=== PATIENT | male | born 1965 | race Caucasian/White ===

== ENCOUNTER → 2016-12-13 | Outpatient (CLI) | payer BC ==
[2016-12-13 15:18] LABS: CH 30.1; CHCM 33.4; HDW 2.63; HGB 14.7 gm/dL (13.0-17.5); MCH 28.9 pg (25.0-35.0); MCHC 31.9 g/dL (31.0-37.0); MCV 90.6 fL (80.0-100.0); Mean Platelet Volume 8.9; RBC 5.08 m/uL (4.30-5.90); WBC 7.2 k/uL (3.8-10.6)
== END | disposition home or self-care (01) ==
LOC: LABWHC1 14:47
PROVIDERS: ATTEND Internal Medicine Endocrinology, Diabetes & Metabolism
DX: E29.1 Testicular hypofunction (principal)
CPT/HCPCS: 85027; 84403; 36415; G0103

== ENCOUNTER → 2017-05-11 | Outpatient (CLI) | payer BC ==
[2017-05-11 12:30] LABS: CH 30.2; CHCM 34.3; HCT 43.6 % (39.0-53.0); HDW 2.63; MCH 30.4 pg (25.0-35.0); MCHC 34.3 g/dL (31.0-37.0); MCV 88.7 fL (80.0-100.0); Mean Platelet Volume 8.5; RBC 4.92 m/uL (4.30-5.90); RDW 13.5 % (11.5-15.5); WBC 4.9 k/uL (3.8-10.6)
[2017-05-11 13:10] LABS: Prostate Specific Antigen 0.61 ng/mL (0.00-4.00)
== END | disposition home or self-care (01) ==
LOC: LABWHC1 12:13
PROVIDERS: ATTEND Internal Medicine Endocrinology, Diabetes & Metabolism
DX: E29.1 Testicular hypofunction (principal)
CPT/HCPCS: 36415; 84153; 84403; 85027

== ENCOUNTER → 2018-02-26 | Outpatient (CLI) | payer BC ==
[2018-02-26 13:08] LABS: HCT 45.4 % (39.0-53.0); HGB 15.5 gm/dL (13.0-17.5); MCH 30.8 pg (25.0-35.0); MCHC 34.1 g/dL (31.0-37.0); MCV 90.2 fL (80.0-100.0); Mean Platelet Volume 7.8; Platelet Count 245 k/uL (150-450); RBC 5.04 m/uL (4.30-5.90); RDW 13.1 % (11.5-15.5); WBC 6.9 k/uL (3.8-10.6)
== END | disposition home or self-care (01) ==
LOC: LABWHC1 12:53
PROVIDERS: ATTEND Internal Medicine Endocrinology, Diabetes & Metabolism
DX: E29.1 Testicular hypofunction (principal)
CPT/HCPCS: 36415; 84153; 84403; 85027

== ENCOUNTER → 2018-05-31 | Outpatient (CLI) | payer BC ==
[2018-05-31 09:23] LABS: HCT 40.2 % (39.0-53.0); HGB 13.4 gm/dL (13.0-17.5); MCH 30.6 pg (25.0-35.0); MCHC 33.3 g/dL (31.0-37.0); MCV 92.1 fL (80.0-100.0); Mean Platelet Volume 7.7; Platelet Count 194 k/uL (150-450); RBC 4.37 m/uL (4.30-5.90); RDW 14.4 % (11.5-15.5)
== END | disposition home or self-care (01) ==
LOC: LABWHC1 07:50
PROVIDERS: ATTEND Internal Medicine Endocrinology, Diabetes & Metabolism
DX: E29.1 Testicular hypofunction (principal)
CPT/HCPCS: 36415; 84153; 84403; 85027

== ENCOUNTER → 2018-10-23 | Outpatient (CLI) | payer BC ==
[2018-10-23 13:08] LABS: HGB 15.3 gm/dL (13.0-17.5); MCH 29.5 pg (25.0-35.0); MCHC 31.8 g/dL (31.0-37.0); MCV 92.7 fL (80.0-100.0); Mean Platelet Volume 7.6; Platelet Count 245 k/uL (150-450); RBC 5.17 m/uL (4.30-5.90); RDW 13.4 % (11.5-15.5); WBC 8.1 k/uL (3.8-10.6)
== END | disposition home or self-care (01) ==
LOC: LABWHC1 12:09
PROVIDERS: ATTEND Internal Medicine Endocrinology, Diabetes & Metabolism
DX: E29.1 Testicular hypofunction (principal)
CPT/HCPCS: 36415; 84403; 85027

== ENCOUNTER → 2019-02-07 | Outpatient (CLI) | payer BC ==
[2019-02-07 12:07] LABS: HCT 53.2 % (39.0-53.0); HGB 16.9 gm/dL (13.0-17.5); MCH 27.6 pg (25.0-35.0); MCHC 31.7 g/dL (31.0-37.0); Mean Platelet Volume 7.9; Platelet Count 267 k/uL (150-450); RBC 6.11 m/uL (4.30-5.90); RDW 14.5 % (11.5-15.5)
== END | disposition home or self-care (01) ==
LOC: LABWHC1 10:55
PROVIDERS: ATTEND Internal Medicine Endocrinology, Diabetes & Metabolism
DX: E29.1 Testicular hypofunction (principal)
CPT/HCPCS: 36415; 84403; 85027

== ENCOUNTER → 2021-05-18 | Outpatient (CLI) | payer BC ==
[2021-05-18 23:00] LABS: Basophils # (A) 0.08 X 10*3/uL (0.00-0.10); Basophils % (A) 1.2 %; Eosinophils # (A) 0.25 X 10*3/uL (0.04-0.35); Eosinophils % (A) 3.7 %; HCT 39.6 % (39.6-50.0); HGB 13.3 g/dL (13.0-17.0); Lymphocytes # (A) 2.72 X 10*3/uL (0.90-5.00); Lymphocytes % (A) 40.1 %; MCH 30.6 pg (27.0-32.0); MCHC 33.6 g/dL (32.0-37.0); Mean Platelet Volume 11.6 fL (9.5-12.2); Monocytes # (A) 0.53 X 10*3/uL (0.20-1.00); Monocytes % (A) 7.8 %; Neutrophils # (A) 3.19 X 10*3/uL (1.80-7.70); Neutrophils % (A) 47.1 %; Platelet Count 193 X 10*3/uL (140-440); RBC 4.35 X 10*6/uL (4.40-5.60); RDW 13.7 % (11.5-14.5); WBC 6.78 X 10*3/uL (4.50-10.00)
[2021-05-19 06:43] LABS: African American GFR (CKD) 77.9 (60.0-200.0); Albumin 4.2 g/dL (3.80-4.90); Albumin/Globulin Ratio 1.62 (1.60-3.17); Anion Gap 9.7 mmol/L (4.00-12.00); BUN/Creat Ratio 13.33 Ratio (12.00-20.00); Calcium 8.6 mg/dL (8.7-10.3); Carbon Dioxide 21.3 mmol/L (21.6-31.8); Chol/HDL Ratio 2.84; Globulin 2.6 g/dL (1.6-3.3); LDL Cholesterol,Calculated 86.4 mg/dL (0.0-131.0); Non-African American GFR(CKD) 67.2 (60.0-200.0); Total Bilirubin 0.5 mg/dL (0.2-1.2); Total Protein 6.8 g/dL (6.2-8.2); VLDL Calculation 18.6 mg/dL (5.00-40.00)
[2021-05-19 07:19] LABS: Prostate Specific Antigen 0.2 ng/mL (0.0-3.5)
== END | disposition home or self-care (01) ==
LOC: LABWHC1 15:04
PROVIDERS: ATTEND Family Medicine
DX: Z00.00 Encounter for general adult medical examination without abnormal findings (principal); Z12.5 Encounter for screening for malignant neoplasm of prostate; E29.1 Testicular hypofunction; E55.9 Vitamin D deficiency, unspecified
CPT/HCPCS: 36415; 80053; 80061; 82306; 84153; 84443; 85025

== ENCOUNTER → 2021-08-03 | Outpatient (CLI) | payer BC | END | disposition home or self-care (01) | LOC: LABWHC1 13:21 | PROVIDERS: ATTEND Family Medicine | DX: E03.9 Hypothyroidism, unspecified (principal) | CPT/HCPCS: 36415; 84443 ==

== ENCOUNTER 2021-10-19 23:05 | Emergency (ER) | payer BC ==
[2021-10-20] MEDS ORDERED: SODIUM CHLORIDE 0.9% 1,000 ML BAG ONE (00:50)
[2021-10-20] MEDS ORDERED: SODIUM CHLORIDE 0.9% 50 ML IVPB ONE (01:00)
[2021-10-20] MEDS ORDERED: CASIRIVIMAB (REGN10933) (EUA) 600 MG, IMDEVIMAB (REGN10987) (EUA) 600 MG in SODIUM CHLO... IVPB ONE (01:00)
--- NOTE | 2021-10-20 06:03 | XR ---
EXAM: XR Chest, 2 Views CLINICAL HISTORY: Cough TECHNIQUE: Frontal and lateral views of the chest. COMPARISON: No relevant prior studies available. FINDINGS: Lungs: Low lung volumes. Patchy airspace disease bilaterally, especially in the peripheral mid to lower lungs bilaterally. Pleural space: Unremarkable. No pneumothorax. Heart: Unremarkable. No cardiomegaly. Mediastinum: Unremarkable. Bones/joints: Unremarkable. IMPRESSION: Low lung volumes. Patchy airspace disease bilaterally, especially in the peripheral mid to lower lungs bilaterally. Likely represents infectious/inflammatory process, including Covid 19. Consider follow-up.
== END 2021-10-20 04:09 | disposition home or self-care (01) ==
LOC: EC 23:05
DX: U07.1 COVID-19 (principal)
CPT/HCPCS: 71046; 87635; 99284

== ENCOUNTER 2021-10-20 23:27 | Inpatient (IN) | payer BC ==
[2021-10-20] MEDS ORDERED: DEXAMETHASONE SOD PHOSPHATE 10 MG/ML 1 ML VIAL IVP STA (23:28)
--- NOTE | 2021-10-20 23:45 | ED ---
General Adult HPI - General Chief complaint: Shortness of Breath Stated complaint: Covid+,SOB Time Seen by Provider: 10/20/21 23:27 Source: patient, EMS, RN notes reviewed Mode of arrival: EMS Limitations: no limitations - History of Present Illness Initial comments: 56-year-old male presents emergency Department with chief complaint of shortness of breath. Patient seen here last night for covid 19. Patient did receive monoclonal antibodies seemed to worsen today. Patient found to be hypoxic. Patient states that he feels that it he feels that he needs oxygen. Patient was given O2 by EMS which improved his pulse ox.. Patient continued to have fever chills cough congestion. - Related Data Home Medications Medication Instructions Recorded Confirmed Cholecalciferol [Vitamin D3] 1,000 unit PO DAILY 10/23/15 10/27/15 DULoxetine HCL [Cymbalta] 20 mg PO QAM 10/23/15 10/27/15 Gabapentin [Neurontin] 100 mg PO TID 10/23/15 10/27/15 Previous Rx's Medication Instructions Recorded Docusate [Colace] 100 mg PO BID #60 capsule 10/28/15 Hydrocodone/Acetaminophen [Gilman 1 - 2 each PO Q6HR PRN #90 tab 10/28/15 5-325] Warfarin [Coumadin] 2.5 mg PO DAILY #27 tab 10/28/15 Allergies Allergy/AdvReac Type Severity Reaction Status Date / Time No Known Allergies Allergy Verified 10/20/21 23:31 Review of Systems ROS Statement: Those systems with pertinent positive or pertinent negative responses have been documented in the HPI. ROS Other: All systems not noted in ROS Statement are negative. Past Medical History Past Medical History: Fibromyalgia Additional Past Medical History / Comment(s): insomnia History of Any Multi-Drug Resistant Organisms: None Reported Past Surgical History: Orthopedic Surgery Additional Past Surgical History / Comment(s): LEFT ACL REPAIR. Past Anesthesia/Blood Transfusion Reactions: No Reported Reaction Past Psychological History: Depression Smoking Status: Never smoker Past Alcohol Use History: None Reported Past Drug Use History: None Reported - Past Family History Father Family Medical History: Coronary Artery Disease (CAD), Hypertension General Exam Limitations: no limitations General appearance: alert, in no apparent distress Head exam: Present: atraumatic, normocephalic, normal inspection Eye exam: Present: normal appearance, PERRL, EOMI. Absent: scleral icterus, conjunctival injection, periorbital swelling ENT exam: Present: normal exam, mucous membranes moist Neck exam: Present: normal inspection. Absent: tenderness, meningismus, lymphadenopathy Respiratory exam: Present: respiratory distress, decreased breath sounds. Absent: normal lung sounds bilaterally, wheezes, rales, rhonchi, stridor Cardiovascular Exam: Present: regular rate, normal rhythm, normal heart sounds. Absent: systolic murmur, diastolic murmur, rubs, gallop, clicks Course Vital Signs 10/20/21 10/20/21 23:31 23:35 Temperature 97.6 F Pulse Rate 80 Respiratory 18 Rate Blood Pressure 133/82 O2 Sat by Pulse 78 L 85 L Oximetry Medical Decision Making - Medical Decision Making Patiently admitted for COVID-19 hypoxia - Lab Data Result diagrams: 10/20/21 23:57 Lab Results 10/20/21 Range/Units 23:57 WBC 6.6 (3.8-10.6) k/uL RBC 4.45 (4.30-5.90) m/uL Hgb 13.9 (13.0-17.5) gm/dL Hct 41.8 (39.0-53.0) % MCV 93.9 (80.0-100.0) fL MCH 31.2 (25.0-35.0) pg MCHC 33.2 (31.0-37.0) g/dL RDW 13.9 (11.5-15.5) % Plt Count 230 (150-450) k/uL MPV 8.3 Neutrophils % 92 % Lymphocytes % 5 % Monocytes % 2 % Eosinophils % 0 % Basophils % 0 % Neutrophils # 6.1 (1.3-7.7) k/uL Lymphocytes # 0.3 L (1.0-4.8) k/uL Monocytes # 0.1 (0-1.0) k/uL Eosinophils # 0.0 (0-0.7) k/uL Basophils # 0.0 (0-0.2) k/uL Disposition Clinical Impression: COVID-19, Hypoxia, Pneumonia due to COVID-19 virus Disposition: ADMITTED IP TO THIS [facility] Condition: Serious Referrals: Nacho Montoya MD [Primary Care Provider] - 1-2 days Time of Disposition: 23:45
[2021-10-20] MEDS ORDERED: NALOXONE 0.4 MG/ML 1 ML VIAL IV PRN (23:46)
[2021-10-20] MEDS ORDERED: ONDANSETRON 4 MG/2 ML VIAL IVP PRN (23:46)
[2021-10-20] MEDS ORDERED: ACETAMINOPHEN TAB 325 MG TAB PO PRN (23:46)
[2021-10-21 00:14] LABS: Basophils % (A) 0 %; Eosinophils % (A) 0 %; HCT 41.8 % (39.0-53.0); HGB 13.9 gm/dL (13.0-17.5); Lymphocytes # (A) 0.3 k/uL (1.0-4.8); Lymphocytes % (A) 5 %; MCH 31.2 pg (25.0-35.0); MCHC 33.2 g/dL (31.0-37.0); MCV 93.9 fL (80.0-100.0); Mean Platelet Volume 8.3; Monocytes # (A) 0.1 k/uL (0-1.0); Monocytes % (A) 2 %; Neutrophils # (A) 6.1 k/uL (1.3-7.7); Neutrophils % (A) 92 %; Platelet Count 230 k/uL (150-450); RBC 4.45 m/uL (4.30-5.90); RDW 13.9 % (11.5-15.5); WBC 6.6 k/uL (3.8-10.6)
--- NOTE | 2021-10-21 00:20 | XR ---
EXAMINATION TYPE: XR chest 1V portable DATE OF EXAM: 10/20/2021 COMPARISON: 10/20/2021 HISTORY: Short of breath TECHNIQUE: FINDINGS: There is patchy bilateral pulmonary interstitial and airspace infiltrates. Heart size is no rmal. There is no definite pleural effusion. Mediastinum is normal IMPRESSION: Bilateral patchy pneumonia with a changing pattern compared to exam earlier today.
[2021-10-21 01:26] LABS: Albumin 3.3 g/dL (3.5-5.0); Calcium 8.7 mg/dL (8.4-10.2); Potassium 4.1 mmol/L (3.5-5.1); Total Bilirubin 0.4 mg/dL (0.2-1.3); Total Protein 6.6 g/dL (6.3-8.2)
[2021-10-21] MEDS ORDERED: DEXAMETHASONE SOD PHOSPHATE 10 MG/ML 1 ML VIAL IVP SCH (09:00)
[2021-10-21] MEDS ORDERED: ENOXAPARIN 40 MG/0.4 ML SYRINGE SQ SCH (11:30)
--- NOTE | 2021-10-21 11:38 | P.CNPUL ---
History of Present Illness Consult date: 10/21/21 Requesting physician: Tristian Ramos Reason for consult: dyspnea, hypoxemia, abnormal CXR/CT Chief complaint: Shortness of breath, cough, congestion History of present illness: This is a very pleasant 56-year-old male patient with a known history of fibromyalgia. Nonsmoker. Approximate 1 week ago he developed symptoms of nausea vomiting diarrhea dizziness and sweating. He presented here on 10/19/2021 and has a positive for COVID-19 and received monoclonal antibodies. He came back to the emergency room last evening with worsening symptoms. Chest x-ray reveals bilateral patchy interstitial and airspace infiltrates. He is currently requiring 10 L high flow nasal cannula to maintain O2 saturations in the high 80s low 90s. White count 6.6. Hemoglobin 13.9. Lymphocytes 0.3. Sodium 135. Potassium 4.1. Bicarb 21. Creatinine 1.31. Glucose 187. Ferritin 2822. AST 89. ALT 80. LDH 1091. C-reactive protein 21.0. Initiated on Decadron. Review of Systems REVIEW OF SYSTEMS: CONSTITUTIONAL: Denies any recent significant weight loss or weight gain. EYES: Denies change in vision. EARS, NOSE, MOUTH, THROAT: Denies headaches, denies sore throat. CARDIOVASCULAR: Denies chest pain, palpitations or syncopal episodes. RESPIRATORY: Positive for shortness of breath, cough, congestion no hemoptysis. GASTROINTESTINAL: Denies change in appetite, denies abdominal pain GENITOURINARY: Denies hematuria, denies infections. MUSKULOSKELETAL: Denies pain, denies swelling. INTEGUMENTARY: Denies rash, denies eczema. NEUROLOGICAL: Denies recent memory loss, no recent seizure activity. PSYCHIATRIC: Denies anxiety, denies depression. HEMATOLOGIC/LYMPHATIC: Denies anemia, denies enlarged lymph nodes. Past Medical History Past Medical History: Fibromyalgia Additional Past Medical History / Comment(s): insomnia History of Any Multi-Drug Resistant Organisms: None Reported Past Surgical History: Orthopedic Surgery Additional Past Surgical History / Comment(s): LEFT ACL REPAIR. Past Anesthesia/Blood Transfusion Reactions: No Reported Reaction Past Psychological History: Depression Smoking Status: Never smoker Past Alcohol Use History: None Reported Past Drug Use History: None Reported - Past Family History Father Family Medical History: Coronary Artery Disease (CAD), Hypertension Medications and Allergies Home Medications Medication Instructions Recorded Confirmed Type Citalopram Hydrobromide 40 mg PO DAILY 10/21/21 10/21/21 History Eszopiclone 3 mg PO HS PRN 10/21/21 10/21/21 History Gabapentin 800 mg PO TID 10/21/21 10/21/21 History Levothyroxine Sodium [Synthroid] 50 mcg PO DAILY 10/21/21 10/21/21 History traMADol HCl [Ultram] 100 mg PO Q6HR PRN 10/21/21 10/21/21 History Allergies Allergy/AdvReac Type Severity Reaction Status Date / Time No Known Allergies Allergy Verified 10/21/21 07:18 Physical Exam Vitals: Vital Signs Temp Pulse Pulse Resp BP BP Pulse Ox 10/21/21 10:08 74 124/70 87 L 10/21/21 08:40 90 L 10/21/21 03:50 97.3 F L 80 16 118/74 90 L 10/21/21 02:02 85 L 10/21/21 01:03 84 L 10/20/21 23:35 85 L 10/20/21 23:31 97.6 F 80 18 133/82 78 L Intake and Output 10/20/21 10/21/21 10/21/21 22:59 06:59 14:59 Other: Voiding Method Urinal Weight 111.13 kg GENERAL EXAM: Alert, pleasant 56-year-old male patient, on 8 L high flow nasal cannula, in mild respiratory distress. HEAD: Normocephalic. EYES: Normal reaction of pupils, equal size. NOSE: Clear with pink turbinates. THROAT: No erythema or exudates. NECK: No masses, no JVD. CHEST: No chest wall deformity. LUNGS: Equal air entry with crackles in the bilateral bases. CVS: S1 and S2 normal with no audible murmur, regular rhythm. ABDOMEN: No hepatosplenomegaly, normal bowel sounds, no guarding or rigidity. SPINE: No scoliosis or deformity SKIN: No rashes CENTRAL NERVOUS SYSTEM: No focal deficits, tone is normal in all 4 extremities. EXTREMITIES: There is no peripheral edema. No clubbing, no cyanosis. Peripheral pulses are intact. Results - Laboratory Findings CBC and BMP: 10/20/21 23:57 10/20/21 23:57 Abnormal lab findings: Abnormal Labs 10/20/21 10/20/21 23:57 23:57 Lymphocytes # 0.3 L Sodium 135 L Carbon Dioxide 21 L Creatinine 1.31 H Glucose 187 H Ferritin 2822.0 H AST 89 H ALT 80 H Alkaline Phosphatase 225 H Lactate Dehydrogenase 1091 H C-Reactive Protein 21.0 H Albumin 3.3 L - Diagnostic Findings Chest x-ray: image reviewed Assessment and Plan Assessment: 1 Acute hypoxemic respiratory failure secondary to acute COVID-19 pneumonia. Not vaccinated. Received monoclonal antibodies on 10/19/2021. On 10 L high flow nasal cannula. Does not qualify for Remdesivir. Not qualifying for Baricitinib yet. 2 Elevated inflammatory markers secondary to above 3 Mild transaminitis secondary to above 4 History of fibromyalgia 5 Hypothyroidism Plan: The patient was seen and evaluated Chest x-ray and labs reviewed Continue Decadron 6 mg daily Add Lovenox 40 mg daily, vitamin supplements Obtain a pro-calcitonin, d-dimer Add bronchodilators Add incentive spirometer Follow-up chest x-ray, inflammatory markers in the a.m. We will continue to follow and make further recommendations based on his clinical status I, the cosigning physician, performed a history & physical examination of the patient. Lungs sounds echoes in the bilateral bases. Maintaining good O2 saturations in the 90s on 2 L high flow nasal cannula. I discussed the assessment and plan of care with my nurse practitioner, Maureen Keith. I attest to the above consultation as dictated by her. Time with Patient: Greater than 30
[2021-10-21] MEDS: ALBUTEROL HFA INHALER INHALATION SCH ×2 (11:53→20:51)
[2021-10-21] MEDS ORDERED: INSULIN ASPART (NovoLOG) 100 UNIT/ML VIAL SQ SCH (12:30)
[2021-10-21] MEDS: ASCORBIC ACID 500 MG TAB PO SCH (12:54)
[2021-10-21] MEDS: ZINC SULFATE 220 MG CAP PO SCH (12:54)
[2021-10-21] MEDS: CHOLECALCIFEROL 25 MCG (1000 IU) TABLET PO SCH (12:54)
[2021-10-21] MEDS ORDERED: ACETAMINOPHEN TAB 325 MG TAB PO PRN (14:12)
[2021-10-21] MEDS ORDERED: ONDANSETRON 4 MG/2 ML VIAL IVP PRN (14:12)
--- NOTE | 2021-10-21 14:13 | P.HPIM ---
History of Present Illness H&P Date: 10/21/21 History of present illness 56-year-old male with past medical history of fibromyalgia comes in to emergency room with symptoms of nausea, vomiting, dizziness and sweating feeling weak in with runny nose loss of taste and hence now for the past 1 week. He presented on 10/19 was found to have positive COVID results. Received his monoclonal antibodies. He Came back to the emergency room because of worsening of symptoms.Vitals reviewed patient afebrile pulse 80 respiratory rate 20 blood pressure 138/82 saturating at 88% on 10 L labs reviewed WBC 6.6 hemoglobin 13.9 d-dimer is elevated at 0.89, sodium 135 bicarb 21 BUN 16 creatinine 1.3 glucose 187 ferritin 2822 AST 89 ALT 80 alkaline phosphatase 225 LDH 1091 and CRP 21 and albumin 3.3 X-ray suggestive of bilateral patchy pneumonia. Both interstitial and airspace infiltrate Pulmonary clinic consulted for COVID pneumonia Patient placed on Lovenox 40 subcu twice a day, vitamin C, D and zinc. Dexamethasone initiated at 6 mg twice a day IV Patient is a candidate of Baritinib and will discuss about initiating it with pulmonary Venous Doppler ordered ROS Constitutional: Endorses chills, fever, malaise, nausea and vomiting Eyes: denies decreased vision, denies diplopia, denies discharge, denies pain Ears: deny: decreased hearing Ears, nose, mouth and throat: Denies dental pain, Denies headache, Denies nasal discharge, Denies nose pain Cardiovascular: Denies chest pain, Denies decreased exercise tolerance, Denies edema, Denies high blood pressure, Denies irregular heart beat, Denies palpitations, Denies paroxysmal nocturnal dyspnea, Denies rapid heart beat, Denies shortness of breath Respiratory: Denies congestion, Denies cough, Denies cough with sputum, Denies dyspnea, Denies home oxygen, Denies wheezing Gastrointestinal: Denies abdominal pain, Denies change in bowel habits, Denies coffee ground emesis, Denies early satiety, Denies excessive gas, Denies heartburn, Denies hematemesis, Denies hematochezia, Denies loss of appetite, endorses nausea and vomiting Genitourinary: Denies dysuria, Denies flank pain, Denies kidney stones, Denies menorrhagia, Denies urgency, Denies urinary frequency Musculoskeletal: Denies gait dysfunction, Denies limitation of motion, Denies morning stiffness, Denies muscle cramps Integumentary: Denies rash, Denies wounds, Denies brittle nails, Denies change in hair/nails, Denies darkening of skin Neurological: Denies balance difficulties, Denies change in speech, Denies double vision, Denies gait dysfunction, Denies loss of vision, Denies motor disturbance, Denies numbness, Denies paralysis, Denies paresthesias, Denies seizures Psychiatric: Denies anxiety, Denies depression Endocrine: Denies excessive sweating, Denies excessive thirst, Denies high blood sugars, Denies palpitations Hematologic/Lymphatic: Denies easy bruising, Denies lymphadenopathy Social history Nonsmoker, passive smoking through his son Nondrinker No marijuana use Family history Mother due to COPD Father of heart disease Has 5 siblings with no significant medical disease Has 4 children who with one son who lives with himsignificant medical problems Physical exam - Constitutional General appearance: cooperative, no acute distress, obese appears anxious - EENT Eyes: anicteric sclerae, PERRLA, normal appearance ENT: hearing grossly normal - Neck Neck: no lymphadenopathy, normal ROM, no other, no rigidity, no stridor, no thyromegaly - Respiratory Respiratory: bilateral decreased air entry bilaterally - Cardiovascular Rhythm: regular Heart sounds: normal: S1, S2 Abnormal Heart Sounds: no systolic murmur, no diastolic murmur, no rub, no S3 Gallop, no S4 Gallop, no click, no other - Gastrointestinal General gastrointestinal: normal bowel sounds, soft - Integumentary Integumentary: no rash - Neurologic Neurologic: CNII-XII intact - Musculoskeletal Musculoskeletal: gait normal, strength equal bilaterally - Psychiatric Psychiatric: A&O x's 3, appropriate affect Assessment and plan Acute hypoxic respiratory failure Acute COVID pneumonia - Supplement oxygen to keep SpO2 more than 90% - Dexamethasone 6 mg IV twice a day - Lovenox 40 subcu twice a day - Rule out pulmonary embolism and DVT - Venous Doppler ordered as patient's creatinine slightly elevated and is not a candidate for CT - We will discuss with pulmonary if patient would be a candidate for Baricitinib -We will order inflammatory markers for tomorrow -Pulmonary consulted - Albuterol inhaler as needed - Symbicort twice daily - Continue supplements vitamin C, D and zinc Acute transaminitis - Secondary to viral inflammation - Continue CMP monitoring CK D3 - Continue to monitor patient's creatinine - No acute kidney injury History of fibromyalgia - Continue gabapentin 800 3 times a day Citalopram 40 mg by mouth daily Tramadol 100 mg every 6 hours as needed Insomnia -Continue Eszopiclone 3 mg daily at bedtime Hypothyroidism - Levothyroxine 50 g by mouth daily DVT prophylaxis Lovenox 40 subcu twice a day GI prophylaxis 2. Pepcid 20 mg by mouth daily Past Medical History Past Medical History: Fibromyalgia Additional Past Medical History / Comment(s): insomnia History of Any Multi-Drug Resistant Organisms: None Reported Past Surgical History: Orthopedic Surgery Additional Past Surgical History / Comment(s): LEFT ACL REPAIR. Past Anesthesia/Blood Transfusion Reactions: No Reported Reaction Past Psychological History: Depression Smoking Status: Never smoker Past Alcohol Use History: None Reported Past Drug Use History: None Reported - Past Family History Father Family Medical History: Coronary Artery Disease (CAD), Hypertension Medications and Allergies Home Medications Medication Instructions Recorded Confirmed Type Citalopram Hydrobromide 40 mg PO DAILY 10/21/21 10/21/21 History Eszopiclone 3 mg PO HS PRN 10/21/21 10/21/21 History Gabapentin 800 mg PO TID 10/21/21 10/21/21 History Levothyroxine Sodium [Synthroid] 50 mcg PO DAILY 10/21/21 10/21/21 History traMADol HCl [Ultram] 100 mg PO Q6HR PRN 10/21/21 10/21/21 History Allergies Allergy/AdvReac Type Severity Reaction Status Date / Time No Known Allergies Allergy Verified 10/21/21 07:18 Physical Exam Vitals: Vital Signs Temp Pulse Pulse Resp BP BP Pulse Ox 10/21/21 13:16 97.9 F 80 20 138/82 88 L 10/21/21 10:08 74 124/70 87 L 10/21/21 08:40 90 L 10/21/21 03:50 97.3 F L 80 16 118/74 90 L 10/21/21 02:02 85 L 10/21/21 01:03 84 L 10/20/21 23:35 85 L 10/20/21 23:31 97.6 F 80 18 133/82 78 L Intake and Output 10/20/21 10/21/21 10/21/21 22:59 06:59 14:59 Other: Voiding Method Urinal Weight 111.13 kg Results CBC & Chem 7: 10/20/21 23:57 10/20/21 23:57 Labs: Abnormal Lab Results - Last 24 Hours (Table) 10/20/21 10/20/21 10/21/21 Range/Units 23:57 23:57 11:42 Lymphocytes # 0.3 L (1.0-4.8) k/uL D-Dimer 0.89 H (<0.60) mg/L FEU Sodium 135 L (137-145) mmol/L Carbon Dioxide 21 L (22-30) mmol/L Creatinine 1.31 H (0.66-1.25) mg/dL Glucose 187 H (74-99) mg/dL Ferritin 2822.0 H (22.0-322.0) ng/mL AST 89 H (17-59) U/L ALT 80 H (4-49) U/L Alkaline Phosphatase 225 H (38-126) U/L Lactate Dehydrogenase 1091 H (313-618) U/L C-Reactive Protein 21.0 H (<1.0) mg/dL Albumin 3.3 L (3.5-5.0) g/dL
--- NOTE | 2021-10-21 16:18 | US ---
EXAMINATION TYPE: US venous doppler duplex LE BI DATE OF EXAM: 10/21/2021 12:27 PM COMPARISON: NONE CLINICAL HISTORY: DVT, hypoxia. SIDE PERFORMED: Bilateral TECHNIQUE: The lower extremity deep venous system is examined utilizing real time linear array sonog sharon with graded compression, doppler sonography and color-flow sonography. VESSELS IMAGED: Common Femoral Vein Deep Femoral Vein Greater Saphenous Vein * Femoral Vein Popliteal Vein Small Saphenous Vein * Proximal Calf Veins (* superficial vessels) There is normal flow, compressibility, vascular waveforms. Right Leg: Negative for DVT Left Leg: Negative for DVT IMPRESSION: No evident deep venous thrombosis within the lower extremities from the level of the knee centrally
[2021-10-21] MEDS: traMADol 50 MG TAB PO PRN ×2 (16:46→21:10)
[2021-10-21] MEDS: GABAPENTIN 400 MG CAP PO SCH ×2 (16:46→21:08)
[2021-10-21 17:25] LABS: Glucose,Whole Blood 141 mg/dL (75-99)
[2021-10-21] MEDS: INSULIN ASPART (NovoLOG) 100 UNIT/ML VIAL SQ SCH ×2 (18:19→21:22)
[2021-10-21 21:05] LABS: Glucose,Whole Blood 126 mg/dL (75-99)
[2021-10-21] MEDS: DEXAMETHASONE SOD PHOSPHATE 10 MG/ML 1 ML VIAL IVP SCH (21:08)
[2021-10-21] MEDS: guaiFENesin 600 MG TABLET.ER PO SCH (21:08)
[2021-10-21] MEDS: ENOXAPARIN 40 MG/0.4 ML SYRINGE SQ SCH (21:09)
[2021-10-22] MEDS: LEVOTHYROXINE 50 MCG TAB PO SCH (05:56)
[2021-10-22 07:24] LABS: Glucose,Whole Blood 132 mg/dL (75-99)
[2021-10-22] MEDS: INSULIN ASPART (NovoLOG) 100 UNIT/ML VIAL SQ SCH ×4 (08:03→20:11)
[2021-10-22] MEDS: CITALOPRAM HYDROBROMIDE 20 MG TAB PO SCH (08:11)
[2021-10-22] MEDS: GABAPENTIN 400 MG CAP PO SCH ×3 (08:12→21:45)
[2021-10-22] MEDS: FAMOTIDINE 20 MG TAB PO SCH (08:12)
[2021-10-22] MEDS: traMADol 50 MG TAB PO PRN ×3 (08:12→20:11)
[2021-10-22] MEDS: guaiFENesin 600 MG TABLET.ER PO SCH ×2 (08:13→20:09)
[2021-10-22] MEDS: CHOLECALCIFEROL 25 MCG (1000 IU) TABLET PO SCH (08:13)
[2021-10-22] MEDS: ZINC SULFATE 220 MG CAP PO SCH (08:13)
[2021-10-22] MEDS: ENOXAPARIN 40 MG/0.4 ML SYRINGE SQ SCH ×2 (08:13→20:09)
[2021-10-22] MEDS: ASCORBIC ACID 500 MG TAB PO SCH (08:13)
[2021-10-22] MEDS: DEXAMETHASONE SOD PHOSPHATE 10 MG/ML 1 ML VIAL IVP SCH ×2 (08:13→20:09)
[2021-10-22] MEDS: ALBUTEROL HFA INHALER INHALATION SCH ×3 (08:53→22:24)
[2021-10-22 11:42] LABS: Glucose,Whole Blood 153 mg/dL (75-99)
[2021-10-22] MEDS ORDERED: VANCOMYCIN IV PER PHARMACY 1 EACH MISC MISCELLANE PRN (12:37)
[2021-10-22] MEDS ORDERED: PIPERACILLIN-TAZOBACTAM 3.375 GM in SODIUM CHLORIDE 0.9% 100 ML IVPB STA (12:43)
[2021-10-22] MEDS ORDERED: VANCOMYCIN 1,750 MG in SODIUM CHLORIDE 0.9% 500 ML 500 ML IVPB ONE (13:15)
--- NOTE | 2021-10-22 13:47 | P.PN ---
Subjective Progress Note Date: 10/22/21 Principal diagnosis: Dyspnea, hypoxia, COVID-19 This is a very pleasant 56-year-old male patient with a known history of fibromyalgia. Nonsmoker. Approximate 1 week ago he developed symptoms of nausea vomiting diarrhea dizziness and sweating. He presented here on 10/19/2021 and has a positive for COVID-19 and received monoclonal antibodies. He came back to the emergency room last evening with worsening symptoms. Chest x-ray reveals bilateral patchy interstitial and airspace infiltrates. He is currently requiring 10 L high flow nasal cannula to maintain O2 saturations in the high 80s low 90s. White count 6.6. Hemoglobin 13.9. Lymphocytes 0.3. Sodium 135. Potassium 4.1. Bicarb 21. Creatinine 1.31. Glucose 187. Ferritin 2822. AST 89. ALT 80. LDH 1091. C-reactive protein 21.0. Initiated on Decadron. On 10/22/2021 patient seen in follow-up on medical surgical floor, he is awake and alert, in no acute distress, overnight he wore 15 L high flow and n onrebreather mask, he is currently off the nonrebreather mask and not he is on 15 L high flow nasal cannula and he is maintaining O2 saturations at 93%, afebrile, hemodynamically stable. However his oxygen requirements have significantly increased in last 24 hours. His pro calcitonin level was sig nificantly elevated at 9.75, and patient is not a candidate for Baricitinib in view of possibility of underlying bacterial infection. Patient states she is coughing and bringing up some greenish colored phlegm at times, he is being started on Zosyn and vancomycin empirically, we will order blood cultures, sputum culture and urine cultures. Clinically he looks fairly comfortable, no distress, lung sounds are revealing coarse diffuse rhonchi and rales. No altered mentation, no fever. He continues on Lovenox 40 mg twice daily, and Decadron 6 mg twice daily. Objective - Vital Signs Vital signs: Vital Signs Temp 97.3 F L 10/22/21 10:52 Pulse 73 10/22/21 10:52 Resp 16 10/22/21 10:52 BP 127/72 10/22/21 10:52 Pulse Ox 93 L 10/22/21 10:52 Intake & Output 10/21/21 10/22/21 10/22/21 18:59 06:59 18:59 Intake Total 360 120 Output Total 600 200 Balance -600 160 120 Weight 111.13 kg Intake: Oral 360 120 Output: Urine 600 200 Other: Voiding Method Urinal Urinal # Voids 1 - Exam GENERAL EXAM: Alert, very pleasant, 56-year-old white male, on 15 L of oxygen pulse ox is 93% comfortable in no apparent distress. HEAD: Normocephalic/atraumatic. EYES: Normal reaction of pupils, equal size. Conjunctiva pink, sclera white. NOSE: Clear with pink turbinates. THROAT: No erythema or exudates. NECK: No masses, no JVD, no thyroid enlargement, no adenopathy. CHEST: No chest wall deformity. Symmetrical expansion. LUNGS: Equal air entry with diffuse crackles, and rhonchi, no wheezing CVS: Regular rate and rhythm, normal S1 and S2, no gallops, no murmurs, no rubs ABDOMEN: Soft, nontender. No hepatosplenomegaly, normal bowel sounds, no guarding or rigidity. EXTREMITIES: No clubbing, no edema, no cyanosis, 2+ pulses and upper and lower extremities. MUSCULOSKELETAL: Muscle strength and tone normal. SPINE: No scoliosis or deformity SKIN: No rashes CENTRAL NERVOUS SYSTEM: Alert and oriented -3. No focal deficits, tone is normal in all 4 extremities. PSYCHIATRIC: Alert and oriented -3. Appropriate affect. Intact judgment and insight. - Labs CBC & Chem 7: 10/20/21 23:57 10/20/21 23:57 Labs: Abnormal Lab Results - Last 24 Hours (Table) 10/21/21 10/21/21 10/21/21 Range/Units 11:47 17:23 21:03 POC Glucose (mg/dL) 141 H 126 H (75-99) mg/dL Procalcitonin 9.75 H (0.02-0.09) ng/mL 10/22/21 10/22/21 Range/Units 07:22 11:39 POC Glucose (mg/dL) 132 H 153 H (75-99) mg/dL Procalcitonin (0.02-0.09) ng/mL Assessment and Plan Plan: Assessment: #1. Acute hypoxic respiratory failure secondary to acute COVID-19 pneumonia. Patient is status post monoclonal antibody infusion on 10/19/2021. Patient was not a candidate for Remdesivir related to severe hypoxic respiratory failure on presentation requiring 10 L high flow nasal cannula. Today he is on 15 L and 100% nonrebreather mask, his FiO2 requirements have increased but patient is not a candidate for Baricitinib related to possibility of underlying bacterial infection #2. Elevated pro-calcitonin, rule out possibility of bacterial superinfection, patient has been empirically started on Zosyn and vancomycin #3. Elevated inflammatory markers related to acute COVID-19 pneumonia and possibly a bacterial pneumonia #4. Elevated LFTs related to COVID-19 pneumonia #5. Elevated d-dimer, venous Doppler of bilateral lower extremities was negative for DVT #6. History of fibromyalgia #7. Depression #8. Never smoker #9. Acute kidney injury possibly related to Covid 19 related ATN #10. Hypothyroidism Plan: Continue current medical treatment Patient is not a candidate for Baricitinib related to possibility of underlying bacterial infection We'll obtain blood cultures, sputum culture and urinalysis Patient has been started on Zosyn and vancomycin Continue with Decadron, continue with Lovenox We'll continue to follow patient's clinical course Monitor FiO2 demands patterns, monitor fever pattern Encouraged patient to reposition self in bed, self prone if able Follow-up chest x-ray tomorrow Follow-up inflammatory markers I performed a history & physical examination of the patient and discussed their management with my nurse practitioner, Angi Roberts. I reviewed the nurse practitioner's note and agree with the documented findings and plan of care. Lung sounds are positive for dim breath sounds throughout the lung rivera. The findings and the impression was discussed with the patient. I attest to the documentation by the nurse practitioner. Time with Patient: Less than 30
--- NOTE | 2021-10-22 14:41 | P.PN ---
Subjective Progress Note Date: 10/22/21 History of present illness 56-year-old male with past medical history of fibromyalgia comes in to emergency room with symptoms of nausea, vomiting, dizziness and sweating feeling weak in with runny nose loss of taste and hence now for the past 1 week. He presented on 10/19 was found to have positive COVID results. Received his monoclonal antibodies. He Came back to the emergency room because of worsening of symptoms.Vitals reviewed patient afebrile pulse 80 respiratory rate 20 blood pressure 138/82 saturating at 88% on 10 L labs reviewed WBC 6.6 hemoglobin 13.9 d-dimer is elevated at 0.89, sodium 135 bicarb 21 BUN 16 creatinine 1.3 glucose 187 ferritin 2822 AST 89 ALT 80 alkaline phosphatase 225 LDH 1091 and CRP 21 and albumin 3.3 X-ray suggestive of bilateral patchy pneumonia. Both interstitial and airspace infiltrate Pulmonary clinic consulted for COVID pneumonia Patient placed on Lovenox 40 subcu twice a day, vitamin C, D and zinc. Dexamethasone initiated at 6 mg twice a day IV Patient is a candidate of Baritinib and will discuss about initiating it with pulmonary Venous Doppler ordered 10/22: Patient is seen on the Medr floor in follow-up. He continues to have dyspnea and is on 15 L high flow nasal cannula and nonrebreather with pulse ox of 87 and 95%. He's been afebrile, heart rate in the 60s and 70s, blood pressure 127/73. Pro-calcitonin came back high at 9.75 and we started the patient on Zosyn and vancomycin for bacterial pneumonia coverage. Patient has coarse crackles bilaterally. No lower extremity edema. He has been seen and followed by pulmonary medicine. Patient is not a candidate for Baricitinib. Patient is continued on Decadron, Lovenox and vitamin supplements. ROS Constitutional: Endorses chills, fever, malaise, nausea and vomiting Eyes: denies decreased vision, denies diplopia, denies discharge, denies pain Ears: deny: decreased hearing Ears, nose, mouth and throat: Denies dental pain, Denies headache, Denies nasal discharge, Denies nose pain Cardiovascular: Denies chest pain, Denies decreased exercise tolerance, Denies edema, Denies high blood pressure, Denies irregular heart beat, Denies palpitations, Denies paroxysmal nocturnal dyspnea, Denies rapid heart beat, Denies shortness of breath Respiratory: Denies congestion, reports cough, Denies cough with sputum, reports dyspnea, Denies home oxygen, Denies wheezing, dyspnea with minimal exertion Gastrointestinal: Denies abdominal pain, Denies change in bowel habits, Denies coffee ground emesis, Denies early satiety, Denies excessive gas, Denies heartburn, Denies hematemesis, Denies hematochezia, Denies loss of appetite, endorses nausea and vomiting Genitourinary: Denies dysuria, Denies flank pain, Denies kidney stones, Denies menorrhagia, Denies urgency, Denies urinary frequency Musculoskeletal: Denies gait dysfunction, Denies limitation of motion, Denies morning stiffness, Denies muscle cramps Integumentary: Denies rash, Denies wounds, Denies brittle nails, Denies change in hair/nails, Denies darkening of skin Neurological: Denies balance difficulties, Denies change in speech, Denies double vision, Denies gait dysfunction, Denies loss of vision, Denies motor disturbance, Denies numbness, Denies paralysis, Denies paresthesias, Denies seizures Psychiatric: Denies anxiety, Denies depression Endocrine: Denies excessive sweating, Denies excessive thirst, Denies high blood sugars, Denies palpitations Hematologic/Lymphatic: Denies easy bruising, Denies lymphadenopathy Physical exam - Constitutional General appearance: cooperative, no acute distress, obese appears anxious - EENT Eyes: anicteric sclerae, PERRLA, normal appearance ENT: hearing grossly normal - Neck Neck: no lymphadenopathy, normal ROM, no other, no rigidity, no stridor, no thyromegaly - Respiratory Respiratory: bilateral decreased air entry bilaterally - Cardiovascular Rhythm: regular Heart sounds: normal: S1, S2 Abnormal Heart Sounds: no systolic murmur, no diastolic murmur, no rub, no S3 Gallop, no S4 Gallop, no click, no other - Gastrointestinal General gastrointestinal: normal bowel sounds, soft - Integumentary Integumentary: no rash - Neurologic Neurologic: CNII-XII intact - Musculoskeletal Musculoskeletal: gait normal, strength equal bilaterally - Psychiatric Psychiatric: A&O x's 3, appropriate affect Assessment and plan Acute hypoxic respiratory failure Acute COVID pneumonia - Supplement oxygen to keep SpO2 more than 90% - Dexamethasone 6 mg IV twice a day - Lovenox 40 subcu twice a day - Ruled out pulmonary embolism and DVT - Not a candidate for Baricitinib -Monitor inflammatory markers -Pulmonary consulted - Albuterol inhaler as needed - Symbicort twice daily - Continue supplements vitamin C, D and zinc Acute transaminitis - Secondary to viral inflammation - Continue CMP monitoring CK D3 - Continue to monitor patient's creatinine - No acute kidney injury History of fibromyalgia - Continue gabapentin 800 3 times a day Citalopram 40 mg by mouth daily Tramadol 100 mg every 6 hours as needed Insomnia -Continue Eszopiclone 3 mg daily at bedtime Hypothyroidism - Levothyroxine 50 g by mouth daily DVT prophylaxis Lovenox 40 subcu twice a day GI prophylaxis Pepcid 20 mg by mouth daily Impression and plan of care have been directed as dictated by the signing physician. Rochelle Constantino nurse practitioner acting as scribe for signing physician. Objective - Vital Signs Vital signs: Vital Signs Temp 97.3 F L 10/22/21 10:52 Pulse 73 10/22/21 10:52 Resp 16 10/22/21 10:52 BP 127/72 10/22/21 10:52 Pulse Ox 93 L 10/22/21 10:52 Intake & Output 10/21/21 10/22/21 10/22/21 18:59 06:59 18:59 Intake Total 360 120 Output Total 600 200 Balance -600 160 120 Weight 111.13 kg Intake: Oral 360 120 Output: Urine 600 200 Other: Voiding Method Urinal Urinal # Voids 1 - Labs CBC & Chem 7: 10/20/21 23:57 10/20/21 23:57 Labs: Abnormal Lab Results - Last 24 Hours (Table) 10/21/21 10/21/21 10/21/21 Range/Units 11:47 17:23 21:03 POC Glucose (mg/dL) 141 H 126 H (75-99) mg/dL Procalcitonin 9.75 H (0.02-0.09) ng/mL 10/22/21 10/22/21 Range/Units 07:22 11:39 POC Glucose (mg/dL) 132 H 153 H (75-99) mg/dL Procalcitonin (0.02-0.09) ng/mL
[2021-10-22 16:55] LABS: Glucose,Whole Blood 133 mg/dL (75-99)
[2021-10-22] MEDS ORDERED: PIPERACILLIN-TAZOBACTAM 3.375 GM in SODIUM CHLORIDE 0.9% 100 ML IVPB SCH (18:00)
[2021-10-22 20:09] LABS: Glucose,Whole Blood 129 mg/dL (75-99)
[2021-10-22] MEDS: PIPERACILLIN-TAZOBACTAM 3.375 GM in SODIUM CHLORIDE 0.9% 100 ML IVPB SCH (21:45)
[2021-10-23] MEDS ORDERED: VANCOMYCIN 1,750 MG in SODIUM CHLORIDE 0.9% 500 ML 500 ML IVPB SCH (02:00)
[2021-10-23 02:44] LABS: Appearance,Urine Clear (Clear); Bilirubin,Urine Negative (Negative); Blood,Urine Negative (Negative); Color,Urine Yellow; Glucose,Urine (UA) Negative (Negative); Ketones,Urine Negative (Negative); Leukocyte Esterase,Urine Negative (Negative); Nitrite,Urine Negative (Negative); Protein,Urine Trace (Negative); Specific Gravity,Urine 1.032 (1.001-1.035); Urobilinogen,Urine <2.0 mg/dL (<2.0)
[2021-10-23] MEDS: traMADol 50 MG TAB PO PRN ×3 (05:06→21:25)
[2021-10-23] MEDS: PIPERACILLIN-TAZOBACTAM 3.375 GM in SODIUM CHLORIDE 0.9% 100 ML IVPB SCH ×3 (05:39→21:26)
[2021-10-23] MEDS: LEVOTHYROXINE 50 MCG TAB PO SCH (05:39)
[2021-10-23 07:07] LABS: Glucose,Whole Blood 115 mg/dL (75-99)
[2021-10-23] MEDS: INSULIN ASPART (NovoLOG) 100 UNIT/ML VIAL SQ SCH ×4 (07:15→21:17)
[2021-10-23] MEDS: ALBUTEROL HFA INHALER INHALATION SCH ×3 (07:24→19:45)
--- NOTE | 2021-10-23 07:34 | XR ---
EXAMINATION TYPE: XR chest 1V portable DATE OF EXAM: 10/23/2021 COMPARISON: Chest x-ray 10/20/2021 HISTORY: Covid TECHNIQUE: Single frontal view of the chest is obtained. FINDINGS: There is no evident pneumothorax or pleural effusion. The airspace disease appears somewha t less confluent on today's exam. Heart and mediastinal silhouette shows a similar appearance. IMPRESSION: Some improvement in aeration as compared to prior exam
[2021-10-23] MEDS: DEXAMETHASONE SOD PHOSPHATE 10 MG/ML 1 ML VIAL IVP SCH ×2 (08:39→21:25)
[2021-10-23] MEDS: GABAPENTIN 400 MG CAP PO SCH ×3 (08:39→21:25)
[2021-10-23] MEDS: ENOXAPARIN 40 MG/0.4 ML SYRINGE SQ SCH ×2 (08:39→21:25)
[2021-10-23] MEDS: CITALOPRAM HYDROBROMIDE 20 MG TAB PO SCH (08:39)
[2021-10-23] MEDS: ZINC SULFATE 220 MG CAP PO SCH (08:40)
[2021-10-23] MEDS: FAMOTIDINE 20 MG TAB PO SCH (08:40)
[2021-10-23] MEDS: CHOLECALCIFEROL 25 MCG (1000 IU) TABLET PO SCH (08:40)
[2021-10-23] MEDS: guaiFENesin 600 MG TABLET.ER PO SCH ×2 (08:40→21:25)
[2021-10-23] MEDS: ASCORBIC ACID 500 MG TAB PO SCH (08:40)
[2021-10-23 10:48] LABS: Basophils % (A) 0 %; Eosinophils % (A) 0 %; HCT 42.5 % (39.0-53.0); HGB 13.9 gm/dL (13.0-17.5); Lymphocytes # (A) 0.7 k/uL (1.0-4.8); Lymphocytes % (A) 8 %; MCH 30.9 pg (25.0-35.0); MCHC 32.8 g/dL (31.0-37.0); MCV 94.2 fL (80.0-100.0); Mean Platelet Volume 8.3; Monocytes # (A) 0.4 k/uL (0-1.0); Monocytes % (A) 5 %; Neutrophils # (A) 6.9 k/uL (1.3-7.7); Neutrophils % (A) 84 %; Platelet Count 310 k/uL (150-450); RBC 4.52 m/uL (4.30-5.90); RDW 14.1 % (11.5-15.5); WBC 8.2 k/uL (3.8-10.6)
[2021-10-23 11:07] LABS: ALT 138 U/L (4-49); AST 101 U/L (17-59); African American GFR (CKD) 77 (>60 ml/min/1.73 sqM); Albumin/Globulin Ratio 0.9; Alkaline Phosphatase 161 U/L (38-126); Anion Gap 9 mmol/L; Blood Urea Nitrogen 32 mg/dL (9-20); C Reactive Protein 1.7 mg/dL (<1.0); Calcium 8.6 mg/dL (8.4-10.2); Carbon Dioxide 24 mmol/L (22-30); Chloride 107 mmol/L (98-107); Globulin 3.2 g/dL; Glucose 116 mg/dL (74-99); LDH 1001 U/L (313-618); Non-African American GFR(CKD) 66 (>60 ml/min/1.73 sqM); Potassium 4.2 mmol/L (3.5-5.1); Sodium 140 mmol/L (137-145); Total Bilirubin 0.7 mg/dL (0.2-1.3); Total Protein 6.2 g/dL (6.3-8.2)
--- NOTE | 2021-10-23 11:17 | P.PN ---
Subjective Progress Note Date: 10/23/21 History of present illness 56-year-old male with past medical history of fibromyalgia comes in to emergency room with symptoms of nausea, vomiting, dizziness and sweating feeling weak in with runny nose loss of taste and hence now for the past 1 week. He presented on 10/19 was found to have positive COVID results. Received his monoclonal antibodies. He Came back to the emergency room because of worsening of symptoms.Vitals reviewed patient afebrile pulse 80 respiratory rate 20 blood pressure 138/82 saturating at 88% on 10 L labs reviewed WBC 6.6 hemoglobin 13.9 d-dimer is elevated at 0.89, sodium 135 bicarb 21 BUN 16 creatinine 1.3 glucose 187 ferritin 2822 AST 89 ALT 80 alkaline phosphatase 225 LDH 1091 and CRP 21 and albumin 3.3 X-ray suggestive of bilateral patchy pneumonia. Both interstitial and airspace infiltrate Pulmonary clinic consulted for COVID pneumonia Patient placed on Lovenox 40 subcu twice a day, vitamin C, D and zinc. Dexamethasone initiated at 6 mg twice a day IV Patient is a candidate of Baritinib and will discuss about initiating it with pulmonary Venous Doppler ordered 10/22: [facility]. He continues to have dyspnea and is on 15 L high flow nasal cannula and nonrebreather with pulse ox o f 87 and 95%. He's been afebrile, heart rate in the 60s and 70s, blood pressure 127/73. Pro-calcitonin came back high at 9.75 and we started the patient on Zosyn and vancomycin for bacterial pneumonia coverage. Patient has coarse crackles bilaterally. No lower extremity edema. He has been seen and followed by pulmonary medicine. Patient is not a candidate for Baricitinib. Patient is continued on Decadron, Lovenox and vitamin supplements. 10/23: Is found sitting up in the edge of the bed. He is currently not on a Ventimask. However his pulse oxing still around 88 to 91 % on Ventimask or 15 L high flow nasal cannula. Patient continues to have dyspnea with activity and speaking. Patient states that he is feeling much better compared to yesterday. Continues to have a cough. No lower extremity edema. He has rhonchi to the bases bilaterally. He is currently on Decadron Lovenox and vitamin supplements. Patient remains afebrile, heart rate 62, respirations 17, blood pressure 118/68 pulse ox 93% on 15 L high flow nasal cannula ROS Constitutional: Endorses chills, fever, malaise, nausea and vomiting Eyes: denies decreased vision, denies diplopia, denies discharge, denies pain Ears: deny: decreased hearing Ears, nose, mouth and throat: Denies dental pain, Denies headache, Denies nasal discharge, Denies nose pain Cardiovascular: Denies chest pain, Denies decreased exercise tolerance, Denies edema, Denies high blood pressure, Denies irregular heart beat, Denies palpitations, Denies paroxysmal nocturnal dyspnea, Denies rapid heart beat, Denies shortness of breath Respiratory: Denies congestion, reports cough, Denies cough with sputum, reports dyspnea, Denies home oxygen, Denies wheezing, dyspnea with minimal exertion Gastrointestinal: Denies abdominal pain, Denies change in bowel habits, Denies coffee ground emesis, Denies early satiety, Denies excessive gas, Denies heartburn, Denies hematemesis, Denies hematochezia, Denies loss of appetite, endorses nausea and vomiting Genitourinary: Denies dysuria, Denies flank pain, Denies kidney stones, Denies menorrhagia, Denies urgency, Denies urinary frequency Musculoskeletal: Denies gait dysfunction, Denies limitation of motion, Denies morning stiffness, Denies muscle cramps Integumentary: Denies rash, Denies wounds, Denies brittle nails, Denies change in hair/nails, Denies darkening of skin Neurological: Denies balance difficulties, Denies change in speech, Denies double vision, Denies gait dysfunction, Denies loss of vision, Denies motor disturbance, Denies numbness, Denies paralysis, Denies paresthesias, Denies seizures Psychiatric: Denies anxiety, Denies depression Endocrine: Denies excessive sweating, Denies excessive thirst, Denies high blood sugars, Denies palpitations Hematologic/Lymphatic: Denies easy bruising, Denies lymphadenopathy Physical exam - Constitutional General appearance: cooperative, no acute distress, obese appears anxious - EENT Eyes: anicteric sclerae, PERRLA, normal appearance ENT: hearing grossly normal - Neck Neck: no lymphadenopathy, normal ROM, no other, no rigidity, no stridor, no thyromegaly - Respiratory Respiratory: bilateral decreased air entry bilaterally - Cardiovascular Rhythm: regular Heart sounds: normal: S1, S2 Abnormal Heart Sounds: no systolic murmur, no diastolic murmur, no rub, no S3 Gallop, no S4 Gallop, no click, no other - Gastrointestinal General gastrointestinal: normal bowel sounds, soft - Integumentary Integumentary: no rash - Neurologic Neurologic: CNII-XII intact - Musculoskeletal Musculoskeletal: gait normal, strength equal bilaterally - Psychiatric Psychiatric: A&O x's 3, appropriate affect Assessment and plan 1. Acute hypoxic respiratory failure. Supplement oxygen to keep SpO2 more than 90%. Ruled out pulmonary embolism and DVT, Pulmonary consulted, Albuterol inhaler as needed, Symbicort twice daily 2. Acute COVID pneumonia. Dexamethasone 6 mg IV twice a day, Lovenox 40 subcu twice a day, Not a candidate for Baricitinib, Monitor inflammatory markers. Continue supplements vitamin C, D and zinc 3. Acute transaminitis Secondary to viral inflammation. Continue CMP monitoring 4. CK D3. Continue to monitor patient's creatinine. No acute kidney injury 5. History of fibromyalgia. continue gabapentin 800 3 times a day, Citalopram 40 mg by mouth daily, Tramadol 100 mg every 6 hours as needed 6. Insomnia. Continue Eszopiclone 3 mg daily at bedtime 7. Hypothyroidism. Levothyroxine 50 g by mouth daily 8. DVT prophylaxis. Lovenox 40 subcu twice a day 9. GI prophylaxis. Pepcid 20 mg by mouth daily Discharge Plan: more than likely home Impression and plan of care have been directed as dictated by the signing physician. Idalia Huang nurse practitioner acting as scribe for signing physician. Objective - Vital Signs Vital signs: Vital Signs Temp 98 F 10/23/21 09:51 Pulse 62 10/23/21 09:51 Resp 17 10/23/21 09:51 BP 118/68 10/23/21 09:51 Pulse Ox 93 L 10/23/21 09:51 Intake & Output 10/22/21 10/23/21 10/23/21 18:59 06:59 18:59 Intake Total 120 Output Total 500 Balance 120 -500 Intake: Oral 120 Output: Urine 500 Other: Voiding Method Urinal Urinal # Voids 3 1 # Bowel Movements 0 - Labs CBC & Chem 7: 10/23/21 09:30 10/23/21 09:30 Labs: Abnormal Lab Results - Last 24 Hours (Table) 10/22/21 10/22/21 10/22/21 Range/Units 11:39 16:51 20:08 Lymphocytes # (1.0-4.8) k/uL D-Dimer (<0.60) mg/L FEU BUN (9-20) mg/dL Glucose (74-99) mg/dL POC Glucose (mg/dL) 153 H 133 H 129 H (75-99) mg/dL AST (17-59) U/L ALT (4-49) U/L Alkaline Phosphatase (38-126) U/L Lactate Dehydrogenase (313-618) U/L C-Reactive Protein (<1.0) mg/dL Total Protein (6.3-8.2) g/dL Albumin (3.5-5.0) g/dL Urine Protein (Negative) 10/23/21 10/23/21 10/23/21 Range/Units 02:28 07:02 09:30 Lymphocytes # 0.7 L (1.0-4.8) k/uL D-Dimer (<0.60) mg/L FEU BUN (9-20) mg/dL Glucose (74-99) mg/dL POC Glucose (mg/dL) 115 H (75-99) mg/dL AST (17-59) U/L ALT (4-49) U/L Alkaline Phosphatase (38-126) U/L Lactate Dehydrogenase (313-618) U/L C-Reactive Protein (<1.0) mg/dL Total Protein (6.3-8.2) g/dL Albumin (3.5-5.0) g/dL Urine Protein Trace H (Negative) 10/23/21 10/23/21 Range/Units 09:30 09:30 Lymphocytes # (1.0-4.8) k/uL D-Dimer 1.10 H (<0.60) mg/L FEU BUN 32 H (9-20) mg/dL Glucose 116 H (74-99) mg/dL POC Glucose (mg/dL) (75-99) mg/dL AST 101 H (17-59) U/L ALT 138 H (4-49) U/L Alkaline Phosphatase 161 H (38-126) U/L Lactate Dehydrogenase 1001 H (313-618) U/L C-Reactive Protein 1.7 H (<1.0) mg/dL Total Protein 6.2 L (6.3-8.2) g/dL Albumin 3.0 L (3.5-5.0) g/dL Urine Protein (Negative)
[2021-10-23 12:10] LABS: Glucose,Whole Blood 106 mg/dL (75-99)
[2021-10-23 16:34] LABS: Glucose,Whole Blood 91 mg/dL (75-99)
--- NOTE | 2021-10-23 17:36 | P.PN ---
Subjective Progress Note Date: 10/23/21 Principal diagnosis: COVID-19 pneumonia This is a very pleasant 56-year-old male patient with a known history of fibromyalgia. Nonsmoker. Approximate 1 week ago he developed symptoms of nausea vomiting diarrhea dizziness and sweating. He presented here on 10/19/2021 and has a positive for COVID-19 and received monoclonal antibodies. He came back to the emergency room last evening with worsening symptoms. Chest x-ray reveals bilateral patchy interstitial and airspace infiltrates. He is currently requiring 10 L high flow nasal cannula to maintain O2 saturations in the high 80s low 90s. White count 6.6. Hemoglobin 13.9. Lymphocytes 0.3. Sodium 135. Potassium 4.1. Bicarb 21. Creatinine 1.31. Glucose 187. Ferritin 2822. AST 89. ALT 80. LDH 1091. C-reactive protein 21.0. Initiated on Decadron. On 10/22/2021 patient seen in follow-up on medical surgical floor, he is awake and alert, in no acute distress, overnight he wore 15 L high flow and nonrebrea ther mask, he is currently off the nonrebreather mask and not he is on 15 L high flow nasal cannula and he is maintaining O2 saturations at 93%, afebrile, hemodynamically stable. However his oxygen requirements have significantly increased in last 24 hours. His pro calcitonin level was significantly elevated at 9.75, and patient is not a candidate for Baricitinib in view of possibility of underlying bacterial infection. Patient states she is coughing and bringing up some greenish colored phlegm at times, he is being started on Zosyn and vancomycin empirically, we will order blood cultures, sputum culture and urine cultures. Clinically he looks fairly comfortable, no distress, lung sounds are revealing coarse diffuse rhonchi and rales. No altered mentation, no fever. He continues on Lovenox 40 mg twice daily, and Decadron 6 mg twice daily. The patient is seen today 10/23/2021 in follow-up on the regular medical floor. He remains awake and alert in no acute distress. He is currently on 15 L high flow nasal cannula as a nonrebreather mask. Chest x-ray showing some improvement in aeration. He was initiated on vancomycin and Zosyn per medicine. Pro calcitonin was 9.7. White count 8.2. Hemoglobin 13.9. D-dimer 1.10. Sodium 140. Potassium 4.2. Creatinine 1.21. AST 11. ALT 138. LDH 1001. C- reactive protein 1.7. No cultures resulted. Objective - Vital Signs Vital signs: Vital Signs Temp 98.3 F 10/23/21 15:19 Pulse 52 L 10/23/21 15:19 Resp 18 10/23/21 15:19 BP 117/72 10/23/21 15:19 Pulse Ox 93 L 10/23/21 15:19 Intake & Output 10/22/21 10/23/21 10/23/21 18:59 06:59 18:59 Intake Total 120 Output Total 500 Balance 120 -500 Intake: Oral 120 Output: Urine 500 Other: Voiding Method Urinal Urinal # Voids 3 1 # Bowel Movements 0 - Exam GENERAL EXAM: Alert, very pleasant, 56-year-old male patient, on 15 L of high flow oxygen plus a nonrebreather mask, fairly comfortable in no apparent distress. HEAD: Normocephalic/atraumatic. EYES: Normal reaction of pupils, equal size. Conjunctiva pink, sclera white. NOSE: Clear with pink turbinates. THROAT: No erythema or exudates. NECK: No masses, no JVD, no thyroid enlargement, no adenopathy. CHEST: No chest wall deformity. Symmetrical expansion. LUNGS: Equal air entry with diffuse crackles, and rhonchi, no wheezing CVS: Regular rate and rhythm, normal S1 and S2, no gallops, no murmurs, no rubs ABDOMEN: Soft, nontender. No hepatosplenomegaly, normal bowel sounds, no guarding or rigidity. EXTREMITIES: No clubbing, no edema, no cyanosis, 2+ pulses and upper and lower extremities. MUSCULOSKELETAL: Muscle strength and tone normal. SPINE: No scoliosis or deformity SKIN: No rashes CENTRAL NERVOUS SYSTEM: No focal deficits, tone is normal in all 4 extremities. PSYCHIATRIC: Alert and oriented -3. Appropriate affect. Intact judgment and insight. - Labs CBC & Chem 7: 10/23/21 09:30 10/23/21 09:30 Labs: Abnormal Lab Results - Last 24 Hours (Table) 10/22/21 10/23/21 10/23/21 Range/Units 20:08 02:28 07:02 Lymphocytes # (1.0-4.8) k/uL D-Dimer (<0.60) mg/L FEU BUN (9-20) mg/dL Glucose (74-99) mg/dL POC Glucose (mg/dL) 129 H 115 H (75-99) mg/dL AST (17-59) U/L ALT (4-49) U/L Alkaline Phosphatase (38-126) U/L Lactate Dehydrogenase (313-618) U/L C-Reactive Protein (<1.0) mg/dL Total Protein (6.3-8.2) g/dL Albumin (3.5-5.0) g/dL Urine Protein Trace H (Negative) 10/23/21 10/23/21 10/23/21 Range/Units 09:30 09:30 09:30 Lymphocytes # 0.7 L (1.0-4.8) k/uL D-Dimer 1.10 H (<0.60) mg/L FEU BUN 32 H (9-20) mg/dL Glucose 116 H (74-99) mg/dL POC Glucose (mg/dL) (75-99) mg/dL AST 101 H (17-59) U/L ALT 138 H (4-49) U/L Alkaline Phosphatase 161 H (38-126) U/L Lactate Dehydrogenase 1001 H (313-618) U/L C-Reactive Protein 1.7 H (<1.0) mg/dL Total Protein 6.2 L (6.3-8.2) g/dL Albumin 3.0 L (3.5-5.0) g/dL Urine Protein (Negative) 10/23/21 Range/Units 12:05 Lymphocytes # (1.0-4.8) k/uL D-Dimer (<0.60) mg/L FEU BUN (9-20) mg/dL Glucose (74-99) mg/dL POC Glucose (mg/dL) 106 H (75-99) mg/dL AST (17-59) U/L ALT (4-49) U/L Alkaline Phosphatase (38-126) U/L Lactate Dehydrogenase (313-618) U/L C-Reactive Protein (<1.0) mg/dL Total Protein (6.3-8.2) g/dL Albumin (3.5-5.0) g/dL Urine Protein (Negative) Assessment and Plan Assessment: 1 Acute hypoxemic respiratory failure secondary to acute COVID-19 pneumonia. Not vaccinated. Received monoclonal antibodies on 10/19/2021. On 15 L high flow nasal cannula + a nonrebreather mask. Does not qualify for Remdesivir. Pro-calcitonin greater than 9. Cultures pending. On antibiotics and not qualifying for Baricitinib. 2 Elevated inflammatory markers secondary to above 3 Mild transaminitis secondary to above 4 History of fibromyalgia 5 Hypothyroidism Plan: Chest x-ray and labs reviewed Cultures not available yet No leukocytosis, no fever, discontinue vancomycin Continue Zosyn for now, repeat pro-calcitonin Continue Decadron, Lovenox, vitamin supplements Continue bronchodilators, incentive spirometer Titrate the FiO2 as tolerated Follow-up inflammatory markers in the a.m. We will continue to follow and make further recommendations based on his clinical status I, the cosigning physician, performed a history & physical examination of the patient. Lungs sounds crackles in the bilateral bases. Maintaining good O2 saturations in the 90s on 15 L high flow nasal cannula plus a nonrebreather mask. I discussed the assessment and plan of care with my nurse practitioner, Maureen Keith. I attest to the above note as dictated by her.
[2021-10-23 20:13] LABS: Glucose,Whole Blood 96 mg/dL (75-99)
[2021-10-23] MEDS: TEMAZEPAM 15 MG CAP PO PRN (22:24)
[2021-10-24] MEDS: traMADol 50 MG TAB PO PRN ×3 (05:11→17:25)
[2021-10-24] MEDS: LEVOTHYROXINE 50 MCG TAB PO SCH (05:11)
[2021-10-24] MEDS: PIPERACILLIN-TAZOBACTAM 3.375 GM in SODIUM CHLORIDE 0.9% 100 ML IVPB SCH ×3 (05:11→21:09)
[2021-10-24 07:05] LABS: Glucose,Whole Blood 101 mg/dL (75-99)
[2021-10-24] MEDS: ALBUTEROL HFA INHALER INHALATION SCH ×3 (07:14→19:52)
[2021-10-24] MEDS: INSULIN ASPART (NovoLOG) 100 UNIT/ML VIAL SQ SCH ×4 (07:42→21:09)
[2021-10-24] MEDS: DEXAMETHASONE SOD PHOSPHATE 10 MG/ML 1 ML VIAL IVP SCH ×2 (07:47→21:09)
[2021-10-24] MEDS: ZINC SULFATE 220 MG CAP PO SCH (07:47)
[2021-10-24] MEDS: GABAPENTIN 400 MG CAP PO SCH ×3 (07:47→21:09)
[2021-10-24] MEDS: ASCORBIC ACID 500 MG TAB PO SCH (07:47)
[2021-10-24] MEDS: CITALOPRAM HYDROBROMIDE 20 MG TAB PO SCH (07:48)
[2021-10-24] MEDS: ENOXAPARIN 40 MG/0.4 ML SYRINGE SQ SCH ×2 (07:48→21:09)
[2021-10-24] MEDS: guaiFENesin 600 MG TABLET.ER PO SCH ×2 (07:48→21:09)
[2021-10-24] MEDS: CHOLECALCIFEROL 25 MCG (1000 IU) TABLET PO SCH (07:48)
[2021-10-24] MEDS: FAMOTIDINE 20 MG TAB PO SCH (07:48)
[2021-10-24 10:21] LABS: Basophils # (A) 0.02 X 10*3/uL (0.00-0.10); Basophils % (A) 0.3 %; Eosinophils # (A) 0 X 10*3/uL (0.04-0.35); Eosinophils % (A) 0 %; HCT 40.2 % (39.6-50.0); HGB 13.2 g/dL (13.0-17.0); Lymphocytes # (A) 0.65 X 10*3/uL (0.90-5.00); Lymphocytes % (A) 8.8 %; MCH 30.1 pg (27.0-32.0); MCHC 32.8 g/dL (32.0-37.0); MCV 91.6 fL (80.0-97.0); Monocytes # (A) 0.51 X 10*3/uL (0.20-1.00); Monocytes % (A) 6.9 %; Neutrophils # (A) 6.12 X 10*3/uL (1.80-7.70); Neutrophils % (A) 82.4 %; Platelet Count 303 X 10*3/uL (140-440); RBC 4.39 X 10*6/uL (4.40-5.60); RDW 13.5 % (11.5-14.5); WBC 7.42 X 10*3/uL (4.50-10.00)
--- NOTE | 2021-10-24 10:31 | P.PN ---
Subjective Progress Note Date: 10/24/21 History of present illness 56-year-old male with past medical history of fibromyalgia comes in to emergency room with symptoms of nausea, vomiting, dizziness and sweating feeling weak in with runny nose loss of taste and hence now for the past 1 week. He presented on 10/19 was found to have positive COVID results. Received his monoclonal antibodies. He Came back to the emergency room because of worsening of symptoms.Vitals reviewed patient afebrile pulse 80 respiratory rate 20 blood pressure 138/82 saturating at 88% on 10 L labs reviewed WBC 6.6 hemoglobin 13.9 d-dimer is elevated at 0.89, sodium 135 bicarb 21 BUN 16 creatinine 1.3 glucose 187 ferritin 2822 AST 89 ALT 80 alkaline phosphatase 225 LDH 1091 and CRP 21 and albumin 3.3 X-ray suggestive of bilateral patchy pneumonia. Both interstitial and airspace infiltrate Pulmonary clinic consulted for COVID pneumonia Patient placed on Lovenox 40 subcu twice a day, vitamin C, D and zinc. Dexamethasone initiated at 6 mg twice a day IV Patient is a candidate of Baritinib and will discuss about initiating it with pulmonary Venous Doppler ordered 10/22: [facility]. He continues to have dyspnea and is on 15 L high flow nasal cannula and nonrebreather with pulse ox o f 87 and 95%. He's been afebrile, heart rate in the 60s and 70s, blood pressure 127/73. Pro-calcitonin came back high at 9.75 and we started the patient on Zosyn and vancomycin for bacterial pneumonia coverage. Patient has coarse crackles bilaterally. No lower extremity edema. He has been seen and followed by pulmonary medicine. Patient is not a candidate for Baricitinib. Patient is continued on Decadron, Lovenox and vitamin supplements. 10/23: Is found sitting up in the edge of the bed. He is currently not on a Ventimask. However his pulse oxing still around 88 to 91 % on Ventimask or 15 L high flow nasal cannula. Patient continues to have dyspnea with activity and speaking. Patient states that he is feeling much better compared to yesterday. Continues to have a cough. No lower extremity edema. He has rhonchi to the bases bilaterally. He is currently on Decadron Lovenox and vitamin supplements. Patient remains afebrile, heart rate 62, respirations 17, blood pressure 118/68 pulse ox 93% on 15 L high flow nasal cannula 10/24: Patient was up to the bathroom showering today. Awaiting inflammation markers today. Patient still requires 10 L of O2 with a pulse ox of 90%. Patient continues to have crackles to the bilateral bases. Dyspnea with activity and speaking. Patient states he is feeling better however he is very tired. Continues to have cough no lower extremity edema. He still currently on Decadron, Lovenox, and vitamin supplements. Patient remains afebrile, heart rate 58, respirations 17, blood pressure 118/89, ROS Constitutional: Endorses chills, fever, malaise, nausea and vomiting Eyes: denies decreased vision, denies diplopia, denies discharge, denies pain Ears: deny: decreased hearing Ears, nose, mouth and throat: Denies dental pain, Denies headache, Denies nasal discharge, Denies nose pain Cardiovascular: Denies chest pain, Denies decreased exercise tolerance, Denies edema, Denies high blood pressure, Denies irregular heart beat, Denies palpitations, Denies paroxysmal nocturnal dyspnea, Denies rapid heart beat, Denies shortness of breath Respiratory: Denies congestion, reports cough, Denies cough with sputum, reports dyspnea, Denies home oxygen, Denies wheezing, dyspnea with minimal exertion Gastrointestinal: Denies abdominal pain, Denies change in bowel habits, Denies coffee ground emesis, Denies early satiety, Denies excessive gas, Denies heartburn, Denies hematemesis, Denies hematochezia, Denies loss of appetite, endorses nausea and vomiting Genitourinary: Denies dysuria, Denies flank pain, Denies kidney stones, Denies menorrhagia, Denies urgency, Denies urinary frequency Musculoskeletal: Denies gait dysfunction, Denies limitation of motion, Denies morning stiffness, Denies muscle cramps Integumentary: Denies rash, Denies wounds, Denies brittle nails, Denies change in hair/nails, Denies darkening of skin Neurological: Denies balance difficulties, Denies change in speech, Denies double vision, Denies gait dysfunction, Denies loss of vision, Denies motor disturbance, Denies numbness, Denies paralysis, Denies paresthesias, Denies seizures Psychiatric: Denies anxiety, Denies depression Endocrine: Denies excessive sweating, Denies excessive thirst, Denies high blood sugars, Denies palpitations Hematologic/Lymphatic: Denies easy bruising, Denies lymphadenopathy Physical exam General Appearance: Alert, cooperative, no distress, appears stated age. Resting at the site of the bed Neck HEENT: Supple, no lymphadenopathy, no thyroid enlargement, no carotid bruit s. Lungs: Bilateral crackles to the bases no rhonchi, no deformity. Chest Wall: Chest wall normal expansion with deep inspiration no tenderness and no deformity was found on exam, no costochondral pain or discomfort. Heart: Regular rate and rhythm, S1, S2 normal, no murmur, rub or gallop. Back: Symmetric, no curvature, ROM normal, no CVA tenderness. Abdomen: Soft, non-tender, no rebound or rigidity, no hepatosplenomegaly. Extremities: Extremities normal, atraumatic, no cyanosis or edema. Pulses: 2+ and symmetric. Skin: Skin color, texture, tugor normal, no rashes or lesions. Neurologic: Alert oriented x3 cranial nerves II through XII intact, no motor deficit, no abnormal balance or gait Assessment and plan 1. Acute hypoxic respiratory failure. Supplement oxygen to keep SpO2 more than 90%. Ruled out pulmonary embolism and DVT, Pulmonary consulted, Albuterol in haler as needed, Symbicort twice daily 2. Acute COVID pneumonia. Dexamethasone 6 mg IV twice a day, Lovenox 40 subcu twice a day, Not a candidate for Baricitinib, Monitor inflammatory markers. Continue supplements vitamin C, D and zinc 3. Acute transaminitis Secondary to viral inflammation. Continue CMP monitoring 4. CK D3. Continue to monitor patient's creatinine. No acute kidney injury 5. History of fibromyalgia. continue gabapentin 800 3 times a day, Citalopram 40 mg by mouth daily, Tramadol 100 mg every 6 hours as needed 6. Insomnia. Continue Eszopiclone 3 mg daily at bedtime 7. Hypothyroidism. Levothyroxine 50 g by mouth daily 8. DVT prophylaxis. Lovenox 40 subcu twice a day 9. GI prophylaxis. Pepcid 20 mg by mouth daily Discharge Plan: more than likely home Impression and plan of care have been directed as dictated by the signing physician. Idalia Huang nurse practitioner acting as scribe for signing physician. Objective - Vital Signs Vital signs: Vital Signs Temp 98.9 F 10/24/21 09:40 Pulse 58 L 10/24/21 09:40 Resp 17 10/24/21 09:40 BP 118/69 10/24/21 09:40 Pulse Ox 90 L 10/24/21 09:40 Intake & Output 10/23/21 10/24/21 10/24/21 18:59 06:59 18:59 Intake Total 640 Output Total 1100 Balance 640 -1100 Intake: Intake, IV Titration 100 Amount Piperacillin-Tazobactam 3 100 .375 gm In Sodium Chloride 0.9% 100 ml @ 25 mls/hr IVPB Q8H [facility] Rx#: [id number] Oral 540 Output: Urine 1100 Other: Voiding Method Urinal Urinal Urinal # Voids 3 2 # Bowel Movements 0 1 - Labs CBC & Chem 7: 10/24/21 06:17 10/23/21 09:30 Labs: Abnormal Lab Results - Last 24 Hours (Table) 10/23/21 10/23/21 10/23/21 Range/Units 09:30 09:30 09:30 RBC (4.40-5.60) X 10*6/uL Immature Gran # (0.00-0.04) X 10*3/uL Lymphocytes # 0.7 L (1.0-4.8) k/uL Eosinophils # (0.04-0.35) X 10*3/uL D-Dimer 1.10 H (<0.60) mg/L FEU BUN 32 H (9-20) mg/dL Glucose 116 H (74-99) mg/dL POC Glucose (mg/dL) (75-99) mg/dL AST 101 H (17-59) U/L ALT 138 H (4-49) U/L Alkaline Phosphatase 161 H (38-126) U/L Lactate Dehydrogenase 1001 H (313-618) U/L C-Reactive Protein 1.7 H (<1.0) mg/dL Total Protein 6.2 L (6.3-8.2) g/dL Albumin 3.0 L (3.5-5.0) g/dL Procalcitonin (0.02-0.09) ng/mL 10/23/21 10/23/21 10/24/21 Range/Units 12:05 19:35 06:17 RBC 4.39 L (4.40-5.60) X 10*6/uL Immature Gran # 0.12 H (0.00-0.04) X 10*3/uL Lymphocytes # 0.65 L (1.0-4.8) k/uL Eosinophils # 0 L (0.04-0.35) X 10*3/uL D-Dimer (<0.60) mg/L FEU BUN (9-20) mg/dL Glucose (74-99) mg/dL POC Glucose (mg/dL) 106 H (75-99) mg/dL AST (17-59) U/L ALT (4-49) U/L Alkaline Phosphatase (38-126) U/L Lactate Dehydrogenase (313-618) U/L C-Reactive Protein (<1.0) mg/dL Total Protein (6.3-8.2) g/dL Albumin (3.5-5.0) g/dL Procalcitonin 1.34 H (0.02-0.09) ng/mL 10/24/21 10/24/21 Range/Units 06:17 07:03 RBC (4.40-5.60) X 10*6/uL Immature Gran # (0.00-0.04) X 10*3/uL Lymphocytes # (1.0-4.8) k/uL Eosinophils # (0.04-0.35) X 10*3/uL D-Dimer 1.40 H (<0.60) mg/L FEU BUN (9-20) mg/dL Glucose (74-99) mg/dL POC Glucose (mg/dL) 101 H (75-99) mg/dL AST (17-59) U/L ALT (4-49) U/L Alkaline Phosphatase (38-126) U/L Lactate Dehydrogenase (313-618) U/L C-Reactive Protein (<1.0) mg/dL Total Protein (6.3-8.2) g/dL Albumin (3.5-5.0) g/dL Procalcitonin (0.02-0.09) ng/mL
[2021-10-24 11:07] LABS: African American GFR (CKD) 78.9 (60.0-200.0); Albumin 3.2 g/dL (3.8-4.9); Albumin/Globulin Ratio 1.24 (1.60-3.17); Anion Gap 10.4 mmol/L (10.00-18.00); BUN/Creat Ratio 22.8 Ratio (12.00-20.00); Blood Urea Nitrogen 26.9 mg/dL (9.0-27.0); C Reactive Protein 4.1 mg/dL (0.00-0.80); Calcium 8.5 mg/dL (8.7-10.3); Carbon Dioxide 22.5 mmol/L (20.0-27.5); Globulin 2.6 g/dL (1.6-3.3); Non-African American GFR(CKD) 68.1 (60.0-200.0); Potassium 4.5 mmol/L (3.5-5.5); Total Bilirubin 0.9 mg/dL (0.30-1.20); Total Protein 5.8 g/dL (6.2-8.2)
[2021-10-24 11:39] LABS: Glucose,Whole Blood 106 mg/dL (75-99)
--- NOTE | 2021-10-24 14:02 | P.PN ---
Subjective Progress Note Date: 10/24/21 Principal diagnosis: Dyspnea, hypoxia, COVID-19 This is a very pleasant 56-year-old male patient with a known history of fibromyalgia. Nonsmoker. Approximate 1 week ago he developed symptoms of nausea vomiting diarrhea dizziness and sweating. He presented here on 10/19/2021 and has a positive for COVID-19 and received monoclonal antibodies. He came back to the emergency room last evening with worsening symptoms. Chest x-ray reveals bilateral patchy interstitial and airspace infiltrates. He is currently requiring 10 L high flow nasal cannula to maintain O2 saturations in the high 80s low 90s. White count 6.6. Hemoglobin 13.9. Lymphocytes 0.3. Sodium 135. Potassium 4.1. Bicarb 21. Creatinine 1.31. Glucose 187. Ferritin 2822. AST 89. ALT 80. LDH 1091. C-reactive protein 21.0. Initiated on Decadron. On 10/22/2021 patient seen in follow-up on medical surgical floor, he is awake and alert, in no acute distress, overnight he wore 15 L high flow and n onrebreather mask, he is currently off the nonrebreather mask and not he is on 15 L high flow nasal cannula and he is maintaining O2 saturations at 93%, afebrile, hemodynamically stable. However his oxygen requirements have significantly increased in last 24 hours. His pro calcitonin level was sig nificantly elevated at 9.75, and patient is not a candidate for Baricitinib in view of possibility of underlying bacterial infection. Patient states she is coughing and bringing up some greenish colored phlegm at times, he is being started on Zosyn and vancomycin empirically, we will order blood cultures, sputum culture and urine cultures. Clinically he looks fairly comfortable, no distress, lung sounds are revealing coarse diffuse rhonchi and rales. No altered mentation, no fever. He continues on Lovenox 40 mg twice daily, and Decadron 6 mg twice daily. On 10/24/2021 patient seen in follow-up on medical surgical floor, is currently on 15 L of oxygen, he is not using the nonrebreather mask, his pulse ox is 90- 95%, patient has been self repositioning in bed, he states his breathing is about the same, maybe slightly improved, lung sounds are positive for fine rales bilaterally, he remains on Zosyn for empiric antibiotic coverage, Decadron 6 mggram twice daily, vancomycin has been discontinued. Patient is afebrile, hemodynamically has been stable. Tolerating oral intake, his labs have been reviewed today, his white blood cell count is 7.42, hemoglobin is 13.2, d-dimer is 1.4, electrolytes and renal profile are within normal limits, his liver enzymes have worsened on today's labs, and AST is up to 108, ALT is 182, alkaline phosphatase is actually improved and is down to 150. His LDH is improved and is down to 413, and CRP is 4.1, improved compared to admission levels. Pro calcitonin level is improving and is down to 1.34, urinalysis did not show evidence of infection. Objective - Vital Signs Vital signs: Vital Signs Temp 99 F 10/24/21 13:18 Pulse 94 10/24/21 13:18 Resp 17 10/24/21 13:18 BP 124/78 10/24/21 13:18 Pulse Ox 96 10/24/21 13:18 Intake & Output 10/23/21 10/24/21 10/24/21 18:59 06:59 18:59 Intake Total 640 Output Total 1100 Balance 640 -1100 Intake: Intake, IV Titration 100 Amount Piperacillin-Tazobactam 3 100 .375 gm In Sodium Chloride 0.9% 100 ml @ 25 mls/hr IVPB Q8H [facility] Rx#: [id number] Oral 540 Output: Urine 1100 Other: Voiding Method Urinal Urinal Urinal # Voids 3 2 # Bowel Movements 0 1 - Exam GENERAL EXAM: Alert, very pleasant, 56-year-old white male, on 15 L of oxygen pulse ox is 93% comfortable in no apparent distress. HEAD: Normocephalic/atraumatic. EYES: Normal reaction of pupils, equal size. Conjunctiva pink, sclera white. NOSE: Clear with pink turbinates. THROAT: No erythema or exudates. NECK: No masses, no JVD, no thyroid enlargement, no adenopathy. CHEST: No chest wall deformity. Symmetrical expansion. LUNGS: Equal air entry with diffuse crackles, and rhonchi, no wheezing CVS: Regular rate and rhythm, normal S1 and S2, no gallops, no murmurs, no rubs ABDOMEN: Soft, nontender. No hepatosplenomegaly, normal bowel sounds, no guarding or rigidity. EXTREMITIES: No clubbing, no edema, no cyanosis, 2+ pulses and upper and lower extremities. MUSCULOSKELETAL: Muscle strength and tone normal. SPINE: No scoliosis or deformity SKIN: No rashes CENTRAL NERVOUS SYSTEM: Alert and oriented -3. No focal deficits, tone is normal in all 4 extremities. PSYCHIATRIC: Alert and oriented -3. Appropriate affect. Intact judgment and insight. - Labs CBC & Chem 7: 10/24/21 06:17 10/24/21 06:17 Labs: Abnormal Lab Results - Last 24 Hours (Table) 10/23/21 10/24/21 10/24/21 Range/Units 19:35 06:17 06:17 RBC 4.39 L (4.40-5.60) X 10*6/uL Immature Gran # 0.12 H (0.00-0.04) X 10*3/uL Lymphocytes # 0.65 L (0.90-5.00) X 10*3/uL Eosinophils # 0 L (0.04-0.35) X 10*3/uL D-Dimer (<0.60) mg/L FEU BUN/Creatinine Ratio 22.80 H (12.00-20.00) Ratio Glucose 111 H (70-110) mg/dL POC Glucose (mg/dL) (75-99) mg/dL Calcium 8.5 L (8.7-10.3) mg/dL AST 108 H (14-35) U/L ALT 182 H (10-49) U/L Alkaline Phosphatase 150 H (41-126) U/L Lactate Dehydrogenase 413 H (120-246) U/L C-Reactive Protein 4.10 H (0.00-0.80) mg/dL Total Protein 5.8 L (6.2-8.2) g/dL Albumin 3.2 L (3.8-4.9) g/dL Albumin/Globulin Ratio 1.24 L (1.60-3.17) g/dL Procalcitonin 1.34 H (0.02-0.09) ng/mL 10/24/21 10/24/21 10/24/21 Range/Units 06:17 07:03 11:35 RBC (4.40-5.60) X 10*6/uL Immature Gran # (0.00-0.04) X 10*3/uL Lymphocytes # (0.90-5.00) X 10*3/uL Eosinophils # (0.04-0.35) X 10*3/uL D-Dimer 1.40 H (<0.60) mg/L FEU BUN/Creatinine Ratio (12.00-20.00) Ratio Glucose (70-110) mg/dL POC Glucose (mg/dL) 101 H 106 H (75-99) mg/dL Calcium (8.7-10.3) mg/dL AST (14-35) U/L ALT (10-49) U/L Alkaline Phosphatase (41-126) U/L Lactate Dehydrogenase (120-246) U/L C-Reactive Protein (0.00-0.80) mg/dL Total Protein (6.2-8.2) g/dL Albumin (3.8-4.9) g/dL Albumin/Globulin Ratio (1.60-3.17) g/dL Procalcitonin (0.02-0.09) ng/mL Assessment and Plan Plan: Assessment: #1. Acute hypoxic respiratory failure secondary to acute COVID-19 pneumonia. Patient is status post monoclonal antibody infusion on 10/19/2021. Patient was not a candidate for Remdesivir related to severe hypoxic respiratory failure on presentation requiring 10 L high flow nasal cannula. Today he is on 15 L and 100% nonrebreather mask, his FiO2 requirements have increased but patient is not a candidate for Baricitinib related to possibility of underlying bacterial infection #2. Elevated pro-calcitonin, rule out possibility of bacterial superinfection, patient has been empirically started on Zosyn and vancomycin #3. Elevated inflammatory markers related to acute COVID-19 pneumonia and possibly a bacterial pneumonia #4. Elevated LFTs related to COVID-19 pneumonia, slightly worsened #5. Elevated d-dimer, venous Doppler of bilateral lower extremities was negative for DVT #6. History of fibromyalgia #7. Depression #8. Never smoker #9. Acute kidney injury possibly related to Covid 19 related ATN #10. Hypothyroidism Plan: Continue current medical treatment Continue Decadron, continue Lovenox Continue Zosyn for empiric antibiotic coverage Pocalcitonin level is improved but still elevated Obtain sputum culture, blood cultures Will continue to follow I performed a history & physical examination of the patient and discussed their management with my nurse practitioner, Angi Roberts. I reviewed the nurse practitioner's note and agree with the documented findings and plan of care. Lung sounds are positive for dim breath sounds throughout the lung rivera. The findings and the impression was discussed with the patient. I attest to the documentation by the nurse practitioner. Time with Patient: Less than 30
[2021-10-24 16:18] LABS: Glucose,Whole Blood 93 mg/dL (75-99)
[2021-10-24 20:28] LABS: Glucose,Whole Blood 101 mg/dL (75-99)
[2021-10-24] MEDS: TEMAZEPAM 15 MG CAP PO PRN (21:17)
[2021-10-25] MEDS: traMADol 50 MG TAB PO PRN ×4 (02:32→19:47)
[2021-10-25] MEDS: PIPERACILLIN-TAZOBACTAM 3.375 GM in SODIUM CHLORIDE 0.9% 100 ML IVPB SCH ×3 (05:28→21:54)
[2021-10-25] MEDS: LEVOTHYROXINE 50 MCG TAB PO SCH (05:28)
[2021-10-25 07:03] LABS: Glucose,Whole Blood 106 mg/dL (75-99)
[2021-10-25 07:05] LABS: African American GFR (CKD) >90 (>60 ml/min/1.73 sqM); Non-African American GFR(CKD) 78 (>60 ml/min/1.73 sqM)
[2021-10-25] MEDS: ALBUTEROL HFA INHALER INHALATION SCH ×3 (07:41→15:55)
[2021-10-25] MEDS: INSULIN ASPART (NovoLOG) 100 UNIT/ML VIAL SQ SCH ×4 (08:08→20:45)
[2021-10-25] MEDS: DEXAMETHASONE SOD PHOSPHATE 10 MG/ML 1 ML VIAL IVP SCH ×2 (08:11→19:47)
[2021-10-25] MEDS: FAMOTIDINE 20 MG TAB PO SCH (08:12)
[2021-10-25] MEDS: GABAPENTIN 400 MG CAP PO SCH ×3 (08:12→19:47)
[2021-10-25] MEDS: CHOLECALCIFEROL 25 MCG (1000 IU) TABLET PO SCH (08:12)
[2021-10-25] MEDS: CITALOPRAM HYDROBROMIDE 20 MG TAB PO SCH (08:12)
[2021-10-25] MEDS: ZINC SULFATE 220 MG CAP PO SCH (08:12)
[2021-10-25] MEDS: ENOXAPARIN 40 MG/0.4 ML SYRINGE SQ SCH ×2 (08:12→19:47)
[2021-10-25] MEDS: ASCORBIC ACID 500 MG TAB PO SCH (08:12)
[2021-10-25] MEDS: guaiFENesin 600 MG TABLET.ER PO SCH ×2 (08:12→19:47)
[2021-10-25 11:55] LABS: Glucose,Whole Blood 101 mg/dL (75-99)
--- NOTE | 2021-10-25 12:13 | P.PN ---
Subjective Progress Note Date: 10/25/21 History of present illness 56-year-old male with past medical history of fibromyalgia comes in to emergency room with symptoms of nausea, vomiting, dizziness and sweating feeling weak in with runny nose loss of taste and hence now for the past 1 week. He presented on 10/19 was found to have positive COVID results. Received his monoclonal antibodies. He Came back to the emergency room because of worsening of symptoms.Vitals reviewed patient afebrile pulse 80 respiratory rate 20 blood pressure 138/82 saturating at 88% on 10 L labs reviewed WBC 6.6 hemoglobin 13.9 d-dimer is elevated at 0.89, sodium 135 bicarb 21 BUN 16 creatinine 1.3 glucose 187 ferritin 2822 AST 89 ALT 80 alkaline phosphatase 225 LDH 1091 and CRP 21 and albumin 3.3 X-ray suggestive of bilateral patchy pneumonia. Both interstitial and airspace infiltrate Pulmonary clinic consulted for COVID pneumonia Patient placed on Lovenox 40 subcu twice a day, vitamin C, D and zinc. Dexamethasone initiated at 6 mg twice a day IV Patient is a candidate of Baritinib and will discuss about initiating it with pulmonary Venous Doppler ordered 10/22: [facility] follow-up. He continues to have dyspnea and is on 15 L high flow nasal cannula and nonrebreather with pulse ox of 87 and 95%. He's been afebrile, heart rate in the 60s and 70s, blood pressure 127/73. Pro-calcitonin came back high at 9.75 and we started the patient on Zosyn and vancomycin for bacterial pneumonia coverage. Patient has coarse crackles bilaterally. No lower extremity edema. He has been seen and followed by pulmonary medicine. Patient is not a candidate for Baricitinib. Patient is continued on Decadron, Lovenox and vitamin supplements. 10/23: Is found sitting up in the edge of the bed. He is currently not on a Ventimask. However his pulse oxing still around 88 to 91 % on Ventimask or 15 L high flow nasal cannula. Patient continues to have dyspnea with activity and speaking. Patient states that he is feeling much better compared to yesterday. Continues to have a cough. No lower extremity edema. He has rhonchi to the bases bilaterally. He is currently on Decadron Lovenox and vitamin supplements. Patient remains afebrile, heart rate 62, respirations 17, blood pressure 118/68 pulse ox 93% on 15 L high flow nasal cannula 10/24: Patient was up to the bathroom showering today. Awaiting inflammation markers today. Patient still requires 10 L of O2 with a pulse ox of 90%. Patient continues to have crackles to the bilateral bases. Dyspnea with activity and speaking. Patient states he is feeling better however he is very tired. Continues to have cough no lower extremity edema. He still currently on Decadron, Lovenox, and vitamin supplements. Patient remains afebrile, heart rate 58, respirations 17, blood pressure 118/89, 10/25: Patient is still on high flow nasal cannula 15 L and nonrebreather with pulse ox of 89 and 99%. He's been afebrile, heart rate 73, blood pressure 120/72. Creatinine 1.06. Blood sugars running between 101 and 106. Sputum culture is in progress. Patient is followed closely by pulmonary medicine. Patient is continued on dexamethasone, Lovenox, Zosyn and vitamin supplements. Patient has been encouraged to prone several hours daily. ROS Constitutional: Denies chills, denies fever, reports malaise, denies nausea and vomiting Eyes: denies decreased vision, denies diplopia, denies discharge, denies pain Ears: deny: decreased hearing Ears, nose, mouth and throat: Denies dental pain, Denies headache, Denies nasal discharge, Denies nose pain Cardiovascular: Denies chest pain, Denies decreased exercise tolerance, Denies edema, Denies high blood pressure, Denies irregular heart beat, Denies palp itations, Denies paroxysmal nocturnal dyspnea, Denies rapid heart beat, Denies shortness of breath Respiratory: Denies congestion, reports cough, Denies cough with sputum, reports dyspnea, Denies home oxygen, Denies wheezing, dyspnea with minimal exertion Gastrointestinal: Denies abdominal pain, Denies change in bowel habits, Denies coffee ground emesis, Denies early satiety, Denies excessive gas, Denies heartburn, Denies hematemesis, Denies hematochezia, Denies loss of appetite, endorses nausea and vomiting Genitourinary: Denies dysuria, Denies flank pain, Denies kidney stones, Denies menorrhagia, Denies urgency, Denies urinary frequency Musculoskeletal: Denies gait dysfunction, Denies limitation of motion, Denies morning stiffness, Denies muscle cramps Integumentary: Denies rash, Denies wounds, Denies brittle nails, Denies change in hair/nails, Denies darkening of skin Neurological: Denies balance difficulties, Denies change in speech, Denies double vision, Denies gait dysfunction, Denies loss of vision, Denies motor disturbance, Denies numbness, Denies paralysis, Denies paresthesias, Denies seizures Psychiatric: Denies anxiety, Denies depression Endocrine: Denies excessive sweating, Denies excessive thirst, Denies high blood sugars, Denies palpitations Hematologic/Lymphatic: Denies easy bruising, Denies lymphadenopathy Physical exam General Appearance: Alert, cooperative, no distress, appears stated age. Patient is resting in bed. Neck HEENT: Supple, no lymphadenopathy, no thyroid enlargement, no carotid bruits. Lungs: Bilateral crackles to the bases no rhonchi, no deformity. Chest Wall: Chest wall normal expansion with deep inspiration no tenderness and no deformity was found on exam, no costochondral pain or discomfort. Heart: Regular rate and rhythm, S1, S2 normal, no murmur, rub or gallop. Back: Symmetric, no curvature, ROM normal, no CVA tenderness. Abdomen: Soft, non-tender, no rebound or rigidity, no hepatosplenomegaly. Extremities: Extremities normal, atraumatic, no cyanosis or edema. Pulses: 2+ and symmetric. Skin: Skin color, texture, tugor normal, no rashes or lesions. Neurologic: Alert oriented x3 cranial nerves II through XII intact, no motor deficit, no abnormal balance or gait Assessment and plan 1. Acute hypoxic respiratory failure secondary to Covid 19 pneumonia. Consult with pulmonary medicine appreciated. 2. Acute COVID pneumonia. Dexamethasone 6 mg IV twice a day, Lovenox 40 subcu twice a day, Not a candidate for Baricitinib, Monitor inflammatory markers. Continue supplements vitamin C, D and zinc 3. Acute transaminitis Secondary to viral inflammation. Continue CMP monitoring 4. CK D3. Continue to monitor patient's creatinine. No acute kidney injury 5. History of fibromyalgia. continue gabapentin 800 3 times a day, Citalopram 40 mg by mouth daily, Tramadol 100 mg every 6 hours as needed 6. Insomnia. Continue Eszopiclone 3 mg daily at bedtime 7. Hypothyroidism. Levothyroxine 50 g by mouth daily 8. DVT prophylaxis. Lovenox 40 subcu twice a day 9. GI prophylaxis. Pepcid 20 mg by mouth daily Discharge Plan: more than likely home Impression and plan of care have been directed as dictated by the signing physician. Rochelle Constantino nurse practitioner acting as scribe for signing physician. Objective - Vital Signs Vital signs: Vital Signs Temp 98.0 F 10/25/21 10:00 Pulse 73 10/25/21 10:00 Resp 22 10/25/21 10:00 BP 120/72 10/25/21 10:00 Pulse Ox 99 10/25/21 10:00 Intake & Output 10/24/21 10/25/21 10/25/21 18:59 06:59 18:59 Output Total 300 Balance -300 Output: Urine 300 Other: Voiding Method Urinal Urinal Urinal # Voids 2 # Bowel Movements 1 - Labs CBC & Chem 7: 10/24/21 06:17 10/25/21 06:00 Labs: Abnormal Lab Results - Last 24 Hours (Table) 10/24/21 10/24/21 10/25/21 Range/Units 11:35 20:25 07:01 POC Glucose (mg/dL) 106 H 101 H 106 H (75-99) mg/dL Microbiology - Last 24 Hours (Table) 10/24/21 14:00 Gram Stain - Preliminary Sputum Sputum Culture - Preliminary
[2021-10-25] MEDS ORDERED: SODIUM CHLORIDE 0.65% NASAL SPRAY 44 ML BTL NASAL PRN (15:13)
--- NOTE | 2021-10-25 15:22 | P.PN ---
Subjective Progress Note Date: 10/25/21 Principal diagnosis: Dyspnea, hypoxia, COVID-19 This is a very pleasant 56-year-old male patient with a known history of fibromyalgia. Nonsmoker. Approximate 1 week ago he developed symptoms of nausea vomiting diarrhea dizziness and sweating. He presented here on 10/19/2021 and has a positive for COVID-19 and received monoclonal antibodies. He came back to the emergency room last evening with worsening symptoms. Chest x-ray reveals bilateral patchy interstitial and airspace infiltrates. He is currently requiring 10 L high flow nasal cannula to maintain O2 saturations in the high 80s low 90s. White count 6.6. Hemoglobin 13.9. Lymphocytes 0.3. Sodium 135. Potassium 4.1. Bicarb 21. Creatinine 1.31. Glucose 187. Ferritin 2822. AST 89. ALT 80. LDH 1091. C-reactive protein 21.0. Initiated on Decadron. On 10/22/2021 patient seen in follow-up on medical surgical floor, he is awake and alert, in no acute distress, overnight he wore 15 L high flow and n onrebreather mask, he is currently off the nonrebreather mask and not he is on 15 L high flow nasal cannula and he is maintaining O2 saturations at 93%, afebrile, hemodynamically stable. However his oxygen requirements have significantly increased in last 24 hours. His pro calcitonin level was sig nificantly elevated at 9.75, and patient is not a candidate for Baricitinib in view of possibility of underlying bacterial infection. Patient states she is coughing and bringing up some greenish colored phlegm at times, he is being started on Zosyn and vancomycin empirically, we will order blood cultures, sputum culture and urine cultures. Clinically he looks fairly comfortable, no distress, lung sounds are revealing coarse diffuse rhonchi and rales. No altered mentation, no fever. He continues on Lovenox 40 mg twice daily, and Decadron 6 mg twice daily. On 10/24/2021 patient seen in follow-up on medical surgical floor, is currently on 15 L of oxygen, he is not using the nonrebreather mask, his pulse ox is 90- 95%, patient has been self repositioning in bed, he states his breathing is about the same, maybe slightly improved, lung sounds are positive for fine rales bilaterally, he remains on Zosyn for empiric antibiotic coverage, Decadron 6 mggram twice daily, vancomycin has been discontinued. Patient is afebrile, hemodynamically has been stable. Tolerating oral intake, his labs have been reviewed today, his white blood cell count is 7.42, hemoglobin is 13.2, d-dimer is 1.4, electrolytes and renal profile are within normal limits, his liver enzymes have worsened on today's labs, and AST is up to 108, ALT is 182, alkaline phosphatase is actually improved and is down to 150. His LDH is improved and is down to 413, and CRP is 4.1, improved compared to admission levels. Pro calcitonin level is improving and is down to 1.34, urinalysis did not show evidence of infection. On 10/25/2021 patient seen in follow-up on medical surgical floor, he remains on high flow oxygen at 15 L, and 100% nonrebreather mask, his been pretty successful with self repositioning in bed, his pulse ox is around 96% on both oxygen delivery devices, at times it is near 99%, patient is mildly short of breath with any exertion, she does desaturate with any exertion, into the low 80s recovers. Other vitals have been stable, his been afebrile, has cough and congestion have improved, history and culture was sent, showing few PMNs and a few gram-positive cocci. Patient remains on empiric antibiotic coverage with Zosyn only, vancomycin has been discontinued, blood cultures have shown no nicki wth. Follow-up pro-calcitonin will be obtained for tomorrow, physical exam reveals a few scattered rhonchi, improved from yesterday's exam. No complaint of chest pain, no hemoptysis, no nausea vomiting or diarrhea. Objective - Vital Signs Vital signs: Vital Signs Temp 98.2 F 10/25/21 14:00 Pulse 63 10/25/21 14:00 Resp 20 10/25/21 14:00 BP 112/71 10/25/21 14:00 Pulse Ox 99 10/25/21 14:00 Intake & Output 10/24/21 10/25/21 10/25/21 18:59 06:59 18:59 Output Total 300 Balance -300 Output: Urine 300 Other: Voiding Method Urinal Urinal Urinal # Voids 2 # Bowel Movements 1 - Exam GENERAL EXAM: Alert, very pleasant, 56-year-old white male, on 15 L of oxygen and non-rebreather mask with a pulse ox is 96% comfortable in no apparent distress. HEAD: Normocephalic/atraumatic. EYES: Normal reaction of pupils, equal size. Conjunctiva pink, sclera white. NOSE: Clear with pink turbinates. THROAT: No erythema or exudates. NECK: No masses, no JVD, no thyroid enlargement, no adenopathy. CHEST: No chest wall deformity. Symmetrical expansion. LUNGS: Equal air entry with diffuse crackles, and rhonchi, no wheezing CVS: Regular rate and rhythm, normal S1 and S2, no gallops, no murmurs, no rubs ABDOMEN: Soft, nontender. No hepatosplenomegaly, normal bowel sounds, no guarding or rigidity. EXTREMITIES: No clubbing, no edema, no cyanosis, 2+ pulses and upper and lower extremities. MUSCULOSKELETAL: Muscle strength and tone normal. SPINE: No scoliosis or deformity SKIN: No rashes CENTRAL NERVOUS SYSTEM: Alert and oriented -3. No focal deficits, tone is normal in all 4 extremities. PSYCHIATRIC: Alert and oriented -3. Appropriate affect. Intact judgment and insight. - Labs CBC & Chem 7: 10/24/21 06:17 10/25/21 06:00 Labs: Abnormal Lab Results - Last 24 Hours (Table) 10/24/21 10/25/21 10/25/21 Range/Units 20:25 07:01 11:53 POC Glucose (mg/dL) 101 H 106 H 101 H (75-99) mg/dL Microbiology - Last 24 Hours (Table) 10/24/21 12:26 Blood Culture - Preliminary Blood No Growth after 24 hours 10/24/21 12:29 Blood Culture - Preliminary Blood No Growth after 24 hours 10/24/21 14:00 Gram Stain - Preliminary Sputum Sputum Culture - Preliminary Assessment and Plan Plan: Assessment: #1. Acute hypoxic respiratory failure secondary to acute COVID-19 pneumonia. Patient is status post monoclonal antibody infusion on 10/19/2021. Patient was not a candidate for Remdesivir related to severe hypoxic respiratory failure on presentation requiring 10 L high flow nasal cannula. Today he is on 15 L and 100% nonrebreather mask, his FiO2 requirements have increased but patient is not a candidate for Baricitinib related to possibility of underlying bacterial infection #2. Elevated pro-calcitonin, rule out possibility of bacterial superinfection, patient has been empirically started on Zosyn and vancomycin #3. Elevated inflammatory markers related to acute COVID-19 pneumonia and possibly a bacterial pneumonia #4. Elevated LFTs related to COVID-19 pneumonia, slightly worsened #5. Elevated d-dimer, venous Doppler of bilateral lower extremities was negative for DVT #6. History of fibromyalgia #7. Depression #8. Never smoker #9. Acute kidney injury possibly related to Covid 19 related ATN, Zoloftresolved #10. Hypothyroidism Plan: Continue current medical treatment Continue Decadron, continue Lovenox Continue Zosyn for empiric antibiotic coverage Pocalcitonin level is improved but still elevated Blood cultures and sputum culture have been sent, blood culture has shown no growth, sputum culture showed a few PMNs, and a few gram-positive cocci Await final cultures, follow-up pro-calcitonin and chest x-ray for tomorrow Continue encouraging self-proning and repositioning Will continue to follow I performed a history & physical examination of the patient and discussed their management with my nurse practitioner, Angi Roberts. I reviewed the nurse practitioner's note and agree with the documented findings and plan of care. Lung sounds are positive for dim breath sounds throughout the lung rivera. The findings and the impression was discussed with the patient. I attest to the documentation by the nurse practitioner. Time with Patient: Less than 30
[2021-10-25 16:51] LABS: Glucose,Whole Blood 109 mg/dL (75-99)
[2021-10-25 19:51] LABS: Glucose,Whole Blood 112 mg/dL (75-99)
[2021-10-25] MEDS: TEMAZEPAM 15 MG CAP PO PRN (20:00)
[2021-10-26] MEDS: LEVOTHYROXINE 50 MCG TAB PO SCH (05:09)
[2021-10-26] MEDS: traMADol 50 MG TAB PO PRN ×3 (05:09→20:26)
[2021-10-26] MEDS: PIPERACILLIN-TAZOBACTAM 3.375 GM in SODIUM CHLORIDE 0.9% 100 ML IVPB SCH ×3 (05:09→21:20)
[2021-10-26 06:48] LABS: Glucose,Whole Blood 114 mg/dL (75-99)
[2021-10-26] MEDS: INSULIN ASPART (NovoLOG) 100 UNIT/ML VIAL SQ SCH ×4 (07:56→20:17)
[2021-10-26] MEDS: GABAPENTIN 400 MG CAP PO SCH ×3 (08:03→20:26)
[2021-10-26] MEDS: ZINC SULFATE 220 MG CAP PO SCH (08:03)
[2021-10-26] MEDS: ENOXAPARIN 40 MG/0.4 ML SYRINGE SQ SCH ×2 (08:03→20:27)
[2021-10-26] MEDS: CITALOPRAM HYDROBROMIDE 20 MG TAB PO SCH (08:03)
[2021-10-26] MEDS: ASCORBIC ACID 500 MG TAB PO SCH (08:04)
[2021-10-26] MEDS: DEXAMETHASONE SOD PHOSPHATE 10 MG/ML 1 ML VIAL IVP SCH ×2 (08:04→20:27)
[2021-10-26] MEDS: CHOLECALCIFEROL 25 MCG (1000 IU) TABLET PO SCH (08:04)
[2021-10-26] MEDS: guaiFENesin 600 MG TABLET.ER PO SCH ×2 (08:04→20:27)
[2021-10-26] MEDS: FAMOTIDINE 20 MG TAB PO SCH (08:04)
--- NOTE | 2021-10-26 08:12 | XR ---
EXAMINATION TYPE: XR chest 1V portable DATE OF EXAM: 10/26/2021 COMPARISON: 10/23/2021 HISTORY: Cough TECHNIQUE: Single frontal view of the chest is obtained. FINDINGS: Bilateral areas of interstitial and alveolar infiltrate are stable. Tiny pleural effusions . Heart size stable. No pneumothorax. IMPRESSION: Stable bilateral infiltrates.
[2021-10-26] MEDS: ALBUTEROL HFA INHALER INHALATION SCH ×3 (10:00→21:42)
[2021-10-26 11:54] LABS: African American GFR (CKD) 102.2 (60.0-200.0); Albumin 3.1 g/dL (3.8-4.9); Albumin/Globulin Ratio 1.12 (1.60-3.17); Anion Gap 14.5 mmol/L (10.00-18.00); BUN/Creat Ratio 25.81 Ratio (12.00-20.00); Blood Urea Nitrogen 24.6 mg/dL (9.0-27.0); Calcium 8.6 mg/dL (8.7-10.3); Carbon Dioxide 18.7 mmol/L (20.0-27.5); Globulin 2.7 g/dL (1.6-3.3); Non-African American GFR(CKD) 88.2 (60.0-200.0); Potassium 4.8 mmol/L (3.5-5.5); Total Bilirubin 0.8 mg/dL (0.30-1.20); Total Protein 5.8 g/dL (6.2-8.2)
--- NOTE | 2021-10-26 11:59 | P.PN ---
Subjective Progress Note Date: 10/26/21 History of present illness 56-year-old male with past medical history of fibromyalgia comes in to emergency room with symptoms of nausea, vomiting, dizziness and sweating feeling weak in with runny nose loss of taste and hence now for the past 1 week. He presented on 10/19 was found to have positive COVID results. Received his monoclonal antibodies. He Came back to the emergency room because of worsening of symptoms.Vitals reviewed patient afebrile pulse 80 respiratory rate 20 blood pressure 138/82 saturating at 88% on 10 L labs reviewed WBC 6.6 hemoglobin 13.9 d-dimer is elevated at 0.89, sodium 135 bicarb 21 BUN 16 creatinine 1.3 glucose 187 ferritin 2822 AST 89 ALT 80 alkaline phosphatase 225 LDH 1091 and CRP 21 and albumin 3.3 X-ray suggestive of bilateral patchy pneumonia. Both interstitial and airspace infiltrate Pulmonary clinic consulted for COVID pneumonia Patient placed on Lovenox 40 subcu twice a day, vitamin C, D and zinc. Dexamethasone initiated at 6 mg twice a day IV Patient is a candidate of Baritinib and will discuss about initiating it with pulmonary Venous Doppler ordered 10/22: [facility] follow-up. He continues to have dyspnea and is on 15 L high flow nasal cannula and nonrebreather with pulse ox of 87 and 95%. He's been afebrile, heart rate in the 60s and 70s, blood pressure 127/73. Pro-calcitonin came back high at 9.75 and we started the patient on Zosyn and vancomycin for bacterial pneumonia coverage. Patient has coarse crackles bilaterally. No lower extremity edema. He has been seen and followed by pulmonary medicine. Patient is not a candidate for Baricitinib. Patient is continued on Decadron, Lovenox and vitamin supplements. 10/23: Is found sitting up in the edge of the bed. He is currently not on a Ventimask. However his pulse oxing still around 88 to 91 % on Ventimask or 15 L high flow nasal cannula. Patient continues to have dyspnea with activity and speaking. Patient states that he is feeling much better compared to yesterday. Continues to have a cough. No lower extremity edema. He has rhonchi to the bases bilaterally. He is currently on Decadron Lovenox and vitamin supplements. Patient remains afebrile, heart rate 62, respirations 17, blood pressure 118/68 pulse ox 93% on 15 L high flow nasal cannula 10/24: Patient was up to the bathroom showering today. Awaiting inflammation markers today. Patient still requires 10 L of O2 with a pulse ox of 90%. Patient continues to have crackles to the bilateral bases. Dyspnea with activity and speaking. Patient states he is feeling better however he is very tired. Continues to have cough no lower extremity edema. He still currently on Decadron, Lovenox, and vitamin supplements. Patient remains afebrile, heart rate 58, respirations 17, blood pressure 118/89, 10/25: Patient is still on high flow nasal cannula 15 L and nonrebreather with pulse ox of 89 and 99%. He's been afebrile, heart rate 73, blood pressure 120/72. Creatinine 1.06. Blood sugars running between 101 and 106. Sputum culture is in progress. Patient is followed closely by pulmonary medicine. Patient is continued on dexamethasone, Lovenox, Zosyn and vitamin supplements. Patient has been encouraged to prone several hours daily. 10/26: Patient remains on nonrebreather mask and AirVo at 60 L, FiO2 of 85 with pulse ox of 88%. Appears to have more difficulty with breathing. Repeat chest x-ray reveals stable bilateral infiltrates. He has been afebrile, heart rate 59, blood pressure 102/59. Repeat d-dimer 1.53. Blood sugars are well controlled. ROS Constitutional: Denies chills, denies fever, reports malaise, denies nausea and vomiting, reports generalized fatigue Eyes: denies decreased vision, denies diplopia, denies discharge, denies pain Ears: deny: decreased hearing Ears, nose, mouth and throat: Denies dental pain, Denies headache, Denies nasal discharge, Denies nose pain Cardiovascular: Denies chest pain, Denies decreased exercise tolerance, Denies edema, Denies high blood pressure, Denies irregular heart beat, Denies palpitations, Denies paroxysmal nocturnal dyspnea, Denies rapid heart beat, Denies shortness of breath Respiratory: Denies congestion, reports cough, Denies cough with sputum, reports dyspnea, Denies home oxygen, Denies wheezing, dyspnea with minimal exertion Gastrointestinal: Denies abdominal pain, Denies change in bowel habits, Denies coffee ground emesis, Denies early satiety, Denies excessive gas, Denies heartburn, Denies hematemesis, Denies hematochezia, Denies loss of appetite, endorses nausea and vomiting Genitourinary: Denies dysuria, Denies flank pain, Denies kidney stones, Denies menorrhagia, Denies urgency, Denies urinary frequency Musculoskeletal: Denies gait dysfunction, Denies limitation of motion, Denies morning stiffness, Denies muscle cramps Integumentary: Denies rash, Denies wounds, Denies brittle nails, Denies change in hair/nails, Denies darkening of skin Neurological: Denies balance difficulties, Denies change in speech, Denies double vision, Denies gait dysfunction, Denies loss of vision, Denies motor disturbance, Denies numbness, Denies paralysis, Denies paresthesias, Denies seizures Psychiatric: Denies anxiety, Denies depression Endocrine: Denies excessive sweating, Denies excessive thirst, Denies high blood sugars, Denies palpitations Hematologic/Lymphatic: Denies easy bruising, Denies lymphadenopathy Physical exam General Appearance: Alert, cooperative, mild to moderate distress, appears stated age. Patient is resting in bed. Neck HEENT: Supple, no lymphadenopathy, no thyroid enlargement, no carotid bruits. Lungs: Bilateral crackles to the bases, no deformity. Chest Wall: Chest wall normal expansion with deep inspiration no tenderness and no deformity was found on exam, no costochondral pain or discomfort. Heart: Regular rate and rhythm, S1, S2 normal, no murmur, rub or gallop. Back: Symmetric, no curvature, ROM normal, no CVA tenderness. Abdomen: Soft, non-tender, no rebound or rigidity, no hepatosplenomegaly. Extremities: Extremities normal, atraumatic, no cyanosis or edema. Pulses: 2+ and symmetric. Skin: Skin color, texture, tugor normal, no rashes or lesions. Neurologic: Alert oriented x3 cranial nerves II through XII intact, no motor deficit, no abnormal balance or gait Assessment and plan 1. Acute hypoxic respiratory failure secondary to Covid 19 pneumonia. Consult with pulmonary medicine appreciated. Oxygen therapy, currently on nonrebreather mask and AirVo at 60 L, FiO2 of 85 with pulse ox of 88%. 2. Acute COVID pneumonia. Dexamethasone 6 mg IV twice a day, Lovenox 40 subcu twice a day, Not a candidate for Baricitinib, Monitor inflammatory markers. Continue supplements vitamin C, D and zinc 3. Acute transaminitis Secondary to viral inflammation. Continue CMP monitoring 4. CK D3. Continue to monitor patient's creatinine. No acute kidney injury 5. History of fibromyalgia. continue gabapentin 800 3 times a day, Citalopram 40 mg by mouth daily, Tramadol 100 mg every 6 hours as needed 6. Insomnia. Continue Eszopiclone 3 mg daily at bedtime 7. Hypothyroidism. Levothyroxine 50 g by mouth daily 8. DVT prophylaxis. Lovenox 40 subcu twice a day 9. GI prophylaxis. Pepcid 20 mg by mouth daily Discharge Plan: more than likely home Impression and plan of care have been directed as dictated by the signing physician. Rochelle Constantino nurse practitioner acting as scribe for signing physician. Objective - Vital Signs Vital signs: Vital Signs Temp 97.7 F 10/26/21 06:00 Pulse 59 L 10/26/21 06:00 Resp 22 10/26/21 06:00 BP 102/59 10/26/21 06:00 Pulse Ox 88 L 10/26/21 06:03 Intake & Output 10/25/21 10/26/21 10/26/21 18:59 06:59 18:59 Other: Voiding Method Urinal Urinal # Voids 2 2 - Labs CBC & Chem 7: 10/24/21 06:17 10/25/21 06:00 Labs: Abnormal Lab Results - Last 24 Hours (Table) 10/25/21 10/25/21 10/25/21 Range/Units 06:00 11:53 16:49 D-Dimer (<0.60) mg/L FEU POC Glucose (mg/dL) 101 H 109 H (75-99) mg/dL Procalcitonin 0.44 H (0.02-0.09) ng/mL 10/25/21 10/26/21 10/26/21 Range/Units 19:49 05:35 06:45 D-Dimer 1.53 H (<0.60) mg/L FEU POC Glucose (mg/dL) 112 H 114 H (75-99) mg/dL Procalcitonin (0.02-0.09) ng/mL Microbiology - Last 24 Hours (Table) 10/24/21 14:00 Gram Stain - Final Sputum Sputum Culture - Final Mignon albicans 10/24/21 12:26 Blood Culture - Preliminary Blood No Growth after 24 hours 10/24/21 12:29 Blood Culture - Preliminary Blood No Growth after 24 hours
[2021-10-26 12:05] LABS: Glucose,Whole Blood 112 mg/dL (75-99)
--- NOTE | 2021-10-26 12:58 | P.PN ---
Subjective Progress Note Date: 10/26/21 Principal diagnosis: COVID-19 pneumonia This is a very pleasant 56-year-old male patient with a known history of fibromyalgia. Nonsmoker. Approximate 1 week ago he developed symptoms of nausea vomiting diarrhea dizziness and sweating. He presented here on 10/19/2021 and has a positive for COVID-19 and received monoclonal antibodies. He came back to the emergency room last evening with worsening symptoms. Chest x-ray reveals bilateral patchy interstitial and airspace infiltrates. He is currently requiring 10 L high flow nasal cannula to maintain O2 saturations in the high 80s low 90s. White count 6.6. Hemoglobin 13.9. Lymphocytes 0.3. Sodium 135. Potassium 4.1. Bicarb 21. Creatinine 1.31. Glucose 187. Ferritin 2822. AST 89. ALT 80. LDH 1091. C-reactive protein 21.0. Initiated on Decadron. On 10/22/2021 patient seen in follow-up on medical surgical floor, he is awake and alert, in no acute distress, overnight he wore 15 L high flow and nonrebrea ther mask, he is currently off the nonrebreather mask and not he is on 15 L high flow nasal cannula and he is maintaining O2 saturations at 93%, afebrile, hemodynamically stable. However his oxygen requirements have significantly increased in last 24 hours. His pro calcitonin level was significantly elevated at 9.75, and patient is not a candidate for Baricitinib in view of possibility of underlying bacterial infection. Patient states she is coughing and bringing up some greenish colored phlegm at times, he is being started on Zosyn and vancomycin empirically, we will order blood cultures, sputum culture and urine cultures. Clinically he looks fairly comfortable, no distress, lung sounds are revealing coarse diffuse rhonchi and rales. No altered mentation, no fever. He continues on Lovenox 40 mg twice daily, and Decadron 6 mg twice daily. The patient is seen today 10/23/2021 in follow-up on the regular medical floor. He remains awake and alert in no acute distress. He is currently on 15 L high flow nasal cannula as a nonrebreather mask. Chest x-ray showing some improvement in aeration. He was initiated on vancomycin and Zosyn per medicine. Pro calcitonin was 9.7. White count 8.2. Hemoglobin 13.9. D-dimer 1.10. Sodium 140. Potassium 4.2. Creatinine 1.21. AST 11. ALT 138. LDH 1001. C- reactive protein 1.7. No cultures resulted. The patient is seen today 10/26/2021 in follow-up on the regular medical floor. He is currently resting in bed. Laying on his right side. He is now on AirVo. High flow oxygen at 60 L and 80% FiO2 to maintain O2 saturations in the 80s low 90s. This x-ray continues to show bilateral areas of interstitial and alveolar infiltrates. No pneumothorax. Blood cultures revealing no growth. Sputum with Mignon. D-dimer 1.53. Sodium 137. Potassium 4.8. Creatinine 1.0. AST 84. ALT 199. LDH 401. C-reactive protein 7.0. He is continued on Decadron, Lovenox, vitamin supplements. Antibiotics in the form of Zosyn. Objective - Vital Signs Vital signs: Vital Signs Temp 98.1 F 10/26/21 09:45 Pulse 59 L 10/26/21 09:52 Resp 22 10/26/21 09:52 BP 144/69 10/26/21 09:45 Pulse Ox 89 L 10/26/21 10:02 Intake & Output 10/25/21 10/26/21 10/26/21 18:59 06:59 18:59 Other: Voiding Method Urinal Urinal Urinal # Voids 2 2 - Exam GENERAL EXAM: Alert, very pleasant, 56-year-old male patient, on AirVo high flow oxygen at 60 L and 80% FiO2, fairly comfortable in no apparent distress. HEAD: Normocephalic/atraumatic. EYES: Normal reaction of pupils, equal size. Conjunctiva pink, sclera white. NOSE: Clear with pink turbinates. THROAT: No erythema or exudates. NECK: No masses, no JVD, no thyroid enlargement, no adenopathy. CHEST: No chest wall deformity. Symmetrical expansion. LUNGS: Equal air entry with coarse crackles in the bilateral bases CVS: Regular rate and rhythm, normal S1 and S2, no gallops, no murmurs, no rubs ABDOMEN: Soft, nontender. No hepatosplenomegaly, normal bowel sounds, no guarding or rigidity. EXTREMITIES: No clubbing, no edema, no cyanosis, 2+ pulses and upper and lower extremities. MUSCULOSKELETAL: Muscle strength and tone normal. SPINE: No scoliosis or deformity SKIN: No rashes CENTRAL NERVOUS SYSTEM: No focal deficits, tone is normal in all 4 extremities. PSYCHIATRIC: Alert and oriented -3. Appropriate affect. Intact judgment and insight. - Labs CBC & Chem 7: 10/24/21 06:17 10/26/21 05:35 Labs: Abnormal Lab Results - Last 24 Hours (Table) 10/25/21 10/25/21 10/25/21 Range/Units 06:00 16:49 19:49 D-Dimer (<0.60) mg/L FEU Carbon Dioxide (20.0-27.5) mmol/L BUN/Creatinine Ratio (12.00-20.00) Ratio Glucose (70-110) mg/dL POC Glucose (mg/dL) 109 H 112 H (75-99) mg/dL Calcium (8.7-10.3) mg/dL AST (14-35) U/L ALT (10-49) U/L Alkaline Phosphatase (41-126) U/L Lactate Dehydrogenase (120-246) U/L C-Reactive Protein (0.00-0.80) mg/dL Total Protein (6.2-8.2) g/dL Albumin (3.8-4.9) g/dL Albumin/Globulin Ratio (1.60-3.17) g/dL Procalcitonin 0.44 H (0.02-0.09) ng/mL 10/26/21 10/26/21 10/26/21 Range/Units 05:35 05:35 06:45 D-Dimer 1.53 H (<0.60) mg/L FEU Carbon Dioxide 18.7 L (20.0-27.5) mmol/L BUN/Creatinine Ratio 25.81 H (12.00-20.00) Ratio Glucose 124 H (70-110) mg/dL POC Glucose (mg/dL) 114 H (75-99) mg/dL Calcium 8.6 L (8.7-10.3) mg/dL AST 84 H (14-35) U/L ALT 199 H (10-49) U/L Alkaline Phosphatase 130 H (41-126) U/L Lactate Dehydrogenase 401 H (120-246) U/L C-Reactive Protein 7.00 H (0.00-0.80) mg/dL Total Protein 5.8 L (6.2-8.2) g/dL Albumin 3.1 L (3.8-4.9) g/dL Albumin/Globulin Ratio 1.12 L (1.60-3.17) g/dL Procalcitonin (0.02-0.09) ng/mL 10/26/21 Range/Units 12:02 D-Dimer (<0.60) mg/L FEU Carbon Dioxide (20.0-27.5) mmol/L BUN/Creatinine Ratio (12.00-20.00) Ratio Glucose (70-110) mg/dL POC Glucose (mg/dL) 112 H (75-99) mg/dL Calcium (8.7-10.3) mg/dL AST (14-35) U/L ALT (10-49) U/L Alkaline Phosphatase (41-126) U/L Lactate Dehydrogenase (120-246) U/L C-Reactive Protein (0.00-0.80) mg/dL Total Protein (6.2-8.2) g/dL Albumin (3.8-4.9) g/dL Albumin/Globulin Ratio (1.60-3.17) g/dL Procalcitonin (0.02-0.09) ng/mL Microbiology - Last 24 Hours (Table) 10/24/21 14:00 Gram Stain - Final Sputum Sputum Culture - Final Mignon albicans 10/24/21 12:26 Blood Culture - Preliminary Blood No Growth after 24 hours 10/24/21 12:29 Blood Culture - Preliminary Blood No Growth after 24 hours Assessment and Plan Assessment: 1 Acute hypoxemic respiratory failure secondary to acute COVID-19 pneumonia. Not vaccinated. Received monoclonal antibodies on 10/19/2021. On AirVo high flow oxygen at 60 L and 80% FiO2. Did not qualify for Remdesivir. Pro-ca lcitonin greater than 9, trending down. Cultures pending. On antibiotics and not qualifying for Baricitinib. 2 Elevated inflammatory markers secondary to above 3 Mild transaminitis secondary to above 4 History of fibromyalgia 5 Hypothyroidism Plan: Chest x-ray and labs reviewed Sputum culture with Mignon only thus far Pro-calcitonin 0.44, down from 9.75 Continue Zosyn for now Continue Decadron, Lovenox, vitamin supplements Continue bronchodilators, incentive spirometer Titrate the FiO2 as tolerated We will continue to follow and make further recommendations based on his clinical status I, the cosigning physician, performed a history & physical examination of the p atient. Lungs sounds crackles in the bilateral bases. Maintaining good O2 saturations in the 90s on AirVo high flow oxygen at 60 L and 80% FiO2. I discussed the assessment and plan of care with my nurse practitioner, Maureen Keith. I attest to the above note as dictated by her.
[2021-10-26 16:44] LABS: Glucose,Whole Blood 116 mg/dL (75-99)
[2021-10-26 19:57] LABS: Glucose,Whole Blood 97 mg/dL (75-99)
[2021-10-26] MEDS: TEMAZEPAM 15 MG CAP PO PRN (20:26)
[2021-10-27] MEDS: traMADol 50 MG TAB PO PRN ×4 (02:25→20:44)
[2021-10-27] MEDS: PIPERACILLIN-TAZOBACTAM 3.375 GM in SODIUM CHLORIDE 0.9% 100 ML IVPB SCH ×3 (05:23→21:50)
[2021-10-27] MEDS: LEVOTHYROXINE 50 MCG TAB PO SCH (05:23)
[2021-10-27 06:39] LABS: Glucose,Whole Blood 102 mg/dL (75-99)
[2021-10-27] MEDS: ALBUTEROL HFA INHALER INHALATION SCH ×3 (08:26→20:26)
[2021-10-27] MEDS: INSULIN ASPART (NovoLOG) 100 UNIT/ML VIAL SQ SCH (08:32)
[2021-10-27] MEDS: DEXAMETHASONE SOD PHOSPHATE 10 MG/ML 1 ML VIAL IVP SCH ×2 (08:40→20:45)
[2021-10-27] MEDS: FAMOTIDINE 20 MG TAB PO SCH (08:41)
[2021-10-27] MEDS: CITALOPRAM HYDROBROMIDE 20 MG TAB PO SCH (08:41)
[2021-10-27] MEDS: CHOLECALCIFEROL 25 MCG (1000 IU) TABLET PO SCH (08:41)
[2021-10-27] MEDS: guaiFENesin 600 MG TABLET.ER PO SCH ×2 (08:41→20:45)
[2021-10-27] MEDS: GABAPENTIN 400 MG CAP PO SCH ×3 (08:41→20:44)
[2021-10-27] MEDS: ASCORBIC ACID 500 MG TAB PO SCH (08:41)
[2021-10-27] MEDS: ZINC SULFATE 220 MG CAP PO SCH (08:41)
[2021-10-27] MEDS: ENOXAPARIN 40 MG/0.4 ML SYRINGE SQ SCH ×2 (08:49→20:44)
--- NOTE | 2021-10-27 14:53 | P.PN ---
Subjective Progress Note Date: 10/27/21 History of present illness 56-year-old male with past medical history of fibromyalgia comes in to emergency room with symptoms of nausea, vomiting, dizziness and sweating feeling weak in with runny nose loss of taste and hence now for the past 1 week. He presented on 10/19 was found to have positive COVID results. Received his monoclonal antibodies. He Came back to the emergency room because of worsening of symptoms.Vitals reviewed patient afebrile pulse 80 respiratory rate 20 blood pressure 138/82 saturating at 88% on 10 L labs reviewed WBC 6.6 hemoglobin 13.9 d-dimer is elevated at 0.89, sodium 135 bicarb 21 BUN 16 creatinine 1.3 glucose 187 ferritin 2822 AST 89 ALT 80 alkaline phosphatase 225 LDH 1091 and CRP 21 and albumin 3.3 X-ray suggestive of bilateral patchy pneumonia. Both interstitial and airspace infiltrate Pulmonary clinic consulted for COVID pneumonia Patient placed on Lovenox 40 subcu twice a day, vitamin C, D and zinc. Dexamethasone initiated at 6 mg twice a day IV Patient is a candidate of Baritinib and will discuss about initiating it with pulmonary Venous Doppler ordered 10/22: [facility]up. He continues to have dyspnea and is on 15 L high flow nasal cannula and nonrebreather with pulse ox of 87 and 95%. He's been afebrile, heart rate in the 60s and 70s, blood pressure 127/73. Pro-calcitonin came back high at 9.75 and we started the patient on Zosyn and vancomycin for bacterial pneumonia coverage. Patient has coarse crackles bilaterally. No lower extremity edema. He has been seen and followed by pulmonary medicine. Patient is not a candidate for Baricitinib. Patient is continued on Decadron, Lovenox and vitamin supplements. 10/23: Is found sitting up in the edge of the bed. He is currently not on a Ventimask. However his pulse oxing still around 88 to 91 % on Ventimask or 15 L high flow nasal cannula. Patient continues to have dyspnea with activity and speaking. Patient states that he is feeling much better compared to yesterday. Continues to have a cough. No lower extremity edema. He has rhonchi to the bases bilaterally. He is currently on Decadron Lovenox and vitamin supplements. Patient remains afebrile, heart rate 62, respirations 17, blood pressure 118/68 pulse ox 93% on 15 L high flow nasal cannula 10/24: Patient was up to the bathroom showering today. Awaiting inflammation markers today. Patient still requires 10 L of O2 with a pulse ox of 90%. Patient continues to have crackles to the bilateral bases. Dyspnea with activity and speaking. Patient states he is feeling better however he is very tired. Continues to have cough no lower extremity edema. He still currently on Decadron, Lovenox, and vitamin supplements. Patient remains afebrile, heart rate 58, respirations 17, blood pressure 118/89, 10/25: Patient is still on high flow nasal cannula 15 L and nonrebreather with pulse ox of 89 and 99%. He's been afebrile, heart rate 73, blood pressure 120/72. Creatinine 1.06. Blood sugars running between 101 and 106. Sputum culture is in progress. Patient is followed closely by pulmonary medicine. Patient is continued on dexamethasone, Lovenox, Zosyn and vitamin supplements. Patient has been encouraged to prone several hours daily. 10/26: Patient remains on nonrebreather mask and AirVo at 60 L, FiO2 of 85 with pulse ox of 88%. Appears to have more difficulty with breathing. Repeat chest x-ray reveals stable bilateral infiltrates. He has been afebrile, heart rate 59, blood pressure 102/59. Repeat d-dimer 1.53. Blood sugars are well controlled. 10/27: Patient remains on nonrebreather and AirVo with pulse ox at 90%. He has been afebrile, heart rate 70, blood pressure 131/79. CBG running between 97 and 116 and CBGs and insulin will be discontinued. Sputum cultures positive for Mignon albicans. Patient is increasing his activity, currently laying in bed on his side. Lab work including inflammatory markers ordered for tomorrow. ROS Constitutional: Denies chills, denies fever, reports malaise, denies nausea and vomiting, reports generalized fatigue Eyes: denies decreased vision, denies diplopia, denies discharge, denies pain Ears: deny: decreased hearing Ears, nose, mouth and throat: Denies dental pain, Denies headache, Denies nasal discharge, Denies nose pain Cardiovascular: Denies chest pain, Denies decreased exercise tolerance, Denies edema, Denies high blood pressure, Denies irregular heart beat, Denies palpitations, Denies paroxysmal nocturnal dyspnea, Denies rapid heart beat, Denies shortness of breath Respiratory: Denies congestion, reports cough, Denies cough with sputum, reports dyspnea, Denies home oxygen, Denies wheezing, dyspnea with minimal exertion Gastrointestinal: Denies abdominal pain, Denies coffee ground emesis, Denies early satiety, Denies excessive gas, Denies heartburn, Denies hematemesis, Denies hematochezia, Denies loss of appetite, endorses nausea and vomiting Genitourinary: Denies dysuria, Denies flank pain, Denies kidney stones, Denies menorrhagia, Denies urgency, Denies urinary frequency Musculoskeletal: Denies gait dysfunction, Denies limitation of motion, Denies morning stiffness, Denies muscle cramps Integumentary: Denies rash, Denies wounds, Denies brittle nails, Denies change in hair/nails, Denies darkening of skin Neurological: Denies balance difficulties, Denies change in speech, Denies double vision, Denies gait dysfunction, Denies loss of vision, Denies motor disturbance, Denies numbness, Denies paralysis, Denies paresthesias, Denies seizures Psychiatric: Denies anxiety, Denies depression Endocrine: Denies excessive sweating, Denies excessive thirst, Denies high blood sugars, Denies palpitations Hematologic/Lymphatic: Denies easy bruising, Denies lymphadenopathy Physical exam General Appearance: Alert, cooperative, mild distress, appears stated age. Patient is resting in bed. Neck HEENT: Supple, no lymphadenopathy, no thyroid enlargement, no carotid bruits. Lungs: Bilateral crackles to the bases, no deformity. Chest Wall: Chest wall normal expansion with deep inspiration no tenderness and no deformity was found on exam, no costochondral pain or discomfort. Heart: Regular rate and rhythm, S1, S2 normal, no murmur, rub or gallop. Back: Symmetric, no curvature, ROM normal, no CVA tenderness. Abdomen: Soft, non-tender, no rebound or rigidity, no hepatosplenomegaly. Extremities: Extremities normal, atraumatic, no cyanosis or edema. Pulses: 2+ and symmetric. Skin: Skin color, texture, tugor normal, no rashes or lesions. Neurologic: Alert oriented x3 cranial nerves II through XII intact, no motor deficit, no abnormal balance or gait Assessment and plan 1. Acute hypoxic respiratory failure secondary to Covid 19 pneumonia. Consult with pulmonary medicine appreciated. Oxygen therapy, currently on nonrebreather mask and AirVo at 60 L, FiO2 of 90 with pulse ox of 86 and 93 %. 2. Acute COVID pneumonia. Dexamethasone 6 mg IV twice a day, Lovenox 40 subcu twice a day, Not a candidate for Baricitinib, Monitor inflammatory markers. Continue supplements vitamin C, D and zinc 3. Acute transaminitis Secondary to viral inflammation. Continue CMP monitoring 4. CK D3. Continue to monitor patient's creatinine. No acute kidney injury 5. History of fibromyalgia. continue gabapentin 800 3 times a day, Citalopram 40 mg by mouth daily, Tramadol 100 mg every 6 hours as needed 6. Insomnia. Continue Eszopiclone 3 mg daily at bedtime 7. Hypothyroidism. Levothyroxine 50 g by mouth daily 8. DVT prophylaxis. Lovenox 40 subcu twice a day 9. GI prophylaxis. Pepcid 20 mg by mouth daily Discharge Plan: more than likely home Impression and plan of care have been directed as dictated by the signing physician. Rochelle Constantino nurse practitioner acting as scribe for signing physician. Objective - Vital Signs Vital signs: Vital Signs Temp 98.3 F 10/27/21 06:00 Pulse 47 L 10/27/21 06:00 Resp 20 10/27/21 06:00 BP 104/59 10/27/21 06:00 Pulse Ox 90 L 10/27/21 06:00 Intake & Output 10/26/21 10/27/21 10/27/21 18:59 06:59 18:59 Intake Total 100 Output Total 800 Balance 100 -800 Intake: Intake, IV Titration 100 Amount Piperacillin-Tazobactam 3 100 .375 gm In Sodium Chloride 0.9% 100 ml @ 25 mls/hr IVPB Q8H [facility] Rx#: [id number] Output: Urine 800 Other: Voiding Method Urinal Urinal # Voids 1 - Labs CBC & Chem 7: 10/24/21 06:17 10/26/21 05:35 Labs: Abnormal Lab Results - Last 24 Hours (Table) 10/26/21 10/26/21 10/26/21 Range/Units 05:35 12:02 16:42 Carbon Dioxide 18.7 L (20.0-27.5) mmol/L BUN/Creatinine Ratio 25.81 H (12.00-20.00) Ratio Glucose 124 H (70-110) mg/dL POC Glucose (mg/dL) 112 H 116 H (75-99) mg/dL Calcium 8.6 L (8.7-10.3) mg/dL AST 84 H (14-35) U/L ALT 199 H (10-49) U/L Alkaline Phosphatase 130 H (41-126) U/L Lactate Dehydrogenase 401 H (120-246) U/L C-Reactive Protein 7.00 H (0.00-0.80) mg/dL Total Protein 5.8 L (6.2-8.2) g/dL Albumin 3.1 L (3.8-4.9) g/dL Albumin/Globulin Ratio 1.12 L (1.60-3.17) g/dL 10/27/21 Range/Units 06:37 Carbon Dioxide (20.0-27.5) mmol/L BUN/Creatinine Ratio (12.00-20.00) Ratio Glucose (70-110) mg/dL POC Glucose (mg/dL) 102 H (75-99) mg/dL Calcium (8.7-10.3) mg/dL AST (14-35) U/L ALT (10-49) U/L Alkaline Phosphatase (41-126) U/L Lactate Dehydrogenase (120-246) U/L C-Reactive Protein (0.00-0.80) mg/dL Total Protein (6.2-8.2) g/dL Albumin (3.8-4.9) g/dL Albumin/Globulin Ratio (1.60-3.17) g/dL Microbiology - Last 24 Hours (Table) 10/24/21 12:26 Blood Culture - Preliminary Blood No Growth after 48 hours 10/24/21 12:29 Blood Culture - Preliminary Blood No Growth after 48 hours 10/24/21 14:00 Gram Stain - Final Sputum Sputum Culture - Final Mignon albicans
--- NOTE | 2021-10-27 16:40 | P.PN ---
Subjective Progress Note Date: 10/27/21 Principal diagnosis: Dyspnea, hypoxia, COVID-19 This is a very pleasant 56-year-old male patient with a known history of fibromyalgia. Nonsmoker. Approximate 1 week ago he developed symptoms of nausea vomiting diarrhea dizziness and sweating. He presented here on 10/19/2021 and has a positive for COVID-19 and received monoclonal antibodies. He came back to the emergency room last evening with worsening symptoms. Chest x-ray reveals bilateral patchy interstitial and airspace infiltrates. He is currently requiring 10 L high flow nasal cannula to maintain O2 saturations in the high 80s low 90s. White count 6.6. Hemoglobin 13.9. Lymphocytes 0.3. Sodium 135. Potassium 4.1. Bicarb 21. Creatinine 1.31. Glucose 187. Ferritin 2822. AST 89. ALT 80. LDH 1091. C-reactive protein 21.0. Initiated on Decadron. On 10/22/2021 patient seen in follow-up on medical surgical floor, he is awake and alert, in no acute distress, overnight he wore 15 L high flow and n onrebreather mask, he is currently off the nonrebreather mask and not he is on 15 L high flow nasal cannula and he is maintaining O2 saturations at 93%, afebrile, hemodynamically stable. However his oxygen requirements have significantly increased in last 24 hours. His pro calcitonin level was sig nificantly elevated at 9.75, and patient is not a candidate for Baricitinib in view of possibility of underlying bacterial infection. Patient states she is coughing and bringing up some greenish colored phlegm at times, he is being started on Zosyn and vancomycin empirically, we will order blood cultures, sputum culture and urine cultures. Clinically he looks fairly comfortable, no distress, lung sounds are revealing coarse diffuse rhonchi and rales. No altered mentation, no fever. He continues on Lovenox 40 mg twice daily, and Decadron 6 mg twice daily. On 10/24/2021 patient seen in follow-up on medical surgical floor, is currently on 15 L of oxygen, he is not using the nonrebreather mask, his pulse ox is 90- 95%, patient has been self repositioning in bed, he states his breathing is about the same, maybe slightly improved, lung sounds are positive for fine rales bilaterally, he remains on Zosyn for empiric antibiotic coverage, Decadron 6 mggram twice daily, vancomycin has been discontinued. Patient is afebrile, hemodynamically has been stable. Tolerating oral intake, his labs have been reviewed today, his white blood cell count is 7.42, hemoglobin is 13.2, d-dimer is 1.4, electrolytes and renal profile are within normal limits, his liver enzymes have worsened on today's labs, and AST is up to 108, ALT is 182, alkaline phosphatase is actually improved and is down to 150. His LDH is improved and is down to 413, and CRP is 4.1, improved compared to admission levels. Pro calcitonin level is improving and is down to 1.34, urinalysis did not show evidence of infection. On 10/25/2021 patient seen in follow-up on medical surgical floor, he remains on high flow oxygen at 15 L, and 100% nonrebreather mask, his been pretty successful with self repositioning in bed, his pulse ox is around 96% on both oxygen delivery devices, at times it is near 99%, patient is mildly short of breath with any exertion, she does desaturate with any exertion, into the low 80s recovers. Other vitals have been stable, his been afebrile, has cough and congestion have improved, history and culture was sent, showing few PMNs and a few gram-positive cocci. Patient remains on empiric antibiotic coverage with Zosyn only, vancomycin has been discontinued, blood cultures have shown no nicki wth. Follow-up pro-calcitonin will be obtained for tomorrow, physical exam reveals a few scattered rhonchi, improved from yesterday's exam. No complaint of chest pain, no hemoptysis, no nausea vomiting or diarrhea. On 10/27/2021 patient seen in follow-up on medical surgical floor. Patient is laying on his left side, he remains on interval at 60 L and FiO2 of 90% and nonrebreather mask and his pulse ox is 86-93%. Breathing fairly comfortably, although he has been quite limited in terms of activity tolerance. Afebrile, hemodynamically has been stable, he continues on Decadron 6 mg twice daily, he continues on Zosyn for empiric antibiotic coverage is on prophylactic Lovenox 40 mg twice daily. Sputum culture showed Mignon albicans, blood cultures have been negative. His pro calcitonin level was improving on previous labs. No acute events overnight, his lower extremity Dopplers were negative for DVT. His d-dimer on yesterday's labs was 1.53. His electrolytes and renal profile were unremarkable. Objective - Vital Signs Vital signs: Vital Signs Temp 98.2 F 10/27/21 13:28 Pulse 87 10/27/21 13:28 Resp 18 10/27/21 13:28 BP 113/74 10/27/21 13:28 Pulse Ox 86 L 10/27/21 13:28 Intake & Output 10/26/21 10/27/21 10/27/21 18:59 06:59 18:59 Intake Total 100 Output Total 800 Balance 100 -800 Weight 111.13 kg Intake: Intake, IV Titration 100 Amount Piperacillin-Tazobactam 3 100 .375 gm In Sodium Chloride 0.9% 100 ml @ 25 mls/hr IVPB Q8H [facility] Rx#: [id number] Output: Urine 800 Other: Voiding Method Urinal Urinal # Voids 1 - Exam GENERAL EXAM: Alert, very pleasant, 56-year-old white male, on 60 L and FiO2 of 90% HEAD: Normocephalic/atraumatic. EYES: Normal reaction of pupils, equal size. Conjunctiva pink, sclera white. NOSE: Clear with pink turbinates. THROAT: No erythema or exudates. NECK: No masses, no JVD, no thyroid enlargement, no adenopathy. CHEST: No chest wall deformity. Symmetrical expansion. LUNGS: Equal air entry with diffuse crackles, and rhonchi, no wheezing CVS: Regular rate and rhythm, normal S1 and S2, no gallops, no murmurs, no rubs ABDOMEN: Soft, nontender. No hepatosplenomegaly, normal bowel sounds, no guarding or rigidity. EXTREMITIES: No clubbing, no edema, no cyanosis, 2+ pulses and upper and lower extremities. MUSCULOSKELETAL: Muscle strength and tone normal. SPINE: No scoliosis or deformity SKIN: No rashes CENTRAL NERVOUS SYSTEM: Alert and oriented -3. No focal deficits, tone is normal in all 4 extremities. PSYCHIATRIC: Alert and oriented -3. Appropriate affect. Intact judgment and insight. - Labs CBC & Chem 7: 10/24/21 06:17 10/26/21 05:35 Labs: Abnormal Lab Results - Last 24 Hours (Table) 10/26/21 10/27/21 Range/Units 16:42 06:37 POC Glucose (mg/dL) 116 H 102 H (75-99) mg/dL Microbiology - Last 24 Hours (Table) 10/24/21 12:26 Blood Culture - Preliminary Blood No Growth after 72 hours 10/24/21 12:29 Blood Culture - Preliminary Blood No Growth after 72 hours Assessment and Plan Plan: Assessment: #1. Acute hypoxic respiratory failure secondary to acute COVID-19 pneumonia. Patient is status post monoclonal antibody infusion on 10/19/2021. Patient was not a candidate for Remdesivir related to severe hypoxic respiratory failure on presentation requiring 10 L high flow nasal cannula. Today he is on 15 L and 100% nonrebreather mask, his FiO2 requirements have increased but patient is not a candidate for Baricitinib related to possibility of underlying bacterial infection #2. Elevated pro-calcitonin, rule out possibility of bacterial superinfection, patient has been empirically started on Zosyn and vancomycin #3. Elevated inflammatory markers related to acute COVID-19 pneumonia and possibly a bacterial pneumonia #4. Elevated LFTs related to COVID-19 pneumonia, slightly worsened #5. Elevated d-dimer, venous Doppler of bilateral lower extremities was negative for DVT #6. History of fibromyalgia #7. Depression #8. Never smoker #9. Acute kidney injury possibly related to Covid 19 related ATN, Zoloftresolved #10. Hypothyroidism Plan: Continue current medical treatment Continue empiric antibiotics Continue current dose Decadron and Lovenox Obtain CT angiogram of the chest to rule out possibility of pulmonary embolism We'll continue to follow his clinical course I performed a history & physical examination of the patient and discussed their management with my nurse practitioner, Angi Roberts. I reviewed the nurse practitioner's note and agree with the documented findings and plan of care. Lung sounds are positive for dim breath sounds throughout the lung rivera. The findings and the impression was discussed with the patient. I attest to the documentation by the nurse practitioner. Time with Patient: Less than 30
[2021-10-27] MEDS: TEMAZEPAM 15 MG CAP PO PRN (20:44)
[2021-10-28] MEDS: traMADol 50 MG TAB PO PRN ×2 (02:10→08:54)
[2021-10-28] MEDS: LEVOTHYROXINE 50 MCG TAB PO SCH (05:31)
[2021-10-28] MEDS: PIPERACILLIN-TAZOBACTAM 3.375 GM in SODIUM CHLORIDE 0.9% 100 ML IVPB SCH (05:31)
[2021-10-28] MEDS: ALBUTEROL HFA INHALER INHALATION SCH ×3 (07:28→20:20)
[2021-10-28 07:42] LABS: Glucose,Whole Blood 94 mg/dL (75-99)
--- NOTE | 2021-10-28 08:35 | XR ---
EXAMINATION TYPE: XR chest 1V portable DATE OF EXAM: 10/28/2021 CLINICAL HISTORY: Difficulty breathing and covid progress study. TECHNIQUE: Single AP portable upright view of the chest is obtained. COMPARISON: Chest x-ray from 2 days earlier and older studies. FINDINGS: Increased bilateral multifocal opacities redemonstrated. Cardiac silhouette size is stable and within normal limits. Osseous structures are intact. IMPRESSION: Bilateral multifocal peripheral increased opacities consistent with covid-19 infection ar e redemonstrated. No significant change from most recent x-ray.
[2021-10-28] MEDS: ENOXAPARIN 40 MG/0.4 ML SYRINGE SQ SCH (08:48)
[2021-10-28] MEDS: DEXAMETHASONE SOD PHOSPHATE 10 MG/ML 1 ML VIAL IVP SCH ×2 (08:49→21:19)
[2021-10-28] MEDS: ZINC SULFATE 220 MG CAP PO SCH (08:54)
[2021-10-28] MEDS: FAMOTIDINE 20 MG TAB PO SCH (08:54)
[2021-10-28] MEDS: CHOLECALCIFEROL 25 MCG (1000 IU) TABLET PO SCH (08:54)
[2021-10-28] MEDS: ASCORBIC ACID 500 MG TAB PO SCH (08:54)
[2021-10-28] MEDS: guaiFENesin 600 MG TABLET.ER PO SCH (08:54)
[2021-10-28] MEDS: GABAPENTIN 400 MG CAP PO SCH ×3 (08:55→21:20)
[2021-10-28] MEDS: CITALOPRAM HYDROBROMIDE 20 MG TAB PO SCH (08:55)
[2021-10-28 09:04] LABS: Basophils # (A) 0.01 X 10*3/uL (0.00-0.10); Basophils % (A) 0.1 %; Eosinophils # (A) 0 X 10*3/uL (0.04-0.35); Eosinophils % (A) 0 %; HGB 12.7 g/dL (13.0-17.0); Lymphocytes # (A) 0.42 X 10*3/uL (0.90-5.00); Lymphocytes % (A) 4.4 %; MCH 29.8 pg (27.0-32.0); MCHC 33.4 g/dL (32.0-37.0); MCV 89.2 fL (80.0-97.0); Mean Platelet Volume 11.9 fL (9.5-12.2); Monocytes # (A) 0.26 X 10*3/uL (0.20-1.00); Monocytes % (A) 2.7 %; Neutrophils # (A) 8.64 X 10*3/uL (1.80-7.70); Neutrophils % (A) 91.4 %; Platelet Count 363 X 10*3/uL (140-440); RBC 4.26 X 10*6/uL (4.40-5.60); RDW 13.4 % (11.5-14.5); WBC 9.46 X 10*3/uL (4.50-10.00)
--- NOTE | 2021-10-28 09:04 | P.EN ---
A- team: Indication: Hypoxemia Arrived on Scene to find: Patient with maxed out airvo setting at 90/60 and NRB with SPO2 at 78% Patient seen and examined at bedside. He reports shortness of breath is better than last night. No longer light heaaded dizzy or nauseated. He is agreeable to bipap therapy Vital signs reviewed General: ill appearing, moderated distress, appears at stated age Derm: warm, dry Head: atraumatic, normocephalic, symmetric Eyes: EOMI, no lid lag, anicteric sclera Mouth: no lip lesion, mucus membranes dry Cardiovascular: S1S2 reg, no murmur, positive posterior tibial pulse bilateral, Lungs: course bs bilateral, + accessory muscle use, + 3 word conversation dyspnea Psych: Alert, oriented, appropriate affect intacting thinking and reasoning Assessment: COVID-19 pneumonia Acute hypoxic respiratory failure Plan: Stat CXR reviewed by myself bilateral interstitial infiltrated - Lab work has been drawn and is pending except d-dimer which is unchange - d-dimer elevated but patient unable to layflat on bipap without increased respiratory distress and hypoxia (O2 at 76% when laying flat) - Patient states that he does not want intubation/life support, JOB PLACEMENT COUNSELOR from primary service will ensure fmaily is aware of pt wishes as he states that they are not Disposition: Remain on 4S Notified: LG Byrd for admitting service LG [facility] pulm/CC A Total of 32 minutes of critical care time was spent on the complex care of this patient.
[2021-10-28 10:01] LABS: African American GFR (CKD) 109.5 (60.0-200.0); Albumin/Globulin Ratio 1.03 (1.60-3.17); Anion Gap 10.1 mmol/L (10.00-18.00); BUN/Creat Ratio 29.89 Ratio (12.00-20.00); Blood Urea Nitrogen 26.9 mg/dL (9.0-27.0); C Reactive Protein 4.8 mg/dL (0.00-0.80); Calcium 8.6 mg/dL (8.7-10.3); Carbon Dioxide 19.9 mmol/L (20.0-27.5); Globulin 2.9 g/dL (1.6-3.3); Non-African American GFR(CKD) 94.5 (60.0-200.0); Potassium 4.8 mmol/L (3.5-5.5); Total Bilirubin 0.8 mg/dL (0.30-1.20); Total Protein 5.9 g/dL (6.2-8.2)
[2021-10-28 10:24] LABS: ABG Base Excess -0.2 mmol/L; ABG HCO3 24 mmol/L (21-25); ABG Oxygen Saturation 84.7 % (94-97); ABG PCO2 34 mmHg (35-45); ABG PH 7.45 (7.35-7.45); ABG TCO2 25 mmol/L (19-24); Allen Test Performed? Yes
[2021-10-28 10:35] LABS: ABG PO2 49 mmHg (83-108)
--- NOTE | 2021-10-28 10:48 | P.PN ---
Subjective Progress Note Date: 10/28/21 History of present illness 56-year-old male with past medical history of fibromyalgia comes in to emergency room with symptoms of nausea, vomiting, dizziness and sweating feeling weak in with runny nose loss of taste and hence now for the past 1 week. He presented on 10/19 was found to have positive COVID results. Received his monoclonal antibodies. He Came back to the emergency room because of worsening of symptoms.Vitals reviewed patient afebrile pulse 80 respiratory rate 20 blood pressure 138/82 saturating at 88% on 10 L labs reviewed WBC 6.6 hemoglobin 13.9 d-dimer is elevated at 0.89, sodium 135 bicarb 21 BUN 16 creatinine 1.3 glucose 187 ferritin 2822 AST 89 ALT 80 alkaline phosphatase 225 LDH 1091 and CRP 21 and albumin 3.3 X-ray suggestive of bilateral patchy pneumonia. Both interstitial and airspace infiltrate Pulmonary clinic consulted for COVID pneumonia Patient placed on Lovenox 40 subcu twice a day, vitamin C, D and zinc. Dexamethasone initiated at 6 mg twice a day IV Patient is a candidate of Baritinib and will discuss about initiating it with pulmonary Venous Doppler ordered 10/22: [facility]. He continues to have dyspnea and is on 15 L high flow nasal cannula and nonrebreather with pulse ox of 87 and 95%. He's been afebrile, heart rate in the 60s and 70s, blood pressure 127/73. Pro-calcitonin came back high at 9.75 and we started the patient on Zosyn and vancomycin for bacterial pneumonia coverage. Patient has coarse crackles bilaterally. No lower extremity edema. He has been seen and followed by pulmonary medicine. Patient is not a candidate for Baricitinib. Patient is continued on Decadron, Lovenox and vitamin supplements. 10/23: Is found sitting up in the edge of the bed. He is currently not on a Ventimask. However his pulse oxing still around 88 to 91 % on Ventimask or 15 L high flow nasal cannula. Patient continues to have dyspnea with activity and speaking. Patient states that he is feeling much better compared to yesterday. Continues to have a cough. No lower extremity edema. He has rhonchi to the bases bilaterally. He is currently on Decadron Lovenox and vitamin supplements. Patient remains afebrile, heart rate 62, respirations 17, blood pressure 118/68 pulse ox 93% on 15 L high flow nasal cannula 10/24: Patient was up to the bathroom showering today. Awaiting inflammation markers today. Patient still requires 10 L of O2 with a pulse ox of 90%. Patient continues to have crackles to the bilateral bases. Dyspnea with activity and speaking. Patient states he is feeling better however he is very tired. Continues to have cough no lower extremity edema. He still currently on Decadron, Lovenox, and vitamin supplements. Patient remains afebrile, heart rate 58, respirations 17, blood pressure 118/89, 10/25: Patient is still on high flow nasal cannula 15 L and nonrebreather with pulse ox of 89 and 99%. He's been afebrile, heart rate 73, blood pressure 120/72. Creatinine 1.06. Blood sugars running between 101 and 106. Sputum culture is in progress. Patient is followed closely by pulmonary medicine. Patient is continued on dexamethasone, Lovenox, Zosyn and vitamin supplements. Patient has been encouraged to prone several hours daily. 10/26: Patient remains on nonrebreather mask and AirVo at 60 L, FiO2 of 85 with pulse ox of 88%. Appears to have more difficulty with breathing. Repeat chest x-ray reveals stable bilateral infiltrates. He has been afebrile, heart rate 59, blood pressure 102/59. Repeat d-dimer 1.53. Blood sugars are well controlled. 10/27: Patient remains on nonrebreather and AirVo with pulse ox at 90%. Patient was agreeable. He has been afebrile, heart rate 70, blood pressure 131/79. CBG running between 97 and 116 and CBGs and insulin will be discontinued. Sputum cultures positive for Mignon albicans. Patient is increasing his activity, currently laying in bed on his side. Lab work including inflammatory markers ordered for tomorrow. 10/28: Patient had a drop in his pulse ox and 78% with nonrebreather and AirVo and A-Team was called. Patient stated that his shortness of breath was better than the night before. Stat chest x-ray was done which revealed bilateral multifocal peripheral increased opacities consistent with Covid 19 infection are redemonstrated. No significant change. Patient transitioned to BiPAP with pulse ox of 90%. Patient verbalized that he wanted to be a no CODE STATUS and was encouraged to discuss with family. It was determined the patient will be transferred to the intensive care unit most likely be intubated. Patient was very resistant but after long discussion with Dr. Mark Anthony santo, patient agreed to intubation and full CODE STATUS at this point. Repeat blood work reveals WBC 9.4, hemoglobin 12.7, platelet count 263. D-dimer 1.31. Blood sugars ROS Constitutional: Denies chills, denies fever, reports malaise, denies nausea and vomiting, reports generalized fatigue Eyes: denies decreased vision, denies diplopia, denies discharge, denies pain Ears: deny: decreased hearing Ears, nose, mouth and throat: Denies dental pain, Denies headache, Denies nasal discharge, Denies nose pain Cardiovascular: Denies chest pain, Denies decreased exercise tolerance, Denies edema, Denies high blood pressure, Denies irregular heart beat, Denies palpitations, Denies paroxysmal nocturnal dyspnea, Denies rapid heart beat, Denies shortness of breath Respiratory: Denies congestion, reports cough, Denies cough with sputum, reports dyspnea, Denies home oxygen, Denies wheezing, dyspnea with minimal exertion Gastrointestinal: Denies abdominal pain, Denies coffee ground emesis, Denies early satiety, Denies excessive gas, Denies heartburn, Denies hematemesis, Denies hematochezia, Denies loss of appetite, endorses nausea and vomiting Genitourinary: Denies dysuria, Denies flank pain, Denies kidney stones, Denies menorrhagia, Denies urgency, Denies urinary frequency Musculoskeletal: Denies gait dysfunction, Denies limitation of motion, Denies morning stiffness, Denies muscle cramps Integumentary: Denies rash, Denies wounds, Denies brittle nails, Denies change in hair/nails, Denies darkening of skin Neurological: Denies balance difficulties, Denies change in speech, Denies double vision, Denies gait dysfunction, Denies loss of vision, Denies motor disturbance, Denies numbness, Denies paralysis, Denies paresthesias, Denies seizures Psychiatric: Denies anxiety, Denies depression Endocrine: Denies excessive sweating, Denies excessive thirst, Denies high blood sugars, Denies palpitations Hematologic/Lymphatic: Denies easy bruising, Denies lymphadenopathy Physical exam General Appearance: Alert, cooperative, mild distress, appears stated age. Patient is sitting on the edge of the bed with moderate to severe accessory muscle usage, on BiPAP. Neck HEENT: Supple, no lymphadenopathy, no thyroid enlargement, no carotid bruits. Lungs: Bilateral crackles to the bases, no deformity. Chest Wall: Chest wall normal expansion with deep inspiration no tenderness and no deformity was found on exam, no costochondral pain or discomfort. Heart: Regular rate and rhythm, S1, S2 normal, no murmur, rub or gallop. Back: Symmetric, no curvature, ROM normal, no CVA tenderness. Abdomen: Soft, non-tender, no rebound or rigidity, no hepatosplenomegaly. Extremities: Extremities normal, atraumatic, no cyanosis or edema. Pulses: 2+ and symmetric. Skin: Skin color, texture, tugor normal, no rashes or lesions. Neurologic: Alert oriented x3 cranial nerves II through XII intact, no motor deficit, no abnormal balance or gait Assessment and plan 1. Acute hypoxic respiratory failure secondary to Covid 19 pneumonia. Consult with pulmonary medicine appreciated. Oxygen therapy, transitioned to bipap. A- Team was called this morning for hypoxia. Transferred to the intensive care unit and probable intubation. 2. Acute COVID pneumonia. Dexamethasone 6 mg IV twice a day, Lovenox 40 subcu twice a day, Not a candidate for Baricitinib, Monitor inflammatory markers. Continue supplements vitamin C, D and zinc 3. Acute transaminitis Secondary to viral inflammation. Continue CMP monitoring 4. CK D3. Continue to monitor patient's creatinine. No acute kidney injury 5. History of fibromyalgia. continue gabapentin 800 3 times a day, Citalopram 40 mg by mouth daily, Tramadol 100 mg every 6 hours as needed 6. Insomnia. Continue Eszopiclone 3 mg daily at bedtime 7. Hypothyroidism. Levothyroxine 50 g by mouth daily 8. DVT prophylaxis. Lovenox 40 subcu twice a day 9. GI prophylaxis. Pepcid 20 mg by mouth daily Discharge Plan: more than likely home Impression and plan of care have been directed as dictated by the signing physician. Rochelle Constantino nurse practitioner acting as scribe for signing physician. Objective - Vital Signs Vital signs: Vital Signs Temp 98.2 F 10/28/21 06:00 Pulse 65 10/28/21 07:40 Resp 28 H 10/28/21 07:40 BP 105/63 10/28/21 07:40 Pulse Ox 90 L 10/28/21 08:52 Intake & Output 10/27/21 10/28/21 10/28/21 18:59 06:59 18:59 Intake Total 360 Balance 360 Weight 111.13 kg Intake: Oral 360 Other: Voiding Method Urinal Urinal # Voids 2 2 - Labs CBC & Chem 7: 10/28/21 05:24 10/28/21 05:24 Labs: Abnormal Lab Results - Last 24 Hours (Table) 10/28/21 10/28/21 Range/Units 05:24 05:24 RBC 4.26 L (4.40-5.60) X 10*6/uL Hgb 12.7 L (13.0-17.0) g/dL Hct 38.0 L (39.6-50.0) % Immature Gran # 0.13 H (0.00-0.04) X 10*3/uL Neutrophils # 8.64 H (1.80-7.70) X 10*3/uL Lymphocytes # 0.42 L (0.90-5.00) X 10*3/uL Eosinophils # 0 L (0.04-0.35) X 10*3/uL D-Dimer 1.31 H (<0.60) mg/L FEU Microbiology - Last 24 Hours (Table) 10/24/21 12:26 Blood Culture - Preliminary Blood No Growth after 72 hours 10/24/21 12:29 Blood Culture - Preliminary Blood No Growth after 72 hours
[2021-10-28] MEDS ORDERED: LORazepam 2 MG/ML INJ IV STA (11:00)
[2021-10-28] MEDS ORDERED: propofoL 100 ML IV ONE (11:51)
[2021-10-28] MEDS ORDERED: fentaNYL (PF) 50 MCG/ML 20 ML VIAL ONE (11:57)
[2021-10-28] MEDS: CISATRACURIUM 200 MG in SODIUM CHLORIDE 0.9% 180 ML IV SCH ×2 (12:11→23:18)
[2021-10-28] MEDS: fentaNYL (PF). 1,000 MCG in SODIUM CHLORIDE 0.9% 80 ML IV SCH ×2 (12:12→21:54)
--- NOTE | 2021-10-28 12:40 | XR ---
EXAMINATION TYPE: XR chest 1V portable DATE OF EXAM: 10/28/2021 CLINICAL HISTORY: Difficulty breathing had to be intubated. TECHNIQUE: Single AP portable semiupright view of the chest is obtained. COMPARISON: Chest x-ray from earlier today and older studies FINDINGS: New Endotracheal tube terminates inferior clavicular level/ superior aortic knob level henri roximately 3 to 4 cm above [place]. New Orogastric tube projects below diaphragm. Increased bilateral multifocal opacities greatest in the periphery redemonstrated. Cardiac silhouette size is stable and within normal limits. Osseous structures are intact. IMPRESSION: 1. New endotracheal and orogastric tubes in satisfactory position. 2. Bilateral multifocal family peripheral increased opacities consistent with covid-19 infection are redemonstrated. No significant change from earlier today.
[2021-10-28 13:23] LABS: Glucose,Whole Blood 122 mg/dL (75-99)
[2021-10-28 13:50] LABS: Allen Test Performed? NO
[2021-10-28 13:51] LABS: ABG Base Excess -4.4 mmol/L; ABG HCO3 24 mmol/L (21-25); ABG PCO2 64 mmHg (35-45); ABG PH 7.18 (7.35-7.45); ABG PO2 79 mmHg (83-108); ABG TCO2 26 mmol/L (19-24)
[2021-10-28] MEDS: INSULIN ASPART (NovoLOG) 100 UNIT/ML VIAL SQ SCH ×3 (14:04→23:45)
--- NOTE | 2021-10-28 14:10 | XR ---
EXAMINATION TYPE: XR chest 1V portable DATE OF EXAM: 10/28/2021 CLINICAL HISTORY: Central line placement. TECHNIQUE: Single AP portable semiupright view of the chest is obtained. COMPARISON: Chest x-ray from earlier today and older studies FINDINGS: New Left subclavian central venous catheter terminates in SVC. No pneumothorax noted. Stable endotracheal and orogastric tubes. Increased bilateral multifocal opacities greatest in the periphery and in the left lung redemonstrate d. Findings stable from x-ray earlier today. Cardiac silhouette size is stable and within normal limi ts. Osseous structures are intact. IMPRESSION: As above.
--- NOTE | 2021-10-28 15:38 | P.PN ---
Subjective Progress Note Date: 10/28/21 Principal diagnosis: Dyspnea, hypoxia, COVID-19 This is a very pleasant 56-year-old male patient with a known history of fibromyalgia. Nonsmoker. Approximate 1 week ago he developed symptoms of nausea vomiting diarrhea dizziness and sweating. He presented here on 10/19/2021 and has a positive for COVID-19 and received monoclonal antibodies. He came back to the emergency room last evening with worsening symptoms. Chest x-ray reveals bilateral patchy interstitial and airspace infiltrates. He is currently requiring 10 L high flow nasal cannula to maintain O2 saturations in the high 80s low 90s. White count 6.6. Hemoglobin 13.9. Lymphocytes 0.3. Sodium 135. Potassium 4.1. Bicarb 21. Creatinine 1.31. Glucose 187. Ferritin 2822. AST 89. ALT 80. LDH 1091. C-reactive protein 21.0. Initiated on Decadron. On 10/22/2021 patient seen in follow-up on medical surgical floor, he is awake and alert, in no acute distress, overnight he wore 15 L high flow and n onrebreather mask, he is currently off the nonrebreather mask and not he is on 15 L high flow nasal cannula and he is maintaining O2 saturations at 93%, afebrile, hemodynamically stable. However his oxygen requirements have significantly increased in last 24 hours. His pro calcitonin level was sig nificantly elevated at 9.75, and patient is not a candidate for Baricitinib in view of possibility of underlying bacterial infection. Patient states she is coughing and bringing up some greenish colored phlegm at times, he is being started on Zosyn and vancomycin empirically, we will order blood cultures, sputum culture and urine cultures. Clinically he looks fairly comfortable, no distress, lung sounds are revealing coarse diffuse rhonchi and rales. No altered mentation, no fever. He continues on Lovenox 40 mg twice daily, and Decadron 6 mg twice daily. On 10/24/2021 patient seen in follow-up on medical surgical floor, is currently on 15 L of oxygen, he is not using the nonrebreather mask, his pulse ox is 90- 95%, patient has been self repositioning in bed, he states his breathing is about the same, maybe slightly improved, lung sounds are positive for fine rales bilaterally, he remains on Zosyn for empiric antibiotic coverage, Decadron 6 mggram twice daily, vancomycin has been discontinued. Patient is afebrile, hemodynamically has been stable. Tolerating oral intake, his labs have been reviewed today, his white blood cell count is 7.42, hemoglobin is 13.2, d-dimer is 1.4, electrolytes and renal profile are within normal limits, his liver enzymes have worsened on today's labs, and AST is up to 108, ALT is 182, alkaline phosphatase is actually improved and is down to 150. His LDH is improved and is down to 413, and CRP is 4.1, improved compared to admission levels. Pro calcitonin level is improving and is down to 1.34, urinalysis did not show evidence of infection. On 10/25/2021 patient seen in follow-up on medical surgical floor, he remains on high flow oxygen at 15 L, and 100% nonrebreather mask, his been pretty successful with self repositioning in bed, his pulse ox is around 96% on both oxygen delivery devices, at times it is near 99%, patient is mildly short of breath with any exertion, she does desaturate with any exertion, into the low 80s recovers. Other vitals have been stable, his been afebrile, has cough and congestion have improved, history and culture was sent, showing few PMNs and a few gram-positive cocci. Patient remains on empiric antibiotic coverage with Zosyn only, vancomycin has been discontinued, blood cultures have shown no nicki wth. Follow-up pro-calcitonin will be obtained for tomorrow, physical exam reveals a few scattered rhonchi, improved from yesterday's exam. No complaint of chest pain, no hemoptysis, no nausea vomiting or diarrhea. On 10/27/2021 patient seen in follow-up on medical surgical floor. Patient is laying on his left side, he remains on interval at 60 L and FiO2 of 90% and nonrebreather mask and his pulse ox is 86-93%. Breathing fairly comfortably, although he has been quite limited in terms of activity tolerance. Afebrile, hemodynamically has been stable, he continues on Decadron 6 mg twice daily, he continues on Zosyn for empiric antibiotic coverage is on prophylactic Lovenox 40 mg twice daily. Sputum culture showed Mignon albicans, blood cultures have been negative. His pro calcitonin level was improving on previous labs. No acute events overnight, his lower extremity Dopplers were negative for DVT. His d-dimer on yesterday's labs was 1.53. His electrolytes and renal profile were unremarkable. On 10/28/2021 patient seen in follow-up on medical surgical floor, rapid response team was called on him this morning, patient was placed on BiPAP support at 14 and 8 and FiO2 100%, patient's pulse ox has remained around 83%. This morning he was adamant about not being intubated, patient is a COVID-19 pneumonia patient, she remains on Decadron 6 mg twice daily, Lovenox 40 mg twice daily, he's been treated with empiric antibiotics for possibility of bacterial pneumonia, his pro calcitonin today is improved and is down to 0.17. His inflammatory markers are improving, his LDH is down to 349, and CRP is 4.8. However despite that his oxygenation has worsened. Yesterday CT angiogram was ordered however patient could not lie down flat, and the test was not completed. He is awake and alert, upon my arrival to the bedside, he is speaking to his son on the phone, he has changed his mind about his CODE STATUS, and he is agreeable to intubation if need be. He is dyspneic, slightly tachypneic but does not appear to be in distress. He remains on BiPAP support, and his O2 s aturation has been around 82%, blood gas was completed showing pO2 of only 49, pCO2 of 34, and pH of 7.45. Patient was urgently transferred to the intensive care unit and intubated on arrival. He was placed on mechanical ventilator support with assist control and a rate of 28, tidal volume was 450, FiO2 100% and PEEP of 16. His d-dimer today is 1.31. His white count is 9.4, hemoglobin is 12.7. His blood cultures from a few days ago have shown no growth, and his sputum culture from 10/24/2021 only showed Mignon species. Patient's son was notified about patient's change in condition, and that he has been moved to the ICU and intubated. His condition is critical. Follow-up chest x-ray after intubation and left subclavian central venous catheter placement showed increased bilateral multifocal opacities, no pneumothorax, and proper positioning of the left subclavian central venous catheter. Objective - Vital Signs Vital signs: Vital Signs Temp 98.4 F 10/28/21 09:45 Pulse 69 10/28/21 09:45 Resp 28 H 10/28/21 07:40 BP 128/83 10/28/21 09:45 Pulse Ox 84 L 10/28/21 09:51 Intake & Output 10/27/21 10/28/21 10/28/21 18:59 06:59 18:59 Intake Total 360 Balance 360 Weight 111.13 kg 111.13 kg Intake: Oral 360 Other: Voiding Method Urinal Urinal # Voids 2 2 - Exam GENERAL EXAM: Intubated, sedated and paralyzed 56-year-old white male, on assist-control mode of ventilation with a rate of 28, tidal volume 450, FiO2 100 % and PEEP of 16 HEAD: Normocephalic/atraumatic. EYES: Normal reaction of pupils, equal size. Conjunctiva pink, sclera white. NOSE: Clear with pink turbinates. THROAT: No erythema or exudates. NECK: No masses, no JVD, no thyroid enlargement, no adenopathy. CHEST: No chest wall deformity. Symmetrical expansion. Left subclavian central line in place LUNGS: Equal air entry with diffuse crackles, and rhonchi, no wheezing CVS: Regular rate and rhythm, normal S1 and S2, no gallops, no murmurs, no rubs ABDOMEN: Soft, nontender. No hepatosplenomegaly, normal bowel sounds, no guarding or rigidity. EXTREMITIES: No clubbing, no edema, no cyanosis, 2+ pulses and upper and lower extremities. MUSCULOSKELETAL: Muscle strength and tone normal. SPINE: No scoliosis or deformity SKIN: No rashes CENTRAL NERVOUS SYSTEM: Sedated, paralyzed, and intubated No focal deficits, tone is normal in all 4 extremities. - Labs CBC & Chem 7: 10/28/21 05:24 10/28/21 05:24 Labs: Abnormal Lab Results - Last 24 Hours (Table) 10/28/21 10/28/21 10/28/21 Range/Units 05:24 05:24 05:24 RBC (4.40-5.60) X 10*6/uL Hgb (13.0-17.0) g/dL Hct (39.6-50.0) % Immature Gran # (0.00-0.04) X 10*3/uL Neutrophils # (1.80-7.70) X 10*3/uL Lymphocytes # (0.90-5.00) X 10*3/uL Eosinophils # (0.04-0.35) X 10*3/uL D-Dimer 1.31 H (<0.60) mg/L FEU ABG pH (7.35-7.45) ABG pCO2 (35-45) mmHg ABG pO2 (83-108) mmHg ABG Total CO2 (19-24) mmol/L ABG O2 Saturation (94-97) % Sodium 134 L (135-145) mmol/L Carbon Dioxide 19.9 L (20.0-27.5) mmol/L BUN/Creatinine Ratio 29.89 H (12.00-20.00) Ratio POC Glucose (mg/dL) (75-99) mg/dL Calcium 8.6 L (8.7-10.3) mg/dL AST 76 H (14-35) U/L ALT 235 H (10-49) U/L Lactate Dehydrogenase 349 H (120-246) U/L C-Reactive Protein 4.80 H (0.00-0.80) mg/dL Total Protein 5.9 L (6.2-8.2) g/dL Albumin 3.0 L (3.8-4.9) g/dL Albumin/Globulin Ratio 1.03 L (1.60-3.17) g/dL Procalcitonin 0.17 H (0.02-0.09) ng/mL 10/28/21 10/28/21 10/28/21 Range/Units 05:24 10:20 13:22 RBC 4.26 L (4.40-5.60) X 10*6/uL Hgb 12.7 L (13.0-17.0) g/dL Hct 38.0 L (39.6-50.0) % Immature Gran # 0.13 H (0.00-0.04) X 10*3/uL Neutrophils # 8.64 H (1.80-7.70) X 10*3/uL Lymphocytes # 0.42 L (0.90-5.00) X 10*3/uL Eosinophils # 0 L (0.04-0.35) X 10*3/uL D-Dimer (<0.60) mg/L FEU ABG pH (7.35-7.45) ABG pCO2 34 L (35-45) mmHg ABG pO2 49 L* (83-108) mmHg ABG Total CO2 25 H (19-24) mmol/L ABG O2 Saturation 84.7 L (94-97) % Sodium (135-145) mmol/L Carbon Dioxide (20.0-27.5) mmol/L BUN/Creatinine Ratio (12.00-20.00) Ratio POC Glucose (mg/dL) 122 H (75-99) mg/dL Calcium (8.7-10.3) mg/dL AST (14-35) U/L ALT (10-49) U/L Lactate Dehydrogenase (120-246) U/L C-Reactive Protein (0.00-0.80) mg/dL Total Protein (6.2-8.2) g/dL Albumin (3.8-4.9) g/dL Albumin/Globulin Ratio (1.60-3.17) g/dL Procalcitonin (0.02-0.09) ng/mL 10/28/21 Range/Units 13:33 RBC (4.40-5.60) X 10*6/uL Hgb (13.0-17.0) g/dL Hct (39.6-50.0) % Immature Gran # (0.00-0.04) X 10*3/uL Neutrophils # (1.80-7.70) X 10*3/uL Lymphocytes # (0.90-5.00) X 10*3/uL Eosinophils # (0.04-0.35) X 10*3/uL D-Dimer (<0.60) mg/L FEU ABG pH 7.18 L* (7.35-7.45) ABG pCO2 64 H (35-45) mmHg ABG pO2 79 L (83-108) mmHg ABG Total CO2 26 H (19-24) mmol/L ABG O2 Saturation 91.0 L (94-97) % Sodium (135-145) mmol/L Carbon Dioxide (20.0-27.5) mmol/L BUN/Creatinine Ratio (12.00-20.00) Ratio POC Glucose (mg/dL) (75-99) mg/dL Calcium (8.7-10.3) mg/dL AST (14-35) U/L ALT (10-49) U/L Lactate Dehydrogenase (120-246) U/L C-Reactive Protein (0.00-0.80) mg/dL Total Protein (6.2-8.2) g/dL Albumin (3.8-4.9) g/dL Albumin/Globulin Ratio (1.60-3.17) g/dL Procalcitonin (0.02-0.09) ng/mL Microbiology - Last 24 Hours (Table) 10/24/21 12:26 Blood Culture - Preliminary Blood No Growth after 96 hours 10/24/21 12:29 Blood Culture - Preliminary Blood No Growth after 96 hours Assessment and Plan Plan: Assessment: #1. Acute hypoxic respiratory failure secondary to acute COVID-19 pneumonia. Patient is status post monoclonal antibody infusion on 10/19/2021. Patient was not a candidate for Remdesivir related to severe hypoxic respiratory failure on presentation requiring 10 L high flow nasal cannula. Today he is on 15 L and 100% nonrebreather mask, his FiO2 requirements have increased but patient is not a candidate for Baricitinib related to possibility of underlying bacterial infection. Patient was transferred to the intensive care unit on 10/28/2021 and intubated on 10/28/2021 #2. Elevated pro-calcitonin, improved, blood and sputum cultures have shown no growth, patient has received empiric Zosyn, pro-calcitonin level has improved and is down to 0.17, we'll discontinue Zosyn #3. Elevated inflammatory markers related to acute COVID-19 pneumonia and possibly a bacterial pneumonia #4. Elevated LFTs related to COVID-19 pneumonia, slightly worsened #5. Elevated d-dimer, venous Doppler of bilateral lower extremities was negative for DVT #6. History of fibromyalgia #7. Depression #8. Never smoker #9. Acute kidney injury possibly related to Covid 19 related ATN, resolved #10. Hypothyroidism Plan: Patient was transferred to the intensive care unit today He failed BiPAP support, remained persistently hypoxic despite 100% FiO2 on BiPAP support He has decided to be intubated He was intubated, sedated and paralyzed Follow-up chest x-ray has been reviewed Blood gases haven't been reviewed Vent settings have been adjusted Patient has received a left subclavian central venous catheter Right radial artery line has been inserted We'll continue same dose Decadron, can stop the Zosyn We will add Fentanyl, propofol, Nimbex Condition is critical Prognosis is extremely guarded We'll consider CT angiogram of the chest possibly in the next 24 hours he remains stable and able to travel to the CT department Family has been updated Start tube feedings for nutritional support Daily chest x-rays, blood gases, basic labs, inflammatory markers and follow-up d-dimer Place the patient in prone positioning for up to 16 hours a day if tolerates it and if hemodynamically stable I performed a history & physical examination of the patient and discussed their management with my nurse practitioner, Angi Roberts. I reviewed the nurse practitioner's note and agree with the documented findings and plan of care. Lung sounds are positive for dim breath sounds throughout the lung rivera. The findings and the impression was discussed with the patient. I attest to the documentation by the nurse practitioner. Time with Patient: Greater than 30
--- NOTE | 2021-10-28 16:32 | CT ---
EXAMINATION TYPE: CT angio chest DATE OF EXAM: 10/28/2021 COMPARISON: Chest x-ray from earlier today and older x-ray studies HISTORY: Difficulty breathing, covid. CT DLP: 790.8 mGycm. Automated Exposure Control for Dose Reduction was Utilized. CONTRAST: CTA scan of the thorax is performed with IV Contrast, patient injected with 100 mL of Isovue 370, pul monary embolism protocol. MIP Images are created on CT scanner and reviewed. FINDINGS: LUNGS: Endotracheal tube terminates above the clinton. Bilateral multifocal and confluent areas of nicki undglass opacities and organizing consolidations redemonstrated. Findings more prominent in the left lung versus right lung. No pleural effusion or pneumothorax seen bilaterally MEDIASTINUM: There is suboptimal bolus with most dense contrast in the SVC. No large saddle central p ulmonary embolism. Cannot exclude partially occlusive lobar, segmental, and/or subsegmental pulmonary emboli due to poor bolus and heterogeneity. There are enlarged bilateral hilar lymph nodes presumed reactive. No cardiomegaly or pericardial effusion is seen. OTHER: Nasogastric tube decompresses stomach. IMPRESSION: 1. Markedly suboptimal study without saddle central pulmonary embolism. Cannot exclude smaller pulmon anel emboli. 2. Bilateral multifocal and confluent ground glass opacities and organizing consolidations consistent with known covid-19 infection are redemonstrated, no significant change from x-ray earlier today.
[2021-10-28] MEDS: SODIUM CHLORIDE 0.9% 1,000 ML IV SCH (17:17)
[2021-10-28 18:09] LABS: Glucose,Whole Blood 137 mg/dL (75-99)
--- NOTE | 2021-10-28 20:27 | PCN ---
PROCEDURE NOTE PULMONARY/CRITICAL CARE PROCEDURE NOTE: PLACEMENT OF LEFT SUBCLAVIAN TRIPLE-LUMEN CATHETER: PREOPERATIVE DIAGNOSIS: Administration of fluids and pressors. POSTOPERATIVE DIAGNOSIS: Administration of fluids and pressors. MORNING NEWS PRODUCER: Dr. Webster. TRIPLE LUMEN CATHETER PLACEMENT: A time-out was completed verifying correct patient, procedure, site, positioning, and implant(s) or special equipment if applicable. The patient was placed in a dependent position appropriate for triple lumen catheter placement based on the vein to be cannulated. The patient's left shoulder was prepped and draped in sterile fashion. 1% Lidocaine was used to anesthetize the surrounding skin area. A triple lumen 9F Cordis catheter was introduced into the left subclavian vein using Seldinger technique. The catheter was threaded smoothly over the guide wire and appropriate blood return was obtained. There was good blood return from all 3 ports. Each lumen of the catheter was evacuated of air and flushed with sterile saline. The catheter was then sutured in place to the skin and a sterile dressing applied by the nurse. Perfusion to the extremity distal to the point of catheter insertion was checked and found to be adequate. There was no immediate complication. A chest x-ray was ordered to check placement of the tip of the catheter. The patient tolerated the procedure very well. MMODL / IJN: [id number] /
--- NOTE | 2021-10-28 20:30 | PCN ---
PROCEDURE NOTE PULMONARY/CRITICAL CARE PROCEDURE NOTE: PLACEMENT OF RIGHT RADIAL ARTERIAL LINE: PREOPERATIVE DIAGNOSIS: Frequent blood draws and blood gas monitoring. POSTOPERATIVE DIAGNOSIS: Frequent blood draws and blood gas monitoring. OPERATORS: 1. Dr. Webster. 2. Dr. Roberts. PROCEDURE DESCRIPTION: A time-out was completed verifying correct patient, procedure, site, positioning, and implant(s) or special equipment if applicable. Palomo's test was performed to ensure adequate perfusion. The patient's right wrist was prepped and draped in sterile fashion. 1% Lidocaine was used to anesthetize the area. An 18G Arrow arterial line was introduced into the right radial artery. The catheter was threaded over the guide wire and the needle was removed with appropriate pulsatile blood return. Blood loss was minimal. The catheter was then sutured in place to the skin and a sterile dressing was applied by the nurse. Perfusion to the extremity distal to the point of catheter insertion was checked and found to be adequate. The patient tolerated the procedure well and there were no immediate complications. MMODL / IJN: [id number] /
[2021-10-28] MEDS: CHLORHEXIDINE GLUCONATE 15 ML CUP MUCOUS MEM SCH (21:19)
[2021-10-28 23:40] LABS: Glucose,Whole Blood 150 mg/dL (75-99)
[2021-10-29 03:52] LABS: Basophils % (A) 0 %; Eosinophils % (A) 0 %; HCT 40.4 % (39.0-53.0); HGB 13.1 gm/dL (13.0-17.5); Lymphocytes # (A) 0.3 k/uL (1.0-4.8); Lymphocytes % (A) 3 %; MCH 30.7 pg (25.0-35.0); MCHC 32.4 g/dL (31.0-37.0); MCV 94.8 fL (80.0-100.0); Mean Platelet Volume 9.1; Monocytes # (A) 0.4 k/uL (0-1.0); Monocytes % (A) 3 %; Neutrophils # (A) 12.4 k/uL (1.3-7.7); Neutrophils % (A) 94 %; Platelet Count 381 k/uL (150-450); RBC 4.26 m/uL (4.30-5.90); RDW 13.4 % (11.5-15.5); WBC 13.1 k/uL (3.8-10.6)
[2021-10-29 04:25] LABS: ALT 217 U/L (4-49); AST 52 U/L (17-59); African American GFR (CKD) >90 (>60 ml/min/1.73 sqM); Albumin 2.9 g/dL (3.5-5.0); Alkaline Phosphatase 115 U/L (38-126); Anion Gap 7 mmol/L; Blood Urea Nitrogen 29 mg/dL (9-20); C Reactive Protein 7.9 mg/dL (<1.0); Calcium 8.5 mg/dL (8.4-10.2); Carbon Dioxide 24 mmol/L (22-30); Chloride 104 mmol/L (98-107); Glucose 153 mg/dL (74-99); Magnesium 2.6 mg/dL (1.6-2.3); Non-African American GFR(CKD) >90 (>60 ml/min/1.73 sqM); Potassium 5.2 mmol/L (3.5-5.1); Sodium 135 mmol/L (137-145); Total Bilirubin 0.6 mg/dL (0.2-1.3); Total Protein 6.2 g/dL (6.3-8.2)
[2021-10-29 05:52] LABS: ABG Base Excess 0.3 mmol/L; ABG HCO3 27 mmol/L (21-25); ABG Oxygen Saturation 97.3 % (94-97); ABG PCO2 57 mmHg (35-45); ABG PH 7.29 (7.35-7.45); ABG PO2 97 mmHg (83-108); ABG TCO2 29 mmol/L (19-24); Allen Test Performed? Yes
[2021-10-29 05:53] LABS: Glucose,Whole Blood 123 mg/dL (75-99)
[2021-10-29] MEDS: INSULIN ASPART (NovoLOG) 100 UNIT/ML VIAL SQ SCH ×4 (06:22→23:56)
[2021-10-29] MEDS: fentaNYL (PF). 1,000 MCG in SODIUM CHLORIDE 0.9% 80 ML IV SCH ×4 (06:30→21:28)
[2021-10-29] MEDS: LEVOTHYROXINE 50 MCG TAB PO SCH (06:31)
[2021-10-29] MEDS: SODIUM CHLORIDE 0.9% 1,000 ML IV SCH ×2 (06:32→16:36)
[2021-10-29] MEDS: CISATRACURIUM 200 MG in SODIUM CHLORIDE 0.9% 180 ML IV SCH (07:40)
[2021-10-29] MEDS: ALBUTEROL HFA INHALER INHALATION SCH ×3 (07:54→19:23)
[2021-10-29] MEDS ORDERED: SODIUM BICARB 8.4% 50 ML SYR (1 MEQ/ML) IV STA (09:34)
[2021-10-29] MEDS: ZINC SULFATE 220 MG CAP PO SCH (10:06)
[2021-10-29] MEDS: CHOLECALCIFEROL 25 MCG (1000 IU) TABLET PO SCH (10:06)
[2021-10-29] MEDS: ASCORBIC ACID 500 MG TAB PO SCH (10:06)
[2021-10-29] MEDS: ENOXAPARIN 40 MG/0.4 ML SYRINGE SQ SCH (10:07)
[2021-10-29] MEDS: CITALOPRAM HYDROBROMIDE 20 MG TAB PO SCH (10:07)
[2021-10-29] MEDS: GABAPENTIN 400 MG CAP PO SCH ×3 (10:07→20:25)
[2021-10-29] MEDS: PANTOPRAZOLE 40 MG/10 ML VIAL IVP SCH (10:07)
[2021-10-29] MEDS: DEXAMETHASONE SOD PHOSPHATE 10 MG/ML 1 ML VIAL IVP SCH ×2 (10:07→20:25)
[2021-10-29] MEDS: CHLORHEXIDINE GLUCONATE 15 ML CUP MUCOUS MEM SCH ×2 (10:08→20:25)
[2021-10-29 11:06] LABS: Glucose,Whole Blood 116 mg/dL (75-99)
[2021-10-29] MEDS: CLEVIDIPINE BUTYRATE 25 MG in EMPTY BAG 1 BAG IV SCH (11:08)
--- NOTE | 2021-10-29 12:00 | P.PN ---
Subjective Progress Note Date: 10/29/21 Principal diagnosis: Dyspnea, hypoxia, COVID-19 This is a very pleasant 56-year-old male patient with a known history of fibromyalgia. Nonsmoker. Approximate 1 week ago he developed symptoms of nausea vomiting diarrhea dizziness and sweating. He presented here on 10/19/2021 and has a positive for COVID-19 and received monoclonal antibodies. He came back to the emergency room last evening with worsening symptoms. Chest x-ray reveals bilateral patchy interstitial and airspace infiltrates. He is currently requiring 10 L high flow nasal cannula to maintain O2 saturations in the high 80s low 90s. White count 6.6. Hemoglobin 13.9. Lymphocytes 0.3. Sodium 135. Potassium 4.1. Bicarb 21. Creatinine 1.31. Glucose 187. Ferritin 2822. AST 89. ALT 80. LDH 1091. C-reactive protein 21.0. Initiated on Decadron. On 10/22/2021 patient seen in follow-up on medical surgical floor, he is awake and alert, in no acute distress, overnight he wore 15 L high flow and n onrebreather mask, he is currently off the nonrebreather mask and not he is on 15 L high flow nasal cannula and he is maintaining O2 saturations at 93%, afebrile, hemodynamically stable. However his oxygen requirements have significantly increased in last 24 hours. His pro calcitonin level was sig nificantly elevated at 9.75, and patient is not a candidate for Baricitinib in view of possibility of underlying bacterial infection. Patient states she is coughing and bringing up some greenish colored phlegm at times, he is being started on Zosyn and vancomycin empirically, we will order blood cultures, sputum culture and urine cultures. Clinically he looks fairly comfortable, no distress, lung sounds are revealing coarse diffuse rhonchi and rales. No altered mentation, no fever. He continues on Lovenox 40 mg twice daily, and Decadron 6 mg twice daily. On 10/24/2021 patient seen in follow-up on medical surgical floor, is currently on 15 L of oxygen, he is not using the nonrebreather mask, his pulse ox is 90- 95%, patient has been self repositioning in bed, he states his breathing is about the same, maybe slightly improved, lung sounds are positive for fine rales bilaterally, he remains on Zosyn for empiric antibiotic coverage, Decadron 6 mggram twice daily, vancomycin has been discontinued. Patient is afebrile, hemodynamically has been stable. Tolerating oral intake, his labs have been reviewed today, his white blood cell count is 7.42, hemoglobin is 13.2, d-dimer is 1.4, electrolytes and renal profile are within normal limits, his liver enzymes have worsened on today's labs, and AST is up to 108, ALT is 182, alkaline phosphatase is actually improved and is down to 150. His LDH is improved and is down to 413, and CRP is 4.1, improved compared to admission levels. Pro calcitonin level is improving and is down to 1.34, urinalysis did not show evidence of infection. On 10/25/2021 patient seen in follow-up on medical surgical floor, he remains on high flow oxygen at 15 L, and 100% nonrebreather mask, his been pretty successful with self repositioning in bed, his pulse ox is around 96% on both oxygen delivery devices, at times it is near 99%, patient is mildly short of breath with any exertion, she does desaturate with any exertion, into the low 80s recovers. Other vitals have been stable, his been afebrile, has cough and congestion have improved, history and culture was sent, showing few PMNs and a few gram-positive cocci. Patient remains on empiric antibiotic coverage with Zosyn only, vancomycin has been discontinued, blood cultures have shown no nicki wth. Follow-up pro-calcitonin will be obtained for tomorrow, physical exam reveals a few scattered rhonchi, improved from yesterday's exam. No complaint of chest pain, no hemoptysis, no nausea vomiting or diarrhea. On 10/27/2021 patient seen in follow-up on medical surgical floor. Patient is laying on his left side, he remains on interval at 60 L and FiO2 of 90% and nonrebreather mask and his pulse ox is 86-93%. Breathing fairly comfortably, although he has been quite limited in terms of activity tolerance. Afebrile, hemodynamically has been stable, he continues on Decadron 6 mg twice daily, he continues on Zosyn for empiric antibiotic coverage is on prophylactic Lovenox 40 mg twice daily. Sputum culture showed Mignon albicans, blood cultures have been negative. His pro calcitonin level was improving on previous labs. No acute events overnight, his lower extremity Dopplers were negative for DVT. His d-dimer on yesterday's labs was 1.53. His electrolytes and renal profile were unremarkable. On 10/28/2021 patient seen in follow-up on medical surgical floor, rapid response team was called on him this morning, patient was placed on BiPAP support at 14 and 8 and FiO2 100%, patient's pulse ox has remained around 83%. This morning he was adamant about not being intubated, patient is a COVID-19 pneumonia patient, she remains on Decadron 6 mg twice daily, Lovenox 40 mg twice daily, he's been treated with empiric antibiotics for possibility of bacterial pneumonia, his pro calcitonin today is improved and is down to 0.17. His inflammatory markers are improving, his LDH is down to 349, and CRP is 4.8. However despite that his oxygenation has worsened. Yesterday CT angiogram was ordered however patient could not lie down flat, and the test was not completed. He is awake and alert, upon my arrival to the bedside, he is speaking to his son on the phone, he has changed his mind about his CODE STATUS, and he is agreeable to intubation if need be. He is dyspneic, slightly tachypneic but does not appear to be in distress. He remains on BiPAP support, and his O2 s aturation has been around 82%, blood gas was completed showing pO2 of only 49, pCO2 of 34, and pH of 7.45. Patient was urgently transferred to the intensive care unit and intubated on arrival. He was placed on mechanical ventilator support with assist control and a rate of 28, tidal volume was 450, FiO2 100% and PEEP of 16. His d-dimer today is 1.31. His white count is 9.4, hemoglobin is 12.7. His blood cultures from a few days ago have shown no growth, and his sputum culture from 10/24/2021 only showed Mignon species. Patient's son was notified about patient's change in condition, and that he has been moved to the ICU and intubated. His condition is critical. Follow-up chest x-ray after intubation and left subclavian central venous catheter placement showed increased bilateral multifocal opacities, no pneumothorax, and proper positioning of the left subclavian central venous catheter. On 10/29/2021 patient seen in follow-up in the intensive care unit, yesterday he was emergently transferred to the intensive care unit, where he was intubated, this morning he remains sedated, intubated and paralyzed on assist-control mode of ventilation with a rate at 32, tidal volume is 450, FiO2 of percent and PEEP of 20. This morning's blood gas shows a pO2 of 97, pCO2 of 57, and pH of 7.29. He is currently on fentanyl at 1 miranda per kilo per minute, Diprivan and is at 50 mics per kilo per minute, Nimbex is at 1 miranda per kilo per minute, and 0.9 at 75 ML per hour. He is on vital high protein at 30 ML per hour with a goal of 35. He has been proned for 16 hours, tolerating perone well so far, his pulse ox is around 93%. He is in sinus mechanism with a rate of 69. Blood pressure is a bit hypertensive, possibly related to discomfort and anxiety, we'll adjust his fentanyl infusion drip. He remains on Decadron 6 mg daily, she remains on prophylactic Lovenox 40 mg daily. Today's labs have been reviewed showing white blood cell count of 13.1, hemoglobin is 13.1, his d-dimer is 1.17, sodium is 135, potassium is 5.2, chloride is 104, BUN is 29 creatinine 0.78. His LDH and CRP were improving and yesterday's labs, CRP from today is 7.9, increased, LDH is still pending, his pro calcitonin level is 0.15. No fever overnight. CT angiogram has been completed showing markedly suboptimal study with LSAT of central pulmonary embolism, however smaller pulmonary emboli could not be excluded. Lung windows shows bilateral multifocal confluent groundglass opacities and organizing consolidation consistent with known COVID 19 infection. Sputum culture showed only Mignon albicans, blood cultures from 10/24/2021 showed no growth.Baricitinib was discontinued a few days ago for possibility of bacterial infection. Pro calcitonin level has improved. Objective - Vital Signs Vital signs: Vital Signs Temp 97.2 F L 10/29/21 04:00 Pulse 56 L 10/29/21 07:00 Resp 32 H 10/29/21 07:00 BP 133/83 10/29/21 07:00 Pulse Ox 95 10/29/21 07:00 Intake & Output 10/28/21 10/29/21 10/29/21 18:59 06:59 18:59 Intake Total 608 1861.045 297.128 Output Total 360 852 50 Balance 248 1009.045 247.128 Weight 123 kg 123 kg Intake: IV 488 936 78 Normal Saline 0.9 18 36 3 Pressure Bag @ 3mL/hr Sodium Chloride 0.9% 1, 470 900 75 000 ml @ 75 mls/hr IV . [id number] [facility]ON[facility] Rx#:[id number] Intake, IV Titration 100 555.045 189.128 Amount Cisatracurium 200 mg In 74.126 55.789 Sodium Chloride 0.9% 180 ml @ 1 MCG/KG/MIN 6.668 mls/hr IV .Q24H [facility]ON[facility] Rx#: [id number] fentaNYL (PF). 1,000 mcg 164.198 33.339 In Sodium Chloride 0.9% 80 ml @ 0.5 MCG/KG/HR 5. 557 mls/hr IV .Q18H [facility] Rx#:[id number] propofoL 1,000 mg In 100 316.721 100 Empty Bag 1 bag @ Titrate IV .Q0M [facility] Rx#: [id number] Tube Feeding 20 280 30 Other 90 Output: Urine 360 852 50 Other: Voiding Method Indwelling Catheter Indwelling Catheter # Voids 1 ABP, PAP, CO, CI - Last Documented Arterial Blood Pressure 149/66 - Exam GENERAL EXAM: Intubated, sedated and paralyzed 56-year-old white male, on assist-control mode of ventilation with a rate of 28, tidal volume 450, FiO2 100% and PEEP of 20 HEAD: Normocephalic/atraumatic. EYES: Normal reaction of pupils, equal size. Conjunctiva pink, sclera white. NOSE: Clear with pink turbinates. THROAT: No erythema or exudates. NECK: No masses, no JVD, no thyroid enlargement, no adenopathy. CHEST: No chest wall deformity. Symmetrical expansion. Left subclavian central line in place LUNGS: Equal air entry with diffuse crackles, and rhonchi, no wheezing CVS: Regular rate and rhythm, normal S1 and S2, no gallops, no murmurs, no rubs ABDOMEN: Soft, nontender. No hepatosplenomegaly, normal bowel sounds, no guarding or rigidity. EXTREMITIES: No clubbing, no edema, no cyanosis, 2+ pulses and upper and lower extremities. MUSCULOSKELETAL: Muscle strength and tone normal. SPINE: No scoliosis or deformity SKIN: No rashes CENTRAL NERVOUS SYSTEM: Sedated, paralyzed, and intubated No focal deficits, tone is normal in all 4 extremities. - Labs CBC & Chem 7: 10/29/21 03:25 10/29/21 03:25 Labs: Abnormal Lab Results - Last 24 Hours (Table) 10/28/21 10/28/21 10/28/21 Range/Units 13:22 13:33 18:08 WBC (3.8-10.6) k/uL RBC (4.30-5.90) m/uL Neutrophils # (1.3-7.7) k/uL Lymphocytes # (1.0-4.8) k/uL D-Dimer (<0.60) mg/L FEU ABG pH 7.18 L* (7.35-7.45) ABG pCO2 64 H (35-45) mmHg ABG pO2 79 L (83-108) mmHg ABG HCO3 (21-25) mmol/L ABG Total CO2 26 H (19-24) mmol/L ABG O2 Saturation 91.0 L (94-97) % Sodium (137-145) mmol/L Potassium (3.5-5.1) mmol/L BUN (9-20) mg/dL Glucose (74-99) mg/dL POC Glucose (mg/dL) 122 H 137 H (75-99) mg/dL Magnesium (1.6-2.3) mg/dL ALT (4-49) U/L C-Reactive Protein (<1.0) mg/dL Total Protein (6.3-8.2) g/dL Albumin (3.5-5.0) g/dL Procalcitonin (0.02-0.09) ng/mL 10/28/21 10/29/21 10/29/21 Range/Units 23:38 03:25 03:25 WBC (3.8-10.6) k/uL RBC (4.30-5.90) m/uL Neutrophils # (1.3-7.7) k/uL Lymphocytes # (1.0-4.8) k/uL D-Dimer (<0.60) mg/L FEU ABG pH (7.35-7.45) ABG pCO2 (35-45) mmHg ABG pO2 (83-108) mmHg ABG HCO3 (21-25) mmol/L ABG Total CO2 (19-24) mmol/L ABG O2 Saturation (94-97) % Sodium 135 L (137-145) mmol/L Potassium 5.2 H (3.5-5.1) mmol/L BUN 29 H (9-20) mg/dL Glucose 153 H (74-99) mg/dL POC Glucose (mg/dL) 150 H (75-99) mg/dL Magnesium 2.6 H (1.6-2.3) mg/dL ALT 217 H (4-49) U/L C-Reactive Protein 7.9 H (<1.0) mg/dL Total Protein 6.2 L (6.3-8.2) g/dL Albumin 2.9 L (3.5-5.0) g/dL Procalcitonin 0.15 H (0.02-0.09) ng/mL 10/29/21 10/29/21 10/29/21 Range/Units 03:25 03:25 05:51 WBC 13.1 H (3.8-10.6) k/uL RBC 4.26 L (4.30-5.90) m/uL Neutrophils # 12.4 H (1.3-7.7) k/uL Lymphocytes # 0.3 L (1.0-4.8) k/uL D-Dimer 1.17 H (<0.60) mg/L FEU ABG pH 7.29 L (7.35-7.45) ABG pCO2 57 H (35-45) mmHg ABG pO2 (83-108) mmHg ABG HCO3 27 H (21-25) mmol/L ABG Total CO2 29 H (19-24) mmol/L ABG O2 Saturation 97.3 H (94-97) % Sodium (137-145) mmol/L Potassium (3.5-5.1) mmol/L BUN (9-20) mg/dL Glucose (74-99) mg/dL POC Glucose (mg/dL) (75-99) mg/dL Magnesium (1.6-2.3) mg/dL ALT (4-49) U/L C-Reactive Protein (<1.0) mg/dL Total Protein (6.3-8.2) g/dL Albumin (3.5-5.0) g/dL Procalcitonin (0.02-0.09) ng/mL 10/29/21 10/29/21 Range/Units 05:52 11:05 WBC (3.8-10.6) k/uL RBC (4.30-5.90) m/uL Neutrophils # (1.3-7.7) k/uL Lymphocytes # (1.0-4.8) k/uL D-Dimer (<0.60) mg/L FEU ABG pH (7.35-7.45) ABG pCO2 (35-45) mmHg ABG pO2 (83-108) mmHg ABG HCO3 (21-25) mmol/L ABG Total CO2 (19-24) mmol/L ABG O2 Saturation (94-97) % Sodium (137-145) mmol/L Potassium (3.5-5.1) mmol/L BUN (9-20) mg/dL Glucose (74-99) mg/dL POC Glucose (mg/dL) 123 H 116 H (75-99) mg/dL Magnesium (1.6-2.3) mg/dL ALT (4-49) U/L C-Reactive Protein (<1.0) mg/dL Total Protein (6.3-8.2) g/dL Albumin (3.5-5.0) g/dL Procalcitonin (0.02-0.09) ng/mL Microbiology - Last 24 Hours (Table) 10/24/21 12:26 Blood Culture - Preliminary Blood No Growth after 96 hours 10/24/21 12:29 Blood Culture - Preliminary Blood No Growth after 96 hours Assessment and Plan Plan: Assessment: #1. Acute hypoxic respiratory failure secondary to acute COVID-19 pneumonia. Patient is status post monoclonal antibody infusion on 10/19/2021. Patient was not a candidate for Remdesivir related to severe hypoxic respiratory failure on presentation requiring 10 L high flow nasal cannula. Today he is on 15 L and 100% nonrebreather mask, his FiO2 requirements have increased but patient is not a candidate for Baricitinib related to possibility of underlying bacterial infection. Patient was transferred to the intensive care unit on 10/28/2021 and intubated on 10/28/2021 #2. Elevated pro-calcitonin, improved, blood and sputum cultures have shown no growth, patient has received empiric Zosyn, pro-calcitonin level has improved and is down to 0.17, we'll discontinue Zosyn #3. Elevated inflammatory markers related to acute COVID-19 pneumonia #4. Elevated LFTs related to COVID-19 pneumonia, slightly worsened #5. Elevated d-dimer, venous Doppler of bilateral lower extremities was negative for DVT, CT angiogram was a limited study but showed no central pulmonary embolism #6. History of fibromyalgia #7. Depression #8. Never smoker #9. Acute kidney injury possibly related to Covid 19 related ATN, improved #10. Hypothyroidism #11. Hyperkalemia, mild, with potassium of 5.2 Plan: Continue current vent settings Weaning FiO2 to keep O2 sats is at 88% and above Continue sedation and Nimbex Increase fentanyl to 3 mics per kilo per minute for possible discomfort May use Cleviprex were hypertension Continue proning for up to 16 hours a day, and patient has been tolerating it well so far Continue nutritional support We'll give 1 amp of sodium bicarb Repeat chest x-ray today when the patient is on his back Repeat blood gases in the morning, basic labs, inflammatory markers and d-dimer Overall prognosis is guarded I performed a history & physical examination of the patient and discussed their management with my nurse practitioner, Angi Roberts. I reviewed the nurse practitioner's note and agree with the documented findings and plan of care. Lung sounds are positive for dim breath sounds throughout the lung rivera. The findings and the impression was discussed with the patient. I attest to the documentation by the nurse practitioner. Time with Patient: Greater than 30
--- NOTE | 2021-10-29 12:13 | XR ---
EXAMINATION TYPE: XR chest 1V portable DATE OF EXAM: 10/29/2021 CLINICAL HISTORY: Difficulty breathing and covid. TECHNIQUE: Single AP portable semiupright view of the chest is obtained. COMPARISON: Chest x-ray and CTA chest from one day earlier. FINDINGS: Stable endotracheal and orogastric tubes. Stable left subclavian central venous catheter. Persistent bilateral multifocal and confluent increased opacities redemonstrated. Cardiac silhouette size is stable and within normal limits. Osseous structures are intact. IMPRESSION: Bilateral multifocal confluent and increased opacities greatest in the periphery consiste nt with covid-19 infection are redemonstrated. No significant change from one day earlier.
--- NOTE | 2021-10-29 14:40 | P.PN ---
Subjective Progress Note Date: 10/29/21 History of present illness 56-year-old male with past medical history of fibromyalgia comes in to emergency room with symptoms of nausea, vomiting, dizziness and sweating feeling weak in with runny nose loss of taste and hence now for the past 1 week. He presented on 10/19 was found to have positive COVID results. Received his monoclonal antibodies. He Came back to the emergency room because of worsening of symptoms.Vitals reviewed patient afebrile pulse 80 respiratory rate 20 blood pressure 138/82 saturating at 88% on 10 L labs reviewed WBC 6.6 hemoglobin 13.9 d-dimer is elevated at 0.89, sodium 135 bicarb 21 BUN 16 creatinine 1.3 glucose 187 ferritin 2822 AST 89 ALT 80 alkaline phosphatase 225 LDH 1091 and CRP 21 and albumin 3.3 X-ray suggestive of bilateral patchy pneumonia. Both interstitial and airspace infiltrate Pulmonary clinic consulted for COVID pneumonia Patient placed on Lovenox 40 subcu twice a day, vitamin C, D and zinc. Dexamethasone initiated at 6 mg twice a day IV Patient is a candidate of Baritinib and will discuss about initiating it with pulmonary Venous Doppler ordered 10/22: [facility]. He continues to have dyspnea and is on 15 L high flow nasal cannula and nonrebreather with pulse ox of 87 and 95%. He's been afebrile, heart rate in the 60s and 70s, blood pressure 127/73. Pro-calcitonin came back high at 9.75 and we started the patient on Zosyn and vancomycin for bacterial pneumonia coverage. Patient has coarse crackles bilaterally. No lower extremity edema. He has been seen and followed by pulmonary medicine. Patient is not a candidate for Baricitinib. Patient is continued on Decadron, Lovenox and vitamin supplements. 10/23: Is found sitting up in the edge of the bed. He is currently not on a Ventimask. However his pulse oxing still around 88 to 91 % on Ventimask or 15 L high flow nasal cannula. Patient continues to have dyspnea with activity and speaking. Patient states that he is feeling much better compared to yesterday. Continues to have a cough. No lower extremity edema. He has rhonchi to the bases bilaterally. He is currently on Decadron Lovenox and vitamin supplements. Patient remains afebrile, heart rate 62, respirations 17, blood pressure 118/68 pulse ox 93% on 15 L high flow nasal cannula 10/24: Patient was up to the bathroom showering today. Awaiting inflammation markers today. Patient still requires 10 L of O2 with a pulse ox of 90%. Patient continues to have crackles to the bilateral bases. Dyspnea with activity and speaking. Patient states he is feeling better however he is very tired. Continues to have cough no lower extremity edema. He still currently on Decadron, Lovenox, and vitamin supplements. Patient remains afebrile, heart rate 58, respirations 17, blood pressure 118/89, 10/25: Patient is still on high flow nasal cannula 15 L and nonrebreather with pulse ox of 89 and 99%. He's been afebrile, heart rate 73, blood pressure 120/72. Creatinine 1.06. Blood sugars running between 101 and 106. Sputum culture is in progress. Patient is followed closely by pulmonary medicine. Patient is continued on dexamethasone, Lovenox, Zosyn and vitamin supplements. Patient has been encouraged to prone several hours daily. 10/26: Patient remains on nonrebreather mask and AirVo at 60 L, FiO2 of 85 with pulse ox of 88%. Appears to have more difficulty with breathing. Repeat chest x-ray reveals stable bilateral infiltrates. He has been afebrile, heart rate 59, blood pressure 102/59. Repeat d-dimer 1.53. Blood sugars are well controlled. 10/27: Patient remains on nonrebreather and AirVo with pulse ox at 90%. Patient was agreeable. He has been afebrile, heart rate 70, blood pressure 131/79. CBG running between 97 and 116 and CBGs and insulin will be discontinued. Sputum cultures positive for Mignon albicans. Patient is increasing his activity, currently laying in bed on his side. Lab work including inflammatory markers ordered for tomorrow. 10/28: Patient had a drop in his pulse ox and 78% with nonrebreather and AirVo and A-Team was called. Patient stated that his shortness of breath was better than the night before. Stat chest x-ray was done which revealed bilateral multifocal peripheral increased opacities consistent with Covid 19 infection are redemonstrated. No significant change. Patient transitioned to BiPAP with pulse ox of 90%. Patient verbalized that he wanted to be a no CODE STATUS and was encouraged to discuss with family. It was determined the patient will be transferred to the intensive care unit most likely be intubated. Patient was very resistant but after long discussion with Dr. Mark Anthony santo, patient agreed to intubation and full CODE STATUS at this point. Repeat blood work reveals WBC 9.4, hemoglobin 12.7, platelet count 263. D-dimer 1.31. Blood sugars 10/29: Patient was transferred into the intensive care unit yesterday and subsequently intubated and placed on mechanical ventilation, tidal volume 450, FiO2 100, PEEP of 20. Patient was prone this morning switched over to supine. He was started on tube feedings yesterday but had a high residual this morning after pronating. He is currently on fentanyl, propofol, Nimbex drip. One amp of bicarbonate given this morning. Chest x-ray reveals lateral multifocal confluent and increased opacities greatest in the periphery consistent with Covid 19 infection redemonstrated. No sicca be unchanged from one day earlier. CTA of the chest done yesterday reveals suboptimal study without saddle central pulmonary embolism. Cannot exclude smaller pulmonary emboli. Bilateral multifocal and confluent groundglass opacities and organizing consolidations consistent with known Covid 19 infection. Repeat blood work reveals WBC 13.1, hemoglobin 13.1, platelet count 381. D- dimer 1.17. Sodium 135, potassium 5.2, chloride 104, CO2 24, BUN 29 and creatinine 0.78. Capillary blood glucose running between 116 and 150s. AST 216. C-reactive protein 7.9, pro-calcitonin 0.15. ROS Unable to obtain due to intubation Physical exam General Appearance: Patient is laying in the ICU bed, intubated and on mechanical ventilation. No acute distress. Patient appears to be comfortable. Full examination deferred to intensive this due to intubation and Covid 19. Assessment and plan 1. Acute hypoxic respiratory failure secondary to Covid 19 pneumonia. Consult with pulmonary medicine appreciated. Patient was intubated and placed on mechanical ventilation 10/28. Continue care in the intensive care unit, proning, currently on fentanyl, propofol and Nimbex. 2. Acute COVID pneumonia. Dexamethasone 6 mg IV twice a day, Lovenox 40 subcu daily, Not a candidate for Baricitinib, Monitor inflammatory markers. Continue supplements vitamin C, D and zinc 3. Acute transaminitis Secondary to viral inflammation. Continue monitoring 4. CKD stage 3. Continue to monitor patient's creatinine. No acute kidney injury 5. History of fibromyalgia. continue gabapentin 800 3 times a day, Citalopram 40 mg by mouth daily 6. Insomnia. Was on Eszopiclone 3 mg daily at bedtime 7. Hypothyroidism. Levothyroxine 50 g by mouth daily 8. DVT prophylaxis. Lovenox 40 subcu daily. 9. GI prophylaxis. Protonix 40 mg IV push daily 10. Hyperglycemia secondary to steroids, IV drips, patient is on NovoLog scale. Prognosis guarded. Status: Full code Discharge Plan: To be determined. Impression and plan of care have been directed as dictated by the signing physician. Rochelle Constantino nurse practitioner acting as scribe for signing physician. Objective - Vital Signs Vital signs: Vital Signs Temp 97.2 F L 10/29/21 04:00 Pulse 56 L 10/29/21 07:00 Resp 32 H 10/29/21 07:00 BP 133/83 10/29/21 07:00 Pulse Ox 95 10/29/21 07:00 Intake & Output 10/28/21 10/29/21 10/29/21 18:59 06:59 18:59 Intake Total 608 1861.045 297.128 Output Total 360 852 50 Balance 248 1009.045 247.128 Weight 123 kg 123 kg Intake: IV 488 936 78 Normal Saline 0.9 18 36 3 Pressure Bag @ 3mL/hr Sodium Chloride 0.9% 1, 470 900 75 000 ml @ 75 mls/hr IV . [id number] LEON[facility] Rx#:[id number] Intake, IV Titration 100 555.045 189.128 Amount Cisatracurium 200 mg In 74.126 55.789 Sodium Chloride 0.9% 180 ml @ 1 MCG/KG/MIN 6.668 mls/hr IV .Q24H LEONAR[facility] Rx#: [id number] fentaNYL (PF). 1,000 mcg 164.198 33.339 In Sodium Chloride 0.9% 80 ml @ 0.5 MCG/KG/HR 5. 557 mls/hr IV .Q18H LEON[facility] Rx#:[id number] propofoL 1,000 mg In 100 316.721 100 Empty Bag 1 bag @ Titrate IV .Q0M LEON[facility] Rx#: [id number] Tube Feeding 20 280 30 Other 90 Output: Urine 360 852 50 Other: Voiding Method Indwelling Catheter Indwelling Catheter # Voids 1 ABP, PAP, CO, CI - Last Documented Arterial Blood Pressure 149/66 - Labs CBC & Chem 7: 10/29/21 03:25 10/29/21 03:25 Labs: Abnormal Lab Results - Last 24 Hours (Table) 10/28/21 10/28/21 10/28/21 Range/Units 13:22 13:33 18:08 WBC (3.8-10.6) k/uL RBC (4.30-5.90) m/uL Neutrophils # (1.3-7.7) k/uL Lymphocytes # (1.0-4.8) k/uL D-Dimer (<0.60) mg/L FEU ABG pH 7.18 L* (7.35-7.45) ABG pCO2 64 H (35-45) mmHg ABG pO2 79 L (83-108) mmHg ABG HCO3 (21-25) mmol/L ABG Total CO2 26 H (19-24) mmol/L ABG O2 Saturation 91.0 L (94-97) % Sodium (137-145) mmol/L Potassium (3.5-5.1) mmol/L BUN (9-20) mg/dL Glucose (74-99) mg/dL POC Glucose (mg/dL) 122 H 137 H (75-99) mg/dL Magnesium (1.6-2.3) mg/dL ALT (4-49) U/L C-Reactive Protein (<1.0) mg/dL Total Protein (6.3-8.2) g/dL Albumin (3.5-5.0) g/dL 10/28/21 10/29/21 10/29/21 Range/Units 23:38 03:25 03:25 WBC 13.1 H (3.8-10.6) k/uL RBC 4.26 L (4.30-5.90) m/uL Neutrophils # 12.4 H (1.3-7.7) k/uL Lymphocytes # 0.3 L (1.0-4.8) k/uL D-Dimer (<0.60) mg/L FEU ABG pH (7.35-7.45) ABG pCO2 (35-45) mmHg ABG pO2 (83-108) mmHg ABG HCO3 (21-25) mmol/L ABG Total CO2 (19-24) mmol/L ABG O2 Saturation (94-97) % Sodium 135 L (137-145) mmol/L Potassium 5.2 H (3.5-5.1) mmol/L BUN 29 H (9-20) mg/dL Glucose 153 H (74-99) mg/dL POC Glucose (mg/dL) 150 H (75-99) mg/dL Magnesium 2.6 H (1.6-2.3) mg/dL ALT 217 H (4-49) U/L C-Reactive Protein 7.9 H (<1.0) mg/dL Total Protein 6.2 L (6.3-8.2) g/dL Albumin 2.9 L (3.5-5.0) g/dL 10/29/21 10/29/21 10/29/21 Range/Units 03:25 05:51 05:52 WBC (3.8-10.6) k/uL RBC (4.30-5.90) m/uL Neutrophils # (1.3-7.7) k/uL Lymphocytes # (1.0-4.8) k/uL D-Dimer 1.17 H (<0.60) mg/L FEU ABG pH 7.29 L (7.35-7.45) ABG pCO2 57 H (35-45) mmHg ABG pO2 (83-108) mmHg ABG HCO3 27 H (21-25) mmol/L ABG Total CO2 29 H (19-24) mmol/L ABG O2 Saturation 97.3 H (94-97) % Sodium (137-145) mmol/L Potassium (3.5-5.1) mmol/L BUN (9-20) mg/dL Glucose (74-99) mg/dL POC Glucose (mg/dL) 123 H (75-99) mg/dL Magnesium (1.6-2.3) mg/dL ALT (4-49) U/L C-Reactive Protein (<1.0) mg/dL Total Protein (6.3-8.2) g/dL Albumin (3.5-5.0) g/dL 10/29/21 Range/Units 11:05 WBC (3.8-10.6) k/uL RBC (4.30-5.90) m/uL Neutrophils # (1.3-7.7) k/uL Lymphocytes # (1.0-4.8) k/uL D-Dimer (<0.60) mg/L FEU ABG pH (7.35-7.45) ABG pCO2 (35-45) mmHg ABG pO2 (83-108) mmHg ABG HCO3 (21-25) mmol/L ABG Total CO2 (19-24) mmol/L ABG O2 Saturation (94-97) % Sodium (137-145) mmol/L Potassium (3.5-5.1) mmol/L BUN (9-20) mg/dL Glucose (74-99) mg/dL POC Glucose (mg/dL) 116 H (75-99) mg/dL Magnesium (1.6-2.3) mg/dL ALT (4-49) U/L C-Reactive Protein (<1.0) mg/dL Total Protein (6.3-8.2) g/dL Albumin (3.5-5.0) g/dL Microbiology - Last 24 Hours (Table) 10/24/21 12:26 Blood Culture - Preliminary Blood No Growth after 96 hours 10/24/21 12:29 Blood Culture - Preliminary Blood No Growth after 96 hours
[2021-10-29 17:53] LABS: Glucose,Whole Blood 109 mg/dL (75-99)
[2021-10-29] MEDS ORDERED: fentaNYL (PF) 50 MCG/ML 20 ML VIAL ONE (21:27)
[2021-10-29 23:50] LABS: Glucose,Whole Blood 124 mg/dL (75-99)
[2021-10-30] MEDS ORDERED: fentaNYL (PF) 50 MCG/ML 20 ML VIAL ONE ×5 (01:08→23:01)
[2021-10-30] MEDS: fentaNYL (PF). 1,000 MCG in SODIUM CHLORIDE 0.9% 80 ML IV SCH ×8 (01:10→23:03)
[2021-10-30 03:58] LABS: Basophils % (A) 0 %; Eosinophils % (A) 0 %; HCT 39.8 % (39.0-53.0); HGB 12.6 gm/dL (13.0-17.5); Lymphocytes # (A) 0.2 k/uL (1.0-4.8); Lymphocytes % (A) 2 %; MCH 29.8 pg (25.0-35.0); MCHC 31.6 g/dL (31.0-37.0); MCV 94.5 fL (80.0-100.0); Mean Platelet Volume 9.5; Monocytes # (A) 0.4 k/uL (0-1.0); Monocytes % (A) 3 %; Neutrophils # (A) 12.7 k/uL (1.3-7.7); Neutrophils % (A) 95 %; Platelet Count 312 k/uL (150-450); RBC 4.21 m/uL (4.30-5.90); RDW 13.3 % (11.5-15.5); WBC 13.4 k/uL (3.8-10.6)
[2021-10-30 04:11] LABS: ALT 154 U/L (4-49); AST 36 U/L (17-59); African American GFR (CKD) >90 (>60 ml/min/1.73 sqM); Albumin 2.7 g/dL (3.5-5.0); Alkaline Phosphatase 97 U/L (38-126); Anion Gap 4 mmol/L; Blood Urea Nitrogen 29 mg/dL (9-20); C Reactive Protein 8.9 mg/dL (<1.0); Calcium 8.6 mg/dL (8.4-10.2); Carbon Dioxide 28 mmol/L (22-30); Chloride 105 mmol/L (98-107); Glucose 127 mg/dL (74-99); Magnesium 2.5 mg/dL (1.6-2.3); Non-African American GFR(CKD) >90 (>60 ml/min/1.73 sqM); Potassium 5.1 mmol/L (3.5-5.1); Sodium 137 mmol/L (137-145); Total Bilirubin 0.6 mg/dL (0.2-1.3); Total Protein 5.9 g/dL (6.3-8.2)
[2021-10-30] MEDS: SODIUM CHLORIDE 0.9% 1,000 ML IV SCH ×2 (04:18→20:00)
[2021-10-30 06:11] LABS: ABG Base Excess 3.5 mmol/L; ABG HCO3 30 mmol/L (21-25); ABG Oxygen Saturation 98.5 % (94-97); ABG PCO2 60 mmHg (35-45); ABG PO2 119 mmHg (83-108); ABG TCO2 32 mmol/L (19-24)
[2021-10-30 06:18] LABS: Allen Test Performed? no
[2021-10-30] MEDS: LEVOTHYROXINE 50 MCG TAB PO SCH (06:47)
[2021-10-30] MEDS: INSULIN ASPART (NovoLOG) 100 UNIT/ML VIAL SQ SCH ×4 (06:47→23:36)
[2021-10-30] MEDS: ENOXAPARIN 40 MG/0.4 ML SYRINGE SQ SCH (08:44)
[2021-10-30] MEDS: CHLORHEXIDINE GLUCONATE 15 ML CUP MUCOUS MEM SCH ×2 (08:44→19:55)
[2021-10-30] MEDS: PANTOPRAZOLE 40 MG/10 ML VIAL IVP SCH (08:44)
[2021-10-30] MEDS: CISATRACURIUM 200 MG in SODIUM CHLORIDE 0.9% 180 ML IV SCH (08:44)
[2021-10-30] MEDS: DEXAMETHASONE SOD PHOSPHATE 10 MG/ML 1 ML VIAL IVP SCH (08:45)
[2021-10-30] MEDS: CHOLECALCIFEROL 25 MCG (1000 IU) TABLET PO SCH (08:45)
[2021-10-30] MEDS: GABAPENTIN 400 MG CAP PO SCH ×3 (08:45→19:54)
[2021-10-30] MEDS: CITALOPRAM HYDROBROMIDE 20 MG TAB PO SCH (08:45)
[2021-10-30] MEDS: ASCORBIC ACID 500 MG TAB PO SCH (08:45)
[2021-10-30] MEDS: ZINC SULFATE 220 MG CAP PO SCH (08:45)
[2021-10-30] MEDS ORDERED: DEXAMETHASONE SOD PHOSPHATE 10 MG/ML 1 ML VIAL IVP SCH (09:00)
[2021-10-30] MEDS: ALBUTEROL HFA INHALER INHALATION SCH ×3 (09:52→19:42)
--- NOTE | 2021-10-30 10:03 | P.PN ---
Subjective Progress Note Date: 10/30/21 Principal diagnosis: Respiratory failure. On 10/24/2021 patient seen in follow-up on medical surgical floor, is currently on 15 L of oxygen, he is not using the nonrebreather mask, his pulse ox is 90- 95%, patient has been self repositioning in bed, he states his breathing is abo ut the same, maybe slightly improved, lung sounds are positive for fine rales bilaterally, he remains on Zosyn for empiric antibiotic coverage, Decadron 6 mggram twice daily, vancomycin has been discontinued. Patient is afebrile, hemodynamically has been stable. Tolerating oral intake, his labs have been reviewed today, his white blood cell count is 7.42, hemoglobin is 13.2, d-dimer is 1.4, electrolytes and renal profile are within normal limits, his liver enzymes have worsened on today's labs, and AST is up to 108, ALT is 182, alkaline phosphatase is actually improved and is down to 150. His LDH is improved and is down to 413, and CRP is 4.1, improved compared to admission levels. Pro calcitonin level is improving and is down to 1.34, urinalysis did not show evidence of infection. On 10/25/2021 patient seen in follow-up on medical surgical floor, he remains on high flow oxygen at 15 L, and 100% nonrebreather mask, his been pretty successful with self repositioning in bed, his pulse ox is around 96% on both oxygen delivery devices, at times it is near 99%, patient is mildly short of breath with any exertion, she does desaturate with any exertion, into the low 80s recovers. Other vitals have been stable, his been afebrile, has cough and congestion have improved, history and culture was sent, showing few PMNs and a few gram-positive cocci. Patient remains on empiric antibiotic coverage with Zosyn only, vancomycin has been discontinued, blood cultures have shown no growth. Follow-up pro-calcitonin will be obtained for tomorrow, physical exam reveals a few scattered rhonchi, improved from yesterday's exam. No complaint of chest pain, no hemoptysis, no nausea vomiting or diarrhea. On 10/27/2021 patient seen in follow-up on medical surgical floor. Patient is laying on his left side, he remains on interval at 60 L and FiO2 of 90% and nonrebreather mask and his pulse ox is 86-93%. Breathing fairly comfortably, although he has been quite limited in terms of activity tolerance. Afebrile, hemodynamically has been stable, he continues on Decadron 6 mg twice daily, he continues on Zosyn for empiric antibiotic coverage is on prophylactic Lovenox 40 mg twice daily. Sputum culture showed Mignon albicans, blood cultures have been negative. His pro calcitonin level was improving on previous labs. No acute events overnight, his lower extremity Dopplers were negative for DVT. His d-dimer on yesterday's labs was 1.53. His electrolytes and renal profile were unremarkable. On 10/28/2021 patient seen in follow-up on medical surgical floor, rapid response team was called on him this morning, patient was placed on BiPAP support at 14 and 8 and FiO2 100%, patient's pulse ox has remained around 83%. This morning he was adamant about not being intubated, patient is a COVID-19 pneumonia patient, she remains on Decadron 6 mg twice daily, Lovenox 40 mg twice daily, he's been treated with empiric antibiotics for possibility of bacterial pneumonia, his pro calcitonin today is improved and is down to 0.17. His inflammatory markers are improving, his LDH is down to 349, and CRP is 4.8. However despite that his oxygenation has worsened. Yesterday CT angiogram was ordered however patient could not lie down flat, and the test was not completed. He is awake and alert, upon my arrival to the bedside, he is speaking to his son on the phone, he has changed his mind about his CODE STATUS, and he is agreeable to intubation if need be. He is dyspneic, slightly tachypneic but does not appear to be in distress. He remains on BiPAP support, and his O2 satu ration has been around 82%, blood gas was completed showing pO2 of only 49, pCO2 of 34, and pH of 7.45. Patient was urgently transferred to the intensive care unit and intubated on arrival. He was placed on mechanical ventilator support with assist control and a rate of 28, tidal volume was 450, FiO2 100% and PEEP of 16. His d-dimer today is 1.31. His white count is 9.4, hemoglobin is 12.7. His blood cultures from a few days ago have shown no growth, and his sputum culture from 10/24/2021 only showed Mignon species. Patient's son was notified about patient's change in condition, and that he has been moved to the ICU and intubated. His condition is critical. Follow-up chest x-ray after intubation and left subclavian central venous catheter placement showed increased bilateral multifocal opacities, no pneumothorax, and proper positioning of the left subclavian central venous catheter. On 10/29/2021 patient seen in follow-up in the intensive care unit, yesterday he was emergently transferred to the intensive care unit, where he was intubated, this morning he remains sedated, intubated and paralyzed on assist-control mode of ventilation with a rate at 32, tidal volume is 450, FiO2 of percent and PEEP of 20. This morning's blood gas shows a pO2 of 97, pCO2 of 57, and pH of 7.29. He is currently on fentanyl at 1 miranda per kilo per minute, Diprivan and is at 50 mics per kilo per minute, Nimbex is at 1 miranda per kilo per minute, and 0.9 at 75 ML per hour. He is on vital high protein at 30 ML per hour with a goal of 35. He has been proned for 16 hours, tolerating perone well so far, his pulse ox is around 93%. He is in sinus mechanism with a rate of 69. Blood pressure is a bit hypertensive, possibly related to discomfort and anxiety, we'll adjust his fentanyl infusion drip. He remains on Decadron 6 mg daily, she remains on prophylactic Lovenox 40 mg daily. Today's labs have been reviewed showing white blood cell count of 13.1, hemoglobin is 13.1, his d-dimer is 1.17, sodium is 135, potassium is 5.2, chloride is 104, BUN is 29 creatinine 0.78. His LDH and CRP were improving and yesterday's labs, CRP from today is 7.9, increased, LDH is still pending, his pro calcitonin level is 0.15. No fever overnight. CT angiogram has been completed showing markedly suboptimal study with LSAT of central pulmonary embolism, however smaller pulmonary emboli could not be excluded. Lung windows shows bilateral multifocal confluent groundglass opacities and organizing consolidation consistent with known COVID 19 infection. Sputum culture showed only Mignon albicans, blood cultures from 10/24/2021 showed no growth.Baricitinib was discontinued a few days ago for possibility of bacterial infection. Pro calcitonin level has improved. Progress note dated 10/30/2021. 56-year-old male, with a history of coronavirus associated pneumonia. The patient developed worsening hypoxemic respiratory failure, and was intubated and mechanically ventilated for hypoxemia, on 10/29/2021. The patient is again seen today in room 266. He remains on the mechanical ventilator. Currently, he's on volume assist control, rate 32, tidal volume 450, FiO2 100%, and PEEP of 20. Arterial blood gases show pO2 of 119, pCO2 60, pH is 7.3. The FiO2 will be reduced down to 90%. The patient's on fentanyl at 3 mcg/kg/h, propofol at 50 g/kg/m, Nimbex at 1 mcg/kg/m, saline at 75 mL an hour, and vital HP at 20 mL an hour, which is goal. We will continue to try to wean the FiO2. Readmitted Reglan 10 mg every 6 because of high residuals. The patient's CT angiogram was negative for PE, and we will reduce the Decadron to be used once a day as opposed to twice a day. White count 13.4, hemoglobin 12.6, hematocrit 39.8, and platelet count 312,000. D-dimer is 1.11. Sodium 137, potassium 5.1, chlorides 105, CO2 28, anion gap 4, BUN 29, and creatinine 0.84. Chest x-ray shows bilateral multifocal opacities, which are consistent with coronavirus associated pneumonia. Chest x-rays essentially unchanged. Objective - Vital Signs Vital signs: Vital Signs Temp 98.5 F 10/30/21 04:02 Pulse 65 10/30/21 07:00 Resp 32 H 10/30/21 07:00 BP 92/63 10/29/21 21:00 Pulse Ox 99 10/30/21 07:00 Intake & Output 10/29/21 10/30/21 10/30/21 18:59 06:59 18:59 Intake Total 1090.964 2140.841 410.718 Output Total 560 625 250 Balance 3940.856 8855.841 160.718 Weight 123 kg Intake: IV 936 936 78 Normal Saline 0.9 36 36 3 Pressure Bag @ 3mL/hr Sodium Chloride 0.9% 1, 900 900 75 000 ml @ 75 mls/hr IV . [id number] LEON[facility] Rx#:[id number] Intake, IV Titration 645.821 744.841 312.718 Amount Cisatracurium 200 mg In 55.789 167.145 Sodium Chloride 0.9% 180 ml @ 1 MCG/KG/MIN 6.668 mls/hr IV .Q24H [facility]ON[facility] Rx#: [id number] fentaNYL (PF). 1,000 mcg 190.032 282.236 71.773 In Sodium Chloride 0.9% 80 ml @ 0.5 MCG/KG/HR 5. 557 mls/hr IV .Q18H [facility]ON[facility] Rx#:[id number] propofoL 1,000 mg In 400 462.605 73.8 Empty Bag 1 bag @ Titrate IV .Q0M [facility]ON[facility] Rx#: [id number] Tube Feeding 170 240 20 Other 60 60 Output: Urine 560 625 250 Other: Voiding Method Indwelling Catheter Indwelling Catheter ABP, PAP, CO, CI - Last Documented Arterial Blood Pressure 159/64 - Exam No acute distress, sedated and paralyzed, with an orally placed endotracheal tube and NG tube. HEENT examination is grossly unremarkable. Neck supple. Full range of motion. No adenopathy thyromegaly or neck vein distention. Cardiovascular examination reveals regular rhythm rate. S1-S2 normal. No S3 or S4. No discernible murmur noted. Heart sounds are distant. Heart rate 65 bpm. Lungs reveal coarse bilateral rhonchi. No wheezes or crackles. Breath sounds equal bilaterally. Abdomen soft bowel sounds are heard. No masses or tenderness. Extremities are intact. No cyanosis clubbing or edema. Skin is without rash or lesion. Neurologic examination cannot be adequately assessed as the patient's currently sedated and paralyzed. - Labs CBC & Chem 7: 10/30/21 03:45 10/30/21 03:45 Labs: Abnormal Lab Results - Last 24 Hours (Table) 10/29/21 10/29/21 10/29/21 Range/Units 03:25 11:05 17:52 WBC (3.8-10.6) k/uL RBC (4.30-5.90) m/uL Hgb (13.0-17.5) gm/dL Neutrophils # (1.3-7.7) k/uL Lymphocytes # (1.0-4.8) k/uL D-Dimer (<0.60) mg/L FEU ABG pH (7.35-7.45) ABG pCO2 (35-45) mmHg ABG pO2 (83-108) mmHg ABG HCO3 (21-25) mmol/L ABG Total CO2 (19-24) mmol/L ABG O2 Saturation (94-97) % BUN (9-20) mg/dL Glucose (74-99) mg/dL POC Glucose (mg/dL) 116 H 109 H (75-99) mg/dL Magnesium (1.6-2.3) mg/dL ALT (4-49) U/L C-Reactive Protein (<1.0) mg/dL Total Protein (6.3-8.2) g/dL Albumin (3.5-5.0) g/dL Procalcitonin 0.15 H (0.02-0.09) ng/mL 10/29/21 10/30/21 10/30/21 Range/Units 23:48 03:45 03:45 WBC 13.4 H (3.8-10.6) k/uL RBC 4.21 L (4.30-5.90) m/uL Hgb 12.6 L (13.0-17.5) gm/dL Neutrophils # 12.7 H (1.3-7.7) k/uL Lymphocytes # 0.2 L (1.0-4.8) k/uL D-Dimer (<0.60) mg/L FEU ABG pH (7.35-7.45) ABG pCO2 (35-45) mmHg ABG pO2 (83-108) mmHg ABG HCO3 (21-25) mmol/L ABG Total CO2 (19-24) mmol/L ABG O2 Saturation (94-97) % BUN 29 H (9-20) mg/dL Glucose 127 H (74-99) mg/dL POC Glucose (mg/dL) 124 H (75-99) mg/dL Magnesium 2.5 H (1.6-2.3) mg/dL ALT 154 H (4-49) U/L C-Reactive Protein 8.9 H (<1.0) mg/dL Total Protein 5.9 L (6.3-8.2) g/dL Albumin 2.7 L (3.5-5.0) g/dL Procalcitonin (0.02-0.09) ng/mL 10/30/21 10/30/21 Range/Units 03:45 06:10 WBC (3.8-10.6) k/uL RBC (4.30-5.90) m/uL Hgb (13.0-17.5) gm/dL Neutrophils # (1.3-7.7) k/uL Lymphocytes # (1.0-4.8) k/uL D-Dimer 1.11 H (<0.60) mg/L FEU ABG pH 7.30 L (7.35-7.45) ABG pCO2 60 H (35-45) mmHg ABG pO2 119 H (83-108) mmHg ABG HCO3 30 H (21-25) mmol/L ABG Total CO2 32 H (19-24) mmol/L ABG O2 Saturation 98.5 H (94-97) % BUN (9-20) mg/dL Glucose (74-99) mg/dL POC Glucose (mg/dL) (75-99) mg/dL Magnesium (1.6-2.3) mg/dL ALT (4-49) U/L C-Reactive Protein (<1.0) mg/dL Total Protein (6.3-8.2) g/dL Albumin (3.5-5.0) g/dL Procalcitonin (0.02-0.09) ng/mL Microbiology - Last 24 Hours (Table) 10/24/21 12:26 Blood Culture - Preliminary Blood No Growth after 120 hours 10/24/21 12:29 Blood Culture - Preliminary Blood No Growth after 120 hours Assessment and Plan Assessment: Acute hypoxemic respiratory failure secondary to coronavirus associated pneumonia, with intubation and mechanical ventilation on 10/28/2021. Elevated inflammatory markers secondary to acute coronavirus infection. Mild transaminitis secondary to coronavirus infection. No evidence of pulmonary embolism on CT angiogram. History of fibromyalgia. History of depression. Lifelong nontobacco user. Acute kidney injury. Hypothyroidism. Plan: Plan dated 10/30/2021 The patient FiO2 will be weaned down. We added Reglan 10 mg IV push every 6 hours for his high gastric residuals. CT angiogram was negative for pulmonary embolism. The Decadron is reduce down to 6 mg once a day. The patient remains on fentanyl propofol and Nimbex. The patient is receiving tube feedings at goal. Additional recommendations and suggestions are forthcoming. Labs, x- rays, medications are all reviewed. The patient's overall prognosis is very guarded. Continue to follow make recommendations where appropriate. Time with Patient: Greater than 30
[2021-10-30 11:27] LABS: Glucose,Whole Blood 123 mg/dL (75-99)
[2021-10-30] MEDS: METOCLOPRAMIDE 5 MG/ML 2 ML VIAL IVP SCH ×3 (11:55→23:04)
[2021-10-30 17:26] LABS: Glucose,Whole Blood 120 mg/dL (75-99)
--- NOTE | 2021-10-30 18:19 | P.PN ---
Subjective Progress Note Date: 10/30/21 History of present illness 56-year-old male with past medical history of fibromyalgia comes in to emergency room with symptoms of nausea, vomiting, dizziness and sweating feeling weak in with runny nose loss of taste and hence now for the past 1 week. He presented on 10/19 was found to have positive COVID results. Received his monoclonal antibodies. He Came back to the emergency room because of worsening of symptoms.Vitals reviewed patient afebrile pulse 80 respiratory rate 20 blood pressure 138/82 saturating at 88% on 10 L labs reviewed WBC 6.6 hemoglobin 13.9 d-dimer is elevated at 0.89, sodium 135 bicarb 21 BUN 16 creatinine 1.3 glucose 187 ferritin 2822 AST 89 ALT 80 alkaline phosphatase 225 LDH 1091 and CRP 21 and albumin 3.3 X-ray suggestive of bilateral patchy pneumonia. Both interstitial and airspace infiltrate Pulmonary clinic consulted for COVID pneumonia Patient placed on Lovenox 40 subcu twice a day, vitamin C, D and zinc. Dexamethasone initiated at 6 mg twice a day IV Patient is a candidate of Baritinib and will discuss about initiating it with pulmonary Venous Doppler ordered 10/22: [facility]. He continues to have dyspnea and is on 15 L high flow nasal cannula and nonrebreather with pulse ox of 87 and 95%. He's been afebrile, heart rate in the 60s and 70s, blood pressure 127/73. Pro-calcitonin came back high at 9.75 and we started the patient on Zosyn and vancomycin for bacterial pneumonia coverage. Patient has coarse crackles bilaterally. No lower extremity edema. He has been seen and followed by pulmonary medicine. Patient is not a candidate for Baricitinib. Patient is continued on Decadron, Lovenox and vitamin supplements. 10/23: Is found sitting up in the edge of the bed. He is currently not on a Ventimask. However his pulse oxing still around 88 to 91 % on Ventimask or 15 L high flow nasal cannula. Patient continues to have dyspnea with activity and speaking. Patient states that he is feeling much better compared to yesterday. Continues to have a cough. No lower extremity edema. He has rhonchi to the bases bilaterally. He is currently on Decadron Lovenox and vitamin supplements. Patient remains afebrile, heart rate 62, respirations 17, blood pressure 118/68 pulse ox 93% on 15 L high flow nasal cannula 10/24: Patient was up to the bathroom showering today. Awaiting inflammation markers today. Patient still requires 10 L of O2 with a pulse ox of 90%. Patient continues to have crackles to the bilateral bases. Dyspnea with activity and speaking. Patient states he is feeling better however he is very tired. Continues to have cough no lower extremity edema. He still currently on Decadron, Lovenox, and vitamin supplements. Patient remains afebrile, heart rate 58, respirations 17, blood pressure 118/89, 10/25: Patient is still on high flow nasal cannula 15 L and nonrebreather with pulse ox of 89 and 99%. He's been afebrile, heart rate 73, blood pressure 120/72. Creatinine 1.06. Blood sugars running between 101 and 106. Sputum culture is in progress. Patient is followed closely by pulmonary medicine. Patient is continued on dexamethasone, Lovenox, Zosyn and vitamin supplements. Patient has been encouraged to prone several hours daily. 10/26: Patient remains on nonrebreather mask and AirVo at 60 L, FiO2 of 85 with pulse ox of 88%. Appears to have more difficulty with breathing. Repeat chest x-ray reveals stable bilateral infiltrates. He has been afebrile, heart rate 59, blood pressure 102/59. Repeat d-dimer 1.53. Blood sugars are well controlled. 10/27: Patient remains on nonrebreather and AirVo with pulse ox at 90%. Patient was agreeable. He has been afebrile, heart rate 70, blood pressure 131/79. CBG running between 97 and 116 and CBGs and insulin will be discontinued. Sputum cultures positive for Mignon albicans. Patient is increasing his activity, currently laying in bed on his side. Lab work including inflammatory markers ordered for tomorrow. 10/28: Patient had a drop in his pulse ox and 78% with nonrebreather and AirVo and A-Team was called. Patient stated that his shortness of breath was better than the night before. Stat chest x-ray was done which revealed bilateral multifocal peripheral increased opacities consistent with Covid 19 infection are redemonstrated. No significant change. Patient transitioned to BiPAP with pulse ox of 90%. Patient verbalized that he wanted to be a no CODE STATUS and was encouraged to discuss with family. It was determined the patient will be transferred to the intensive care unit most likely be intubated. Patient was very resistant but after long discussion with Dr. Mark Anthony santo, patient agreed to intubation and full CODE STATUS at this point. Repeat blood work reveals WBC 9.4, hemoglobin 12.7, platelet count 263. D-dimer 1.31. Blood sugars 10/29: Patient was transferred into the intensive care unit yesterday and subsequently intubated and placed on mechanical ventilation, tidal volume 450, FiO2 100, PEEP of 20. Patient was prone this morning switched over to supine. He was started on tube feedings yesterday but had a high residual this morning after pronating. He is currently on fentanyl, propofol, Nimbex drip. One amp of bicarbonate given this morning. Chest x-ray reveals lateral multifocal confluent and increased opacities greatest in the periphery consistent with Covid 19 infection redemonstrated. No sicca be unchanged from one day earlier. CTA of the chest done yesterday reveals suboptimal study without saddle central pulmonary embolism. Cannot exclude smaller pulmonary emboli. Bilateral multifocal and confluent groundglass opacities and organizing consolidations consistent with known Covid 19 infection. Repeat blood work reveals WBC 13.1, hemoglobin 13.1, platelet count 381. D- dimer 1.17. Sodium 135, potassium 5.2, chloride 104, CO2 24, BUN 29 and creatinine 0.78. Capillary blood glucose running between 116 and 150s. AST 216. C-reactive protein 7.9, pro-calcitonin 0.15. 10/30: This is day #9 of admission, patient remains in ICU, still mechanically ventilated for hypoxemia, starting 10/29/2021, on Wade assist control, rate 32, PEEP of 20, FiO2 100%, dexamethasone 6 mg daily, electrolytes are stable, BUN 29 creatinine 0.84, x-ray shows bilateral multifocal opacities, consistent with Covid pneumonia, CT angiogram negative for PE, patient is on propofol, fentanyl and index vital HP, at 20 mL an hour ROS Unable to obtain due to intubation Physical exam General Appearance: Patient is laying in the ICU bed, intubated and on me chanical ventilation. No acute distress. Patient appears to be comfortable. Full examination deferred to intensive this due to intubation and Covid 19. Assessment and plan 1. Acute hypoxic respiratory failure secondary to Covid 19 pneumonia. Consult with pulmonary medicine appreciated. Patient was intubated and placed on mechanical ventilation 10/28. Continue care in the intensive care unit, proning, currently on fentanyl, propofol and Nimbex. 2. Acute COVID pneumonia. Dexamethasone 6 mg IV once a day, Lovenox 40 subcu daily, Not a candidate for Baricitinib, Monitor inflammatory markers. Continue supplements vitamin C, D and zinc 3. Acute transaminitis Secondary to viral inflammation. Continue monitoring 4. CKD stage 3. Continue to monitor patient's creatinine. No acute kidney injury 5. History of fibromyalgia. continue gabapentin 800 3 times a day, Citalopram 40 mg by mouth daily 6. Insomnia. Was on Eszopiclone 3 mg daily at bedtime 7. Hypothyroidism. Levothyroxine 50 g by mouth daily 8. DVT prophylaxis. Lovenox 40 subcu daily. 9. GI prophylaxis. Protonix 40 mg IV push daily 10. Hyperglycemia secondary to steroids, IV drips, patient is on NovoLog scale. Prognosis guarded. Status: Full code Discharge Plan: To be determined. Objective - Vital Signs Vital signs: Vital Signs Temp 98.2 F 10/30/21 16:00 Pulse 64 10/30/21 17:00 Resp 32 H 10/30/21 17:00 BP 92/63 10/29/21 21:00 Pulse Ox 97 10/30/21 17:00 Intake & Output 10/29/21 10/30/21 10/30/21 18:59 06:59 18:59 Intake Total 2731.174 5838.841 2064.358 Output Total 560 625 950 Balance 6473.246 5542.841 1114.358 Weight 123 kg Intake: IV 936 936 858 Normal Saline 0.9 36 36 33 Pressure Bag @ 3mL/hr Sodium Chloride 0.9% 1, 900 900 825 000 ml @ 75 mls/hr IV . [id number] LEONARDA Rx#:[id number] Intake, IV Titration 645.821 744.841 896.358 Amount Cisatracurium 200 mg In 55.789 167.145 Sodium Chloride 0.9% 180 ml @ 1 MCG/KG/MIN 6.668 mls/hr IV .Q24H LEONARDA Rx#: [id number] fentaNYL (PF). 1,000 mcg 190.032 282.236 371.773 In Sodium Chloride 0.9% 80 ml @ 0.5 MCG/KG/HR 5. 557 mls/hr IV .Q18H LEONARDA Rx#:[id number] propofoL 1,000 mg In 400 462.605 357.44 Empty Bag 1 bag @ Titrate IV .Q0M LEONARDA Rx#: [id number] Tube Feeding 170 240 220 Other 60 60 90 Output: Urine 560 625 950 Other: Voiding Method Indwelling Catheter Indwelling Catheter Indwelling Catheter ABP, PAP, CO, CI - Last Documented Arterial Blood Pressure 129/71 - Labs CBC & Chem 7: 10/30/21 03:45 10/30/21 03:45 Labs: Abnormal Lab Results - Last 24 Hours (Table) 10/29/21 10/30/21 10/30/21 Range/Units 23:48 03:45 03:45 WBC 13.4 H (3.8-10.6) k/uL RBC 4.21 L (4.30-5.90) m/uL Hgb 12.6 L (13.0-17.5) gm/dL Neutrophils # 12.7 H (1.3-7.7) k/uL Lymphocytes # 0.2 L (1.0-4.8) k/uL D-Dimer (<0.60) mg/L FEU ABG pH (7.35-7.45) ABG pCO2 (35-45) mmHg ABG pO2 (83-108) mmHg ABG HCO3 (21-25) mmol/L ABG Total CO2 (19-24) mmol/L ABG O2 Saturation (94-97) % BUN 29 H (9-20) mg/dL Glucose 127 H (74-99) mg/dL POC Glucose (mg/dL) 124 H (75-99) mg/dL Magnesium 2.5 H (1.6-2.3) mg/dL ALT 154 H (4-49) U/L C-Reactive Protein 8.9 H (<1.0) mg/dL Total Protein 5.9 L (6.3-8.2) g/dL Albumin 2.7 L (3.5-5.0) g/dL 10/30/21 10/30/21 10/30/21 Range/Units 03:45 06:10 11:26 WBC (3.8-10.6) k/uL RBC (4.30-5.90) m/uL Hgb (13.0-17.5) gm/dL Neutrophils # (1.3-7.7) k/uL Lymphocytes # (1.0-4.8) k/uL D-Dimer 1.11 H (<0.60) mg/L FEU ABG pH 7.30 L (7.35-7.45) ABG pCO2 60 H (35-45) mmHg ABG pO2 119 H (83-108) mmHg ABG HCO3 30 H (21-25) mmol/L ABG Total CO2 32 H (19-24) mmol/L ABG O2 Saturation 98.5 H (94-97) % BUN (9-20) mg/dL Glucose (74-99) mg/dL POC Glucose (mg/dL) 123 H (75-99) mg/dL Magnesium (1.6-2.3) mg/dL ALT (4-49) U/L C-Reactive Protein (<1.0) mg/dL Total Protein (6.3-8.2) g/dL Albumin (3.5-5.0) g/dL 10/30/21 Range/Units 17:25 WBC (3.8-10.6) k/uL RBC (4.30-5.90) m/uL Hgb (13.0-17.5) gm/dL Neutrophils # (1.3-7.7) k/uL Lymphocytes # (1.0-4.8) k/uL D-Dimer (<0.60) mg/L FEU ABG pH (7.35-7.45) ABG pCO2 (35-45) mmHg ABG pO2 (83-108) mmHg ABG HCO3 (21-25) mmol/L ABG Total CO2 (19-24) mmol/L ABG O2 Saturation (94-97) % BUN (9-20) mg/dL Glucose (74-99) mg/dL POC Glucose (mg/dL) 120 H (75-99) mg/dL Magnesium (1.6-2.3) mg/dL ALT (4-49) U/L C-Reactive Protein (<1.0) mg/dL Total Protein (6.3-8.2) g/dL Albumin (3.5-5.0) g/dL Microbiology - Last 24 Hours (Table) 10/24/21 12:26 Blood Culture - Final Blood No Growth after 144 hours 10/24/21 12:29 Blood Culture - Final Blood No Growth after 144 hours
--- NOTE | 2021-10-30 18:21 | XR ---
EXAMINATION TYPE: XR chest 1V portable DATE OF EXAM: 10/30/2021 COMPARISON: Yesterday HISTORY: Respiratory failure TECHNIQUE: Single view FINDINGS: Endotracheal tube is 6 cm from the [place]. There is soft tissue air on the right chest wall . There is some patchy bilateral pulmonary interstitial and airspace edema. Trachea is midline. There is nasogastric tube in the stomach. IMPRESSION: Patchy pulmonary edema consistent with multifocal pneumonia or RDS which is not changed c ompared to yesterday. There is new extensive right side soft tissue air compared to yesterday.
[2021-10-30 23:31] LABS: Glucose,Whole Blood 92 mg/dL (75-99)
[2021-10-31] MEDS ORDERED: fentaNYL (PF) 50 MCG/ML 20 ML VIAL ONE ×3 (02:04→22:03)
[2021-10-31] MEDS: fentaNYL (PF). 1,000 MCG in SODIUM CHLORIDE 0.9% 80 ML IV SCH ×7 (02:09→22:24)
[2021-10-31] MEDS: ARTIFICIAL TEARS-HYPROMELLOSE DROPS 15 ML BTL BOTH EYES SCH ×6 (04:52→23:49)
[2021-10-31 05:01] LABS: Basophils % (A) 0 %; Eosinophils # (A) 0.1 k/uL (0-0.7); Eosinophils % (A) 1 %; HGB 12.1 gm/dL (13.0-17.5); Lymphocytes # (A) 0.5 k/uL (1.0-4.8); Lymphocytes % (A) 4 %; MCH 30.5 pg (25.0-35.0); MCHC 31.9 g/dL (31.0-37.0); MCV 95.8 fL (80.0-100.0); Mean Platelet Volume 9.2; Monocytes # (A) 0.4 k/uL (0-1.0); Monocytes % (A) 3 %; Neutrophils # (A) 11.1 k/uL (1.3-7.7); Neutrophils % (A) 91 %; Platelet Count 308 k/uL (150-450); RBC 3.96 m/uL (4.30-5.90); WBC 12.2 k/uL (3.8-10.6)
[2021-10-31 05:23] LABS: ALT 104 U/L (4-49); AST 45 U/L (17-59); African American GFR (CKD) >90 (>60 ml/min/1.73 sqM); Albumin 2.3 g/dL (3.5-5.0); Alkaline Phosphatase 83 U/L (38-126); Anion Gap 3 mmol/L; Blood Urea Nitrogen 33 mg/dL (9-20); Calcium 7.9 mg/dL (8.4-10.2); Carbon Dioxide 27 mmol/L (22-30); Chloride 107 mmol/L (98-107); Glucose 91 mg/dL (74-99); Magnesium 2.4 mg/dL (1.6-2.3); Non-African American GFR(CKD) >90 (>60 ml/min/1.73 sqM); Potassium 4.6 mmol/L (3.5-5.1); Sodium 137 mmol/L (137-145); Total Bilirubin 0.7 mg/dL (0.2-1.3); Total Protein 5.1 g/dL (6.3-8.2)
[2021-10-31] MEDS: INSULIN ASPART (NovoLOG) 100 UNIT/ML VIAL SQ SCH ×4 (06:05→23:44)
[2021-10-31] MEDS: LEVOTHYROXINE 50 MCG TAB PO SCH (06:05)
[2021-10-31] MEDS: METOCLOPRAMIDE 5 MG/ML 2 ML VIAL IVP SCH ×4 (06:06→23:48)
[2021-10-31 06:17] LABS: ABG Base Excess 5.4 mmol/L; ABG HCO3 31 mmol/L (21-25); ABG Oxygen Saturation 97.7 % (94-97); ABG PCO2 53 mmHg (35-45); ABG PH 7.37 (7.35-7.45); ABG PO2 89 mmHg (83-108); ABG TCO2 32 mmol/L (19-24); Allen Test Performed? Yes
[2021-10-31] MEDS: SODIUM CHLORIDE 0.9% 1,000 ML IV SCH ×2 (06:47→20:27)
[2021-10-31] MEDS: ALBUTEROL HFA INHALER INHALATION SCH ×3 (07:36→19:41)
[2021-10-31] MEDS: ENOXAPARIN 40 MG/0.4 ML SYRINGE SQ SCH (08:12)
[2021-10-31] MEDS: PANTOPRAZOLE 40 MG/10 ML VIAL IVP SCH (08:12)
[2021-10-31] MEDS: GABAPENTIN 400 MG CAP PO SCH ×3 (08:12→20:27)
[2021-10-31] MEDS: ASCORBIC ACID 500 MG TAB PO SCH (08:12)
[2021-10-31] MEDS: CHLORHEXIDINE GLUCONATE 15 ML CUP MUCOUS MEM SCH ×2 (08:12→20:27)
[2021-10-31] MEDS: CITALOPRAM HYDROBROMIDE 20 MG TAB PO SCH (08:12)
[2021-10-31] MEDS: CHOLECALCIFEROL 25 MCG (1000 IU) TABLET PO SCH (08:12)
[2021-10-31] MEDS: DEXAMETHASONE SOD PHOSPHATE 10 MG/ML 1 ML VIAL IVP SCH (08:13)
[2021-10-31] MEDS: ZINC SULFATE 220 MG CAP PO SCH (08:13)
[2021-10-31] MEDS ORDERED: FUROSEMIDE 10 MG/ML 4 ML VIAL IV STA (11:18)
[2021-10-31 11:31] LABS: Glucose,Whole Blood 108 mg/dL (75-99)
--- NOTE | 2021-10-31 11:53 | P.PN ---
Subjective Progress Note Date: 10/31/21 Principal diagnosis: Respiratory failure. On 10/24/2021 patient seen in follow-up on medical surgical floor, is currently on 15 L of oxygen, he is not using the nonrebreather mask, his pulse ox is 90- 95%, patient has been self repositioning in bed, he states his breathing is abo ut the same, maybe slightly improved, lung sounds are positive for fine rales bilaterally, he remains on Zosyn for empiric antibiotic coverage, Decadron 6 mggram twice daily, vancomycin has been discontinued. Patient is afebrile, hemodynamically has been stable. Tolerating oral intake, his labs have been reviewed today, his white blood cell count is 7.42, hemoglobin is 13.2, d-dimer is 1.4, electrolytes and renal profile are within normal limits, his liver enzymes have worsened on today's labs, and AST is up to 108, ALT is 182, alkaline phosphatase is actually improved and is down to 150. His LDH is improved and is down to 413, and CRP is 4.1, improved compared to admission levels. Pro calcitonin level is improving and is down to 1.34, urinalysis did not show evidence of infection. On 10/25/2021 patient seen in follow-up on medical surgical floor, he remains on high flow oxygen at 15 L, and 100% nonrebreather mask, his been pretty successful with self repositioning in bed, his pulse ox is around 96% on both oxygen delivery devices, at times it is near 99%, patient is mildly short of breath with any exertion, she does desaturate with any exertion, into the low 80s recovers. Other vitals have been stable, his been afebrile, has cough and congestion have improved, history and culture was sent, showing few PMNs and a few gram-positive cocci. Patient remains on empiric antibiotic coverage with Zosyn only, vancomycin has been discontinued, blood cultures have shown no growth. Follow-up pro-calcitonin will be obtained for tomorrow, physical exam reveals a few scattered rhonchi, improved from yesterday's exam. No complaint of chest pain, no hemoptysis, no nausea vomiting or diarrhea. On 10/27/2021 patient seen in follow-up on medical surgical floor. Patient is laying on his left side, he remains on interval at 60 L and FiO2 of 90% and nonrebreather mask and his pulse ox is 86-93%. Breathing fairly comfortably, although he has been quite limited in terms of activity tolerance. Afebrile, hemodynamically has been stable, he continues on Decadron 6 mg twice daily, he continues on Zosyn for empiric antibiotic coverage is on prophylactic Lovenox 40 mg twice daily. Sputum culture showed Mignon albicans, blood cultures have been negative. His pro calcitonin level was improving on previous labs. No acute events overnight, his lower extremity Dopplers were negative for DVT. His d-dimer on yesterday's labs was 1.53. His electrolytes and renal profile were unremarkable. On 10/28/2021 patient seen in follow-up on medical surgical floor, rapid response team was called on him this morning, patient was placed on BiPAP support at 14 and 8 and FiO2 100%, patient's pulse ox has remained around 83%. This morning he was adamant about not being intubated, patient is a COVID-19 pneumonia patient, she remains on Decadron 6 mg twice daily, Lovenox 40 mg twice daily, he's been treated with empiric antibiotics for possibility of bacterial pneumonia, his pro calcitonin today is improved and is down to 0.17. His inflammatory markers are improving, his LDH is down to 349, and CRP is 4.8. However despite that his oxygenation has worsened. Yesterday CT angiogram was ordered however patient could not lie down flat, and the test was not completed. He is awake and alert, upon my arrival to the bedside, he is speaking to his son on the phone, he has changed his mind about his CODE STATUS, and he is agreeable to intubation if need be. He is dyspneic, slightly tachypneic but does not appear to be in distress. He remains on BiPAP support, and his O2 satu ration has been around 82%, blood gas was completed showing pO2 of only 49, pCO2 of 34, and pH of 7.45. Patient was urgently transferred to the intensive care unit and intubated on arrival. He was placed on mechanical ventilator support with assist control and a rate of 28, tidal volume was 450, FiO2 100% and PEEP of 16. His d-dimer today is 1.31. His white count is 9.4, hemoglobin is 12.7. His blood cultures from a few days ago have shown no growth, and his sputum culture from 10/24/2021 only showed Mignon species. Patient's son was notified about patient's change in condition, and that he has been moved to the ICU and intubated. His condition is critical. Follow-up chest x-ray after intubation and left subclavian central venous catheter placement showed increased bilateral multifocal opacities, no pneumothorax, and proper positioning of the left subclavian central venous catheter. On 10/29/2021 patient seen in follow-up in the intensive care unit, yesterday he was emergently transferred to the intensive care unit, where he was intubated, this morning he remains sedated, intubated and paralyzed on assist-control mode of ventilation with a rate at 32, tidal volume is 450, FiO2 of percent and PEEP of 20. This morning's blood gas shows a pO2 of 97, pCO2 of 57, and pH of 7.29. He is currently on fentanyl at 1 miranda per kilo per minute, Diprivan and is at 50 mics per kilo per minute, Nimbex is at 1 miranda per kilo per minute, and 0.9 at 75 ML per hour. He is on vital high protein at 30 ML per hour with a goal of 35. He has been proned for 16 hours, tolerating perone well so far, his pulse ox is around 93%. He is in sinus mechanism with a rate of 69. Blood pressure is a bit hypertensive, possibly related to discomfort and anxiety, we'll adjust his fentanyl infusion drip. He remains on Decadron 6 mg daily, she remains on prophylactic Lovenox 40 mg daily. Today's labs have been reviewed showing white blood cell count of 13.1, hemoglobin is 13.1, his d-dimer is 1.17, sodium is 135, potassium is 5.2, chloride is 104, BUN is 29 creatinine 0.78. His LDH and CRP were improving and yesterday's labs, CRP from today is 7.9, increased, LDH is still pending, his pro calcitonin level is 0.15. No fever overnight. CT angiogram has been completed showing markedly suboptimal study with LSAT of central pulmonary embolism, however smaller pulmonary emboli could not be excluded. Lung windows shows bilateral multifocal confluent groundglass opacities and organizing consolidation consistent with known COVID 19 infection. Sputum culture showed only Mignon albicans, blood cultures from 10/24/2021 showed no growth.Baricitinib was discontinued a few days ago for possibility of bacterial infection. Pro calcitonin level has improved. Progress note dated 10/30/2021. 56-year-old male, with a history of coronavirus associated pneumonia. The patient developed worsening hypoxemic respiratory failure, and was intubated and mechanically ventilated for hypoxemia, on 10/29/2021. The patient is again seen today in room 266. He remains on the mechanical ventilator. Currently, he's on volume assist control, rate 32, tidal volume 450, FiO2 100%, and PEEP of 20. Arterial blood gases show pO2 of 119, pCO2 60, pH is 7.3. The FiO2 will be reduced down to 90%. The patient's on fentanyl at 3 mcg/kg/h, propofol at 50 g/kg/m, Nimbex at 1 mcg/kg/m, saline at 75 mL an hour, and vital HP at 20 mL an hour, which is goal. We will continue to try to wean the FiO2. Readmitted Reglan 10 mg every 6 because of high residuals. The patient's CT angiogram was negative for PE, and we will reduce the Decadron to be used once a day as opposed to twice a day. White count 13.4, hemoglobin 12.6, hematocrit 39.8, and platelet count 312,000. D-dimer is 1.11. Sodium 137, potassium 5.1, chlorides 105, CO2 28, anion gap 4, BUN 29, and creatinine 0.84. Chest x-ray shows bilateral multifocal opacities, which are consistent with coronavirus associated pneumonia. Chest x-rays essentially unchanged. Progress note dated 10/31/2021. 56-year-old male, again seen in room 266. He has a history of coronavirus associated pneumonia. The patient developed respiratory failure, and was intubated and ventilated, on October 29. He remains on the mechanical ventilator. He is on the volume assist control mode, rate 32, tidal [place] 450, FiO2 80%, PEEP of 20. Blood gases show pO2 of 89, pCO2 53, and pH of 7.37. The patient remains on fentanyl at 2 mcg/kg/h, propofol at 50 mcg/kg/m, Nimbex at 1 mcg/kg/m, saline at 75 mL an hour, and vital high protein at 20 mL an hour, which is goal. The plan for today is to give the patient Lasix 40 mg IV push, the patient's IV fluids, and wean the FiO2. White count 12.2, hemoglobin 12.1, hematocrit 38, and platelet count normal. D-dimer is 1.38. Sodium potassium chloride CO2 all normal. Anion gap 3, BUN 33, and creatinine 0.75. Albumin is 2.3. Microbiology assess far negative. Chest x-ray shows diffuse patchy bilateral infiltrates consistent with coronavirus associated pneumonia. The chest x-ray is essentially unchanged. Objective - Vital Signs Vital signs: Vital Signs Temp 98.2 F 10/31/21 08:00 Pulse 59 L 10/31/21 11:00 Resp 18 10/31/21 11:00 BP 92/63 10/29/21 21:00 Pulse Ox 93 L 10/31/21 11:00 Intake & Output 10/30/21 10/31/21 10/31/21 18:59 06:59 18:59 Intake Total 2162.358 2059.357 648.905 Output Total 1050 675 350 Balance 3468.896 6215.357 298.905 Intake: IV 936 936 390 Normal Saline 0.9 36 36 15 Pressure Bag @ 3mL/hr Sodium Chloride 0.9% 1, 900 900 375 000 ml @ 75 mls/hr IV . [id number] LEON[facility] Rx#:[id number] Intake, IV Titration 896.358 793.357 128.905 Amount Cisatracurium 200 mg In 167.145 Sodium Chloride 0.9% 180 ml @ 1 MCG/KG/MIN 6.668 mls/hr IV .Q24H LEONAR[facility] Rx#: [id number] fentaNYL (PF). 1,000 mcg 371.773 395.572 100 In Sodium Chloride 0.9% 80 ml @ 0.5 MCG/KG/HR 5. 557 mls/hr IV .Q18H [facility]ON[facility] Rx#:[id number] propofoL 1,000 mg In 357.44 397.785 28.905 Empty Bag 1 bag @ Titrate IV .Q0M LEONAR[facility] Rx#: [id number] Tube Feeding 240 240 100 Other 90 90 30 Output: Urine 1050 675 350 Other: Voiding Method Indwelling Catheter Indwelling Catheter Indwelling Catheter ABP, PAP, CO, CI - Last Documented Arterial Blood Pressure 138/59 - Exam No acute distress, sedated and paralyzed, with an orally placed endotracheal tube and NG tube. HEENT examination is grossly unremarkable. Neck supple. Full range of motion. No adenopathy thyromegaly or neck vein distention. Cardiovascular examination reveals regular rhythm rate. S1-S2 normal. No S3 or S4. No discernible murmur noted. Heart sounds are distant. Heart rate 59 bpm. Lungs reveal coarse bilateral rhonchi. No wheezes or crackles. Breath sounds equal bilaterally. Saturations are 93%. Abdomen soft bowel sounds are heard. No masses or tenderness. Extremities are intact. No cyanosis clubbing or edema. Skin is without rash or lesion. Neurologic examination cannot be adequately assessed as the patient's currently sedated and paralyzed. - Labs CBC & Chem 7: 10/31/21 04:25 10/31/21 04:25 Labs: Abnormal Lab Results - Last 24 Hours (Table) 10/30/21 10/31/21 10/31/21 Range/Units 17:25 04:25 04:25 WBC 12.2 H (3.8-10.6) k/uL RBC 3.96 L (4.30-5.90) m/uL Hgb 12.1 L (13.0-17.5) gm/dL Hct 38.0 L (39.0-53.0) % Neutrophils # 11.1 H (1.3-7.7) k/uL Lymphocytes # 0.5 L (1.0-4.8) k/uL D-Dimer (<0.60) mg/L FEU ABG pCO2 (35-45) mmHg ABG HCO3 (21-25) mmol/L ABG Total CO2 (19-24) mmol/L ABG O2 Saturation (94-97) % BUN 33 H (9-20) mg/dL POC Glucose (mg/dL) 120 H (75-99) mg/dL Calcium 7.9 L (8.4-10.2) mg/dL Magnesium 2.4 H (1.6-2.3) mg/dL ALT 104 H (4-49) U/L C-Reactive Protein 8.0 H (<1.0) mg/dL Total Protein 5.1 L (6.3-8.2) g/dL Albumin 2.3 L (3.5-5.0) g/dL 10/31/21 10/31/21 10/31/21 Range/Units 04:25 05:13 11:30 WBC (3.8-10.6) k/uL RBC (4.30-5.90) m/uL Hgb (13.0-17.5) gm/dL Hct (39.0-53.0) % Neutrophils # (1.3-7.7) k/uL Lymphocytes # (1.0-4.8) k/uL D-Dimer 1.38 H (<0.60) mg/L FEU ABG pCO2 53 H (35-45) mmHg ABG HCO3 31 H (21-25) mmol/L ABG Total CO2 32 H (19-24) mmol/L ABG O2 Saturation 97.7 H (94-97) % BUN (9-20) mg/dL POC Glucose (mg/dL) 108 H (75-99) mg/dL Calcium (8.4-10.2) mg/dL Magnesium (1.6-2.3) mg/dL ALT (4-49) U/L C-Reactive Protein (<1.0) mg/dL Total Protein (6.3-8.2) g/dL Albumin (3.5-5.0) g/dL Microbiology - Last 24 Hours (Table) 10/24/21 12:26 Blood Culture - Final Blood No Growth after 144 hours 10/24/21 12:29 Blood Culture - Final Blood No Growth after 144 hours Assessment and Plan Assessment: Acute hypoxemic respiratory failure secondary to coronavirus associated pneumonia, with intubation and mechanical ventilation on 10/28/2021. Elevated inflammatory markers secondary to acute coronavirus infection. Mild transaminitis secondary to coronavirus infection. No evidence of pulmonary embolism on CT angiogram. History of fibromyalgia. History of depression. Lifelong nontobacco user. Acute kidney injury. Hypothyroidism. Plan: Plan dated 10/30/2021 The patient FiO2 will be weaned down. We added Reglan 10 mg IV push every 6 hours for his high gastric residuals. CT angiogram was negative for pulmonary embolism. The Decadron is reduce down to 6 mg once a day. The patient remains on fentanyl propofol and Nimbex. The patient is receiving tube feedings at goal. Additional recommendations and suggestions are forthcoming. Labs, x- rays, medications are all reviewed. The patient's overall prognosis is very guarded. Continue to follow make recommendations where appropriate. Plan dated 10/31/2021. The patient will have his IV reduce down to KVO. The patient will get Lasix 40 mg IV push once. In addition, we will attempt to wean the FiO2. Saturations a re perfectly okay in the 88-92% range. We added Reglan because of high gastric residuals. CT angiogram was negative for pulmonary embolism. The patient remains on Decadron, Lovenox, and vitamins. Additional recommendations and suggestions are forthcoming. Prognosis is guarded. We'll continue to follow the patient make recommendations where appropriate. Time with Patient: Greater than 30
[2021-10-31] MEDS: CISATRACURIUM 200 MG in SODIUM CHLORIDE 0.9% 180 ML IV SCH (14:31)
--- NOTE | 2021-10-31 15:45 | XR ---
EXAMINATION TYPE: XR chest 1V DATE OF EXAM: 10/31/2021 COMPARISON: Yesterday HISTORY: Tube placement TECHNIQUE: FINDINGS: Heart is normal. There is patchy bilateral pulmonary predominantly interstitial infiltrates . There is some coalescent density left lower lobe. There are chest leads. There is endotracheal tube 6.5 cm from the [place]. There is nasogastric tube in the stomach. There is no definite pleural effus ion. There is soft tissue air on the right chest wall. No pneumothorax. IMPRESSION: There is improvement in the right side soft tissue air. There is bilateral patchy interst itial and airspace pulmonary infiltrates not significantly different than yesterday. Normal heart siz e.
--- NOTE | 2021-10-31 17:22 | P.PN ---
Subjective Progress Note Date: 10/31/21 History of present illness 56-year-old male with past medical history of fibromyalgia comes in to emergency room with symptoms of nausea, vomiting, dizziness and sweating feeling weak in with runny nose loss of taste and hence now for the past 1 week. He presented on 10/19 was found to have positive COVID results. Received his monoclonal antibodies. He Came back to the emergency room because of worsening of symptoms.Vitals reviewed patient afebrile pulse 80 respiratory rate 20 blood pressure 138/82 saturating at 88% on 10 L labs reviewed WBC 6.6 hemoglobin 13.9 d-dimer is elevated at 0.89, sodium 135 bicarb 21 BUN 16 creatinine 1.3 glucose 187 ferritin 2822 AST 89 ALT 80 alkaline phosphatase 225 LDH 1091 and CRP 21 and albumin 3.3 X-ray suggestive of bilateral patchy pneumonia. Both interstitial and airspace infiltrate Pulmonary clinic consulted for COVID pneumonia Patient placed on Lovenox 40 subcu twice a day, vitamin C, D and zinc. Dexamethasone initiated at 6 mg twice a day IV Patient is a candidate of Baritinib and will discuss about initiating it with pulmonary Venous Doppler ordered 10/22: [facility] in follow-up. He continues to have dyspnea and is on 15 L high flow nasal cannula and nonrebreather with pulse ox of 87 and 95%. He's been afebrile, heart rate in the 60s and 70s, blood pressure 127/73. Pro-calcitonin came back high at 9.75 and we started the patient on Zosyn and vancomycin for bacterial pneumonia coverage. Patient has coarse crackles bilaterally. No lower extremity edema. He has been seen and followed by pulmonary medicine. Patient is not a candidate for Baricitinib. Patient is continued on Decadron, Lovenox and vitamin supplements. 10/23: Is found sitting up in the edge of the bed. He is currently not on a Ventimask. However his pulse oxing still around 88 to 91 % on Ventimask or 15 L high flow nasal cannula. Patient continues to have dyspnea with activity and speaking. Patient states that he is feeling much better compared to yesterday. Continues to have a cough. No lower extremity edema. He has rhonchi to the bases bilaterally. He is currently on Decadron Lovenox and vitamin supplements. Patient remains afebrile, heart rate 62, respirations 17, blood pressure 118/68 pulse ox 93% on 15 L high flow nasal cannula 10/24: Patient was up to the bathroom showering today. Awaiting inflammation markers today. Patient still requires 10 L of O2 with a pulse ox of 90%. Patient continues to have crackles to the bilateral bases. Dyspnea with activity and speaking. Patient states he is feeling better however he is very tired. Continues to have cough no lower extremity edema. He still currently on Decadron, Lovenox, and vitamin supplements. Patient remains afebrile, heart rate 58, respirations 17, blood pressure 118/89, 10/25: Patient is still on high flow nasal cannula 15 L and nonrebreather with pulse ox of 89 and 99%. He's been afebrile, heart rate 73, blood pressure 120/72. Creatinine 1.06. Blood sugars running between 101 and 106. Sputum culture is in progress. Patient is followed closely by pulmonary medicine. Patient is continued on dexamethasone, Lovenox, Zosyn and vitamin supplements. Patient has been encouraged to prone several hours daily. 10/26: Patient remains on nonrebreather mask and AirVo at 60 L, FiO2 of 85 with pulse ox of 88%. Appears to have more difficulty with breathing. Repeat chest x-ray reveals stable bilateral infiltrates. He has been afebrile, heart rate 59, blood pressure 102/59. Repeat d-dimer 1.53. Blood sugars are well controlled. 10/27: Patient remains on nonrebreather and AirVo with pulse ox at 90%. Patient was agreeable. He has been afebrile, heart rate 70, blood pressure 131/79. CBG running between 97 and 116 and CBGs and insulin will be discontinued. Sputum cultures positive for Mignon albicans. Patient is increasing his activity, currently laying in bed on his side. Lab work including inflammatory markers ordered for tomorrow. 10/28: Patient had a drop in his pulse ox and 78% with nonrebreather and AirVo and A-Team was called. Patient stated that his shortness of breath was better than the night before. Stat chest x-ray was done which revealed bilateral multifocal peripheral increased opacities consistent with Covid 19 infection are redemonstrated. No significant change. Patient transitioned to BiPAP with pulse ox of 90%. Patient verbalized that he wanted to be a no CODE STATUS and was encouraged to discuss with family. It was determined the patient will be transferred to the intensive care unit most likely be intubated. Patient was very resistant but after long discussion with Dr. Mark Anthony santo, patient agreed to intubation and full CODE STATUS at this point. Repeat blood work reveals WBC 9.4, hemoglobin 12.7, platelet count 263. D-dimer 1.31. Blood sugars 10/29: Patient was transferred into the intensive care unit yesterday and subsequently intubated and placed on mechanical ventilation, tidal volume 450, FiO2 100, PEEP of 20. Patient was prone this morning switched over to supine. He was started on tube feedings yesterday but had a high residual this morning after pronating. He is currently on fentanyl, propofol, Nimbex drip. One amp of bicarbonate given this morning. Chest x-ray reveals lateral multifocal confluent and increased opacities greatest in the periphery consistent with Covid 19 infection redemonstrated. No sicca be unchanged from one day earlier. CTA of the chest done yesterday reveals suboptimal study without saddle central pulmonary embolism. Cannot exclude smaller pulmonary emboli. Bilateral multifocal and confluent groundglass opacities and organizing consolidations consistent with known Covid 19 infection. Repeat blood work reveals WBC 13.1, hemoglobin 13.1, platelet count 381. D- dimer 1.17. Sodium 135, potassium 5.2, chloride 104, CO2 24, BUN 29 and creatinine 0.78. Capillary blood glucose running between 116 and 150s. AST 216. C-reactive protein 7.9, pro-calcitonin 0.15. 10/30: This is day #9 of admission, patient remains in ICU, still mechanically ventilated for hypoxemia, starting 10/29/2021, on Wade assist control, rate 32, PEEP of 20, FiO2 100%, dexamethasone 6 mg daily, electrolytes are stable, BUN 29 creatinine 0.84, x-ray shows bilateral multifocal opacities, consistent with Covid pneumonia, CT angiogram negative for PE, patient is on propofol, fentanyl and index vital HP, at 20 mL an hour 10/31: Patient remains in ICU, intubated, NG tube in place, chest x-ray shows no pneumothorax, no pleural effusion, there is bilateral patchy pulmonary interstitial infiltrates, with coalescent density in the left lower lobe. No significant change from yesterdayALT iscreatinine is 0.75, ALT is trending downward, C reactive protein is 8.0 from a previous of 8.9Lasix given today, on dexamethasone, and remains sedated. ROS Unable to obtain due to intubation Physical exam General Appearance: Patient is laying in the ICU bed, intubated and on mechanical ventilation. No acute distress. Patient appears to be comfortable. Full examination deferred to intensive this due to intubation and Covid 19. Assessment and plan 1. Acute hypoxic respiratory failure secondary to Covid 19 pneumonia. Consult with pulmonary medicine appreciated. Patient was intubated and placed on mechanical ventilation 10/28. Continue care in the intensive care unit, proning, currently on fentanyl, propofol and Nimbex. 2. Acute COVID pneumonia. Dexamethasone 6 mg IV once a day, Lovenox 40 subcu daily, Not a candidate for Baricitinib, Monitor inflammatory markers. Continue supplements vitamin C, D and zinc 3. Acute transaminitis Secondary to viral inflammation. Continue monitoring 4. CKD stage 3. Continue to monitor patient's creatinine. No acute kidney injury 5. History of fibromyalgia. continue gabapentin 800 3 times a day, Citalopram 40 mg by mouth daily 6. Insomnia. Was on Eszopiclone 3 mg daily at bedtime 7. Hypothyroidism. Levothyroxine 50 g by mouth daily 8. DVT prophylaxis. Lovenox 40 subcu daily. 9. GI prophylaxis. Protonix 40 mg IV push daily 10. Hyperglycemia secondary to steroids, IV drips, patient is on NovoLog scale. Prognosis guarded. Status: Full code Discharge Plan: To be determined. Laboratory Results WBC 12.2 k/uL (3.8-10.6) H 10/31/21 04:25 RBC 3.96 m/uL (4.30-5.90) L 10/31/21 04:25 Hgb 12.1 gm/dL (13.0-17.5) L 10/31/21 04:25 Hct 38.0 % (39.0-53.0) L 10/31/21 04:25 MCV 95.8 fL (80.0-100.0) 10/31/21 04:25 MCH 30.5 pg (25.0-35.0) 10/31/21 04:25 MCHC 31.9 g/dL (31.0-37.0) 10/31/21 04:25 RDW 14.0 % (11.5-15.5) 10/31/21 04:25 Plt Count 308 k/uL (150-450) 10/31/21 04:25 MPV 9.2 10/31/21 04:25 Immature Gran % (Auto) 1.4 % 10/28/21 05:24 Absolute Nucleated RBC 0 X 10*3/uL (0.00-0.00) 10/28/21 05:24 Neutrophils % 91 % 10/31/21 04:25 Lymphocytes % 4 % 10/31/21 04:25 Monocytes % 3 % 10/31/21 04:25 Eosinophils % 1 % 10/31/21 04:25 Basophils % 0 % 10/31/21 04:25 Immature Gran # 0.13 X 10*3/uL (0.00-0.04) H 10/28/21 05:24 Neutrophils # 11.1 k/uL (1.3-7.7) H 10/31/21 04:25 Lymphocytes # 0.5 k/uL (1.0-4.8) L 10/31/21 04:25 Monocytes # 0.4 k/uL (0-1.0) 10/31/21 04:25 Eosinophils # 0.1 k/uL (0-0.7) 10/31/21 04:25 Basophils # 0.0 k/uL (0-0.2) 10/31/21 04:25 NRBC/100 WBC Diff 0 /100 WBCS (0.0-0.0) 10/28/21 05:24 D-Dimer 1.38 mg/L FEU (<0.60) H 10/31/21 04:25 Sample Site a-line 10/31/21 05:13 ABG pH 7.37 (7.35-7.45) 10/31/21 05:13 ABG pCO2 53 mmHg (35-45) H 10/31/21 05:13 ABG pO2 89 mmHg (83-108) 10/31/21 05:13 ABG HCO3 31 mmol/L (21-25) H 10/31/21 05:13 ABG Total CO2 32 mmol/L (19-24) H 10/31/21 05:13 ABG O2 Saturation 97.7 % (94-97) H 10/31/21 05:13 ABG Base Excess 5.4 mmol/L 10/31/21 05:13 Palomo Test Yes 10/31/21 05:13 FiO2 85 % 10/31/21 05:13 Sodium 137 mmol/L (137-145) 10/31/21 04:25 Potassium 4.6 mmol/L (3.5-5.1) 10/31/21 04:25 Chloride 107 mmol/L (98-107) 10/31/21 04:25 Carbon Dioxide 27 mmol/L (22-30) 10/31/21 04:25 Anion Gap 3 mmol/L 10/31/21 04:25 BUN 33 mg/dL (9-20) H 10/31/21 04:25 Creatinine 0.75 mg/dL (0.66-1.25) 10/31/21 04:25 Est GFR (CKD-EPI)AfAm >90 (>60 ml/min/1.73 sqM) 10/31/21 04:25 Est GFR (CKD-EPI)NonAf >90 (>60 ml/min/1.73 sqM) 10/31/21 04:25 BUN/Creatinine Ratio 29.89 Ratio (12.00-20.00) H 10/28/21 05:24 Glucose 91 mg/dL (74-99) 10/31/21 04:25 POC Glucose (mg/dL) 108 mg/dL (75-99) H 10/31/21 11:30 POC Glu [employer] Sia Mann 10/31/21 11:[address] Glu mg/dL 117 10/20/21 23:57 Hemoglobin A1c 5.7 % (4.0-6.0) 10/20/21 23:57 Calcium 7.9 mg/dL (8.4-10.2) L 10/31/21 04:25 Magnesium 2.4 mg/dL (1.6-2.3) H 10/31/21 04:25 Ferritin 2822.0 ng/mL (22.0-322.0) H 10/20/21 23:57 Total Bilirubin 0.7 mg/dL (0.2-1.3) 10/31/21 04:25 AST 45 U/L (17-59) 10/31/21 04:25 ALT 104 U/L (4-49) H 10/31/21 04:25 Alkaline Phosphatase 83 U/L (38-126) 10/31/21 04:25 Lactate Dehydrogenase 349 U/L (120-246) H 10/28/21 05:24 C-Reactive Protein 8.0 mg/dL (<1.0) H 10/31/21 04:25 NT-Pro-B Natriuret Pep 400 pg/mL 10/21/21 17:19 Total Protein 5.1 g/dL (6.3-8.2) L 10/31/21 04:25 Albumin 2.3 g/dL (3.5-5.0) L 10/31/21 04:25 Globulin 2.9 g/dL (1.6-3.3) 10/28/21 05:24 Albumin/Globulin Ratio 1.03 g/dL (1.60-3.17) L 10/28/21 05:24 Procalcitonin 0.15 ng/mL (0.02-0.09) H 10/29/21 03:25 Urine Color Yellow 10/23/21 02:28 Urine Appearance Clear (Clear) 10/23/21 02:28 Urine pH 6.0 (5.0-8.0) 10/23/21 02:28 Ur Specific [place] 1.032 (1.001-1.035) 10/23/21 02:28 Urine Protein Trace (Negative) H 10/23/21 02:28 Urine Glucose (UA) Negative (Negative) 10/23/21 02:28 Urine Ketones Negative (Negative) 10/23/21 02:28 Urine Blood Negative (Negative) 10/23/21 02:28 Urine Nitrite Negative (Negative) 10/23/21 02:28 Urine Bilirubin Negative (Negative) 10/23/21 02:28 Urine Urobilinogen <2.0 mg/dL (<2.0) 10/23/21 02:28 Ur Leukocyte Esterase Negative (Negative) 10/23/21 02:28 Vital Signs Temp 98.1 F 10/31/21 16:00 Pulse 56 L 10/31/21 16:00 Resp 32 H 10/31/21 16:00 BP 92/63 10/29/21 21:00 Pulse Ox 95 10/31/21 16:00 Intake & Output 10/30/21 10/31/21 10/31/21 18:59 06:59 18:59 Intake Total 2162.358 2059.357 1377.500 Output Total 4378 434 3964 Balance 8179.496 2802.357 -172.500 Intake: IV 936 936 560 Normal Saline 0.9 36 36 30 Pressure Bag @ 3mL/hr Sodium Chloride 0.9% 1, 900 900 530 000 ml @ 20 mls/hr IV . Q24H [facility] Rx#:[id number] Intake, IV Titration 896.358 793.357 527.500 Amount Cisatracurium 200 mg In 167.145 198.595 Sodium Chloride 0.9% 180 ml @ 1 MCG/KG/MIN 6.668 mls/hr IV .Q24H [facility] Rx#: [id number] fentaNYL (PF). 1,000 mcg 371.773 395.572 300 In Sodium Chloride 0.9% 80 ml @ 0.5 MCG/KG/HR 5. 557 mls/hr IV .Q18H [facility] Rx#:[id number] propofoL 1,000 mg In 357.44 397.785 28.905 Empty Bag 1 bag @ Titrate IV .Q0M [facility] Rx#: [id number] Tube Feeding 240 240 200 Other 90 90 90 Output: Urine 6603 445 3164 Other: Voiding Method Indwelling Catheter Indwelling Catheter Indwelling Catheter ABP, PAP, CO, CI - Last Documented Arterial Blood Pressure 95/56 Current Medications Albuterol Sulfate (Albuterol Hfa Inhaler) 2 puff INHALATION RT-TID [facility] Last Admin: 10/31/21 11:28 Dose: 2 puff Documented by: Artificial Tears (Artificial Tears-Hypromellose Drops 15 Ml Btl) 1 drops BOTH EYES Q4H [facility] Last Admin: 10/31/21 15:28 Dose: 1 drops Documented by: Ascorbic Acid (Ascorbic Acid 500 Mg Tab) 1,000 mg PO DAILY [facility] Last Admin: 10/31/21 08:12 Dose: 1,000 mg Documented by: Chlorhexidine Gluconate (Chlorhexidine Gluconate 15 Ml Cup) 15 ml MUCOUS MEM BID [facility] Last Admin: 10/31/21 08:12 Dose: 15 ml Documented by: Cholecalciferol (Cholecalciferol 25 Mcg (1000 Iu) Tablet) 25 mcg PO DAILY [facility] Last Admin: 10/31/21 08:12 Dose: 25 mcg Documented by: Citalopram Hydrobromide (Citalopram Hydrobromide 20 Mg Tab) 40 mg PO DAILY [facility] Last Admin: 10/31/21 08:12 Dose: 40 mg Documented by: Dexamethasone Sodium Phosphate (Dexamethasone Sod Phosphate 10 Mg/Ml 1 Ml Vial) 6 mg IVP DAILY [facility] Last Admin: 10/31/21 08:13 Dose: 6 mg Documented by: Enoxaparin Sodium (Enoxaparin 40 Mg/0.4 Ml Syringe) 40 mg SQ DAILY [facility] Last Admin: 10/31/21 08:12 Dose: 40 mg Documented by: Gabapentin (Gabapentin 400 Mg Cap) 800 mg PO TID [facility] Last Admin: 10/31/21 16:51 Dose: 800 mg Documented by: Propofol 1,000 mg/ IV Solution 100 mls @ 0 mls/hr IV .Q0M [facility]; Protocol Last Admin: 10/31/21 08:12 Dose: 50 mcg/kg/min, 36.9 mls/hr Documented by: Fentanyl Citrate 1,000 mcg/ (Sodium Chloride) 100 mls @ 5.557 mls/hr IV .Q18H [facility]; Protocol Last Admin: 10/31/21 15:28 Dose: 3 mcg/kg/hr, 33.339 mls/hr Documented by: Cisatracurium Besylate 200 mg/ (Sodium Chloride) 200 mls @ 6.668 mls/hr IV .Q24H [facility]; Protocol Last Admin: 10/31/21 14:31 Dose: 1 mcg/kg/min, 6.668 mls/hr Documented by: Sodium Chloride (Saline 0.9%) 1,000 mls @ 20 mls/hr IV .Q24H [facility] Last Admin: 10/31/21 06:47 Dose: 75 mls/hr Documented by: Insulin Aspart (Insulin Aspart (Novolog) 100 Unit/Ml Vial) 0 unit SQ Q6H [facility]; Protocol Last Admin: 10/31/21 11:38 Dose: Not Given Documented by: Levothyroxine Sodium (Levothyroxine 50 Mcg Tab) 50 mcg PO 0630 [facility] Last Admin: 10/31/21 06:05 Dose: 50 mcg Documented by: Metoclopramide HCl (Metoclopramide 5 Mg/Ml 2 Ml Vial) 10 mg IVP Q6HR [facility] Last Admin: 10/31/21 16:51 Dose: 10 mg Documented by: Pantoprazole Sodium (Pantoprazole 40 Mg/10 Ml Vial) 40 mg IVP DAILY [facility] Last Admin: 10/31/21 08:12 Dose: 40 mg Documented by: Zinc Sulfate (Zinc Sulfate 220 Mg Cap) 220 mg PO DAILY [facility] Last Admin: 10/31/21 08:13 Dose: 220 mg Documented by: Objective - Vital Signs Vital signs: Vital Signs Temp 98.1 F 10/31/21 16:00 Pulse 56 L 10/31/21 16:00 Resp 32 H 10/31/21 16:00 BP 92/63 10/29/21 21:00 Pulse Ox 95 10/31/21 16:00 Intake & Output 10/30/21 10/31/21 10/31/21 18:59 06:59 18:59 Intake Total 2162.358 2059.357 1377.500 Output Total 7739 307 3596 Balance 8493.915 4034.357 -172.500 Intake: IV 936 936 560 Normal Saline 0.9 36 36 30 Pressure Bag @ 3mL/hr Sodium Chloride 0.9% 1, 900 900 530 000 ml @ 20 mls/hr IV . Q24H [facility] Rx#:[id number] Intake, IV Titration 896.358 793.357 527.500 Amount Cisatracurium 200 mg In 167.145 198.595 Sodium Chloride 0.9% 180 ml @ 1 MCG/KG/MIN 6.668 mls/hr IV .Q24H [facility] Rx#: [id number] fentaNYL (PF). 1,000 mcg 371.773 395.572 300 In Sodium Chloride 0.9% 80 ml @ 0.5 MCG/KG/HR 5. 557 mls/hr IV .Q18H [facility] Rx#:[id number] propofoL 1,000 mg In 357.44 397.785 28.905 Empty Bag 1 bag @ Titrate IV .Q0M [facility] Rx#: [id number] Tube Feeding 240 240 200 Other 90 90 90 Output: Urine 5734 884 8364 Other: Voiding Method Indwelling Catheter Indwelling Catheter Indwelling Catheter ABP, PAP, CO, CI - Last Documented Arterial Blood Pressure 95/56 - Labs CBC & Chem 7: 10/31/21 04:25 10/31/21 04:25 Labs: Abnormal Lab Results - Last 24 Hours (Table) 10/30/21 10/31/21 10/31/21 Range/Units 17:25 04:25 04:25 WBC 12.2 H (3.8-10.6) k/uL RBC 3.96 L (4.30-5.90) m/uL Hgb 12.1 L (13.0-17.5) gm/dL Hct 38.0 L (39.0-53.0) % Neutrophils # 11.1 H (1.3-7.7) k/uL Lymphocytes # 0.5 L (1.0-4.8) k/uL D-Dimer (<0.60) mg/L FEU ABG pCO2 (35-45) mmHg ABG HCO3 (21-25) mmol/L ABG Total CO2 (19-24) mmol/L ABG O2 Saturation (94-97) % BUN 33 H (9-20) mg/dL POC Glucose (mg/dL) 120 H (75-99) mg/dL Calcium 7.9 L (8.4-10.2) mg/dL Magnesium 2.4 H (1.6-2.3) mg/dL ALT 104 H (4-49) U/L C-Reactive Protein 8.0 H (<1.0) mg/dL Total Protein 5.1 L (6.3-8.2) g/dL Albumin 2.3 L (3.5-5.0) g/dL 10/31/21 10/31/21 10/31/21 Range/Units 04:25 05:13 11:30 WBC (3.8-10.6) k/uL RBC (4.30-5.90) m/uL Hgb (13.0-17.5) gm/dL Hct (39.0-53.0) % Neutrophils # (1.3-7.7) k/uL Lymphocytes # (1.0-4.8) k/uL D-Dimer 1.38 H (<0.60) mg/L FEU ABG pCO2 53 H (35-45) mmHg ABG HCO3 31 H (21-25) mmol/L ABG Total CO2 32 H (19-24) mmol/L ABG O2 Saturation 97.7 H (94-97) % BUN (9-20) mg/dL POC Glucose (mg/dL) 108 H (75-99) mg/dL Calcium (8.4-10.2) mg/dL Magnesium (1.6-2.3) mg/dL ALT (4-49) U/L C-Reactive Protein (<1.0) mg/dL Total Protein (6.3-8.2) g/dL Albumin (3.5-5.0) g/dL Microbiology - Last 24 Hours (Table) 10/24/21 12:26 Blood Culture - Final Blood No Growth after 144 hours 10/24/21 12:29 Blood Culture - Final Blood No Growth after 144 hours
[2021-10-31 18:04] LABS: Glucose,Whole Blood 128 mg/dL (75-99)
[2021-10-31 23:42] LABS: Glucose,Whole Blood 101 mg/dL (75-99)
[2021-11-01] MEDS ORDERED: fentaNYL (PF) 50 MCG/ML 20 ML VIAL ONE ×4 (00:39→21:37)
[2021-11-01] MEDS: fentaNYL (PF). 1,000 MCG in SODIUM CHLORIDE 0.9% 80 ML IV SCH ×9 (00:40→21:40)
[2021-11-01 03:56] LABS: Basophils % (A) 0 %; Eosinophils # (A) 0.1 k/uL (0-0.7); Eosinophils % (A) 1 %; HCT 40.1 % (39.0-53.0); HGB 12.8 gm/dL (13.0-17.5); Lymphocytes # (A) 0.5 k/uL (1.0-4.8); Lymphocytes % (A) 4 %; MCV 93.8 fL (80.0-100.0); Mean Platelet Volume 9.1; Monocytes # (A) 0.4 k/uL (0-1.0); Monocytes % (A) 3 %; Neutrophils # (A) 12.8 k/uL (1.3-7.7); Neutrophils % (A) 92 %; Platelet Count 345 k/uL (150-450); RBC 4.27 m/uL (4.30-5.90); RDW 13.4 % (11.5-15.5); WBC 13.9 k/uL (3.8-10.6)
[2021-11-01] MEDS: ARTIFICIAL TEARS-HYPROMELLOSE DROPS 15 ML BTL BOTH EYES SCH ×5 (04:02→20:51)
[2021-11-01 04:18] LABS: ALT 100 U/L (4-49); AST 46 U/L (17-59); African American GFR (CKD) >90 (>60 ml/min/1.73 sqM); Albumin 2.4 g/dL (3.5-5.0); Alkaline Phosphatase 96 U/L (38-126); Anion Gap 5 mmol/L; Blood Urea Nitrogen 38 mg/dL (9-20); Carbon Dioxide 27 mmol/L (22-30); Chloride 105 mmol/L (98-107); Glucose 117 mg/dL (74-99); Non-African American GFR(CKD) >90 (>60 ml/min/1.73 sqM); Potassium 4.5 mmol/L (3.5-5.1); Sodium 137 mmol/L (137-145); Total Protein 5.5 g/dL (6.3-8.2)
[2021-11-01] MEDS: METOCLOPRAMIDE 5 MG/ML 2 ML VIAL IVP SCH ×3 (05:37→18:10)
[2021-11-01] MEDS: LEVOTHYROXINE 50 MCG TAB PO SCH (05:37)
[2021-11-01] MEDS: INSULIN ASPART (NovoLOG) 100 UNIT/ML VIAL SQ SCH ×3 (05:39→18:11)
[2021-11-01 05:41] LABS: ABG Base Excess 7.6 mmol/L; ABG HCO3 32 mmol/L (21-25); ABG Oxygen Saturation 93.9 % (94-97); ABG PCO2 50 mmHg (35-45); ABG PH 7.42 (7.35-7.45); ABG PO2 64 mmHg (83-108); ABG TCO2 34 mmol/L (19-24); Allen Test Performed? Yes
[2021-11-01] MEDS: ALBUTEROL HFA INHALER INHALATION SCH ×3 (07:38→17:08)
[2021-11-01] MEDS: CHOLECALCIFEROL 25 MCG (1000 IU) TABLET PO SCH (08:48)
[2021-11-01] MEDS: ENOXAPARIN 40 MG/0.4 ML SYRINGE SQ SCH (08:48)
[2021-11-01] MEDS: PANTOPRAZOLE 40 MG/10 ML VIAL IVP SCH (08:48)
[2021-11-01] MEDS: CITALOPRAM HYDROBROMIDE 20 MG TAB PO SCH (08:48)
[2021-11-01] MEDS: ASCORBIC ACID 500 MG TAB PO SCH (08:48)
[2021-11-01] MEDS: DEXAMETHASONE SOD PHOSPHATE 10 MG/ML 1 ML VIAL IVP SCH (08:48)
[2021-11-01] MEDS: ZINC SULFATE 220 MG CAP PO SCH (08:48)
[2021-11-01] MEDS: GABAPENTIN 400 MG CAP PO SCH ×3 (08:48→20:51)
[2021-11-01] MEDS: CHLORHEXIDINE GLUCONATE 15 ML CUP MUCOUS MEM SCH ×2 (08:50→20:50)
--- NOTE | 2021-11-01 09:56 | P.PN ---
Subjective Progress Note Date: 11/01/21 56-year-old male, with a history of coronavirus associated pneumonia. The patient was admitted to the hospital on 10/21/2021 for COVID 19 related pneumonia and hypoxic respiratory failure. He has not been vaccinated. He has associated monoclonal antibodies on outpatient basis. Despite that, the patie nt's condition progressed. The patient developed worsening hypoxemic respiratory failure, and was intubated and mechanically ventilated for hypoxemia, on 10/28/2021. . He remains on the mechanical ventilator. On today's evaluation, the patient remains sedated and paralyzed. The patient is currently, he's on volume assist control, rate 32, tidal volume 450, FiO2 65%, and PEEP of 20. Noted the patient was able to wean down his FiO2 after he was being prone. He is being prone on a daily basis. His last morning was performed at 10 PM last night. The patient currently is down to an FiO2 of 60% with a PEEP of 20 and his current pulse ox of 92%. The peak air pressure on a mechanical ventilator 35 with a static pressure of 33. The chest x-ray was showing diffuse bilateral pulmonary infiltrates and ET tube is in a good location. No evidence of any pneumothorax. Note that this is yesterday chest x-ray and today's chest x-ray is still pending is the chest x-ray was postponed due to his prone body positioning. On his blood gas, the patient has a pH of 7.42 with a pCO2 of 50 and pO2 of 64 and this was done and FiO2 of 65%. He did improve his oxygenation after being prone. He remains on Decadron 6 mg IV once a day. CT angiogram that was done at time of admission showed no evidence of any pulmonary embolism. The patient remains on Lovenox 40 mg subcu for DVT prophylaxis. The inflammatory markers include LDH level of 349 which is up considerably. The patient also has a pro-calcitonin level of 0.15, note that his initial pro-calcitonin level was quite elevated at 9.7 and for that reason the patient was placed on empiric antibiotic coverage. No other immunosuppressive agents have been utilizing this patient. His sputum came back positive for Mignon albicans and the blood culture came back negative. The patient is currently receiving enteral feeding for nutritional support and his using vital high protein at the rate of 20 mL an hour. IV fluids are currently in the form of normal saline at the rate of 20 mL an hour and the fluid balance is up considerably at least 11 kg weight gain since admission. The patient has been a positive fluid balance and he would definitely benefit from diuresis. Objective - Vital Signs Vital signs: Vital Signs Temp 98.6 F 11/01/21 04:00 Pulse 64 11/01/21 07:00 Resp 32 H 11/01/21 07:00 BP 92/63 10/29/21 21:00 Pulse Ox 94 L 11/01/21 07:00 Intake & Output 10/31/21 11/01/21 11/01/21 18:59 06:59 18:59 Intake Total 9533.628 1531.028 341.014 Output Total 1850 750 Balance -196.485 426.028 341.014 Intake: IV 606 276 23 Normal Saline 0.9 36 36 3 Pressure Bag @ 3mL/hr Sodium Chloride 0.9% 1, 570 240 20 000 ml @ 20 mls/hr IV . Q24H LEON[facility] Rx#:[id number] Intake, IV Titration 717.515 570.028 298.014 Amount Cisatracurium 200 mg In 198.595 124.58 Sodium Chloride 0.9% 180 ml @ 1 MCG/KG/MIN 6.668 mls/hr IV .Q24H [facility] Rx#: [id number] fentaNYL (PF). 1,000 mcg 390.015 370.028 80.569 In Sodium Chloride 0.9% 80 ml @ 0.5 MCG/KG/HR 5. 557 mls/hr IV .Q18H [facility] Rx#:[id number] propofoL 1,000 mg In 128.905 200 92.865 Empty Bag 1 bag @ Titrate IV .Q0M LEON[facility] Rx#: [id number] Tube Feeding 240 240 20 Other 90 90 Output: Urine 1850 750 Other: Voiding Method Indwelling Catheter Indwelling Catheter ABP, PAP, CO, CI - Last Documented Arterial Blood Pressure 155/62 - Exam No acute distress, sedated and paralyzed, with an orally placed endotracheal tube and NG tube. The patient is currently in a prone body positioning. HEENT examination is grossly unremarkable. Neck supple. Full range of motion. No adenopathy thyromegaly or neck vein distention. Cardiovascular examination reveals regular rhythm rate. S1-S2 normal. No S3 or S4. No discernible murmur noted. Heart sounds are distant. Lungs reveal coarse bilateral rhonchi. No wheezes or crackles. Breath sounds equal bilaterally. Abdomen soft bowel sounds are heard. No masses or tenderness. Extremities are intact. No cyanosis clubbing or edema. Skin is without rash or lesion. Neurologic examination cannot be adequately assessed as the patient's currently sedated and paralyzed. - Labs CBC & Chem 7: 11/01/21 03:45 11/01/21 03:45 Labs: Abnormal Lab Results - Last 24 Hours (Table) 10/31/21 10/31/21 10/31/21 Range/Units 11:30 18:03 23:41 WBC (3.8-10.6) k/uL RBC (4.30-5.90) m/uL Hgb (13.0-17.5) gm/dL Neutrophils # (1.3-7.7) k/uL Lymphocytes # (1.0-4.8) k/uL ABG pCO2 (35-45) mmHg ABG pO2 (83-108) mmHg ABG HCO3 (21-25) mmol/L ABG Total CO2 (19-24) mmol/L ABG O2 Saturation (94-97) % BUN (9-20) mg/dL Glucose (74-99) mg/dL POC Glucose (mg/dL) 108 H 128 H 101 H (75-99) mg/dL Calcium (8.4-10.2) mg/dL ALT (4-49) U/L Total Protein (6.3-8.2) g/dL Albumin (3.5-5.0) g/dL 11/01/21 11/01/21 11/01/21 Range/Units 03:45 03:45 05:40 WBC 13.9 H (3.8-10.6) k/uL RBC 4.27 L (4.30-5.90) m/uL Hgb 12.8 L (13.0-17.5) gm/dL Neutrophils # 12.8 H (1.3-7.7) k/uL Lymphocytes # 0.5 L (1.0-4.8) k/uL ABG pCO2 50 H (35-45) mmHg ABG pO2 64 L (83-108) mmHg ABG HCO3 32 H (21-25) mmol/L ABG Total CO2 34 H (19-24) mmol/L ABG O2 Saturation 93.9 L (94-97) % BUN 38 H (9-20) mg/dL Glucose 117 H (74-99) mg/dL POC Glucose (mg/dL) (75-99) mg/dL Calcium 8.0 L (8.4-10.2) mg/dL ALT 100 H (4-49) U/L Total Protein 5.5 L (6.3-8.2) g/dL Albumin 2.4 L (3.5-5.0) g/dL Assessment and Plan Plan: 1 Acute hypoxemic respiratory failure secondary to coronavirus associated pneumo gonzález, with intubation and mechanical ventilation on 10/28/2021.No evidence of pulmonary embolism on CT angiogram. The patient remains on a mechanical ventilator for now. The patient is on a high PEEP and the current PEEP is at 20 with an FiO2 of 60% and the patient is receiving performed body positioning on a daily basis. There was less prone to 10 PM yesterday and the patient remains prone this morning. Chest x-ray from yesterday showed diffuse bilateral pulmonary infiltrates. Blood gases was noted. The patient remains on Decadron. The pro-calcitonin level was elevated and the patient is currently on IV cefepime. Of concern is a considerable amount of volume overloaded the patient has had since his admission. He would benefit from diuresis. 2 Elevated inflammatory markers secondary to acute coronavirus infection. 3 Mild transaminitis secondary to coronavirus infection. 4 History of fibromyalgia. 5 History of depression. 6 Acute kidney injury , recovered 7 Hypothyroidism. Plan: Continue sedation and paralysis Patient is currently prone that was switched back to supine body position after 16 hours of treatment Repeat the blood gas was a supine and the necessity ventilator changes Continue Decadron He has completed his course of antibiotics and the pro-calcitonin level has normalized Continue Lovenox 40 mg subcu for DVT prophylaxis Continue enteral feeding for nutritional support Start the patient on Lasix 40 daily grams IV every 12 hours and IV fluids keep at KVO Dulcolax suppositories Start lactulose Condition remains critical. I noted some elevation of blood pressure and the patient will be started on Cleviprex drip for blood pressure control We'll continue to follow make further recommendations based on his progress. Prognosis poor based on the above. We'll continue to follow. This evaluation was done and more than 30 minutes. Time with Patient: Greater than 30
[2021-11-01] MEDS: FUROSEMIDE 10 MG/ML 4 ML VIAL IV SCH ×2 (10:12→20:51)
[2021-11-01] MEDS: CLEVIDIPINE BUTYRATE 25 MG in EMPTY BAG 1 BAG IV SCH ×2 (10:12→13:57)
[2021-11-01] MEDS: LACTULOSE 20 GM/30 ML CUP PO SCH (10:14)
[2021-11-01 11:41] LABS: Glucose,Whole Blood 175 mg/dL (75-99)
--- NOTE | 2021-11-01 13:56 | P.PN ---
Subjective Progress Note Date: 11/01/21 History of present illness 56-year-old male with past medical history of fibromyalgia comes in to emergency room with symptoms of nausea, vomiting, dizziness and sweating feeling weak in with runny nose loss of taste and hence now for the past 1 week. He presented on 10/19 was found to have positive COVID results. Received his monoclonal antibodies. He Came back to the emergency room because of worsening of symptoms.Vitals reviewed patient afebrile pulse 80 respiratory rate 20 blood pressure 138/82 saturating at 88% on 10 L labs reviewed WBC 6.6 hemoglobin 13.9 d-dimer is elevated at 0.89, sodium 135 bicarb 21 BUN 16 creatinine 1.3 glucose 187 ferritin 2822 AST 89 ALT 80 alkaline phosphatase 225 LDH 1091 and CRP 21 and albumin 3.3 X-ray suggestive of bilateral patchy pneumonia. Both interstitial and airspace infiltrate Pulmonary clinic consulted for COVID pneumonia Patient placed on Lovenox 40 subcu twice a day, vitamin C, D and zinc. Dexamethasone initiated at 6 mg twice a day IV Patient is a candidate of Baritinib and will discuss about initiating it with pulmonary Venous Doppler ordered 10/22: [facility]. He continues to have dyspnea and is on 15 L high flow nasal cannula and nonrebreather with pulse ox of 87 and 95%. He's been afebrile, heart rate in the 60s and 70s, blood pressure 127/73. Pro-calcitonin came back high at 9.75 and we started the patient on Zosyn and vancomycin for bacterial pneumonia coverage. Patient has coarse crackles bilaterally. No lower extremity edema. He has been seen and followed by pulmonary medicine. Patient is not a candidate for Baricitinib. Patient is continued on Decadron, Lovenox and vitamin supplements. 10/23: Is found sitting up in the edge of the bed. He is currently not on a Ventimask. However his pulse oxing still around 88 to 91 % on Ventimask or 15 L high flow nasal cannula. Patient continues to have dyspnea with activity and speaking. Patient states that he is feeling much better compared to yesterday. Continues to have a cough. No lower extremity edema. He has rhonchi to the bases bilaterally. He is currently on Decadron Lovenox and vitamin supplements. Patient remains afebrile, heart rate 62, respirations 17, blood pressure 118/68 pulse ox 93% on 15 L high flow nasal cannula 10/24: Patient was up to the bathroom showering today. Awaiting inflammation markers today. Patient still requires 10 L of O2 with a pulse ox of 90%. Patient continues to have crackles to the bilateral bases. Dyspnea with activity and speaking. Patient states he is feeling better however he is very tired. Continues to have cough no lower extremity edema. He still currently on Decadron, Lovenox, and vitamin supplements. Patient remains afebrile, heart rate 58, respirations 17, blood pressure 118/89, 10/25: Patient is still on high flow nasal cannula 15 L and nonrebreather with pulse ox of 89 and 99%. He's been afebrile, heart rate 73, blood pressure 120/72. Creatinine 1.06. Blood sugars running between 101 and 106. Sputum culture is in progress. Patient is followed closely by pulmonary medicine. Patient is continued on dexamethasone, Lovenox, Zosyn and vitamin supplements. Patient has been encouraged to prone several hours daily. 10/26: Patient remains on nonrebreather mask and AirVo at 60 L, FiO2 of 85 with pulse ox of 88%. Appears to have more difficulty with breathing. Repeat chest x-ray reveals stable bilateral infiltrates. He has been afebrile, heart rate 59, blood pressure 102/59. Repeat d-dimer 1.53. Blood sugars are well controlled. 10/27: Patient remains on nonrebreather and AirVo with pulse ox at 90%. Patient was agreeable. He has been afebrile, heart rate 70, blood pressure 131/79. CBG running between 97 and 116 and CBGs and insulin will be discontinued. Sputum cultures positive for Mignon albicans. Patient is increasing his activity, currently laying in bed on his side. Lab work including inflammatory markers ordered for tomorrow. 10/28: Patient had a drop in his pulse ox and 78% with nonrebreather and AirVo and A-Team was called. Patient stated that his shortness of breath was better than the night before. Stat chest x-ray was done which revealed bilateral multifocal peripheral increased opacities consistent with Covid 19 infection are redemonstrated. No significant change. Patient transitioned to BiPAP with pulse ox of 90%. Patient verbalized that he wanted to be a no CODE STATUS and was encouraged to discuss with family. It was determined the patient will be transferred to the intensive care unit most likely be intubated. Patient was very resistant but after long discussion with Dr. Mark Anthony santo, patient agreed to intubation and full CODE STATUS at this point. Repeat blood work reveals WBC 9.4, hemoglobin 12.7, platelet count 263. D-dimer 1.31. Blood sugars 10/29: Patient was transferred into the intensive care unit yesterday and subsequently intubated and placed on mechanical ventilation, tidal volume 450, FiO2 100, PEEP of 20. Patient was prone this morning switched over to supine. He was started on tube feedings yesterday but had a high residual this morning after pronating. He is currently on fentanyl, propofol, Nimbex drip. One amp of bicarbonate given this morning. Chest x-ray reveals lateral multifocal confluent and increased opacities greatest in the periphery consistent with Covid 19 infection redemonstrated. No sicca be unchanged from one day earlier. CTA of the chest done yesterday reveals suboptimal study without saddle central pulmonary embolism. Cannot exclude smaller pulmonary emboli. Bilateral multifocal and confluent groundglass opacities and organizing consolidations consistent with known Covid 19 infection. Repeat blood work reveals WBC 13.1, hemoglobin 13.1, platelet count 381. D- dimer 1.17. Sodium 135, potassium 5.2, chloride 104, CO2 24, BUN 29 and creatinine 0.78. Capillary blood glucose running between 116 and 150s. AST 216. C-reactive protein 7.9, pro-calcitonin 0.15. 10/30: This is day #9 of admission, patient remains in ICU, still mechanically ventilated for hypoxemia, starting 10/29/2021, on Wade assist control, rate 32, PEEP of 20, FiO2 100%, dexamethasone 6 mg daily, electrolytes are stable, BUN 29 creatinine 0.84, x-ray shows bilateral multifocal opacities, consistent with Covid pneumonia, CT angiogram negative for PE, patient is on propofol, fentanyl and index vital HP, at 20 mL an hour 10/31: Patient remains in ICU, intubated, NG tube in place, chest x-ray shows no pneumothorax, no pleural effusion, there is bilateral patchy pulmonary interstitial infiltrates, with coalescent density in the left lower lobe. No significant change from yesterdayALT iscreatinine is 0.75, ALT is trending downward, C reactive protein is 8.0 from a previous of 8.9Lasix given today, on dexamethasone, and remains sedated. 11/01: Patient remains in the intensive care unit, intubated and on mechanical ventilation with FiO2 60% and PEEP of 20 with pulse ox of 87%. Patient is being prone for 16 hours per day. He is tolerating tube feedings. He has been started on lactulose this morning for constipation. He has been afebrile, heart rate 75, respiratory rate in the low 30s, blood pressure 148/65. Patient was started on Clevidipine gtt. he is also on propofol, fentanyl and Nimbex. No new concerns, patient seems to be fairly stable. ROS Unable to obtain due to intubation Physical exam General Appearance: Patient is laying in the ICU bed, intubated and on mechanical ventilation. No acute distress. Patient appears to be comfortable. Full examination deferred to intensive this due to intubation and Covid 19. Assessment and plan 1. Acute hypoxic respiratory failure secondary to Covid 19 pneumonia. Consult with pulmonary medicine appreciated. Patient was intubated and placed on mec hanical ventilation 10/28. Continue care in the intensive care unit, proning, currently on fentanyl, propofol and Nimbex. 2. Acute COVID pneumonia. Dexamethasone 6 mg IV once a day, Lovenox 40 subcu daily, Not a candidate for Baricitinib, Monitor inflammatory markers. Continue supplements vitamin C, D and zinc 3. Acute transaminitis Secondary to viral inflammation. Continue monitoring 4. CKD stage 3. Continue to monitor patient's creatinine. No acute kidney injury 5. History of fibromyalgia. continue gabapentin 800 3 times a day, Citalopram 40 mg by mouth daily 6. Insomnia. Was on Eszopiclone 3 mg daily at bedtime 7. Hypothyroidism. Levothyroxine 50 g by mouth daily 8. Hypertension. Patient started on Clevidipine gtt. 9. DVT prophylaxis. Lovenox 40 subcu daily. 10. GI prophylaxis. Protonix 40 mg IV push daily 11. Hyperglycemia secondary to steroids, IV drips, patient is on NovoLog scale. Prognosis guarded. Status: Full code Discharge Plan: To be determined. Impression and plan of care have been directed as dictated by the signing physician. Rochelle Constantino nurse practitioner acting as scribe for signing physician. Objective - Vital Signs Vital signs: Vital Signs Temp 98.6 F 11/01/21 08:00 Pulse 85 11/01/21 11:00 Resp 32 H 11/01/21 11:00 BP 92/63 10/29/21 21:00 Pulse Ox 87 L 11/01/21 11:00 Intake & Output 10/31/21 11/01/21 11/01/21 18:59 06:59 18:59 Intake Total 1754.135 4789.028 533.614 Output Total 1850 750 600 Balance -196.485 426.028 -66.386 Weight 123 kg Intake: IV 606 276 115 Normal Saline 0.9 36 36 15 Pressure Bag @ 3mL/hr Sodium Chloride 0.9% 1, 570 240 100 000 ml @ 20 mls/hr IV . Q24H [facility] Rx#:[id number] Intake, IV Titration 717.515 570.028 298.614 Amount Cisatracurium 200 mg In 198.595 124.58 Sodium Chloride 0.9% 180 ml @ 1 MCG/KG/MIN 6.668 mls/hr IV .Q24H [facility] Rx#: [id number] Clevidipine Butyrate 25 0.6 mg In Empty Bag 1 bag @ 1 MG/HR 2 mls/hr IV .Q24H [facility] Rx#:[id number] fentaNYL (PF). 1,000 mcg 390.015 370.028 80.569 In Sodium Chloride 0.9% 80 ml @ 0.5 MCG/KG/HR 5. 557 mls/hr IV .Q18H [facility] Rx#:[id number] propofoL 1,000 mg In 128.905 200 92.865 Empty Bag 1 bag @ Titrate IV .Q0M [facility] Rx#: [id number] Tube Feeding 240 240 120 Other 90 90 Output: Urine 1850 750 600 Other: Voiding Method Indwelling Catheter Indwelling Catheter Indwelling Catheter ABP, PAP, CO, CI - Last Documented Arterial Blood Pressure 153/70 - Labs CBC & Chem 7: 11/01/21 03:45 11/01/21 03:45 Labs: Abnormal Lab Results - Last 24 Hours (Table) 10/31/21 10/31/21 10/31/21 Range/Units 11:30 18:03 23:41 WBC (3.8-10.6) k/uL RBC (4.30-5.90) m/uL Hgb (13.0-17.5) gm/dL Neutrophils # (1.3-7.7) k/uL Lymphocytes # (1.0-4.8) k/uL ABG pCO2 (35-45) mmHg ABG pO2 (83-108) mmHg ABG HCO3 (21-25) mmol/L ABG Total CO2 (19-24) mmol/L ABG O2 Saturation (94-97) % BUN (9-20) mg/dL Glucose (74-99) mg/dL POC Glucose (mg/dL) 108 H 128 H 101 H (75-99) mg/dL Calcium (8.4-10.2) mg/dL ALT (4-49) U/L Total Protein (6.3-8.2) g/dL Albumin (3.5-5.0) g/dL 11/01/21 11/01/21 11/01/21 Range/Units 03:45 03:45 05:40 WBC 13.9 H (3.8-10.6) k/uL RBC 4.27 L (4.30-5.90) m/uL Hgb 12.8 L (13.0-17.5) gm/dL Neutrophils # 12.8 H (1.3-7.7) k/uL Lymphocytes # 0.5 L (1.0-4.8) k/uL ABG pCO2 50 H (35-45) mmHg ABG pO2 64 L (83-108) mmHg ABG HCO3 32 H (21-25) mmol/L ABG Total CO2 34 H (19-24) mmol/L ABG O2 Saturation 93.9 L (94-97) % BUN 38 H (9-20) mg/dL Glucose 117 H (74-99) mg/dL POC Glucose (mg/dL) (75-99) mg/dL Calcium 8.0 L (8.4-10.2) mg/dL ALT 100 H (4-49) U/L Total Protein 5.5 L (6.3-8.2) g/dL Albumin 2.4 L (3.5-5.0) g/dL
[2021-11-01] MEDS: CISATRACURIUM 200 MG in SODIUM CHLORIDE 0.9% 180 ML IV SCH (13:59)
[2021-11-01 14:35] LABS: ABG Base Excess 6.5 mmol/L; ABG HCO3 32 mmol/L (21-25); ABG Oxygen Saturation 87.3 % (94-97); ABG PCO2 60 mmHg (35-45); ABG PH 7.34 (7.35-7.45); ABG TCO2 34 mmol/L (19-24); Allen Test Performed? Yes
[2021-11-01 15:02] LABS: ABG PO2 55 mmHg (83-108)
--- NOTE | 2021-11-01 15:08 | XR ---
EXAMINATION TYPE: XR chest 1V portable DATE OF EXAM: 11/01/2021 CLINICAL HISTORY: Difficulty breathing progress study. TECHNIQUE: Single AP portable semiupright view of the chest is obtained. COMPARISON: Chest x-ray from one day earlier and older studies. Stable endotracheal and orogastric tubes. Stable left subclavian central venous catheter. Persistent bilateral multifocal and confluent increased opacities redemonstrated. Cardiac silhouette size is stable and within normal limits. Osseous structures are intact. Right-sided upper thoracic barker bcutaneous air is redemonstrated extending into right neck. IMPRESSION: Bilateral multifocal confluent and increased opacities greatest in the periphery consiste nt with covid-19 infection are redemonstrated. No significant change from one day earlier.
[2021-11-01 18:04] LABS: Glucose,Whole Blood 134 mg/dL (75-99)
[2021-11-01] MEDS: SODIUM CHLORIDE 0.9% 1,000 ML IV SCH (20:51)
[2021-11-01 23:46] LABS: Glucose,Whole Blood 117 mg/dL (75-99)
[2021-11-02] MEDS: ARTIFICIAL TEARS-HYPROMELLOSE DROPS 15 ML BTL BOTH EYES SCH ×7 (00:34→23:48)
[2021-11-02] MEDS: INSULIN ASPART (NovoLOG) 100 UNIT/ML VIAL SQ SCH ×5 (00:35→23:47)
[2021-11-02] MEDS: METOCLOPRAMIDE 5 MG/ML 2 ML VIAL IVP SCH ×5 (00:36→23:47)
[2021-11-02] MEDS ORDERED: fentaNYL (PF) 50 MCG/ML 20 ML VIAL ONE ×2 (01:05→04:38)
[2021-11-02] MEDS: fentaNYL (PF). 1,000 MCG in SODIUM CHLORIDE 0.9% 80 ML IV SCH ×7 (01:07→21:45)
[2021-11-02 04:05] LABS: Basophils % (A) 0 %; Eosinophils # (A) 0.1 k/uL (0-0.7); Eosinophils % (A) 0 %; HCT 38.6 % (39.0-53.0); HGB 12.2 gm/dL (13.0-17.5); Lymphocytes # (A) 0.4 k/uL (1.0-4.8); Lymphocytes % (A) 3 %; MCH 29.9 pg (25.0-35.0); MCHC 31.6 g/dL (31.0-37.0); MCV 94.6 fL (80.0-100.0); Mean Platelet Volume 9.5; Monocytes # (A) 0.5 k/uL (0-1.0); Monocytes % (A) 4 %; Neutrophils # (A) 12.4 k/uL (1.3-7.7); Neutrophils % (A) 93 %; Platelet Count 349 k/uL (150-450); RBC 4.08 m/uL (4.30-5.90); RDW 13.5 % (11.5-15.5); WBC 13.5 k/uL (3.8-10.6)
[2021-11-02 04:20] LABS: ALT 124 U/L (4-49); AST 59 U/L (17-59); African American GFR (CKD) >90 (>60 ml/min/1.73 sqM); Albumin 2.5 g/dL (3.5-5.0); Alkaline Phosphatase 121 U/L (38-126); Anion Gap 7 mmol/L; Blood Urea Nitrogen 47 mg/dL (9-20); Calcium 8.6 mg/dL (8.4-10.2); Carbon Dioxide 29 mmol/L (22-30); Chloride 102 mmol/L (98-107); Glucose 135 mg/dL (74-99); LDH 564 U/L (313-618); Non-African American GFR(CKD) 79 (>60 ml/min/1.73 sqM); Potassium 4.9 mmol/L (3.5-5.1); Sodium 138 mmol/L (137-145); Total Bilirubin 0.8 mg/dL (0.2-1.3); Total Protein 5.8 g/dL (6.3-8.2)
[2021-11-02 04:35] LABS: C Reactive Protein 19.8 mg/dL (<1.0)
[2021-11-02 05:58] LABS: Glucose,Whole Blood 129 mg/dL (75-99)
[2021-11-02] MEDS: LEVOTHYROXINE 50 MCG TAB PO SCH (06:19)
[2021-11-02] MEDS: CISATRACURIUM 200 MG in SODIUM CHLORIDE 0.9% 180 ML IV SCH ×2 (07:57→18:20)
[2021-11-02] MEDS: GABAPENTIN 400 MG CAP PO SCH ×3 (08:13→21:13)
[2021-11-02] MEDS: ZINC SULFATE 220 MG CAP PO SCH (08:13)
[2021-11-02] MEDS: LACTULOSE 20 GM/30 ML CUP PO SCH (08:13)
[2021-11-02] MEDS: CITALOPRAM HYDROBROMIDE 20 MG TAB PO SCH (08:13)
[2021-11-02] MEDS: bisacodyL 10 MG SUPP RECTAL SCH (08:13)
[2021-11-02] MEDS: CHOLECALCIFEROL 25 MCG (1000 IU) TABLET PO SCH (08:13)
[2021-11-02] MEDS: ASCORBIC ACID 500 MG TAB PO SCH (08:14)
[2021-11-02] MEDS: FUROSEMIDE 10 MG/ML 4 ML VIAL IV SCH ×2 (08:14→21:13)
[2021-11-02] MEDS: DEXAMETHASONE SOD PHOSPHATE 10 MG/ML 1 ML VIAL IVP SCH (08:14)
[2021-11-02] MEDS: ENOXAPARIN 40 MG/0.4 ML SYRINGE SQ SCH (08:14)
[2021-11-02] MEDS: CHLORHEXIDINE GLUCONATE 15 ML CUP MUCOUS MEM SCH ×2 (08:14→21:13)
[2021-11-02] MEDS: PANTOPRAZOLE 40 MG/10 ML VIAL IVP SCH (08:14)
--- NOTE | 2021-11-02 08:34 | XR ---
EXAMINATION TYPE: XR chest 1V portable DATE OF EXAM: 11/02/2021 CLINICAL HISTORY: Difficulty breathing progress study. TECHNIQUE: Single AP portable semiupright view of the chest is obtained. COMPARISON: Chest x-ray from one day earlier and older studies FINDINGS: Stable endotracheal and orogastric tubes. Stable left subclavian central venous catheter. Persistent bilateral multifocal and confluent increased opacities greatest in the periphery redemonst rated. Cardiac silhouette size is stable and within normal limits. Osseous structures are intact. Rig ht-sided upper thoracic subcutaneous air is redemonstrated. IMPRESSION: Bilateral multifocal and confluent increased opacities greatest in the periphery consiste nt with covid-19 infection are redemonstrated. No significant change from one day earlier.
[2021-11-02] MEDS: ALBUTEROL HFA INHALER INHALATION SCH ×3 (08:40→14:48)
--- NOTE | 2021-11-02 09:15 | P.PN ---
Subjective Progress Note Date: 11/02/21 Principal diagnosis: Dyspnea, hypoxia, COVID-19 This is a very pleasant 56-year-old male patient with a known history of fibromyalgia. Nonsmoker. Approximate 1 week ago he developed symptoms of nausea vomiting diarrhea dizziness and sweating. He presented here on 10/19/2021 and has a positive for COVID-19 and received monoclonal antibodies. He came back to the emergency room last evening with worsening symptoms. Chest x-ray reveals bilateral patchy interstitial and airspace infiltrates. He is currently requiring 10 L high flow nasal cannula to maintain O2 saturations in the high 80s low 90s. White count 6.6. Hemoglobin 13.9. Lymphocytes 0.3. Sodium 135. Potassium 4.1. Bicarb 21. Creatinine 1.31. Glucose 187. Ferritin 2822. AST 89. ALT 80. LDH 1091. C-reactive protein 21.0. Initiated on Decadron. On 10/22/2021 patient seen in follow-up on medical surgical floor, he is awake and alert, in no acute distress, overnight he wore 15 L high flow and n onrebreather mask, he is currently off the nonrebreather mask and not he is on 15 L high flow nasal cannula and he is maintaining O2 saturations at 93%, afebrile, hemodynamically stable. However his oxygen requirements have significantly increased in last 24 hours. His pro calcitonin level was sig nificantly elevated at 9.75, and patient is not a candidate for Baricitinib in view of possibility of underlying bacterial infection. Patient states she is coughing and bringing up some greenish colored phlegm at times, he is being started on Zosyn and vancomycin empirically, we will order blood cultures, sputum culture and urine cultures. Clinically he looks fairly comfortable, no distress, lung sounds are revealing coarse diffuse rhonchi and rales. No altered mentation, no fever. He continues on Lovenox 40 mg twice daily, and Decadron 6 mg twice daily. 56-year-old male, with a history of coronavirus associated pneumonia. The patient was admitted to the hospital on 10/21/2021 for COVID 19 related pneumonia and hypoxic respiratory failure. He has not been vaccinated. He has associated monoclonal antibodies on outpatient basis. Despite that, the patient's condition progressed. The patient developed worsening hypoxemic respiratory failure, and was intubated and mechanically ventilated for hypoxemia, on 10/28/2021. . He remains on the mechanical ventilator. On today's evaluation, the patient remains sedated and paralyzed. The patient is currently, he's on volume assist control, rate 32, tidal volume 450, FiO2 65%, and PEEP of 20. Noted the patient was able to wean down his FiO2 after he was being prone. He is being prone on a daily basis. His last morning was per formed at 10 PM last night. The patient currently is down to an FiO2 of 60% with a PEEP of 20 and his current pulse ox of 92%. The peak air pressure on a mechanical ventilator 35 with a static pressure of 33. The chest x-ray was showing diffuse bilateral pulmonary infiltrates and ET tube is in a good location. No evidence of any pneumothorax. Note that this is yesterday chest x-ray and today's chest x-ray is still pending is the chest x-ray was postponed due to his prone body positioning. On his blood gas, the patient has a pH of 7.42 with a pCO2 of 50 and pO2 of 64 and this was done and FiO2 of 65%. He did improve his oxygenation after being prone. He remains on Decadron 6 mg IV once a day. CT angiogram that was done at time of admission showed no evidence of any pulmonary embolism. The patient remains on Lovenox 40 mg subcu for DVT prophylaxis. The inflammatory markers include LDH level of 349 which is up considerably. The patient also has a pro-calcitonin level of 0.15, note that his initial pro-calcitonin level was quite elevated at 9.7 and for that reason the patient was placed on empiric antibiotic coverage. No other immunosuppressive agents have been utilizing this patient. His sputum came back positive for Mignon albicans and the blood culture came back negative. The patient is currently receiving enteral feeding for nutritional support and his using vital high protein at the rate of 20 mL an hour. IV fluids are currently in the form of normal saline at the rate of 20 mL an hour and the fluid balance is up considerably at least 11 kg weight gain since admission. The patient has been a positive fluid balance and he would definitely benefit from diuresis. On 11/02/2021 patient seen in follow-up in the intensive care unit, he is currently supine, sedated, paralyzed, intubated. He is on assist-control mode of ventilation with a rate of 32, tidal volume is 450, FiO2 of 65% and PEEP of 20. This morning's blood gas shows pO2 of 6 3, pCO2 of 60, and pH of 7.35 and this was done on FiO2 of 65. His pulse ox is 85%. He is currently on 0.9 norm al saline better to 20 ML per hour, Diprivan is at 50 mics per kilo per minute, fat note is a 2.5 mics per kilo per minute, Cleviprex is 4 mg/h, Nimbex is a 2.5 mics per kilo per minute. He is tolerating his tube feedings that are infusing at 15 ML per hour, standard water flushes. Today's chest x-ray shows bilateral multifocal and confluent increased opacities greatest in the periphery consiste nt with COVID-19 infection, no significant change compared one day earlier. Patient is on IV Decadron 6 more gram daily, yesterday we started IV Lasix 40 mg every 12 hours, he is on prophylactic dose of Lovenox, COVID-19 multi-vitamins. he is on Protonix for GI prophylaxis, we added Reglan, and lactulose. Patient was also given a suppository. Patient has not had a stool yet, abdomen is obese, distended but nontender. He is still in positive fluid balance overall since admission an average of 10 kg, however his weight is down 2 kg in the last 24 hours. Patient is afebrile. Today's labs have been reviewed showing white blood cell count fairly stable at 13.5, hemoglobin of 12.2, his d-dimer is slightly improved and is down to 1.09, electrolytes are within normal limits, BUN is 47, creatinine is 1.05, his LDH is 564, CRP is increased and is at 19.8. Patient was being placed in prone positioning on average of 16 hours daily however yesterday patient was noted to have developed deep tissue injury on his chin, and for that reason patient was not proned since yesterday. Objective - Vital Signs Vital signs: Vital Signs Temp 99.5 F 11/02/21 00:00 Pulse 67 11/02/21 03:00 Resp 32 H 11/02/21 03:00 BP 92/63 10/29/21 21:00 Pulse Ox 87 L 11/02/21 03:00 Intake & Output 1211/02/21 11/02/21 18:59 06:59 18:59 Intake Total 6267.733 6742.675 236.721 Output Total 1435 975 Balance 81.814 416.675 236.721 Weight 123 kg 121 kg Intake: IV 276 276 23 Normal Saline 0.9 36 36 3 Pressure Bag @ 3mL/hr Sodium Chloride 0.9% 1, 240 240 20 000 ml @ 20 mls/hr IV . Q24H [facility] Rx#:[id number] Intake, IV Titration 980.814 740.675 198.721 Amount Cisatracurium 200 mg In 188.371 69.347 130.653 Sodium Chloride 0.9% 180 ml @ 1 MCG/KG/MIN 6.668 mls/hr IV .Q24H [facility] Rx#: [id number] Clevidipine Butyrate 25 37.667 0 mg In Empty Bag 1 bag @ 1 MG/HR 2 mls/hr IV .Q24H [facility] Rx#:[id number] fentaNYL (PF). 1,000 mcg 366.341 271.328 68.068 In Sodium Chloride 0.9% 80 ml @ 0.5 MCG/KG/HR 5. 557 mls/hr IV .Q18H [facility] Rx#:[id number] propofoL 1,000 mg In 388.435 400 Empty Bag 1 bag @ Titrate IV .Q0M [facility] Rx#: [id number] Tube Feeding 260 195 15 Other 180 Output: Urine 1435 975 Other: Voiding Method Indwelling Catheter Indwelling Catheter ABP, PAP, CO, CI - Last Documented Arterial Blood Pressure 110/58 - Exam GENERAL EXAM: Intubated, sedated and paralyzed 56-year-old white male, on assist-control mode of ventilation with a rate of 32, tidal volume 450, FiO2 65% and PEEP of 20 HEAD: Normocephalic/atraumatic. Area of deep tissue injury on chin EYES: Normal reaction of pupils, equal size. Conjunctiva pink, sclera white. NOSE: Clear with pink turbinates. THROAT: No erythema or exudates. NECK: No masses, no JVD, no thyroid enlargement, no adenopathy. CHEST: No chest wall deformity. Symmetrical expansion. Left subclavian central line in place LUNGS: Equal air entry with diffuse crackles, and rhonchi, no wheezing CVS: Regular rate and rhythm, normal S1 and S2, no gallops, no murmurs, no rubs ABDOMEN: Soft, nontender. No hepatosplenomegaly, normal bowel sounds, no guarding or rigidity. EXTREMITIES: No clubbing, no edema, no cyanosis, 2+ pulses and upper and lower extremities. MUSCULOSKELETAL: Muscle strength and tone normal. SPINE: No scoliosis or deformity SKIN: No rashes CENTRAL NERVOUS SYSTEM: Sedated, paralyzed, and intubated No focal deficits, tone is normal in all 4 extremities. - Labs CBC & Chem 7: 11/02/21 03:50 11/02/21 03:50 Labs: Abnormal Lab Results - Last 24 Hours (Table) 11/01/21 11/01/21 11/01/21 Range/Units 11:38 14:28 18:02 WBC (3.8-10.6) k/uL RBC (4.30-5.90) m/uL Hgb (13.0-17.5) gm/dL Hct (39.0-53.0) % Neutrophils # (1.3-7.7) k/uL Lymphocytes # (1.0-4.8) k/uL D-Dimer (<0.60) mg/L FEU ABG pH 7.34 L (7.35-7.45) ABG pCO2 60 H (35-45) mmHg ABG pO2 55 L* (83-108) mmHg ABG HCO3 32 H (21-25) mmol/L ABG Total CO2 34 H (19-24) mmol/L ABG O2 Saturation 87.3 L (94-97) % BUN (9-20) mg/dL Glucose (74-99) mg/dL POC Glucose (mg/dL) 175 H 134 H (75-99) mg/dL ALT (4-49) U/L C-Reactive Protein (<1.0) mg/dL Total Protein (6.3-8.2) g/dL Albumin (3.5-5.0) g/dL 11/01/21 11/02/21 11/02/21 Range/Units 23:45 03:50 03:50 WBC 13.5 H (3.8-10.6) k/uL RBC 4.08 L (4.30-5.90) m/uL Hgb 12.2 L (13.0-17.5) gm/dL Hct 38.6 L (39.0-53.0) % Neutrophils # 12.4 H (1.3-7.7) k/uL Lymphocytes # 0.4 L (1.0-4.8) k/uL D-Dimer (<0.60) mg/L FEU ABG pH (7.35-7.45) ABG pCO2 (35-45) mmHg ABG pO2 (83-108) mmHg ABG HCO3 (21-25) mmol/L ABG Total CO2 (19-24) mmol/L ABG O2 Saturation (94-97) % BUN 47 H (9-20) mg/dL Glucose 135 H (74-99) mg/dL POC Glucose (mg/dL) 117 H (75-99) mg/dL ALT 124 H (4-49) U/L C-Reactive Protein 19.8 H (<1.0) mg/dL Total Protein 5.8 L (6.3-8.2) g/dL Albumin 2.5 L (3.5-5.0) g/dL 11/02/21 11/02/21 Range/Units 03:50 05:55 WBC (3.8-10.6) k/uL RBC (4.30-5.90) m/uL Hgb (13.0-17.5) gm/dL Hct (39.0-53.0) % Neutrophils # (1.3-7.7) k/uL Lymphocytes # (1.0-4.8) k/uL D-Dimer 1.09 H (<0.60) mg/L FEU ABG pH (7.35-7.45) ABG pCO2 (35-45) mmHg ABG pO2 (83-108) mmHg ABG HCO3 (21-25) mmol/L ABG Total CO2 (19-24) mmol/L ABG O2 Saturation (94-97) % BUN (9-20) mg/dL Glucose (74-99) mg/dL POC Glucose (mg/dL) 129 H (75-99) mg/dL ALT (4-49) U/L C-Reactive Protein (<1.0) mg/dL Total Protein (6.3-8.2) g/dL Albumin (3.5-5.0) g/dL Assessment and Plan Plan: Assessment: #1. Acute hypoxic respiratory failure secondary to acute COVID-19 pneumonia. Patient is status post monoclonal antibody infusion on 10/19/2021. Patient was not a candidate for Remdesivir related to severe hypoxic respiratory failure on presentation requiring 10 L high flow nasal cannula. Today he is on 15 L and 100% nonrebreather mask, his FiO2 requirements have increased but patient is not a candidate for Baricitinib related to possibility of underlying bacterial infection. Patient was transferred to the intensive care unit on 10/28/2021 and intubated on 10/28/2021 #2. Elevated pro-calcitonin, improved, blood and sputum cultures have shown no growth, patient has received empiric Zosyn, pro-calcitonin level has improved and is down to 0.17, Zosyn has been discontinued #3. Elevated inflammatory markers related to acute COVID-19 pneumonia #4. Elevated LFTs related to COVID-19 pneumonia, slightly worsened #5. Elevated d-dimer, venous Doppler of bilateral lower extremities was negative for DVT, CT angiogram was a limited study but showed no central pulmonary embolism #6. History of fibromyalgia #7. Depression #8. Never smoker #9. Acute kidney injury possibly related to Covid 19 related ATN, improved #10. Hypothyroidism #11. Hyperkalemia, mild, improved Plan: Continue current vent settings Continue sedation and Nimbex Continue fentanyl for discomfort Patient has developed deep tissue injury on the chin, and for that reason he was not proned yesterday Continue Cleviprex for hypertension Continue nutritional support We'll give 1 amp of sodium bicarb Chest x-ray has been reviewed showing no significant change in the appearance of bilateral opacities Overall prognosis is guarded I performed a history & physical examination of the patient and discussed their management with my nurse practitioner, Angi Roberts. I reviewed the nurse practitioner's note and agree with the documented findings and plan of care. Lung sounds are positive for dim breath sounds throughout the lung rivera. The findings and the impression was discussed with the patient. I attest to the documentation by the nurse practitioner. Time with Patient: Greater than 30
[2021-11-02] MEDS: CLEVIDIPINE BUTYRATE 25 MG in EMPTY BAG 1 BAG IV SCH ×3 (11:15→21:14)
[2021-11-02 11:17] LABS: ABG Base Excess 7.8 mmol/L; ABG HCO3 33 mmol/L (21-25); ABG Oxygen Saturation 91.6 % (94-97); ABG PCO2 60 mmHg (35-45); ABG PH 7.36 (7.35-7.45); ABG PO2 63 mmHg (83-108); ABG TCO2 35 mmol/L (19-24); Allen Test Performed? Yes
[2021-11-02 11:32] LABS: Glucose,Whole Blood 163 mg/dL (75-99)
[2021-11-02 12:38] LABS: ABG Base Excess 8.2 mmol/L; ABG HCO3 34 mmol/L (21-25); ABG PCO2 66 mmHg (35-45); ABG PH 7.32 (7.35-7.45); ABG PO2 60 mmHg (83-108); ABG TCO2 36 mmol/L (19-24)
[2021-11-02 12:40] LABS: Allen Test Performed? no
--- NOTE | 2021-11-02 14:39 | P.PN ---
Subjective Progress Note Date: 11/02/21 History of present illness 56-year-old male with past medical history of fibromyalgia comes in to emergency room with symptoms of nausea, vomiting, dizziness and sweating feeling weak in with runny nose loss of taste and hence now for the past 1 week. He presented on 10/19 was found to have positive COVID results. Received his monoclonal antibodies. He Came back to the emergency room because of worsening of symptoms.Vitals reviewed patient afebrile pulse 80 respiratory rate 20 blood pressure 138/82 saturating at 88% on 10 L labs reviewed WBC 6.6 hemoglobin 13.9 d-dimer is elevated at 0.89, sodium 135 bicarb 21 BUN 16 creatinine 1.3 glucose 187 ferritin 2822 AST 89 ALT 80 alkaline phosphatase 225 LDH 1091 and CRP 21 and albumin 3.3 X-ray suggestive of bilateral patchy pneumonia. Both interstitial and airspace infiltrate Pulmonary clinic consulted for COVID pneumonia Patient placed on Lovenox 40 subcu twice a day, vitamin C, D and zinc. Dexamethasone initiated at 6 mg twice a day IV Patient is a candidate of Baritinib and will discuss about initiating it with pulmonary Venous Doppler ordered 10/22: [facility] follow-up. He continues to have dyspnea and is on 15 L high flow nasal cannula and nonrebreather with pulse ox of 87 and 95%. He's been afebrile, heart rate in the 60s and 70s, blood pressure 127/73. Pro-calcitonin came back high at 9.75 and we started the patient on Zosyn and vancomycin for bacterial pneumonia coverage. Patient has coarse crackles bilaterally. No lower extremity edema. He has been seen and followed by pulmonary medicine. Patient is not a candidate for Baricitinib. Patient is continued on Decadron, Lovenox and vitamin supplements. 10/23: Is found sitting up in the edge of the bed. He is currently not on a Ventimask. However his pulse oxing still around 88 to 91 % on Ventimask or 15 L high flow nasal cannula. Patient continues to have dyspnea with activity and speaking. Patient states that he is feeling much better compared to yesterday. Continues to have a cough. No lower extremity edema. He has rhonchi to the bases bilaterally. He is currently on Decadron Lovenox and vitamin supplements. Patient remains afebrile, heart rate 62, respirations 17, blood pressure 118/68 pulse ox 93% on 15 L high flow nasal cannula 10/24: Patient was up to the bathroom showering today. Awaiting inflammation markers today. Patient still requires 10 L of O2 with a pulse ox of 90%. Patient continues to have crackles to the bilateral bases. Dyspnea with activity and speaking. Patient states he is feeling better however he is very tired. Continues to have cough no lower extremity edema. He still currently on Decadron, Lovenox, and vitamin supplements. Patient remains afebrile, heart rate 58, respirations 17, blood pressure 118/89, 10/25: Patient is still on high flow nasal cannula 15 L and nonrebreather with pulse ox of 89 and 99%. He's been afebrile, heart rate 73, blood pressure 120/72. Creatinine 1.06. Blood sugars running between 101 and 106. Sputum culture is in progress. Patient is followed closely by pulmonary medicine. Patient is continued on dexamethasone, Lovenox, Zosyn and vitamin supplements. Patient has been encouraged to prone several hours daily. 10/26: Patient remains on nonrebreather mask and AirVo at 60 L, FiO2 of 85 with pulse ox of 88%. Appears to have more difficulty with breathing. Repeat chest x-ray reveals stable bilateral infiltrates. He has been afebrile, heart rate 59, blood pressure 102/59. Repeat d-dimer 1.53. Blood sugars are well controlled. 10/27: Patient remains on nonrebreather and AirVo with pulse ox at 90%. Patient was agreeable. He has been afebrile, heart rate 70, blood pressure 131/79. CBG running between 97 and 116 and CBGs and insulin will be discontinued. Sputum cultures positive for Mignon albicans. Patient is increasing his activity, currently laying in bed on his side. Lab work including inflammatory markers ordered for tomorrow. 10/28: Patient had a drop in his pulse ox and 78% with nonrebreather and AirVo and A-Team was called. Patient stated that his shortness of breath was better than the night before. Stat chest x-ray was done which revealed bilateral multifocal peripheral increased opacities consistent with Covid 19 infection are redemonstrated. No significant change. Patient transitioned to BiPAP with pulse ox of 90%. Patient verbalized that he wanted to be a no CODE STATUS and was encouraged to discuss with family. It was determined the patient will be transferred to the intensive care unit most likely be intubated. Patient was very resistant but after long discussion with Dr. Mark Anthony santo, patient agreed to intubation and full CODE STATUS at this point. Repeat blood work reveals WBC 9.4, hemoglobin 12.7, platelet count 263. D-dimer 1.31. Blood sugars 10/29: Patient was transferred into the intensive care unit yesterday and subsequently intubated and placed on mechanical ventilation, tidal volume 450, FiO2 100, PEEP of 20. Patient was prone this morning switched over to supine. He was started on tube feedings yesterday but had a high residual this morning after pronating. He is currently on fentanyl, propofol, Nimbex drip. One amp of bicarbonate given this morning. Chest x-ray reveals lateral multifocal confluent and increased opacities greatest in the periphery consistent with Covid 19 infection redemonstrated. No sicca be unchanged from one day earlier. CTA of the chest done yesterday reveals suboptimal study without saddle central pulmonary embolism. Cannot exclude smaller pulmonary emboli. Bilateral multifocal and confluent groundglass opacities and organizing consolidations consistent with known Covid 19 infection. Repeat blood work reveals WBC 13.1, hemoglobin 13.1, platelet count 381. D- dimer 1.17. Sodium 135, potassium 5.2, chloride 104, CO2 24, BUN 29 and creatinine 0.78. Capillary blood glucose running between 116 and 150s. AST 216. C-reactive protein 7.9, pro-calcitonin 0.15. 10/30: This is day #9 of admission, patient remains in ICU, still mechanically ventilated for hypoxemia, starting 10/29/2021, on Wade assist control, rate 32, PEEP of 20, FiO2 100%, dexamethasone 6 mg daily, electrolytes are stable, BUN 29 creatinine 0.84, x-ray shows bilateral multifocal opacities, consistent with Covid pneumonia, CT angiogram negative for PE, patient is on propofol, fentanyl and index vital HP, at 20 mL an hour 10/31: Patient remains in ICU, intubated, NG tube in place, chest x-ray shows no pneumothorax, no pleural effusion, there is bilateral patchy pulmonary interstitial infiltrates, with coalescent density in the left lower lobe. No significant change from yesterdayALT iscreatinine is 0.75, ALT is trending downward, C reactive protein is 8.0 from a previous of 8.9Lasix given today, on dexamethasone, and remains sedated. 11/01: Patient remains in the intensive care unit, intubated and on mechanical ventilation with FiO2 60% and PEEP of 20 with pulse ox of 87%. Patient is being prone for 16 hours per day. He is tolerating tube feedings. He has been started on lactulose this morning for constipation. He has been afebrile, heart rate 75, respiratory rate in the low 30s, blood pressure 148/65. Patient was started on Clevidipine gtt. he is also on propofol, fentanyl and Nimbex. No new concerns, patient seems to be fairly stable. 11/02: Patient remains in intensive care unit intubated and on mechanical ventilation with FiO2 of 65, tidal volume 450, PEEP of 20. Patient is being managed by the employment services director. Patient has not been prone today due to skin breakdown on his face. He is on tube feedings and tolerating. Patient has been afebrile, heart rate 102, blood pressure 151/71, pulse ox 85-89%. Repeat blood work reveals WBC 13.5, hemoglobin 12.2. Electrolytes normal. BUN 47 creatinine 1.05. ALT 124. C-reactive protein 19.8. D-dimer 1.09. The patient did not have a bowel movement after lactulose yesterday which is been repeated and Dulcolax suppository ordered for today. ROS Unable to obtain due to intubation Physical exam General Appearance: Patient is laying in the ICU bed, intubated and on mechanical ventilation. No acute distress. Patient appears to be comfortable. Full examination deferred to intensive this due to intubation and Covid 19. Assessment and plan 1. Acute hypoxic respiratory failure secondary to Covid 19 pneumonia. Consult with pulmonary medicine appreciated. Patient was intubated and placed on mechanical ventilation 10/28. Continue care in the intensive care unit, proning, currently on fentanyl, propofol and Nimbex. 2. Acute COVID pneumonia. Dexamethasone 6 mg IV once a day, Lovenox 40 subcu daily, Not a candidate for Baricitinib, Monitor inflammatory markers. Continue supplements vitamin C, D and zinc 3. Acute transaminitis Secondary to viral inflammation. Continue monitoring 4. CKD stage 3. Continue to monitor patient's creatinine. No acute kidney injury 5. History of fibromyalgia. continue gabapentin 800 3 times a day, Citalopram 40 mg by mouth daily 6. Insomnia. Was on Eszopiclone 3 mg daily at bedtime 7. Hypothyroidism. Levothyroxine 50 g by mouth daily 8. Hypertension. Patient started on Clevidipine gtt. 9. DVT prophylaxis. Lovenox 40 subcu daily. 10. GI prophylaxis. Protonix 40 mg IV push daily 11. Hyperglycemia secondary to steroids, IV drips, patient is on NovoLog scale. 12. Constipation. Lactulose 20 g daily and Vioxx suppository today. Prognosis guarded. Status: Full code Discharge Plan: To be determined. Impression and plan of care have been directed as dictated by the signing physician. Rochelle Constantino nurse practitioner acting as scribe for signing physician. Objective - Vital Signs Vital signs: Vital Signs Temp 98.5 F 11/02/21 08:00 Pulse 90 11/02/21 11:00 Resp 32 H 11/02/21 11:00 BP 92/63 10/29/21 21:00 Pulse Ox 85 L 11/02/21 11:00 Intake & Output 11/01/21 11/02/21 11/02/21 18:59 06:59 18:59 Intake Total 8203.246 0023.675 632.027 Output Total 1435 975 825 Balance 81.814 416.675 -192.973 Weight 123 kg 121 kg Intake: IV 276 276 92 Normal Saline 0.9 36 36 12 Pressure Bag @ 3mL/hr Sodium Chloride 0.9% 1, 240 240 80 000 ml @ 20 mls/hr IV . Q24H LEON[facility]DA Rx#:[id number] Intake, IV Titration 980.814 740.675 480.027 Amount Cisatracurium 200 mg In 188.371 69.347 184.275 Sodium Chloride 0.9% 180 ml @ 1 MCG/KG/MIN 6.668 mls/hr IV .Q24H LEONARDA Rx#: [id number] Clevidipine Butyrate 25 37.667 0 36 mg In Empty Bag 1 bag @ 1 MG/HR 2 mls/hr IV .Q24H LEONARDA Rx#:[id number] fentaNYL (PF). 1,000 mcg 366.341 271.328 159.752 In Sodium Chloride 0.9% 80 ml @ 0.5 MCG/KG/HR 5. 557 mls/hr IV .Q18H [facility]ONAR[facility] Rx#:[id number] propofoL 1,000 mg In 388.435 400 100 Empty Bag 1 bag @ Titrate IV .Q0M LEONARDA Rx#: [id number] Tube Feeding 260 195 60 Other 180 Output: Urine 1435 975 825 Other: Voiding Method Indwelling Catheter Indwelling Catheter Indwelling Catheter ABP, PAP, CO, CI - Last Documented Arterial Blood Pressure 162/74 - Labs CBC & Chem 7: 11/02/21 03:50 11/02/21 03:50 Labs: Abnormal Lab Results - Last 24 Hours (Table) 11/01/21 11/01/21 11/01/21 Range/Units 11:38 14:28 18:02 WBC (3.8-10.6) k/uL RBC (4.30-5.90) m/uL Hgb (13.0-17.5) gm/dL Hct (39.0-53.0) % Neutrophils # (1.3-7.7) k/uL Lymphocytes # (1.0-4.8) k/uL D-Dimer (<0.60) mg/L FEU ABG pH 7.34 L (7.35-7.45) ABG pCO2 60 H (35-45) mmHg ABG pO2 55 L* (83-108) mmHg ABG HCO3 32 H (21-25) mmol/L ABG Total CO2 34 H (19-24) mmol/L ABG O2 Saturation 87.3 L (94-97) % BUN (9-20) mg/dL Glucose (74-99) mg/dL POC Glucose (mg/dL) 175 H 134 H (75-99) mg/dL ALT (4-49) U/L C-Reactive Protein (<1.0) mg/dL Total Protein (6.3-8.2) g/dL Albumin (3.5-5.0) g/dL 11/01/21 11/02/21 11/02/21 Range/Units 23:45 03:50 03:50 WBC 13.5 H (3.8-10.6) k/uL RBC 4.08 L (4.30-5.90) m/uL Hgb 12.2 L (13.0-17.5) gm/dL Hct 38.6 L (39.0-53.0) % Neutrophils # 12.4 H (1.3-7.7) k/uL Lymphocytes # 0.4 L (1.0-4.8) k/uL D-Dimer (<0.60) mg/L FEU ABG pH (7.35-7.45) ABG pCO2 (35-45) mmHg ABG pO2 (83-108) mmHg ABG HCO3 (21-25) mmol/L ABG Total CO2 (19-24) mmol/L ABG O2 Saturation (94-97) % BUN 47 H (9-20) mg/dL Glucose 135 H (74-99) mg/dL POC Glucose (mg/dL) 117 H (75-99) mg/dL ALT 124 H (4-49) U/L C-Reactive Protein 19.8 H (<1.0) mg/dL Total Protein 5.8 L (6.3-8.2) g/dL Albumin 2.5 L (3.5-5.0) g/dL 11/02/21 11/02/21 Range/Units 03:50 05:55 WBC (3.8-10.6) k/uL RBC (4.30-5.90) m/uL Hgb (13.0-17.5) gm/dL Hct (39.0-53.0) % Neutrophils # (1.3-7.7) k/uL Lymphocytes # (1.0-4.8) k/uL D-Dimer 1.09 H (<0.60) mg/L FEU ABG pH (7.35-7.45) ABG pCO2 (35-45) mmHg ABG pO2 (83-108) mmHg ABG HCO3 (21-25) mmol/L ABG Total CO2 (19-24) mmol/L ABG O2 Saturation (94-97) % BUN (9-20) mg/dL Glucose (74-99) mg/dL POC Glucose (mg/dL) 129 H (75-99) mg/dL ALT (4-49) U/L C-Reactive Protein (<1.0) mg/dL Total Protein (6.3-8.2) g/dL Albumin (3.5-5.0) g/dL
[2021-11-02 17:39] LABS: Glucose,Whole Blood 137 mg/dL (75-99)
[2021-11-02] MEDS: SODIUM CHLORIDE 0.9% 1,000 ML IV SCH (21:07)
[2021-11-02 23:46] LABS: Glucose,Whole Blood 135 mg/dL (75-99)
[2021-11-03] MEDS: fentaNYL (PF). 1,000 MCG in SODIUM CHLORIDE 0.9% 80 ML IV SCH ×7 (01:13→22:01)
[2021-11-03] MEDS: ARTIFICIAL TEARS-HYPROMELLOSE DROPS 15 ML BTL BOTH EYES SCH ×6 (02:38→23:46)
[2021-11-03] MEDS: CISATRACURIUM 200 MG in SODIUM CHLORIDE 0.9% 180 ML IV SCH ×3 (02:39→22:57)
[2021-11-03] MEDS: CLEVIDIPINE BUTYRATE 25 MG in EMPTY BAG 1 BAG IV SCH ×8 (02:40→22:59)
[2021-11-03] MEDS: PIPERACILLIN-TAZOBACTAM 3.375 GM in SODIUM CHLORIDE 0.9% 100 ML IVPB SCH (03:10)
[2021-11-03] MEDS: ENOXAPARIN 40 MG/0.4 ML SYRINGE SQ SCH ×2 (03:10→09:48)
[2021-11-03 05:02] LABS: Basophils % (A) 0 %; Eosinophils # (A) 0.1 k/uL (0-0.7); Eosinophils % (A) 0 %; HCT 40.5 % (39.0-53.0); HGB 12.8 gm/dL (13.0-17.5); Hypochromasia Slight; Lymphocytes # (A) 0.5 k/uL (1.0-4.8); Lymphocytes % (A) 4 %; MCH 30.2 pg (25.0-35.0); MCHC 31.5 g/dL (31.0-37.0); Monocytes # (A) 0.8 k/uL (0-1.0); Monocytes % (A) 6 %; Neutrophils # (A) 13.3 k/uL (1.3-7.7); Neutrophils % (A) 90 %; Platelet Count 449 k/uL (150-450); RBC 4.22 m/uL (4.30-5.90); RDW 13.6 % (11.5-15.5); WBC 14.9 k/uL (3.8-10.6)
[2021-11-03 05:21] LABS: Glucose,Whole Blood 124 mg/dL (75-99)
[2021-11-03 05:22] LABS: ALT 119 U/L (4-49); AST 41 U/L (17-59); African American GFR (CKD) >90 (>60 ml/min/1.73 sqM); Albumin 2.7 g/dL (3.5-5.0); Alkaline Phosphatase 129 U/L (38-126); Anion Gap 2 mmol/L; Blood Urea Nitrogen 50 mg/dL (9-20); Calcium 8.8 mg/dL (8.4-10.2); Carbon Dioxide 36 mmol/L (22-30); Chloride 102 mmol/L (98-107); Glucose 138 mg/dL (74-99); Non-African American GFR(CKD) 82 (>60 ml/min/1.73 sqM); Sodium 140 mmol/L (137-145); Total Bilirubin 0.7 mg/dL (0.2-1.3); Total Protein 6.3 g/dL (6.3-8.2)
[2021-11-03] MEDS: INSULIN ASPART (NovoLOG) 100 UNIT/ML VIAL SQ SCH ×4 (05:36→23:46)
[2021-11-03] MEDS: METOCLOPRAMIDE 5 MG/ML 2 ML VIAL IVP SCH ×4 (05:45→23:47)
[2021-11-03] MEDS: LEVOTHYROXINE 50 MCG TAB PO SCH (05:46)
--- NOTE | 2021-11-03 07:28 | XR ---
EXAMINATION TYPE: XR chest 1V portable DATE OF EXAM: 11/03/2021 COMPARISON: 11/02/2021 HISTORY: Tube placement TECHNIQUE: Single frontal view of the chest is obtained. FINDINGS: Stable endotracheal and orogastric tubes. Stable left subclavian central venous catheter. Persistent bilateral multifocal and confluent increased opacities greatest in the periphery redemonst rated. Cardiac silhouette size is stable and within normal limits. Osseous structures are intact. Anirudh ateral upper thoracic subcutaneous air is redemonstrated and appears increased. Could not exclude a s mall amount of pneumomediastinum.. IMPRESSION: Stable diffuse bilateral infiltrates. There is interval increase in subcutaneous emphyse ma involving the soft tissues of the neck. Small amount of pneumomediastinum not excluded correlate c linically.
[2021-11-03] MEDS: ALBUTEROL HFA INHALER INHALATION SCH ×3 (07:46→20:26)
[2021-11-03 07:56] LABS: ABG Base Excess 11.5 mmol/L; ABG HCO3 37 mmol/L (21-25); ABG Oxygen Saturation 91.5 % (94-97); ABG PCO2 66 mmHg (35-45); ABG PH 7.36 (7.35-7.45); ABG PO2 61 mmHg (83-108); ABG TCO2 39 mmol/L (19-24); Allen Test Performed? Yes
[2021-11-03] MEDS ORDERED: FUROSEMIDE 10 MG/ML 4 ML VIAL IV SCH (09:00)
[2021-11-03] MEDS: GABAPENTIN 400 MG CAP PO SCH ×3 (09:46→22:28)
[2021-11-03] MEDS: ASCORBIC ACID 500 MG TAB PO SCH (09:46)
[2021-11-03] MEDS: CHLORHEXIDINE GLUCONATE 15 ML CUP MUCOUS MEM SCH ×2 (09:46→22:28)
[2021-11-03] MEDS: CITALOPRAM HYDROBROMIDE 20 MG TAB PO SCH (09:47)
[2021-11-03] MEDS: DEXAMETHASONE SOD PHOSPHATE 10 MG/ML 1 ML VIAL IVP SCH (09:47)
[2021-11-03] MEDS: bisacodyL 10 MG SUPP RECTAL SCH (09:47)
[2021-11-03] MEDS: CHOLECALCIFEROL 25 MCG (1000 IU) TABLET PO SCH (09:47)
[2021-11-03] MEDS: ZINC SULFATE 220 MG CAP PO SCH (09:47)
[2021-11-03] MEDS: FUROSEMIDE 10 MG/ML 4 ML VIAL IV SCH ×2 (09:48→22:29)
[2021-11-03] MEDS: PANTOPRAZOLE 40 MG/10 ML VIAL IVP SCH (09:48)
[2021-11-03] MEDS: LACTULOSE 20 GM/30 ML CUP PO SCH ×2 (09:50→22:28)
--- NOTE | 2021-11-03 10:08 | P.PN ---
Subjective Progress Note Date: 11/03/21 Principal diagnosis: Dyspnea, hypoxia, COVID-19 This is a very pleasant 56-year-old male patient with a known history of fibromyalgia. Nonsmoker. Approximate 1 week ago he developed symptoms of nausea vomiting diarrhea dizziness and sweating. He presented here on 10/19/2021 and has a positive for COVID-19 and received monoclonal antibodies. He came back to the emergency room last evening with worsening symptoms. Chest x-ray reveals bilateral patchy interstitial and airspace infiltrates. He is currently requiring 10 L high flow nasal cannula to maintain O2 saturations in the high 80s low 90s. White count 6.6. Hemoglobin 13.9. Lymphocytes 0.3. Sodium 135. Potassium 4.1. Bicarb 21. Creatinine 1.31. Glucose 187. Ferritin 2822. AST 89. ALT 80. LDH 1091. C-reactive protein 21.0. Initiated on Decadron. On 10/22/2021 patient seen in follow-up on medical surgical floor, he is awake and alert, in no acute distress, overnight he wore 15 L high flow and n onrebreather mask, he is currently off the nonrebreather mask and not he is on 15 L high flow nasal cannula and he is maintaining O2 saturations at 93%, afebrile, hemodynamically stable. However his oxygen requirements have significantly increased in last 24 hours. His pro calcitonin level was sig nificantly elevated at 9.75, and patient is not a candidate for Baricitinib in view of possibility of underlying bacterial infection. Patient states she is coughing and bringing up some greenish colored phlegm at times, he is being started on Zosyn and vancomycin empirically, we will order blood cultures, sputum culture and urine cultures. Clinically he looks fairly comfortable, no distress, lung sounds are revealing coarse diffuse rhonchi and rales. No altered mentation, no fever. He continues on Lovenox 40 mg twice daily, and Decadron 6 mg twice daily. 56-year-old male, with a history of coronavirus associated pneumonia. The patient was admitted to the hospital on 10/21/2021 for COVID 19 related pneumonia and hypoxic respiratory failure. He has not been vaccinated. He has associated monoclonal antibodies on outpatient basis. Despite that, the patient's condition progressed. The patient developed worsening hypoxemic respiratory failure, and was intubated and mechanically ventilated for hypoxemia, on 10/28/2021. . He remains on the mechanical ventilator. On today's evaluation, the patient remains sedated and paralyzed. The patient is currently, he's on volume assist control, rate 32, tidal volume 450, FiO2 65%, and PEEP of 20. Noted the patient was able to wean down his FiO2 after he was being prone. He is being prone on a daily basis. His last morning was per formed at 10 PM last night. The patient currently is down to an FiO2 of 60% with a PEEP of 20 and his current pulse ox of 92%. The peak air pressure on a mechanical ventilator 35 with a static pressure of 33. The chest x-ray was showing diffuse bilateral pulmonary infiltrates and ET tube is in a good location. No evidence of any pneumothorax. Note that this is yesterday chest x-ray and today's chest x-ray is still pending is the chest x-ray was postponed due to his prone body positioning. On his blood gas, the patient has a pH of 7.42 with a pCO2 of 50 and pO2 of 64 and this was done and FiO2 of 65%. He did improve his oxygenation after being prone. He remains on Decadron 6 mg IV once a day. CT angiogram that was done at time of admission showed no evidence of any pulmonary embolism. The patient remains on Lovenox 40 mg subcu for DVT prophylaxis. The inflammatory markers include LDH level of 349 which is up considerably. The patient also has a pro-calcitonin level of 0.15, note that his initial pro-calcitonin level was quite elevated at 9.7 and for that reason the patient was placed on empiric antibiotic coverage. No other immunosuppressive agents have been utilizing this patient. His sputum came back positive for Mignon albicans and the blood culture came back negative. The patient is currently receiving enteral feeding for nutritional support and his using vital high protein at the rate of 20 mL an hour. IV fluids are currently in the form of normal saline at the rate of 20 mL an hour and the fluid balance is up considerably at least 11 kg weight gain since admission. The patient has been a positive fluid balance and he would definitely benefit from diuresis. On 11/02/2021 patient seen in follow-up in the intensive care unit, he is currently supine, sedated, paralyzed, intubated. He is on assist-control mode of ventilation with a rate of 32, tidal volume is 450, FiO2 of 65% and PEEP of 20. This morning's blood gas shows pO2 of 6 3, pCO2 of 60, and pH of 7.35 and this was done on FiO2 of 65. His pulse ox is 85%. He is currently on 0.9 norm al saline better to 20 ML per hour, Diprivan is at 50 mics per kilo per minute, fat note is a 2.5 mics per kilo per minute, Cleviprex is 4 mg/h, Nimbex is a 2.5 mics per kilo per minute. He is tolerating his tube feedings that are infusing at 15 ML per hour, standard water flushes. Today's chest x-ray shows bilateral multifocal and confluent increased opacities greatest in the periphery consiste nt with COVID-19 infection, no significant change compared one day earlier. Patient is on IV Decadron 6 more gram daily, yesterday we started IV Lasix 40 mg every 12 hours, he is on prophylactic dose of Lovenox, COVID-19 multi-vitamins. he is on Protonix for GI prophylaxis, we added Reglan, and lactulose. Patient was also given a suppository. Patient has not had a stool yet, abdomen is obese, distended but nontender. He is still in positive fluid balance overall since admission an average of 10 kg, however his weight is down 2 kg in the last 24 hours. Patient is afebrile. Today's labs have been reviewed showing white blood cell count fairly stable at 13.5, hemoglobin of 12.2, his d-dimer is slightly improved and is down to 1.09, electrolytes are within normal limits, BUN is 47, creatinine is 1.05, his LDH is 564, CRP is increased and is at 19.8. Patient was being placed in prone positioning on average of 16 hours daily however yesterday patient was noted to have developed deep tissue injury on his chin, and for that reason patient was not proned since yesterday. On 11/03/2021 patient seen in follow-up in the intensive care unit, he remains intubated, sedated and paralyzed on assist-control mode of ventilation with a rate of 35, tidal M is 450, FiO2 65% and PEEP of 20, his peak air pressure is 35, plateau pressure is 40. This morning's blood gas shows pO2 of 61, pCO2 of 66, and pH of 7.36, this was done on the above-mentioned vent settings. Today's chest x-ray has been reviewed showing stable diffuse bilateral infiltrates, and interval development of subcutaneous emphysema involving the soft tissues of the neck, there is small amount of pneumomediastinum not excluded. She is currently on Diprivan at 50 mics per kilo per minute, fentanyl at 2.5 mics per kilo per minute, Nimbex is at 3 mics per kilo per minute, Cleviprex of the 5 mg per hour. He is tolerating tube feedings with vital HP at a rate of 15 with standard water flushes. No fever or chills overnight, he is not requiring any vasopressor support, he is actually been a bit hypertensive requiring Cleviprex infusion, currently his blood pressure is better controlled and is 153/68 with a mean of 92. Patient has not been prone for last 48 hours related to development of deep tissue injury on his face. Today's labs show white blood cell count of 14.9, hemoglobin of 12.8, platelet count is 449, sodium is 140, potassium is 5.0, chloride is 102, CO2 36, B1 is 50, creatinine is 1.01, his AST is 41, ALT is 119, alk phos is 129. His last set of inflammatory markers from yesterday showed LDH of 564, and CRP of 19.8, today's set of inflammatory markers is still pending. Patient has been receiving lactulose and Reglan, he has not had a bowel movement in several days, and we will increase his lactulose, she also remains on Lasix 40 mg twice daily however she is still does daily in negative f luid balance over the last 24 hours of -223 mL. Objective - Vital Signs Vital signs: Vital Signs Temp 98.5 F 11/03/21 04:00 Pulse 99 11/03/21 07:00 Resp 32 H 11/03/21 07:00 BP 158/58 11/03/21 07:00 Pulse Ox 89 L 11/03/21 07:00 Intake & Output 11/02/21 11/03/21 11/03/21 18:59 06:59 18:59 Intake Total 3450.708 1932.857 275.140 Output Total 1850 1535 125 Balance -204.834 -19.143 150.140 Weight 121 kg 122 kg Intake: IV 299 253 23 Normal Saline 0.9 39 33 3 Pressure Bag @ 3mL/hr Sodium Chloride 0.9% 1, 260 220 20 000 ml @ 20 mls/hr IV . Q24H [facility] Rx#:[id number] Intake, IV Titration 1151.166 917.857 237.140 Amount Cisatracurium 200 mg In 327.630 166.358 Sodium Chloride 0.9% 180 ml @ 1 MCG/KG/MIN 6.668 mls/hr IV .Q24H [facility]ON[facility] Rx#: [id number] Clevidipine Butyrate 25 86 66.934 47.034 mg In Empty Bag 1 bag @ 1 MG/HR 2 mls/hr IV .Q24H [facility] Rx#:[id number] fentaNYL (PF). 1,000 mcg 351.436 286.165 97.241 In Sodium Chloride 0.9% 80 ml @ 0.5 MCG/KG/HR 5. 557 mls/hr IV .Q18H [facility] Rx#:[id number] propofoL 1,000 mg In 386.1 398.4 92.865 Empty Bag 1 bag @ Titrate IV .Q0M [facility] Rx#: [id number] Tube Feeding 195 165 15 Other 180 Output: Urine 1850 1535 125 Other: Voiding Method Indwelling Catheter Indwelling Catheter ABP, PAP, CO, CI - Last Documented Arterial Blood Pressure 145/67 - Exam GENERAL EXAM: Intubated, sedated and paralyzed 56-year-old white male, on nelsy t-control mode of ventilation with a rate of 32, tidal volume 450, FiO2 65% and PEEP of 20 HEAD: Normocephalic/atraumatic. Area of deep tissue injury on chin EYES: Normal reaction of pupils, equal size. Conjunctiva pink, sclera white. NOSE: Clear with pink turbinates. THROAT: No erythema or exudates. NECK: No masses, no JVD, no thyroid enlargement, no adenopathy. CHEST: No chest wall deformity. Symmetrical expansion. Left subclavian central line in place LUNGS: Equal air entry with diffuse crackles, and rhonchi, no wheezing CVS: Regular rate and rhythm, normal S1 and S2, no gallops, no murmurs, no rubs ABDOMEN: Soft, nontender. No hepatosplenomegaly, normal bowel sounds, no guarding or rigidity. EXTREMITIES: No clubbing, no edema, no cyanosis, 2+ pulses and upper and lower extremities. MUSCULOSKELETAL: Muscle strength and tone normal. SPINE: No scoliosis or deformity SKIN: No rashes CENTRAL NERVOUS SYSTEM: Sedated, paralyzed, and intubated No focal deficits, tone is normal in all 4 extremities. - Labs CBC & Chem 7: 11/03/21 04:00 11/03/21 04:00 Labs: Abnormal Lab Results - Last 24 Hours (Table) 11/02/21 11/02/21 11/02/21 Range/Units 05:55 11:31 12:35 WBC (3.8-10.6) k/uL RBC (4.30-5.90) m/uL Hgb (13.0-17.5) gm/dL Neutrophils # (1.3-7.7) k/uL Lymphocytes # (1.0-4.8) k/uL ABG pH 7.32 L (7.35-7.45) ABG pCO2 60 H 66 H (35-45) mmHg ABG pO2 63 L 60 L (83-108) mmHg ABG HCO3 33 H 34 H (21-25) mmol/L ABG Total CO2 35 H 36 H (19-24) mmol/L ABG O2 Saturation 91.6 L 90.0 L (94-97) % Carbon Dioxide (22-30) mmol/L BUN (9-20) mg/dL Glucose (74-99) mg/dL POC Glucose (mg/dL) 163 H (75-99) mg/dL ALT (4-49) U/L Alkaline Phosphatase (38-126) U/L Albumin (3.5-5.0) g/dL 11/02/21 11/02/21 11/03/21 Range/Units 17:34 23:44 04:00 WBC 14.9 H (3.8-10.6) k/uL RBC 4.22 L (4.30-5.90) m/uL Hgb 12.8 L (13.0-17.5) gm/dL Neutrophils # 13.3 H (1.3-7.7) k/uL Lymphocytes # 0.5 L (1.0-4.8) k/uL ABG pH (7.35-7.45) ABG pCO2 (35-45) mmHg ABG pO2 (83-108) mmHg ABG HCO3 (21-25) mmol/L ABG Total CO2 (19-24) mmol/L ABG O2 Saturation (94-97) % Carbon Dioxide (22-30) mmol/L BUN (9-20) mg/dL Glucose (74-99) mg/dL POC Glucose (mg/dL) 137 H 135 H (75-99) mg/dL ALT (4-49) U/L Alkaline Phosphatase (38-126) U/L Albumin (3.5-5.0) g/dL 11/03/21 11/03/21 11/03/21 Range/Units 04:00 05:19 07:53 WBC (3.8-10.6) k/uL RBC (4.30-5.90) m/uL Hgb (13.0-17.5) gm/dL Neutrophils # (1.3-7.7) k/uL Lymphocytes # (1.0-4.8) k/uL ABG pH (7.35-7.45) ABG pCO2 66 H (35-45) mmHg ABG pO2 61 L (83-108) mmHg ABG HCO3 37 H (21-25) mmol/L ABG Total CO2 39 H (19-24) mmol/L ABG O2 Saturation 91.5 L (94-97) % Carbon Dioxide 36 H (22-30) mmol/L BUN 50 H (9-20) mg/dL Glucose 138 H (74-99) mg/dL POC Glucose (mg/dL) 124 H (75-99) mg/dL ALT 119 H (4-49) U/L Alkaline Phosphatase 129 H (38-126) U/L Albumin 2.7 L (3.5-5.0) g/dL Microbiology - Last 24 Hours (Table) 11/02/21 14:55 Gram Stain - Preliminary Sputum Sputum Culture - Preliminary Assessment and Plan Plan: Assessment: #1. Acute hypoxic respiratory failure secondary to acute COVID-19 pneumonia. Patient is status post monoclonal antibody infusion on 10/19/2021. Patient was not a candidate for Remdesivir related to severe hypoxic respiratory failure on presentation requiring 10 L high flow nasal cannula. Today he is on 15 L and 100% nonrebreather mask, his FiO2 requirements have increased but patient is not a candidate for Baricitinib related to possibility of underlying bacterial infection. Patient was transferred to the intensive care unit on 10/28/2021 and intubated on 10/28/2021. On 11/03/2021 patient remains sedated, and paralyzed, on assist-control mode of ventilation with a rate of 32, tidal volume is 450, FiO2 of 65% and PEEP of 20 #2. Elevated pro-calcitonin, improved, blood and sputum cultures have shown no growth, patient has received empiric Zosyn, pro-calcitonin level has improved and is down to 0.17, Zosyn has been discontinued #3. Elevated inflammatory markers related to acute COVID-19 pneumonia, improved #4. Elevated LFTs related to COVID-19 pneumonia, slightly worsened #5. Elevated d-dimer, venous Doppler of bilateral lower extremities was negative for DVT, CT angiogram was a limited study but showed no central pulmonary embolism #6. History of fibromyalgia #7. Depression #8. Never smoker #9. Acute kidney injury possibly related to Covid 19 related ATN, improved #10. Hypothyroidism #11. Hyperkalemia, mild, improved #12. Deep tissue injury on the chin from proning position, currently proning has been stopped #13. Pneumomediastinum with subcu emphysema in the neck Plan: Chest x-ray has been reviewed, there is interval development of subcu emphysema, and possible pneumomediastinum Continue current vent settings Continue sedation and Nimbex Continue fentanyl for discomfort Continue current dose Lasix 40 mg twice daily Continue Cleviprex for hypertension Continue nutritional support Increase Lactulose to twice daily Continue Reglan Follow up inflammatory markers and d-dimer daily CXR, CBC, CMP, ABGs Overall prognosis is guarded I performed a history & physical examination of the patient and discussed their management with my nurse practitioner, Angi Roberts. I reviewed the nurse practitioner's note and agree with the documented findings and plan of care. Lung sounds are positive for dim breath sounds throughout the lung rivera. The findings and the impression was discussed with the patient. I attest to the documentation by the nurse practitioner. Time with Patient: Greater than 30
[2021-11-03 10:13] LABS: Glucose,Whole Blood 154 mg/dL (75-99)
[2021-11-03 12:05] LABS: Glucose,Whole Blood 170 mg/dL (75-99)
--- NOTE | 2021-11-03 15:17 | P.PN ---
Subjective Progress Note Date: 11/03/21 History of present illness 56-year-old male with past medical history of fibromyalgia comes in to emergency room with symptoms of nausea, vomiting, dizziness and sweating feeling weak in with runny nose loss of taste and hence now for the past 1 week. He presented on 10/19 was found to have positive COVID results. Received his monoclonal antibodies. He Came back to the emergency room because of worsening of symptoms.Vitals reviewed patient afebrile pulse 80 respiratory rate 20 blood pressure 138/82 saturating at 88% on 10 L labs reviewed WBC 6.6 hemoglobin 13.9 d-dimer is elevated at 0.89, sodium 135 bicarb 21 BUN 16 creatinine 1.3 glucose 187 ferritin 2822 AST 89 ALT 80 alkaline phosphatase 225 LDH 1091 and CRP 21 and albumin 3.3 X-ray suggestive of bilateral patchy pneumonia. Both interstitial and airspace infiltrate Pulmonary clinic consulted for COVID pneumonia Patient placed on Lovenox 40 subcu twice a day, vitamin C, D and zinc. Dexamethasone initiated at 6 mg twice a day IV Patient is a candidate of Baritinib and will discuss about initiating it with pulmonary Venous Doppler ordered 10/22: [facility]. He continues to have dyspnea and is on 15 L high flow nasal cannula and nonrebreather with pulse ox of 87 and 95%. He's been afebrile, heart rate in the 60s and 70s, blood pressure 127/73. Pro-calcitonin came back high at 9.75 and we started the patient on Zosyn and vancomycin for bacterial pneumonia coverage. Patient has coarse crackles bilaterally. No lower extremity edema. He has been seen and followed by pulmonary medicine. Patient is not a candidate for Baricitinib. Patient is continued on Decadron, Lovenox and vitamin supplements. 10/23: Is found sitting up in the edge of the bed. He is currently not on a Ventimask. However his pulse oxing still around 88 to 91 % on Ventimask or 15 L high flow nasal cannula. Patient continues to have dyspnea with activity and speaking. Patient states that he is feeling much better compared to yesterday. Continues to have a cough. No lower extremity edema. He has rhonchi to the bases bilaterally. He is currently on Decadron Lovenox and vitamin supplements. Patient remains afebrile, heart rate 62, respirations 17, blood pressure 118/68 pulse ox 93% on 15 L high flow nasal cannula 10/24: Patient was up to the bathroom showering today. Awaiting inflammation markers today. Patient still requires 10 L of O2 with a pulse ox of 90%. Patient continues to have crackles to the bilateral bases. Dyspnea with activity and speaking. Patient states he is feeling better however he is very tired. Continues to have cough no lower extremity edema. He still currently on Decadron, Lovenox, and vitamin supplements. Patient remains afebrile, heart rate 58, respirations 17, blood pressure 118/89, 10/25: Patient is still on high flow nasal cannula 15 L and nonrebreather with pulse ox of 89 and 99%. He's been afebrile, heart rate 73, blood pressure 120/72. Creatinine 1.06. Blood sugars running between 101 and 106. Sputum culture is in progress. Patient is followed closely by pulmonary medicine. Patient is continued on dexamethasone, Lovenox, Zosyn and vitamin supplements. Patient has been encouraged to prone several hours daily. 10/26: Patient remains on nonrebreather mask and AirVo at 60 L, FiO2 of 85 with pulse ox of 88%. Appears to have more difficulty with breathing. Repeat chest x-ray reveals stable bilateral infiltrates. He has been afebrile, heart rate 59, blood pressure 102/59. Repeat d-dimer 1.53. Blood sugars are well controlled. 10/27: Patient remains on nonrebreather and AirVo with pulse ox at 90%. Patient was agreeable. He has been afebrile, heart rate 70, blood pressure 131/79. CBG running between 97 and 116 and CBGs and insulin will be discontinued. Sputum cultures positive for Mignon albicans. Patient is increasing his activity, currently laying in bed on his side. Lab work including inflammatory markers ordered for tomorrow. 10/28: Patient had a drop in his pulse ox and 78% with nonrebreather and AirVo and A-Team was called. Patient stated that his shortness of breath was better than the night before. Stat chest x-ray was done which revealed bilateral multifocal peripheral increased opacities consistent with Covid 19 infection are redemonstrated. No significant change. Patient transitioned to BiPAP with pulse ox of 90%. Patient verbalized that he wanted to be a no CODE STATUS and was encouraged to discuss with family. It was determined the patient will be transferred to the intensive care unit most likely be intubated. Patient was very resistant but after long discussion with Dr. Mark Anthony santo, patient agreed to intubation and full CODE STATUS at this point. Repeat blood work reveals WBC 9.4, hemoglobin 12.7, platelet count 263. D-dimer 1.31. Blood sugars 10/29: Patient was transferred into the intensive care unit yesterday and subsequently intubated and placed on mechanical ventilation, tidal volume 450, FiO2 100, PEEP of 20. Patient was prone this morning switched over to supine. He was started on tube feedings yesterday but had a high residual this morning after pronating. He is currently on fentanyl, propofol, Nimbex drip. One amp of bicarbonate given this morning. Chest x-ray reveals lateral multifocal confluent and increased opacities greatest in the periphery consistent with Covid 19 infection redemonstrated. No sicca be unchanged from one day earlier. CTA of the chest done yesterday reveals suboptimal study without saddle central pulmonary embolism. Cannot exclude smaller pulmonary emboli. Bilateral multifocal and confluent groundglass opacities and organizing consolidations consistent with known Covid 19 infection. Repeat blood work reveals WBC 13.1, hemoglobin 13.1, platelet count 381. D- dimer 1.17. Sodium 135, potassium 5.2, chloride 104, CO2 24, BUN 29 and creatinine 0.78. Capillary blood glucose running between 116 and 150s. AST 216. C-reactive protein 7.9, pro-calcitonin 0.15. 10/30: This is day #9 of admission, patient remains in ICU, still mechanically ventilated for hypoxemia, starting 10/29/2021, on Wade assist control, rate 32, PEEP of 20, FiO2 100%, dexamethasone 6 mg daily, electrolytes are stable, BUN 29 creatinine 0.84, x-ray shows bilateral multifocal opacities, consistent with Covid pneumonia, CT angiogram negative for PE, patient is on propofol, fentanyl and index vital HP, at 20 mL an hour 10/31: Patient remains in ICU, intubated, NG tube in place, chest x-ray shows no pneumothorax, no pleural effusion, there is bilateral patchy pulmonary interstitial infiltrates, with coalescent density in the left lower lobe. No significant change from yesterdayALT iscreatinine is 0.75, ALT is trending downward, C reactive protein is 8.0 from a previous of 8.9Lasix given today, on dexamethasone, and remains sedated. 11/01: Patient remains in the intensive care unit, intubated and on mechanical ventilation with FiO2 60% and PEEP of 20 with pulse ox of 87%. Patient is being prone for 16 hours per day. He is tolerating tube feedings. He has been started on lactulose this morning for constipation. He has been afebrile, heart rate 75, respiratory rate in the low 30s, blood pressure 148/65. Patient was started on Clevidipine gtt. he is also on propofol, fentanyl and Nimbex. No new concerns, patient seems to be fairly stable. 11/02: Patient remains in intensive care unit intubated and on mechanical ventilation with FiO2 of 65, tidal volume 450, PEEP of 20. Patient is being managed by the pot holder binder. Patient has not been prone today due to skin breakdown on his face. He is on tube feedings and tolerating. Patient has been afebrile, heart rate 102, blood pressure 151/71, pulse ox 85-89%. Repeat blood work reveals WBC 13.5, hemoglobin 12.2. Electrolytes normal. BUN 47 creatinine 1.05. ALT 124. C-reactive protein 19.8. D-dimer 1.09. The patient did not have a bowel movement after lactulose yesterday which is been repeated and Dulcolax suppository ordered for today. 11/03, patient remains in ICU, intubated and mechanically vented, is starting to have skin excoriations, in the face and with deep tissue injury chin area, from pronating position, for that reason, they have avoided pronating since yesterday. Patient's currently sedated, and is receiving fentanyl, and nimbex clevipres. ngt tolerated at 50 cch/r vital hp, inflammatory markers are still elevated, with LDH of 58, CRP of 19, still with bowel issues, they have increased lactulose to 20 mg twice a day, and Dulcolax suppository daily. No plans for weaning off the vent trials at this time, probably might end up in a trach PEG . ROS Unable to obtain due to intubation Physical exam General Appearance: Patient is laying in the ICU bed, intubated and on mechanical ventilation. No acute distress. Patient appears to be comfortable. Full examination deferred to intensive this due to intubation and Covid 19. Assessment and plan 1. Acute hypoxic respiratory failure secondary to Covid 19 pneumonia. Consult with pulmonary medicine appreciated. Patient was intubated and placed on mechanical ventilation 10/28. Continue care in the intensive care unit, proning, currently on fentanyl, propofol and Nimbex. 2. Acute COVID pneumonia. Dexamethasone 6 mg IV once a day, Lovenox 40 subcu daily, Not a candidate for Baricitinib, Monitor inflammatory markers. Continue supplements vitamin C, D and zinc 3. Acute transaminitis Secondary to viral inflammation. Continue monitoring 4. CKD stage 3. Continue to monitor patient's creatinine. No acute kidney injury 5. History of fibromyalgia. continue gabapentin 800 3 times a day, Citalopram 40 mg by mouth daily 6. Insomnia. Was on Eszopiclone 3 mg daily at bedtime 7. Hypothyroidism. Levothyroxine 50 g by mouth daily 8. Hypertension. Patient started on Clevidipine gtt. 9. DVT prophylaxis. Lovenox 40 subcu daily. 10. GI prophylaxis. Protonix 40 mg IV push daily 11. Hyperglycemia secondary to steroids, IV drips, patient is on NovoLog scale. 12. Constipation. Lactulose 20 g daily and Vioxx suppository today. Prognosis guarded. Status: Full code Discharge Plan: To be determined. Intake & Output 11/01/21 11/02/21 11/03/21 11/04/21 06:59 06:59 06:59 06:59 Intake Total 2829.543 2908.489 3161.023 869.874 Output Total 2600 2410 3385 1515 Balance 229.543 498.489 -223.977 -645.126 Weight 121 kg 122 kg Current Medications Albuterol Sulfate (Albuterol Hfa Inhaler) 2 puff INHALATION RT-TID [facility] Last Admin: 11/03/21 11:52 Dose: 2 puff Documented by: Artificial Tears (Artificial Tears-Hypromellose Drops 15 Ml Btl) 1 drops BOTH EYES Q4H [facility] Last Admin: 11/03/21 12:38 Dose: 1 drops Documented by: Ascorbic Acid (Ascorbic Acid 500 Mg Tab) 1,000 mg PO DAILY [facility] Last Admin: 11/03/21 09:46 Dose: 1,000 mg Documented by: Bisacodyl (Bisacodyl 10 Mg Supp) 10 mg RECTAL DAILY [facility] Last Admin: 11/03/21 09:47 Dose: 10 mg Documented by: Chlorhexidine Gluconate (Chlorhexidine Gluconate 15 Ml Cup) 15 ml MUCOUS MEM BID [facility] Last Admin: 11/03/21 09:46 Dose: 15 ml Documented by: Cholecalciferol (Cholecalciferol 25 Mcg (1000 Iu) Tablet) 25 mcg PO DAILY [facility] Last Admin: 11/03/21 09:47 Dose: 25 mcg Documented by: Citalopram Hydrobromide (Citalopram Hydrobromide 20 Mg Tab) 40 mg PO DAILY [facility] Last Admin: 11/03/21 09:47 Dose: 40 mg Documented by: Dexamethasone Sodium Phosphate (Dexamethasone Sod Phosphate 10 Mg/Ml 1 Ml Vial) 6 mg IVP DAILY [facility] Last Admin: 11/03/21 09:47 Dose: 6 mg Documented by: Enoxaparin Sodium (Enoxaparin 40 Mg/0.4 Ml Syringe) 40 mg SQ DAILY [facility] Last Admin: 11/03/21 09:48 Dose: 40 mg Documented by: Furosemide (Furosemide 10 Mg/Ml 4 Ml Vial) 40 mg IV Q12HR [facility] Last Admin: 11/03/21 09:48 Dose: 40 mg Documented by: Gabapentin (Gabapentin 400 Mg Cap) 800 mg PO TID [facility] Last Admin: 11/03/21 09:46 Dose: 800 mg Documented by: Propofol 1,000 mg/ IV Solution 100 mls @ 0 mls/hr IV .Q0M [facility]; Protocol Last Admin: 11/03/21 11:52 Dose: 50 mcg/kg/min, 36.6 mls/hr Documented by: Fentanyl Citrate 1,000 mcg/ (Sodium Chloride) 100 mls @ 5.557 mls/hr IV .Q18H [facility]; Protocol Last Admin: 11/03/21 11:48 Dose: 2.5 mcg/kg/hr, 27.783 mls/hr Documented by: Cisatracurium Besylate 200 mg/ (Sodium Chloride) 200 mls @ 6.668 mls/hr IV .Q24H [facility]; Protocol Last Admin: 11/03/21 02:39 Dose: 3 mcg/kg/min, 20.003 mls/hr Documented by: Sodium Chloride (Saline 0.9%) 1,000 mls @ 20 mls/hr IV .Q24H [facility] Last Admin: 11/02/21 21:07 Dose: 20 mls/hr Documented by: Clevidipine 25 mg/ IV Solution 50 mls @ 2 mls/hr IV .Q24H [facility]; Protocol Last Admin: 11/03/21 12:40 Dose: 8 mg/hr, 16 mls/hr Documented by: Insulin Aspart (Insulin Aspart (Novolog) 100 Unit/Ml Vial) 0 unit SQ Q6H [facility]; Protocol Last Admin: 11/03/21 12:39 Dose: 3 unit Documented by: Lactulose (Lactulose 20 Gm/30 Ml Cup) 20 gm PO BID [facility] Levothyroxine Sodium (Levothyroxine 50 Mcg Tab) 50 mcg PO 0630 [facility] Last Admin: 11/03/21 05:46 Dose: 50 mcg Documented by: Metoclopramide HCl (Metoclopramide 5 Mg/Ml 2 Ml Vial) 10 mg IVP Q6HR [facility] Last Admin: 11/03/21 12:39 Dose: 10 mg Documented by: Pantoprazole Sodium (Pantoprazole 40 Mg/10 Ml Vial) 40 mg IVP DAILY [facility] Last Admin: 11/03/21 09:48 Dose: 40 mg Documented by: Zinc Sulfate (Zinc Sulfate 220 Mg Cap) 220 mg PO DAILY [facility] Last Admin: 11/03/21 09:47 Dose: 220 mg Documented by: Laboratory Results - Last 24 Hours 11/02/21 11/02/21 11/03/21 17:34 23:44 04:00 WBC 14.9 H RBC 4.22 L Hgb 12.8 L Hct 40.5 MCV 96.0 MCH 30.2 MCHC 31.5 RDW 13.6 Plt Count 449 MPV 9.0 Neutrophils % 90 Lymphocytes % 4 Monocytes % 6 Eosinophils % 0 Basophils % 0 Neutrophils # 13.3 H Lymphocytes # 0.5 L Monocytes # 0.8 Eosinophils # 0.1 Basophils # 0.0 Hypochromasia Slight Sample Site ABG pH ABG pCO2 ABG pO2 ABG HCO3 ABG Total CO2 ABG O2 Saturation ABG Base Excess Palomo Test FiO2 Sodium Potassium Chloride Carbon Dioxide Anion Gap BUN Creatinine Est GFR (CKD-EPI)AfAm Est GFR (CKD-EPI)NonAf Glucose POC Glucose (mg/dL) 137 H 135 H POC Glu Last Model Maker Pauly Euceda Merrill Calcium Total Bilirubin AST ALT Alkaline Phosphatase Total Protein Albumin 11/03/21 11/03/21 11/03/21 04:00 05:19 07:53 WBC RBC Hgb Hct MCV MCH MCHC RDW Plt Count MPV Neutrophils % Lymphocytes % Monocytes % Eosinophils % Basophils % Neutrophils # Lymphocytes # Monocytes # Eosinophils # Basophils # Hypochromasia Sample Site coreen ABG pH 7.36 ABG pCO2 66 H ABG pO2 61 L ABG HCO3 37 H ABG Total CO2 39 H ABG O2 Saturation 91.5 L ABG Base Excess 11.5 Palomo Test Yes FiO2 65 Sodium 140 Potassium 5.0 Chloride 102 Carbon Dioxide 36 H Anion Gap 2 BUN 50 H Creatinine 1.01 Est GFR (CKD-EPI)AfAm >90 Est GFR (CKD-EPI)NonAf 82 Glucose 138 H POC Glucose (mg/dL) 124 H POC Glu Last Model Maker ID Calcium [email or web address] Total Bilirubin 0.7 AST 41 ALT 119 H Alkaline Phosphatase 129 H Total Protein 6.3 Albumin 2.7 L 11/03/21 11/03/21 10:12 12:04 WBC RBC Hgb Hct MCV MCH MCHC RDW Plt Count MPV Neutrophils % Lymphocytes % Monocytes % Eosinophils % Basophils % Neutrophils # Lymphocytes # Monocytes # Eosinophils # Basophils # Hypochromasia Sample Site ABG pH ABG pCO2 ABG pO2 ABG HCO3 ABG Total CO2 ABG O2 Saturation ABG Base Excess Palomo Test FiO2 Sodium Potassium Chloride Carbon Dioxide Anion Gap BUN Creatinine Est GFR (CKD-EPI)AfAm Est GFR (CKD-EPI)NonAf Glucose POC Glucose (mg/dL) 154 H 170 H POC Glu Last Model Maker ID Ameya, Mary Carmen Valencia, Monisha Calcium Total Bilirubin AST ALT Alkaline Phosphatase Total Protein Albumin Objective - Vital Signs Vital signs: Vital Signs Temp 98.9 F 11/03/21 12:00 Pulse 98 11/03/21 14:00 Resp 32 H 11/03/21 14:00 BP 144/81 11/03/21 14:00 Pulse Ox 88 L 11/03/21 14:00 Intake & Output 11/02/21 11/03/21 11/03/21 18:59 06:59 18:59 Intake Total 0712.011 7275.857 869.874 Output Total 1850 1535 1515 Balance -204.834 -19.143 -645.126 Weight 121 kg 122 kg Intake: IV 299 253 161 Normal Saline 0.9 39 33 21 Pressure Bag @ 3mL/hr Sodium Chloride 0.9% 1, 260 220 140 000 ml @ 20 mls/hr IV . Q24H [facility] Rx#:[id number] Intake, IV Titration 1151.166 917.857 483.874 Amount Cisatracurium 200 mg In 327.630 166.358 Sodium Chloride 0.9% 180 ml @ 1 MCG/KG/MIN 6.668 mls/hr IV .Q24H [facility] Rx#: [id number] Clevidipine Butyrate 25 86 66.934 95.601 mg In Empty Bag 1 bag @ 1 MG/HR 2 mls/hr IV .Q24H [facility] Rx#:[id number] fentaNYL (PF). 1,000 mcg 351.436 286.165 195.408 In Sodium Chloride 0.9% 80 ml @ 0.5 MCG/KG/HR 5. 557 mls/hr IV .Q18H [facility] Rx#:[id number] propofoL 1,000 mg In 386.1 398.4 192.865 Empty Bag 1 bag @ Titrate IV .Q0M [facility] Rx#: [id number] Tube Feeding 195 165 105 Other 180 120 Output: Urine 1850 1535 1515 Other: Voiding Method Indwelling Catheter Indwelling Catheter ABP, PAP, CO, CI - Last Documented Arterial Blood Pressure 148/68 - Labs CBC & Chem 7: 11/03/21 04:00 11/03/21 04:00 Labs: Abnormal Lab Results - Last 24 Hours (Table) 11/02/21 11/02/21 11/03/21 Range/Units 17:34 23:44 04:00 WBC 14.9 H (3.8-10.6) k/uL RBC 4.22 L (4.30-5.90) m/uL Hgb 12.8 L (13.0-17.5) gm/dL Neutrophils # 13.3 H (1.3-7.7) k/uL Lymphocytes # 0.5 L (1.0-4.8) k/uL ABG pCO2 (35-45) mmHg ABG pO2 (83-108) mmHg ABG HCO3 (21-25) mmol/L ABG Total CO2 (19-24) mmol/L ABG O2 Saturation (94-97) % Carbon Dioxide (22-30) mmol/L BUN (9-20) mg/dL Glucose (74-99) mg/dL POC Glucose (mg/dL) 137 H 135 H (75-99) mg/dL ALT (4-49) U/L Alkaline Phosphatase (38-126) U/L Albumin (3.5-5.0) g/dL 11/03/21 11/03/21 11/03/21 Range/Units 04:00 05:19 07:53 WBC (3.8-10.6) k/uL RBC (4.30-5.90) m/uL Hgb (13.0-17.5) gm/dL Neutrophils # (1.3-7.7) k/uL Lymphocytes # (1.0-4.8) k/uL ABG pCO2 66 H (35-45) mmHg ABG pO2 61 L (83-108) mmHg ABG HCO3 37 H (21-25) mmol/L ABG Total CO2 39 H (19-24) mmol/L ABG O2 Saturation 91.5 L (94-97) % Carbon Dioxide 36 H (22-30) mmol/L BUN 50 H (9-20) mg/dL Glucose 138 H (74-99) mg/dL POC Glucose (mg/dL) 124 H (75-99) mg/dL ALT 119 H (4-49) U/L Alkaline Phosphatase 129 H (38-126) U/L Albumin 2.7 L (3.5-5.0) g/dL 11/03/21 11/03/21 Range/Units 10:12 12:04 WBC (3.8-10.6) k/uL RBC (4.30-5.90) m/uL Hgb (13.0-17.5) gm/dL Neutrophils # (1.3-7.7) k/uL Lymphocytes # (1.0-4.8) k/uL ABG pCO2 (35-45) mmHg ABG pO2 (83-108) mmHg ABG HCO3 (21-25) mmol/L ABG Total CO2 (19-24) mmol/L ABG O2 Saturation (94-97) % Carbon Dioxide (22-30) mmol/L BUN (9-20) mg/dL Glucose (74-99) mg/dL POC Glucose (mg/dL) 154 H 170 H (75-99) mg/dL ALT (4-49) U/L Alkaline Phosphatase (38-126) U/L Albumin (3.5-5.0) g/dL Microbiology - Last 24 Hours (Table) 11/02/21 14:55 Gram Stain - Preliminary Sputum Sputum Culture - Preliminary
[2021-11-03 17:44] LABS: Glucose,Whole Blood 141 mg/dL (75-99)
[2021-11-03] MEDS ORDERED: DEXTROSE 5% IN WATER 100 ML with AMIODARONE 150 MG IV ONE (20:20)
[2021-11-03] MEDS ORDERED: AMIODARONE 360 MG in DEXTROSE 5% IN WATER 200 ML IV ONE ×2 (20:30)
[2021-11-03] MEDS ORDERED: AMIODARONE IN DEXTROSE,ISO-OSM 360 MG/200 ML PLAST..BAG IV ONE (21:12)
[2021-11-03] MEDS ORDERED: AMIODARONE IN DEXTROSE,ISO-OSM 150 MG/100 ML PLAST..BAG IV ONE (21:12)
[2021-11-03] MEDS: SODIUM CHLORIDE 0.9% 1,000 ML IV SCH (22:29)
[2021-11-03 23:19] LABS: Glucose,Whole Blood 134 mg/dL (75-99)
[2021-11-03] MEDS ORDERED: DILTIAZEM DRIP BOLUS FROM BAG 1 MG SOLN IV ONE (23:34)
[2021-11-03] MEDS: DILTIAZEM 125 MG in SODIUM CHLORIDE 0.9% 100 ML IV SCH (23:47)
[2021-11-03 23:49] LABS: Magnesium 2.6 mg/dL (1.6-2.3); Potassium 4.9 mmol/L (3.5-5.1)
[2021-11-04] MEDS: fentaNYL (PF). 1,000 MCG in SODIUM CHLORIDE 0.9% 80 ML IV SCH ×7 (01:32→21:21)
[2021-11-04] MEDS ORDERED: AMIODARONE 450 MG in DEXTROSE 5% IN WATER 250 ML IV SCH ×2 (02:30)
[2021-11-04] MEDS: ARTIFICIAL TEARS-HYPROMELLOSE DROPS 15 ML BTL BOTH EYES SCH ×6 (03:08→23:34)
[2021-11-04 04:26] LABS: Basophils % (A) 0 %; Eosinophils # (A) 0.1 k/uL (0-0.7); Eosinophils % (A) 1 %; HCT 37.9 % (39.0-53.0); HGB 11.7 gm/dL (13.0-17.5); Hypochromasia Slight; Lymphocytes # (A) 0.8 k/uL (1.0-4.8); Lymphocytes % (A) 7 %; MCH 29.9 pg (25.0-35.0); MCHC 30.9 g/dL (31.0-37.0); MCV 96.8 fL (80.0-100.0); Mean Platelet Volume 8.9; Monocytes # (A) 0.7 k/uL (0-1.0); Monocytes % (A) 6 %; Neutrophils # (A) 8.5 k/uL (1.3-7.7); Neutrophils % (A) 84 %; Platelet Count 376 k/uL (150-450); RBC 3.91 m/uL (4.30-5.90); RDW 14.2 % (11.5-15.5); WBC 10.2 k/uL (3.8-10.6)
[2021-11-04 04:51] LABS: ALT 107 U/L (4-49); AST 44 U/L (17-59); African American GFR (CKD) >90 (>60 ml/min/1.73 sqM); Albumin 2.5 g/dL (3.5-5.0); Alkaline Phosphatase 109 U/L (38-126); Anion Gap 3 mmol/L; Blood Urea Nitrogen 50 mg/dL (9-20); Calcium 8.7 mg/dL (8.4-10.2); Carbon Dioxide 38 mmol/L (22-30); Chloride 102 mmol/L (98-107); Glucose 109 mg/dL (74-99); Non-African American GFR(CKD) 89 (>60 ml/min/1.73 sqM); Potassium 4.7 mmol/L (3.5-5.1); Sodium 143 mmol/L (137-145); Total Bilirubin 0.5 mg/dL (0.2-1.3); Total Protein 5.7 g/dL (6.3-8.2)
[2021-11-04] MEDS: CLEVIDIPINE BUTYRATE 25 MG in EMPTY BAG 1 BAG IV SCH ×2 (05:35→23:46)
[2021-11-04 05:44] LABS: Glucose,Whole Blood 101 mg/dL (75-99)
[2021-11-04] MEDS: METOCLOPRAMIDE 5 MG/ML 2 ML VIAL IVP SCH ×4 (05:44→23:36)
[2021-11-04] MEDS: INSULIN ASPART (NovoLOG) 100 UNIT/ML VIAL SQ SCH ×4 (05:45→23:46)
[2021-11-04] MEDS: LEVOTHYROXINE 50 MCG TAB PO SCH (05:45)
[2021-11-04 06:07] LABS: ABG HCO3 39 mmol/L (21-25); ABG Oxygen Saturation 88.6 % (94-97); ABG PCO2 70 mmHg (35-45); ABG PH 7.36 (7.35-7.45); ABG TCO2 42 mmol/L (19-24); Allen Test Performed? Yes
[2021-11-04 06:12] LABS: ABG PO2 57 mmHg (83-108)
--- NOTE | 2021-11-04 07:29 | XR ---
EXAMINATION TYPE: XR chest 1V portable DATE OF EXAM: 11/04/2021 Comparison: 11/03/2021 Clinical History: 56-year-old male SOB Findings: ET and NG tubes satisfactory. Left subclavian CVC tip seen to the lower SVC level. Heart normal size. Hyperinflation. Diffuse interstitial and patchy bilateral ascites, confluent in the periphery of the left lower lung. Overall unchanged to slightly increased. Impression: COPD with stable to slightly increased diffuse interstitial and multifocal patchy infiltrates.
[2021-11-04] MEDS: ALBUTEROL HFA INHALER INHALATION SCH ×4 (07:50→20:38)
[2021-11-04] MEDS: CISATRACURIUM 200 MG in SODIUM CHLORIDE 0.9% 180 ML IV SCH ×2 (08:56→18:41)
[2021-11-04] MEDS: ASCORBIC ACID 500 MG TAB PO SCH (09:53)
[2021-11-04] MEDS: DEXAMETHASONE SOD PHOSPHATE 10 MG/ML 1 ML VIAL IVP SCH (09:54)
[2021-11-04] MEDS: CHLORHEXIDINE GLUCONATE 15 ML CUP MUCOUS MEM SCH ×2 (09:54→20:44)
[2021-11-04] MEDS: CITALOPRAM HYDROBROMIDE 20 MG TAB PO SCH (09:54)
[2021-11-04] MEDS: bisacodyL 10 MG SUPP RECTAL SCH (09:54)
[2021-11-04] MEDS: CHOLECALCIFEROL 25 MCG (1000 IU) TABLET PO SCH (09:54)
[2021-11-04] MEDS: FUROSEMIDE 10 MG/ML 4 ML VIAL IV SCH ×2 (09:55→20:44)
[2021-11-04] MEDS: ENOXAPARIN 40 MG/0.4 ML SYRINGE SQ SCH (09:55)
[2021-11-04] MEDS: LACTULOSE 20 GM/30 ML CUP PO SCH ×2 (09:56→20:44)
[2021-11-04] MEDS: PANTOPRAZOLE 40 MG/10 ML VIAL IVP SCH (09:56)
[2021-11-04] MEDS: ZINC SULFATE 220 MG CAP PO SCH (09:59)
[2021-11-04] MEDS: GABAPENTIN 400 MG CAP PO SCH ×3 (09:59→20:45)
[2021-11-04] MEDS ORDERED: ENOXAPARIN 40 MG/0.4 ML SYRINGE SQ STA (11:27)
[2021-11-04 12:55] VITALS: BMI 37.3
--- NOTE | 2021-11-04 13:27 | P.PN ---
Subjective Progress Note Date: 11/04/21 History of present illness 56-year-old male with past medical history of fibromyalgia comes in to emergency room with symptoms of nausea, vomiting, dizziness and sweating feeling weak in with runny nose loss of taste and hence now for the past 1 week. He presented on 10/19 was found to have positive COVID results. Received his monoclonal antibodies. He Came back to the emergency room because of worsening of symptoms.Vitals reviewed patient afebrile pulse 80 respiratory rate 20 blood pressure 138/82 saturating at 88% on 10 L labs reviewed WBC 6.6 hemoglobin 13.9 d-dimer is elevated at 0.89, sodium 135 bicarb 21 BUN 16 creatinine 1.3 glucose 187 ferritin 2822 AST 89 ALT 80 alkaline phosphatase 225 LDH 1091 and CRP 21 and albumin 3.3 X-ray suggestive of bilateral patchy pneumonia. Both interstitial and airspace infiltrate Pulmonary clinic consulted for COVID pneumonia Patient placed on Lovenox 40 subcu twice a day, vitamin C, D and zinc. Dexamethasone initiated at 6 mg twice a day IV Patient is a candidate of Baritinib and will discuss about initiating it with pulmonary Venous Doppler ordered 10/22: Patient is [facility] floor in follow-up. He continues to have dyspnea and is on 15 L high flow nasal cannula and nonrebreather with pulse ox of 87 and 95%. He's been afebrile, heart rate in the 60s and 70s, blood pressure 127/73. Pro-calcitonin came back high at 9.75 and we started the patient on Zosyn and vancomycin for bacterial pneumonia coverage. Patient has coarse crackles bilaterally. No lower extremity edema. He has been seen and followed by pulmonary medicine. Patient is not a candidate for Baricitinib. Patient is continued on Decadron, Lovenox and vitamin supplements. 10/23: Is found sitting up in the edge of the bed. He is currently not on a Ventimask. However his pulse oxing still around 88 to 91 % on Ventimask or 15 L high flow nasal cannula. Patient continues to have dyspnea with activity and speaking. Patient states that he is feeling much better compared to yesterday. Continues to have a cough. No lower extremity edema. He has rhonchi to the bases bilaterally. He is currently on Decadron Lovenox and vitamin supplements. Patient remains afebrile, heart rate 62, respirations 17, blood pressure 118/68 pulse ox 93% on 15 L high flow nasal cannula 10/24: Patient was up to the bathroom showering today. Awaiting inflammation markers today. Patient still requires 10 L of O2 with a pulse ox of 90%. Patient continues to have crackles to the bilateral bases. Dyspnea with activity and speaking. Patient states he is feeling better however he is very tired. Continues to have cough no lower extremity edema. He still currently on Decadron, Lovenox, and vitamin supplements. Patient remains afebrile, heart rate 58, respirations 17, blood pressure 118/89, 10/25: Patient is still on high flow nasal cannula 15 L and nonrebreather with pulse ox of 89 and 99%. He's been afebrile, heart rate 73, blood pressure 120/72. Creatinine 1.06. Blood sugars running between 101 and 106. Sputum culture is in progress. Patient is followed closely by pulmonary medicine. Patient is continued on dexamethasone, Lovenox, Zosyn and vitamin supplements. Patient has been encouraged to prone several hours daily. 10/26: Patient remains on nonrebreather mask and AirVo at 60 L, FiO2 of 85 with pulse ox of 88%. Appears to have more difficulty with breathing. Repeat chest x-ray reveals stable bilateral infiltrates. He has been afebrile, heart rate 59, blood pressure 102/59. Repeat d-dimer 1.53. Blood sugars are well controlled. 10/27: Patient remains on nonrebreather and AirVo with pulse ox at 90%. Patient was agreeable. He has been afebrile, heart rate 70, blood pressure 131/79. CBG running between 97 and 116 and CBGs and insulin will be discontinued. Sputum cultures positive for Mignon albicans. Patient is increasing his activity, currently laying in bed on his side. Lab work including inflammatory markers ordered for tomorrow. 10/28: Patient had a drop in his pulse ox and 78% with nonrebreather and AirVo and A-Team was called. Patient stated that his shortness of breath was better than the night before. Stat chest x-ray was done which revealed bilateral multifocal peripheral increased opacities consistent with Covid 19 infection are redemonstrated. No significant change. Patient transitioned to BiPAP with pulse ox of 90%. Patient verbalized that he wanted to be a no CODE STATUS and was encouraged to discuss with family. It was determined the patient will be transferred to the intensive care unit most likely be intubated. Patient was very resistant but after long discussion with Dr. Mark Anthony santo, patient agreed to intubation and full CODE STATUS at this point. Repeat blood work reveals WBC 9.4, hemoglobin 12.7, platelet count 263. D-dimer 1.31. Blood sugars 10/29: Patient was transferred into the intensive care unit yesterday and subsequently intubated and placed on mechanical ventilation, tidal volume 450, FiO2 100, PEEP of 20. Patient was prone this morning switched over to supine. He was started on tube feedings yesterday but had a high residual this morning after pronating. He is currently on fentanyl, propofol, Nimbex drip. One amp of bicarbonate given this morning. Chest x-ray reveals lateral multifocal confluent and increased opacities greatest in the periphery consistent with Covid 19 infection redemonstrated. No sicca be unchanged from one day earlier. CTA of the chest done yesterday reveals suboptimal study without saddle central pulmonary embolism. Cannot exclude smaller pulmonary emboli. Bilateral multifocal and confluent groundglass opacities and organizing consolidations consistent with known Covid 19 infection. Repeat blood work reveals WBC 13.1, hemoglobin 13.1, platelet count 381. D- dimer 1.17. Sodium 135, potassium 5.2, chloride 104, CO2 24, BUN 29 and creatinine 0.78. Capillary blood glucose running between 116 and 150s. AST 216. C-reactive protein 7.9, pro-calcitonin 0.15. 10/30: This is day #9 of admission, patient remains in ICU, still mechanically ventilated for hypoxemia, starting 10/29/2021, on Wade assist control, rate 32, PEEP of 20, FiO2 100%, dexamethasone 6 mg daily, electrolytes are stable, BUN 29 creatinine 0.84, x-ray shows bilateral multifocal opacities, consistent with Covid pneumonia, CT angiogram negative for PE, patient is on propofol, fentanyl and index vital HP, at 20 mL an hour 10/31: Patient remains in ICU, intubated, NG tube in place, chest x-ray shows no pneumothorax, no pleural effusion, there is bilateral patchy pulmonary interstitial infiltrates, with coalescent density in the left lower lobe. No significant change from yesterdayALT iscreatinine is 0.75, ALT is trending downward, C reactive protein is 8.0 from a previous of 8.9Lasix given today, on dexamethasone, and remains sedated. 11/01: Patient remains in the intensive care unit, intubated and on mechanical ventilation with FiO2 60% and PEEP of 20 with pulse ox of 87%. Patient is being prone for 16 hours per day. He is tolerating tube feedings. He has been started on lactulose this morning for constipation. He has been afebrile, heart rate 75, respiratory rate in the low 30s, blood pressure 148/65. Patient was started on Clevidipine gtt. he is also on propofol, fentanyl and Nimbex. No new concerns, patient seems to be fairly stable. 11/02: Patient remains in intensive care unit intubated and on mechanical ventilation with FiO2 of 65, tidal volume 450, PEEP of 20. Patient is being managed by the opal miner. Patient has not been prone today due to skin breakdown on his face. He is on tube feedings and tolerating. Patient has been afebrile, heart rate 102, blood pressure 151/71, pulse ox 85-89%. Repeat blood work reveals WBC 13.5, hemoglobin 12.2. Electrolytes normal. BUN 47 creatinine 1.05. ALT 124. C-reactive protein 19.8. D-dimer 1.09. The patient did not have a bowel movement after lactulose yesterday which is been repeated and Dulcolax suppository ordered for today. 11/03, patient remains in ICU, intubated and mechanically vented, is starting to have skin excoriations, in the face and with deep tissue injury chin area, from pronating position, for that reason, they have avoided pronating since yesterday. Patient's currently sedated, and is receiving fentanyl, and nimbex clevipres. ngt tolerated at 50 cch/r vital hp, inflammatory markers are still elevated, with LDH of 58, CRP of 19, still with bowel issues, they have increased lactulose to 20 mg twice a day, and Dulcolax suppository daily. No plans for weaning off the vent trials at this time, probably might end up in a trach PEG . 11/04 patient went into A. fib RVR last night, for which they have started him on amiodarone, which did not help, patient therefore was started on Cardizem drip, currently at 15 mics, still no bowel movement, despite Dulcolax and lactulose, we'll going to do half dose MiraLAX a day, and may repeat in 12 hours, patient is still no vent, with PEEP of 21 ROS Unable to obtain due to intubation Physical exam General Appearance: Patient is laying in the ICU bed, intubated and on mechanical ventilation. No acute distress. Patient appears to be comfortable. Full examination deferred to intensive this due to intubation and Covid 19. Assessment and plan 1. Acute hypoxic respiratory failure secondary to Covid 19 pneumonia. Consult with pulmonary medicine appreciated. Patient was intubated and placed on mechanical ventilation 10/28. Continue care in the intensive care unit, proning, currently on fentanyl, propofol and Nimbex. 2. Acute COVID pneumonia. Dexamethasone 6 mg IV once a day, Lovenox 40 subcu daily, Not a candidate for Baricitinib, Monitor inflammatory markers. Continue supplements vitamin C, D and zinc 3. Acute transaminitis Secondary to viral inflammation. Continue monitoring 4. CKD stage 3. Continue to monitor patient's creatinine. No acute kidney injury 5. History of fibromyalgia. continue gabapentin 800 3 times a day, Citalopram 40 mg by mouth daily 6. Insomnia. Was on Eszopiclone 3 mg daily at bedtime 7. Hypothyroidism. Levothyroxine 50 g by mouth daily 8. Hypertension. Patient started on Clevidipine gtt. 9. DVT prophylaxis. Lovenox 40 subcu daily. 10. GI prophylaxis. Protonix 40 mg IV push daily 11. Hyperglycemia secondary to steroids, IV drips, patient is on NovoLog scale. 12. Constipation. Lactulose 20 g daily and Vioxx suppository today. Prognosis guarded. Status: Full code Discharge Plan: To be determined. Intake & Output 11/01/21 11/02/21 11/03/21 11/04/21 06:59 06:59 06:59 06:59 Intake Total 2829.543 2908.489 3161.023 869.874 Output Total 2600 1440 3385 1515 Balance 229.543 498.489 -223.977 -645.126 Weight 121 kg 122 kg Current Medications Albuterol Sulfate (Albuterol Hfa Inhaler) 2 puff INHALATION RT-TID [facility] Last Admin: 11/03/21 11:52 Dose: 2 puff Documented by: Artificial Tears (Artificial Tears-Hypromellose Drops 15 Ml Btl) 1 drops BOTH EYES Q4H [facility] Last Admin: 11/03/21 12:38 Dose: 1 drops Documented by: Ascorbic Acid (Ascorbic Acid 500 Mg Tab) 1,000 mg PO DAILY [facility] Last Admin: 11/03/21 09:46 Dose: 1,000 mg Documented by: Bisacodyl (Bisacodyl 10 Mg Supp) 10 mg RECTAL DAILY [facility] Last Admin: 11/03/21 09:47 Dose: 10 mg Documented by: Chlorhexidine Gluconate (Chlorhexidine Gluconate 15 Ml Cup) 15 ml MUCOUS MEM BID [facility] Last Admin: 11/03/21 09:46 Dose: 15 ml Documented by: Cholecalciferol (Cholecalciferol 25 Mcg (1000 Iu) Tablet) 25 mcg PO DAILY [facility] Last Admin: 11/03/21 09:47 Dose: 25 mcg Documented by: Citalopram Hydrobromide (Citalopram Hydrobromide 20 Mg Tab) 40 mg PO DAILY [facility] Last Admin: 11/03/21 09:47 Dose: 40 mg Documented by: Dexamethasone Sodium Phosphate (Dexamethasone Sod Phosphate 10 Mg/Ml 1 Ml Vial) 6 mg IVP DAILY [facility] Last Admin: 11/03/21 09:47 Dose: 6 mg Documented by: Enoxaparin Sodium (Enoxaparin 40 Mg/0.4 Ml Syringe) 40 mg SQ DAILY [facility] Last Admin: 11/03/21 09:48 Dose: 40 mg Documented by: Furosemide (Furosemide 10 Mg/Ml 4 Ml Vial) 40 mg IV Q12HR [facility] Last Admin: 11/03/21 09:48 Dose: 40 mg Documented by: Gabapentin (Gabapentin 400 Mg Cap) 800 mg PO TID [facility] Last Admin: 11/03/21 09:46 Dose: 800 mg Documented by: Propofol 1,000 mg/ IV Solution 100 mls @ 0 mls/hr IV .Q0M [facility]; Protocol Last Admin: 11/03/21 11:52 Dose: 50 mcg/kg/min, 36.6 mls/hr Documented by: Fentanyl Citrate 1,000 mcg/ (Sodium Chloride) 100 mls @ 5.557 mls/hr IV .Q18H [facility]; Protocol Last Admin: 11/03/21 11:48 Dose: 2.5 mcg/kg/hr, 27.783 mls/hr Documented by: Cisatracurium Besylate 200 mg/ (Sodium Chloride) 200 mls @ 6.668 mls/hr IV .Q2 4H [facility]; Protocol Last Admin: 11/03/21 02:39 Dose: 3 mcg/kg/min, 20.003 mls/hr Documented by: Sodium Chloride (Saline 0.9%) 1,000 mls @ 20 mls/hr IV .Q24H [facility] Last Admin: 11/02/21 21:07 Dose: 20 mls/hr Documented by: Clevidipine 25 mg/ IV Solution 50 mls @ 2 mls/hr IV .Q24H [facility]; Protocol Last Admin: 11/03/21 12:40 Dose: 8 mg/hr, 16 mls/hr Documented by: Insulin Aspart (Insulin Aspart (Novolog) 100 Unit/Ml Vial) 0 unit SQ Q6H [facility]; Protocol Last Admin: 11/03/21 12:39 Dose: 3 unit Documented by: Lactulose (Lactulose 20 Gm/30 Ml Cup) 20 gm PO BID [facility] Levothyroxine Sodium (Levothyroxine 50 Mcg Tab) 50 mcg PO 0630 [facility] Last Admin: 11/03/21 05:46 Dose: 50 mcg Documented by: Metoclopramide HCl (Metoclopramide 5 Mg/Ml 2 Ml Vial) 10 mg IVP Q6HR [facility] Last Admin: 11/03/21 12:39 Dose: 10 mg Documented by: Pantoprazole Sodium (Pantoprazole 40 Mg/10 Ml Vial) 40 mg IVP DAILY [facility] Last Admin: 11/03/21 09:48 Dose: 40 mg Documented by: Zinc Sulfate (Zinc Sulfate 220 Mg Cap) 220 mg PO DAILY [facility] Last Admin: 11/03/21 09:47 Dose: 220 mg Documented by: Laboratory Results - Last 24 Hours 11/02/21 11/02/21 11/03/21 17:34 23:44 04:00 WBC 14.9 H RBC 4.22 L Hgb 12.8 L Hct 40.5 MCV 96.0 MCH 30.2 MCHC 31.5 RDW 13.6 Plt Count 449 MPV 9.0 Neutrophils % 90 Lymphocytes % 4 Monocytes % 6 Eosinophils % 0 Basophils % 0 Neutrophils # 13.3 H Lymphocytes # 0.5 L Monocytes # 0.8 Eosinophils # 0.1 Basophils # 0.0 Hypochromasia Slight Sample Site ABG pH ABG pCO2 ABG pO2 ABG HCO3 ABG Total CO2 ABG O2 Saturation ABG Base Excess Palomo Test FiO2 Sodium Potassium Chloride Carbon Dioxide Anion Gap BUN Creatinine Est GFR (CKD-EPI)AfAm Est GFR (CKD-EPI)NonAf Glucose POC Glucose (mg/dL) 137 H 135 H POC Glu Senior [employer] Adf Developer ID Pauly Day [place] Calcium Total Bilirubin AST ALT Alkaline Phosphatase Total Protein Albumin 11/03/21 11/03/21 11/03/21 04:00 05:19 07:53 WBC RBC Hgb Hct MCV MCH MCHC RDW Plt Count MPV Neutrophils % Lymphocytes % Monocytes % Eosinophils % Basophils % Neutrophils # Lymphocytes # Monocytes # Eosinophils # Basophils # Hypochromasia Sample Site coreen ABG pH 7.36 ABG pCO2 66 H ABG pO2 61 L ABG HCO3 37 H ABG Total CO2 39 H ABG O2 Saturation 91.5 L ABG Base Excess 11.5 Palomo Test Yes FiO2 65 Sodium 140 Potassium 5.0 Chloride 102 Carbon Dioxide 36 H Anion Gap 2 BUN 50 H Creatinine 1.01 Est GFR (CKD-EPI)AfAm >90 Est GFR (CKD-EPI)NonAf 82 Glucose 138 H POC Glucose (mg/dL) 124 H POC Glu Senior [employer] Adf Developer ID Calcium 8.8 Total Bilirubin 0.7 AST 41 ALT 119 H Alkaline Phosphatase 129 H Total Protein 6.3 Albumin 2.7 L 11/03/21 11/03/21 10:12 12:04 WBC RBC Hgb Hct MCV MCH MCHC RDW Plt Count MPV Neutrophils % Lymphocytes % Monocytes % Eosinophils % Basophils % Neutrophils # Lymphocytes # Monocytes # Eosinophils # Basophils # Hypochromasia Sample Site ABG pH ABG pCO2 ABG pO2 ABG HCO3 ABG Total CO2 ABG O2 Saturation ABG Base Excess Palomo Test FiO2 Sodium Potassium Chloride Carbon Dioxide Anion Gap BUN Creatinine Est GFR (CKD-EPI)AfAm Est GFR (CKD-EPI)NonAf Glucose POC Glucose (mg/dL) 154 H 170 H POC Glu Senior [employer] Adf Developer ID Mary Carmen Hou Caitlin Calcium Total Bilirubin AST ALT Alkaline Phosphatase Total Protein Albumin Objective - Vital Signs Vital signs: Vital Signs Temp 98.7 F 11/04/21 04:00 Pulse 147 H 11/04/21 07:00 Resp 32 H 11/04/21 07:00 BP 106/63 11/04/21 05:00 Pulse Ox 86 L 11/04/21 07:00 Intake & Output 11/03/21 11/04/21 11/04/21 18:59 06:59 18:59 Intake Total 0555.695 7790.607 426.137 Output Total 1915 1670 60 Balance -234.395 35.607 366.137 Weight 121.5 kg 121.5 kg Intake: IV 276 276 23 Normal Saline 0.9 36 36 3 Pressure Bag @ 3mL/hr Sodium Chloride 0.9% 1, 240 240 20 000 ml @ 20 mls/hr IV . Q24H [facility] Rx#:[id number] Intake, IV Titration 8339.939 5832.607 388.137 Amount Cisatracurium 200 mg In 200 179.027 199.697 Sodium Chloride 0.9% 180 ml @ 1 MCG/KG/MIN 6.668 mls/hr IV .Q24H [facility] Rx#: [id number] Clevidipine Butyrate 25 170.668 137.133 0 mg In Empty Bag 1 bag @ 1 MG/HR 2 mls/hr IV .Q24H [facility] Rx#:[id number] Diltiazem 125 mg In 41.250 Sodium Chloride 0.9% 100 ml @ 5 MG/HR 5 mls/hr IV .Q24H [facility] Rx#:[id number] fentaNYL (PF). 1,000 mcg 381.072 289.407 188.44 In Sodium Chloride 0.9% 80 ml @ 0.5 MCG/KG/HR 5. 557 mls/hr IV .Q18H [facility] Rx#:[id number] propofoL 1,000 mg In 292.865 467.79 Empty Bag 1 bag @ Titrate IV .Q0M [facility] Rx#: [id number] Tube Feeding 180 180 15 Other 180 135 Output: Urine 1914 1670 60 Other: Voiding Method Indwelling Catheter Indwelling Catheter ABP, PAP, CO, CI - Last Documented Arterial Blood Pressure 140/76 - Labs CBC & Chem 7: 11/04/21 04:00 11/04/21 04:00 Labs: Abnormal Lab Results - Last 24 Hours (Table) 11/03/21 11/03/21 11/03/21 Range/Units 17:43 22:35 23:18 RBC (4.30-5.90) m/uL Hgb (13.0-17.5) gm/dL Hct (39.0-53.0) % MCHC (31.0-37.0) g/dL Neutrophils # (1.3-7.7) k/uL Lymphocytes # (1.0-4.8) k/uL ABG pCO2 (35-45) mmHg ABG pO2 (83-108) mmHg ABG HCO3 (21-25) mmol/L ABG Total CO2 (19-24) mmol/L ABG O2 Saturation (94-97) % Carbon Dioxide (22-30) mmol/L BUN (9-20) mg/dL Glucose (74-99) mg/dL POC Glucose (mg/dL) 141 H 134 H (75-99) mg/dL Magnesium 2.6 H (1.6-2.3) mg/dL ALT (4-49) U/L Total Protein (6.3-8.2) g/dL Albumin (3.5-5.0) g/dL 11/04/21 11/04/21 11/04/21 Range/Units 04:00 04:00 05:39 RBC 3.91 L (4.30-5.90) m/uL Hgb 11.7 L (13.0-17.5) gm/dL Hct 37.9 L (39.0-53.0) % MCHC 30.9 L (31.0-37.0) g/dL Neutrophils # 8.5 H (1.3-7.7) k/uL Lymphocytes # 0.8 L (1.0-4.8) k/uL ABG pCO2 (35-45) mmHg ABG pO2 (83-108) mmHg ABG HCO3 (21-25) mmol/L ABG Total CO2 (19-24) mmol/L ABG O2 Saturation (94-97) % Carbon Dioxide 38 H (22-30) mmol/L BUN 50 H (9-20) mg/dL Glucose 109 H (74-99) mg/dL POC Glucose (mg/dL) 101 H (75-99) mg/dL Magnesium (1.6-2.3) mg/dL ALT 107 H (4-49) U/L Total Protein 5.7 L (6.3-8.2) g/dL Albumin 2.5 L (3.5-5.0) g/dL 11/04/21 Range/Units 05:42 RBC (4.30-5.90) m/uL Hgb (13.0-17.5) gm/dL Hct (39.0-53.0) % MCHC (31.0-37.0) g/dL Neutrophils # (1.3-7.7) k/uL Lymphocytes # (1.0-4.8) k/uL ABG pCO2 70 H (35-45) mmHg ABG pO2 57 L* (83-108) mmHg ABG HCO3 39 H (21-25) mmol/L ABG Total CO2 42 H (19-24) mmol/L ABG O2 Saturation 88.6 L (94-97) % Carbon Dioxide (22-30) mmol/L BUN (9-20) mg/dL Glucose (74-99) mg/dL POC Glucose (mg/dL) (75-99) mg/dL Magnesium (1.6-2.3) mg/dL ALT (4-49) U/L Total Protein (6.3-8.2) g/dL Albumin (3.5-5.0) g/dL Microbiology - Last 24 Hours (Table) 11/02/21 14:55 Gram Stain - Preliminary Sputum Sputum Culture - Preliminary Presumptive Staph aureus Mignon albicans
[2021-11-04 13:39] LABS: Glucose,Whole Blood 166 mg/dL (75-99)
[2021-11-04] MEDS: CEFEPIME 2 GM in SODIUM CHLORIDE 0.9% 100 ML IVPB SCH ×2 (13:53→21:25)
--- NOTE | 2021-11-04 15:16 | P.PN ---
Subjective Progress Note Date: 11/04/21 Principal diagnosis: Acute hypoxic history failure secondary to COVID-19 pneumonia On 11/03/2021 patient seen in follow-up in the intensive care unit, he remains intubated, sedated and paralyzed on assist-control mode of ventilation with a rate of 35, tidal M is 450, FiO2 65% and PEEP of 20, his peak air pressure is 35, plateau pressure is 40. This morning's blood gas shows pO2 of 61, pCO2 of 66, and pH of 7.36, this was done on the above-mentioned vent settings. Today's chest x-ray has been reviewed showing stable diffuse bilateral infiltrates, and interval development of subcutaneous emphysema involving the soft tissues of the neck, there is small amount of pneumomediastinum not excluded. She is currently on Diprivan at 50 mics per kilo per minute, fentanyl at 2.5 mics per kilo per minute, Nimbex is at 3 mics per kilo per minute, Cleviprex of the 5 mg per hour. He is tolerating tube feedings with vital HP at a rate of 15 with standard water flushes. No fever or chills overnight, he is not requiring any vasopressor support, he is actually been a bit hypertensive requiring Cleviprex infusion, currently his blood pressure is better controlled and is 153/68 with a mean of 92. Patient has not been prone for last 48 hours related to development of deep tissue injury on his face. Today's labs show white blood cell count of 14.9, hemoglobin of 12.8, platelet count is 449, sodium is 140, potassium is 5.0, chloride is 102, CO2 36, B1 is 50, creatinine is 1.01, his AST is 41, ALT is 119, alk phos is 129. His last set of inflammatory markers from yesterday showed LDH of 564, and CRP of 19.8, today's set of inflammatory markers is still pending. Patient has been receiving lactulose and Reglan, he has not had a bowel movement in several days, and we will increase his lactulose, she also remains on Lasix 40 mg twice daily however she is still does daily in negative fluid balance over the last 24 hours of -223 mL. Very today on 11/04/21, patient remains in the ICU, intubated and mechanically ventilated. Patient is on assist control rate of 32 tidal volume 450 FiO2 70% PEEP is at 20. ABG is marginal although the patient is on relatively high FiO2 and high PEEP. Patient has a pO2 of 57 pCO2 of 70 pH of 7.36. His electrolytes are normal renal profile showed a BUN of 50 creatinine 0.95. WBC count is 10.7 hemoglobin is 11.7. Chest x-ray continues to show bilateral interstitial infiltrates consistent with COVID-19 pneumonia. Patient is on multiple drips including Cleviprex at 3 mg per hour, he is on Cardizem at 15 mg per hour propofol at 50 fentanyl 3 mcg/kg/h Nimbex at 3 mcg/kg/m. He is on 0.9 normal saline at KVO. Yesterday the patient developed atrial fibrillation with RVR, and today I increased his Lovenox to 80 mg subcu twice a day, converted to sinus rhythm and early this morning. Patient is on enteral feeding. It is up to goal. Overall clinical status is extremely marginal. Remains on cefepime empirically. Remains on the COVID-19 cocktail. Lovenox was increased to 80 mg subcu twice a day, Azopt Protonix 40 mg IV push daily. And he is also on zinc. Lasix is given at 40 mg IV push every 12 hours. Objective - Vital Signs Vital signs: Vital Signs Temp 98.7 F 11/04/21 04:00 Pulse 147 H 11/04/21 07:00 Resp 32 H 11/04/21 07:00 BP 106/63 11/04/21 05:00 Pulse Ox 86 L 11/04/21 07:00 Intake & Output 11/03/21 11/04/21 11/04/21 18:59 06:59 18:59 Intake Total 8053.906 1669.607 526.137 Output Total 1915 1670 60 Balance -234.395 35.607 466.137 Weight 121.5 kg 121.5 kg Intake: IV 276 276 23 Normal Saline 0.9 36 36 3 Pressure Bag @ 3mL/hr Sodium Chloride 0.9% 1, 240 240 20 000 ml @ 20 mls/hr IV . Q24H [facility] Rx#:[id number] Intake, IV Titration 8835.916 5440.607 488.137 Amount Cisatracurium 200 mg In 200 179.027 199.697 Sodium Chloride 0.9% 180 ml @ 1 MCG/KG/MIN 6.668 mls/hr IV .Q24H [facility] Rx#: [id number] Clevidipine Butyrate 25 170.668 137.133 0 mg In Empty Bag 1 bag @ 1 MG/HR 2 mls/hr IV .Q24H [facility] Rx#:[id number] Diltiazem 125 mg In 41.250 Sodium Chloride 0.9% 100 ml @ 5 MG/HR 5 mls/hr IV .Q24H [facility] Rx#:[id number] fentaNYL (PF). 1,000 mcg 381.072 289.407 288.44 In Sodium Chloride 0.9% 80 ml @ 0.5 MCG/KG/HR 5. 557 mls/hr IV .Q18H [facility] Rx#:[id number] propofoL 1,000 mg In 292.865 467.79 Empty Bag 1 bag @ Titrate IV .Q0M [facility] Rx#: [id number] Tube Feeding 180 180 15 Other 180 135 Output: Urine 1915 1670 60 Other: Voiding Method Indwelling Catheter Indwelling Catheter ABP, PAP, CO, CI - Last Documented Arterial Blood Pressure 140/76 - Exam GENERAL EXAM: Revealed 56-year-old white male intubated mechanically ventilated, sedated and paralyzed. HEAD: Normocephalic/atraumatic. EYES: PERRLA, CT, nonicteric, no neck masses NOSE: Clear with pink turbinates. THROAT: No erythema or exudates. NECK: No masses, no JVD, no thyroid enlargement, no adenopathy. CHEST: Symmetrical chest expansion, crackles at the bases. CVS: Regular rate and rhythm, normal S1 and S2, no gallops, no murmurs, no rubs ABDOMEN: Soft, nontender. No hepatosplenomegaly, normal bowel sounds, no guarding or rigidity. EXTREMITIES: No clubbing, trace of bipedal edema, no cyanosis, 2+ pulses and upper and lower extremities. SKIN: No rashes CENTRAL NERVOUS SYSTEM: Sedated, paralyzed, unable to assess. - Labs CBC & Chem 7: 11/04/21 04:00 11/04/21 04:00 Labs: Abnormal Lab Results - Last 24 Hours (Table) 11/03/21 11/03/21 11/03/21 Range/Units 17:43 22:35 23:18 RBC (4.30-5.90) m/uL Hgb (13.0-17.5) gm/dL Hct (39.0-53.0) % MCHC (31.0-37.0) g/dL Neutrophils # (1.3-7.7) k/uL Lymphocytes # (1.0-4.8) k/uL ABG pCO2 (35-45) mmHg ABG pO2 (83-108) mmHg ABG HCO3 (21-25) mmol/L ABG Total CO2 (19-24) mmol/L ABG O2 Saturation (94-97) % Carbon Dioxide (22-30) mmol/L BUN (9-20) mg/dL Glucose (74-99) mg/dL POC Glucose (mg/dL) 141 H 134 H (75-99) mg/dL Magnesium 2.6 H (1.6-2.3) mg/dL ALT (4-49) U/L Total Protein (6.3-8.2) g/dL Albumin (3.5-5.0) g/dL 11/04/21 11/04/21 11/04/21 Range/Units 04:00 04:00 05:39 RBC 3.91 L (4.30-5.90) m/uL Hgb 11.7 L (13.0-17.5) gm/dL Hct 37.9 L (39.0-53.0) % MCHC 30.9 L (31.0-37.0) g/dL Neutrophils # 8.5 H (1.3-7.7) k/uL Lymphocytes # 0.8 L (1.0-4.8) k/uL ABG pCO2 (35-45) mmHg ABG pO2 (83-108) mmHg ABG HCO3 (21-25) mmol/L ABG Total CO2 (19-24) mmol/L ABG O2 Saturation (94-97) % Carbon Dioxide 38 H (22-30) mmol/L BUN 50 H (9-20) mg/dL Glucose 109 H (74-99) mg/dL POC Glucose (mg/dL) 101 H (75-99) mg/dL Magnesium (1.6-2.3) mg/dL ALT 107 H (4-49) U/L Total Protein 5.7 L (6.3-8.2) g/dL Albumin 2.5 L (3.5-5.0) g/dL 11/04/21 11/04/21 Range/Units 05:42 13:37 RBC (4.30-5.90) m/uL Hgb (13.0-17.5) gm/dL Hct (39.0-53.0) % MCHC (31.0-37.0) g/dL Neutrophils # (1.3-7.7) k/uL Lymphocytes # (1.0-4.8) k/uL ABG pCO2 70 H (35-45) mmHg ABG pO2 57 L* (83-108) mmHg ABG HCO3 39 H (21-25) mmol/L ABG Total CO2 42 H (19-24) mmol/L ABG O2 Saturation 88.6 L (94-97) % Carbon Dioxide (22-30) mmol/L BUN (9-20) mg/dL Glucose (74-99) mg/dL POC Glucose (mg/dL) 166 H (75-99) mg/dL Magnesium (1.6-2.3) mg/dL ALT (4-49) U/L Total Protein (6.3-8.2) g/dL Albumin (3.5-5.0) g/dL Microbiology - Last 24 Hours (Table) 11/02/21 14:55 Gram Stain - Preliminary Sputum Sputum Culture - Preliminary Presumptive Staph aureus Mignon albicans Assessment and Plan Assessment: Impression: Acute hypoxic respiratory failure secondary COVID-19 pneumonia, patient received monoclonal antibody infusion on 10/19, was not a candidate for Remdesivir the cause of his acute hypoxic respiratory failure, not a candidate for Baricitinib because of underlying bacterial infection possibility. Patient was admitted to the ICU on 10/28 and intubated on 10/28 remains intubated and mechanically ventilated. Patient is developing a picture of ARDS. This is ARDS secondary to COVID-19 pneumonia. Elevated pro calcitonin level, patient was treated empirically with Zosyn cultures have been nondiagnostic. Elevated inflammatory markers second COVID-19 pneumonia Elevated d-dimer but negative workup for pulmonary embolism New-onset atrial fibrillation with RVR on 11/03 requiring Cardizem drip and now on higher dose of Lovenox. History of fibromyalgia. Lifetime nonsmoker. Acute kidney injury secondary COVID-19 pneumonia improving History of hypothyroidism Deep tissue injury to Chin from chronic position, no more prone done. Pneumomediastinum with subcutaneous emphysema in the neck. This is a complication of COVID-19 infection. Recommendation: Continue ventilatory support, remains on high PEEP of 20, FiO2 is high at 70% rate is 3 to tell volume 450. Continue sedation and paralysis Continue fentanyl Continue Lasix 40 mg twice a day Continue clevidipine Continue enteral feeding/nutritional support. Continue lactulose Continue to monitor inflammatory markers Continue GI and DVT prophylaxis Continue to monitor x-rays ABGs and labs on a daily basis. Overall prognosis remains extremely poor and guarded Continue COVID-19 cocktail. Critical care time is over 30 minutes Time with Patient: Greater than 30
[2021-11-04 17:56] LABS: Glucose,Whole Blood 154 mg/dL (75-99)
[2021-11-04] MEDS: ENOXAPARIN 80 MG/0.8 ML SYRINGE SQ SCH (20:45)
[2021-11-04] MEDS: SODIUM CHLORIDE 0.9% 1,000 ML IV SCH (21:24)
[2021-11-04 23:42] LABS: Glucose,Whole Blood 134 mg/dL (75-99)
[2021-11-05] MEDS: fentaNYL (PF). 1,000 MCG in SODIUM CHLORIDE 0.9% 80 ML IV SCH ×8 (00:13→20:57)
[2021-11-05] MEDS: DILTIAZEM 125 MG in SODIUM CHLORIDE 0.9% 100 ML IV SCH ×3 (01:02→20:36)
[2021-11-05] MEDS: ARTIFICIAL TEARS-HYPROMELLOSE DROPS 15 ML BTL BOTH EYES SCH ×5 (03:16→20:39)
[2021-11-05] MEDS: CISATRACURIUM 200 MG in SODIUM CHLORIDE 0.9% 180 ML IV SCH ×2 (04:19→15:55)
[2021-11-05 04:59] LABS: HCT 38.7 % (39.0-53.0); HGB 12.1 gm/dL (13.0-17.5); MCH 30.3 pg (25.0-35.0); MCHC 31.1 g/dL (31.0-37.0); MCV 97.3 fL (80.0-100.0); RBC 3.98 m/uL (4.30-5.90); WBC 14.6 k/uL (3.8-10.6)
[2021-11-05 05:00] LABS: Basophils % (A) 0 %; Eosinophils % (A) 0 %; Hypochromasia Slight; Lymphocytes # (A) 0.7 k/uL (1.0-4.8); Lymphocytes % (A) 4 %; Monocytes # (A) 0.9 k/uL (0-1.0); Monocytes % (A) 6 %; Neutrophils # (A) 12.8 k/uL (1.3-7.7); Neutrophils % (A) 88 %; Platelet Count 385 k/uL (150-450); RDW 13.8 % (11.5-15.5)
[2021-11-05 05:34] LABS: Albumin 2.8 g/dL (3.5-5.0); Calcium 8.8 mg/dL (8.4-10.2); Potassium 4.8 mmol/L (3.5-5.1); Total Bilirubin 0.7 mg/dL (0.2-1.3); Total Protein 6.3 g/dL (6.3-8.2)
[2021-11-05 05:45] LABS: Glucose,Whole Blood 116 mg/dL (75-99)
[2021-11-05] MEDS: METOCLOPRAMIDE 5 MG/ML 2 ML VIAL IVP SCH ×3 (05:47→18:04)
[2021-11-05] MEDS: INSULIN ASPART (NovoLOG) 100 UNIT/ML VIAL SQ SCH ×3 (05:47→18:28)
[2021-11-05] MEDS ORDERED: polyethylene glycoL 3350 17 GM POWD.PACK PO ONE (06:00)
[2021-11-05 06:01] LABS: ABG Base Excess 15.2 mmol/L; ABG PCO2 69 mmHg (35-45); ABG PH 7.38 (7.35-7.45); ABG TCO2 43 mmol/L (19-24)
--- NOTE | 2021-11-05 06:04 | XR ---
EXAMINATION TYPE: XR chest 1V portable DATE OF EXAM: 11/05/2021 CLINICAL HISTORY: Difficulty breathing progress study. TECHNIQUE: Single AP portable semiupright view of the chest is obtained. COMPARISON: Chest x-ray from one day earlier and older studies FINDINGS: Stable endotracheal and orogastric tubes. Stable left subclavian central venous catheter. Persistent bilateral multifocal and confluent increased opacities greatest in the periphery redemonst rated. Cardiac silhouette size is stable and within normal limits. Osseous structures are intact. Rig ht-sided supraclavicular subcutaneous air is redemonstrated. IMPRESSION: Bilateral multifocal and confluent increased opacities greatest in the periphery consiste nt with covid-19 infection and/or fibrotic change are redemonstrated. No significant change from one day earlier.
[2021-11-05 06:10] LABS: ABG HCO3 40 mmol/L (21-25); ABG PO2 58 mmHg (83-108)
[2021-11-05 06:11] LABS: Allen Test Performed? no
[2021-11-05] MEDS: LEVOTHYROXINE 50 MCG TAB PO SCH (06:49)
[2021-11-05] MEDS: CLEVIDIPINE BUTYRATE 25 MG in EMPTY BAG 1 BAG IV SCH ×4 (06:53→23:32)
[2021-11-05] MEDS: ALBUTEROL HFA INHALER INHALATION SCH ×3 (08:10→20:25)
[2021-11-05] MEDS: PANTOPRAZOLE 40 MG/10 ML VIAL IVP SCH (08:53)
[2021-11-05] MEDS: ZINC SULFATE 220 MG CAP PO SCH (08:56)
[2021-11-05] MEDS: LACTULOSE 20 GM/30 ML CUP PO SCH ×2 (08:56→20:36)
[2021-11-05] MEDS: ASCORBIC ACID 500 MG TAB PO SCH (08:58)
[2021-11-05] MEDS: bisacodyL 10 MG SUPP RECTAL SCH (08:59)
[2021-11-05] MEDS: CHLORHEXIDINE GLUCONATE 15 ML CUP MUCOUS MEM SCH ×2 (08:59→20:36)
[2021-11-05] MEDS: CEFEPIME 2 GM in SODIUM CHLORIDE 0.9% 100 ML IVPB SCH ×2 (08:59→20:39)
[2021-11-05] MEDS: CHOLECALCIFEROL 25 MCG (1000 IU) TABLET PO SCH (08:59)
[2021-11-05] MEDS: DEXAMETHASONE SOD PHOSPHATE 10 MG/ML 1 ML VIAL IVP SCH (08:59)
[2021-11-05] MEDS: CITALOPRAM HYDROBROMIDE 20 MG TAB PO SCH (08:59)
[2021-11-05] MEDS: GABAPENTIN 400 MG CAP PO SCH ×3 (09:00→20:37)
[2021-11-05] MEDS: FUROSEMIDE 10 MG/ML 4 ML VIAL IV SCH ×2 (09:04→20:37)
[2021-11-05] MEDS: ENOXAPARIN 80 MG/0.8 ML SYRINGE SQ SCH ×2 (09:23→20:36)
[2021-11-05 11:44] LABS: Glucose,Whole Blood 150 mg/dL (75-99)
--- NOTE | 2021-11-05 12:22 | P.PN ---
Subjective Progress Note Date: 11/05/21 Principal diagnosis: Acute hypoxic history failure secondary to COVID-19 pneumonia On 11/03/2021 patient seen in follow-up in the intensive care unit, he remains intubated, sedated and paralyzed on assist-control mode of ventilation with a rate of 35, tidal M is 450, FiO2 65% and PEEP of 20, his peak air pressure is 35, plateau pressure is 40. This morning's blood gas shows pO2 of 61, pCO2 of 66, and pH of 7.36, this was done on the above-mentioned vent settings. Today's chest x-ray has been reviewed showing stable diffuse bilateral infiltrates, and interval development of subcutaneous emphysema involving the soft tissues of the neck, there is small amount of pneumomediastinum not excluded. She is currently on Diprivan at 50 mics per kilo per minute, fentanyl at 2.5 mics per kilo per minute, Nimbex is at 3 mics per kilo per minute, Cleviprex of the 5 mg per hour. He is tolerating tube feedings with vital HP at a rate of 15 with standard water flushes. No fever or chills overnight, he is not requiring any vasopressor support, he is actually been a bit hypertensive requiring Cleviprex infusion, currently his blood pressure is better controlled and is 153/68 with a mean of 92. Patient has not been prone for last 48 hours related to development of deep tissue injury on his face. Today's labs show white blood cell count of 14.9, hemoglobin of 12.8, platelet count is 449, sodium is 140, potassium is 5.0, chloride is 102, CO2 36, B1 is 50, creatinine is 1.01, his AST is 41, ALT is 119, alk phos is 129. His last set of inflammatory markers from yesterday showed LDH of 564, and CRP of 19.8, today's set of inflammatory markers is still pending. Patient has been receiving lactulose and Reglan, he has not had a bowel movement in several days, and we will increase his lactulose, she also remains on Lasix 40 mg twice daily however she is still does daily in negative fluid balance over the last 24 hours of -223 mL. Very today on 11/04/21, patient remains in the ICU, intubated and mechanically ventilated. Patient is on assist control rate of 32 tidal volume 450 FiO2 70% PEEP is at 20. ABG is marginal although the patient is on relatively high FiO2 and high PEEP. Patient has a pO2 of 57 pCO2 of 70 pH of 7.36. His electrolytes are normal renal profile showed a BUN of 50 creatinine 0.95. WBC count is 10.7 hemoglobin is 11.7. Chest x-ray continues to show bilateral interstitial infiltrates consistent with COVID-19 pneumonia. Patient is on multiple drips including Cleviprex at 3 mg per hour, he is on Cardizem at 15 mg per hour propofol at 50 fentanyl 3 mcg/kg/h Nimbex at 3 mcg/kg/m. He is on 0.9 normal saline at KVO. Yesterday the patient developed atrial fibrillation with RVR, and today I increased his Lovenox to 80 mg subcu twice a day, converted to sinus rhythm and early this morning. Patient is on enteral feeding. It is up to goal. Overall clinical status is extremely marginal. Remains on cefepime empirically. Remains on the COVID-19 cocktail. Lovenox was increased to 80 mg subcu twice a day, Azopt Protonix 40 mg IV push daily. And he is also on zinc. Lasix is given at 40 mg IV push every 12 hours. Reevaluated today on 11/05/21, patient remains in the ICU intubated and mechanically ventilated. Not showing much of an improvement over the last 24 hours. Remains on assist control rate of 32. Tidal volume of 450 FiO2 70% PEEP is still high/20. ABG is marginal with a pO2 of 58 pCO2 of 69 pH of 7.39. Elisabet ent remains on propofol at 50 fentanyl 3 Nimbex at 2.5 , Cleviprex S3 milligrams per hour. His plateau pressure is 33 and peak airway pressure is in the high 30s. Dimer is 0.58 BUN is 48 creatinine 1.11. There is 14.6 hemoglobin is 12.1. X-ray continues to show multifocal infiltrates consistent with COVID-19 pneumonia. Liver enzymes remain elevated with alkaline phosphatase of 149 ALT of 134 AST of 63. Patient remains on Cardizem drip and he is now in sinus rhythm, his drip is at 5 mg per hour. Remains on cefepime empirically. Remains on the COVID-19 cocktail. Remains on Decadron 6 mg of push daily and Protonix as well as Lovenox 40 mg subcu daily. Remains on Lasix 40 mg IV push twice a day. He is also on lactulose 20 mg twice a day. And Reglan was added today. No bowel movements in the last few days Objective - Vital Signs Vital signs: Vital Signs Temp 99.6 F 11/05/21 04:00 Pulse 93 11/05/21 07:00 Resp 32 H 11/05/21 07:00 BP 106/63 11/04/21 05:00 Pulse Ox 88 L 11/05/21 07:00 Intake & Output 11/04/21 11/05/21 11/05/21 18:59 06:59 18:59 Intake Total 6653.711 1422.470 248 Output Total 1910 1785 80 Balance -119.537 -22.530 168 Weight 121.5 kg Intake: IV 422 376 23 Cefepime 2 gm In Sodium 100 100 Chloride 0.9% 100 ml @ 25 mls/hr IVPB Q12HR [facility] Rx #:[id number] Normal Saline 0.9 42 36 3 Pressure Bag @ 3mL/hr Sodium Chloride 0.9% 1, 280 240 20 000 ml @ 20 mls/hr IV . Q24H [facility] Rx#:[id number] Intake, IV Titration 978.463 996.470 225 Amount Cisatracurium 200 mg In 394.726 192.696 Sodium Chloride 0.9% 180 ml @ 1 MCG/KG/MIN 6.668 mls/hr IV .Q24H [facility] Rx#: [id number] Clevidipine Butyrate 25 26.533 50 mg In Empty Bag 1 bag @ 1 MG/HR 2 mls/hr IV .Q24H [facility] Rx#:[id number] Diltiazem 125 mg In 83.75 125 Sodium Chloride 0.9% 100 ml @ 5 MG/HR 5 mls/hr IV .Q24H [facility] Rx#:[id number] fentaNYL (PF). 1,000 mcg 373.454 374.474 100 In Sodium Chloride 0.9% 80 ml @ 0.5 MCG/KG/HR 5. 557 mls/hr IV .Q18H [facility] Rx#:[id number] propofoL 1,000 mg In 100 379.3 Empty Bag 1 bag @ Titrate IV .Q0M [facility] Rx#: [id number] Tube Feeding 210 150 Other 180 240 Output: Urine 1910 1785 80 Other: Voiding Method Indwelling Catheter Indwelling Catheter ABP, PAP, CO, CI - Last Documented Arterial Blood Pressure 145/59 - Exam GENERAL EXAM: Revealed 56-year-old white male intubated mechanically ventilated, sedated and paralyzed. HEAD: Normocephalic/atraumatic. Cellulitis noted in the chin area related to recent prone position especially on the left side. EYES: PERRLA, NM, nonicteric, no neck masses NOSE: Clear with pink turbinates. THROAT: No erythema or exudates. NECK: No masses, no JVD, no thyroid enlargement, no adenopathy. CHEST: Symmetrical chest expansion, crackles at the bases. CVS: Regular rate and rhythm, normal S1 and S2, no gallops, no murmurs, no rubs ABDOMEN: Soft, nontender. No hepatosplenomegaly, normal bowel sounds, no guarding or rigidity. EXTREMITIES: No clubbing, trace of bipedal edema, no cyanosis, 2+ pulses and upper and lower extremities. SKIN: No rashes CENTRAL NERVOUS SYSTEM: Sedated, paralyzed, unable to assess. - Labs CBC & Chem 7: 11/05/21 04:10 11/05/21 04:10 Labs: Abnormal Lab Results - Last 24 Hours (Table) 11/04/21 11/04/21 11/04/21 Range/Units 13:37 17:54 23:40 WBC (3.8-10.6) k/uL RBC (4.30-5.90) m/uL Hgb (13.0-17.5) gm/dL Hct (39.0-53.0) % Neutrophils # (1.3-7.7) k/uL Lymphocytes # (1.0-4.8) k/uL ABG pCO2 (35-45) mmHg ABG pO2 (83-108) mmHg ABG HCO3 (21-25) mmol/L ABG Total CO2 (19-24) mmol/L ABG O2 Saturation (94-97) % Sodium (137-145) mmol/L Carbon Dioxide (22-30) mmol/L BUN (9-20) mg/dL Glucose (74-99) mg/dL POC Glucose (mg/dL) 166 H 154 H 134 H (75-99) mg/dL AST (17-59) U/L ALT (4-49) U/L Alkaline Phosphatase (38-126) U/L Albumin (3.5-5.0) g/dL 11/05/21 11/05/21 11/05/21 Range/Units 04:10 04:10 05:43 WBC 14.6 H (3.8-10.6) k/uL RBC 3.98 L (4.30-5.90) m/uL Hgb 12.1 L (13.0-17.5) gm/dL Hct 38.7 L (39.0-53.0) % Neutrophils # 12.8 H (1.3-7.7) k/uL Lymphocytes # 0.7 L (1.0-4.8) k/uL ABG pCO2 (35-45) mmHg ABG pO2 (83-108) mmHg ABG HCO3 (21-25) mmol/L ABG Total CO2 (19-24) mmol/L ABG O2 Saturation (94-97) % Sodium 146 H (137-145) mmol/L Carbon Dioxide 40 H (22-30) mmol/L BUN 48 H (9-20) mg/dL Glucose 126 H (74-99) mg/dL POC Glucose (mg/dL) 116 H (75-99) mg/dL AST 63 H (17-59) U/L ALT 134 H (4-49) U/L Alkaline Phosphatase 149 H (38-126) U/L Albumin 2.8 L (3.5-5.0) g/dL 11/05/21 11/05/21 Range/Units 05:59 11:43 WBC (3.8-10.6) k/uL RBC (4.30-5.90) m/uL Hgb (13.0-17.5) gm/dL Hct (39.0-53.0) % Neutrophils # (1.3-7.7) k/uL Lymphocytes # (1.0-4.8) k/uL ABG pCO2 69 H (35-45) mmHg ABG pO2 58 L* (83-108) mmHg ABG HCO3 40 H* (21-25) mmol/L ABG Total CO2 43 H (19-24) mmol/L ABG O2 Saturation 90.0 L (94-97) % Sodium (137-145) mmol/L Carbon Dioxide (22-30) mmol/L BUN (9-20) mg/dL Glucose (74-99) mg/dL POC Glucose (mg/dL) 150 H (75-99) mg/dL AST (17-59) U/L ALT (4-49) U/L Alkaline Phosphatase (38-126) U/L Albumin (3.5-5.0) g/dL Microbiology - Last 24 Hours (Table) 11/02/21 14:55 Gram Stain - Final Sputum Sputum Culture - Final Staphylococcus aureus Mignon albicans Assessment and Plan Assessment: Impression: Acute hypoxic respiratory failure secondary COVID-19 pneumonia, patient received monoclonal antibody infusion on 10/19, was not a candidate for Remdesivir the cause of his acute hypoxic respiratory failure, not a candidate for Baricitinib because of underlying bacterial infection possibility. Patient was admitted to the ICU on 10/28 and intubated on 10/28 remains intubated and mechanically ventilated. Patient developed ARDS secondary to COVID-19 pneumonia with relatively elevated plateau pressures and static pressures. Remains on high PEEP. And the relatively high FiO2, Elevated pro calcitonin level, patient was treated empirically with Zosyn cultures have been nondiagnostic. Now on cefepime empirically. Zosyn is off. Elevated inflammatory markers second COVID-19 pneumonia Elevated d-dimer but negative workup for pulmonary embolism New-onset atrial fibrillation with RVR on 11/03 requiring Cardizem drip and now on higher dose of Lovenox. 80 mg subcu twice a day. History of fibromyalgia. Lifetime nonsmoker. Acute kidney injury secondary COVID-19 pneumonia improving History of hypothyroidism Deep tissue injury to Chin from prone position, no more prone positioning has been done. Pneumomediastinum with subcutaneous emphysema in the neck. This is a complication of COVID-19 infection. Recommendation: Continue ventilatory support, remains on high PEEP of 20, FiO2 is high at 70% rate is 32 volume 450. Continue sedation and paralysis Continue fentanyl Continue Lasix 40 mg twice a day Continue clevidipine, and titrate accordingly. Continue enteral feeding/nutritional support. Continue lactulose, Reglan was added today. Continue to monitor inflammatory markers Continue GI and DVT prophylaxis. Patient is on Protonix and is also on Lovenox/therapeutic Lovenox. BECAUSE of atrial fibrillation. Continue to monitor x-rays ABGs and labs on a daily basis. Overall prognosis remains extremely poor and guarded Continue COVID-19 cocktail. Critical care time is over 30 minutes Time with Patient: Greater than 30
--- NOTE | 2021-11-05 17:24 | P.PN ---
Subjective Progress Note Date: 11/05/21 History of present illness 56-year-old male with past medical history of fibromyalgia comes in to emergency room with symptoms of nausea, vomiting, dizziness and sweating feeling weak in with runny nose loss of taste and hence now for the past 1 week. He presented on 10/19 was found to have positive COVID results. Received his monoclonal antibodies. He Came back to the emergency room because of worsening of symptoms.Vitals reviewed patient afebrile pulse 80 respiratory rate 20 blood pressure 138/82 saturating at 88% on 10 L labs reviewed WBC 6.6 hemoglobin 13.9 d-dimer is elevated at 0.89, sodium 135 bicarb 21 BUN 16 creatinine 1.3 glucose 187 ferritin 2822 AST 89 ALT 80 alkaline phosphatase 225 LDH 1091 and CRP 21 and albumin 3.3 X-ray suggestive of bilateral patchy pneumonia. Both interstitial and airspace infiltrate Pulmonary clinic consulted for COVID pneumonia Patient placed on Lovenox 40 subcu twice a day, vitamin C, D and zinc. Dexamethasone initiated at 6 mg twice a day IV Patient is a candidate of Baritinib and will discuss about initiating it with pulmonary Venous Doppler ordered 10/22: [facility]. He continues to have dyspnea and is on 15 L high flow nasal cannula and nonrebreather with pulse ox of 87 and 95%. He's been afebrile, heart rate in the 60s and 70s, blood pressure 127/73. Pro-calcitonin came back high at 9.75 and we started the patient on Zosyn and vancomycin for bacterial pneumonia coverage. Patient has coarse crackles bilaterally. No lower extremity edema. He has been seen and followed by pulmonary medicine. Patient is not a candidate for Baricitinib. Patient is continued on Decadron, Lovenox and vitamin supplements. 10/23: Is found sitting up in the edge of the bed. He is currently not on a Ventimask. However his pulse oxing still around 88 to 91 % on Ventimask or 15 L high flow nasal cannula. Patient continues to have dyspnea with activity and speaking. Patient states that he is feeling much better compared to yesterday. Continues to have a cough. No lower extremity edema. He has rhonchi to the bases bilaterally. He is currently on Decadron Lovenox and vitamin supplements. Patient remains afebrile, heart rate 62, respirations 17, blood pressure 118/68 pulse ox 93% on 15 L high flow nasal cannula 10/24: Patient was up to the bathroom showering today. Awaiting inflammation markers today. Patient still requires 10 L of O2 with a pulse ox of 90%. Patient continues to have crackles to the bilateral bases. Dyspnea with activity and speaking. Patient states he is feeling better however he is very tired. Continues to have cough no lower extremity edema. He still currently on Decadron, Lovenox, and vitamin supplements. Patient remains afebrile, heart rate 58, respirations 17, blood pressure 118/89, 10/25: Patient is still on high flow nasal cannula 15 L and nonrebreather with pulse ox of 89 and 99%. He's been afebrile, heart rate 73, blood pressure 120/72. Creatinine 1.06. Blood sugars running between 101 and 106. Sputum culture is in progress. Patient is followed closely by pulmonary medicine. Patient is continued on dexamethasone, Lovenox, Zosyn and vitamin supplements. Patient has been encouraged to prone several hours daily. 10/26: Patient remains on nonrebreather mask and AirVo at 60 L, FiO2 of 85 with pulse ox of 88%. Appears to have more difficulty with breathing. Repeat chest x-ray reveals stable bilateral infiltrates. He has been afebrile, heart rate 59, blood pressure 102/59. Repeat d-dimer 1.53. Blood sugars are well controlled. 10/27: Patient remains on nonrebreather and AirVo with pulse ox at 90%. Patient was agreeable. He has been afebrile, heart rate 70, blood pressure 131/79. CBG running between 97 and 116 and CBGs and insulin will be discontinued. Sputum cultures positive for Mignon albicans. Patient is increasing his activity, currently laying in bed on his side. Lab work including inflammatory markers ordered for tomorrow. 10/28: Patient had a drop in his pulse ox and 78% with nonrebreather and AirVo and A-Team was called. Patient stated that his shortness of breath was better than the night before. Stat chest x-ray was done which revealed bilateral multifocal peripheral increased opacities consistent with Covid 19 infection are redemonstrated. No significant change. Patient transitioned to BiPAP with pulse ox of 90%. Patient verbalized that he wanted to be a no CODE STATUS and was encouraged to discuss with family. It was determined the patient will be transferred to the intensive care unit most likely be intubated. Patient was very resistant but after long discussion with Dr. Mark Anthony santo, patient agreed to intubation and full CODE STATUS at this point. Repeat blood work reveals WBC 9.4, hemoglobin 12.7, platelet count 263. D-dimer 1.31. Blood sugars 10/29: Patient was transferred into the intensive care unit yesterday and subsequently intubated and placed on mechanical ventilation, tidal volume 450, FiO2 100, PEEP of 20. Patient was prone this morning switched over to supine. He was started on tube feedings yesterday but had a high residual this morning after pronating. He is currently on fentanyl, propofol, Nimbex drip. One amp of bicarbonate given this morning. Chest x-ray reveals lateral multifocal confluent and increased opacities greatest in the periphery consistent with Covid 19 infection redemonstrated. No sicca be unchanged from one day earlier. CTA of the chest done yesterday reveals suboptimal study without saddle central pulmonary embolism. Cannot exclude smaller pulmonary emboli. Bilateral multifocal and confluent groundglass opacities and organizing consolidations consistent with known Covid 19 infection. Repeat blood work reveals WBC 13.1, hemoglobin 13.1, platelet count 381. D- dimer 1.17. Sodium 135, potassium 5.2, chloride 104, CO2 24, BUN 29 and creatinine 0.78. Capillary blood glucose running between 116 and 150s. AST 216. C-reactive protein 7.9, pro-calcitonin 0.15. 10/30: This is day #9 of admission, patient remains in ICU, still mechanically ventilated for hypoxemia, starting 10/29/2021, on Wade assist control, rate 32, PEEP of 20, FiO2 100%, dexamethasone 6 mg daily, electrolytes are stable, BUN 29 creatinine 0.84, x-ray shows bilateral multifocal opacities, consistent with Covid pneumonia, CT angiogram negative for PE, patient is on propofol, fentanyl and index vital HP, at 20 mL an hour 10/31: Patient remains in ICU, intubated, NG tube in place, chest x-ray shows no pneumothorax, no pleural effusion, there is bilateral patchy pulmonary interstitial infiltrates, with coalescent density in the left lower lobe. No significant change from yesterdayALT iscreatinine is 0.75, ALT is trending downward, C reactive protein is 8.0 from a previous of 8.9Lasix given today, on dexamethasone, and remains sedated. 11/01: Patient remains in the intensive care unit, intubated and on mechanical ventilation with FiO2 60% and PEEP of 20 with pulse ox of 87%. Patient is being prone for 16 hours per day. He is tolerating tube feedings. He has been started on lactulose this morning for constipation. He has been afebrile, heart rate 75, respiratory rate in the low 30s, blood pressure 148/65. Patient was started on Clevidipine gtt. he is also on propofol, fentanyl and Nimbex. No new concerns, patient seems to be fairly stable. 11/02: Patient remains in intensive care unit intubated and on mechanical ventilation with FiO2 of 65, tidal volume 450, PEEP of 20. Patient is being managed by the air cargo ground operations supervisor. Patient has not been prone today due to skin breakdown on his face. He is on tube feedings and tolerating. Patient has been afebrile, heart rate 102, blood pressure 151/71, pulse ox 85-89%. Repeat blood work reveals WBC 13.5, hemoglobin 12.2. Electrolytes normal. BUN 47 creatinine 1.05. ALT 124. C-reactive protein 19.8. D-dimer 1.09. The patient did not have a bowel movement after lactulose yesterday which is been repeated and Dulcolax suppository ordered for today. 11/03, patient remains in ICU, intubated and mechanically vented, is starting to have skin excoriations, in the face and with deep tissue injury chin area, from pronating position, for that reason, they have avoided pronating since yesterday. Patient's currently sedated, and is receiving fentanyl, and nimbex clevipres. ngt tolerated at 50 cch/r vital hp, inflammatory markers are still elevated, with LDH of 58, CRP of 19, still with bowel issues, they have increased lactulose to 20 mg twice a day, and Dulcolax suppository daily. No plans for weaning off the vent trials at this time, probably might end up in a trach PEG . 11/04 patient went into A. fib RVR last night, for which they have started him on amiodarone, which did not help, patient therefore was started on Cardizem drip, currently at 15 mics, still no bowel movement, despite Dulcolax and lactulose, we'll going to do half dose MiraLAX a day, and may repeat in 12 hours, patient is still no vent, with PEEP of 21 11/05 patient in ICU, still mechanical ventilation, closely followed by pulmonary air cargo ground operations supervisor not much improvement, over the past 48 hours, BP still high at 21, still requires sedation, x-rays continue to show multifocal infiltrates, patient remains on his IV antibiotics cefepime, empiric treatments, Decadron 6 mg daily, and Lovenox shot. Lasix 40 mg every 12 hours patient still has low-grade temp, between 99.6 T-max still tachypneic. Pulse ox 85% FiO2 70% on vent ROS Unable to obtain due to intubation Physical exam General Appearance: Patient is laying in the ICU bed, intubated and on mechanical ventilation. No acute distress. Patient appears to be comfortable. Full examination deferred to intensive this due to intubation and Covid 19. Assessment and plan 1. Acute hypoxic respiratory failure secondary to Covid 19 pneumonia. Consult with pulmonary medicine appreciated. Patient was intubated and placed on mechanical ventilation 10/28. Continue care in the intensive care unit, proning, currently on fentanyl, propofol and Nimbex. 2. Acute COVID pneumonia. Dexamethasone 6 mg IV once a day, Lovenox 40 subcu daily, Not a candidate for Baricitinib, Monitor inflammatory markers. Continue supplements vitamin C, D and zinc 3. Acute transaminitis Secondary to viral inflammation. Continue monitoring 4. CKD stage 3. Continue to monitor patient's creatinine. No acute kidney injury 5. History of fibromyalgia. continue gabapentin 800 3 times a day, Citalopram 40 mg by mouth daily 6. Insomnia. Was on Eszopiclone 3 mg daily at bedtime 7. Hypothyroidism. Levothyroxine 50 g by mouth daily 8. Hypertension. Patient started on Clevidipine gtt. 9. DVT prophylaxis. Lovenox 40 subcu daily. 10. GI prophylaxis. Protonix 40 mg IV push daily 11. Hyperglycemia secondary to steroids, IV drips, patient is on NovoLog scale. 12. Constipation. Lactulose 20 g daily and Dulcolax suppository today MiraLAX. Prognosis guarded. Status: Full code Discharge Plan: To be determined. Current Medications Albuterol Sulfate (Albuterol Hfa Inhaler) 2 puff INHALATION RT-TID [facility] Last Admin: 11/05/21 12:07 Dose: 2 puff Documented by: Artificial Tears (Artificial Tears-Hypromellose Drops 15 Ml Btl) 1 drops BOTH EYES Q4H [facility] Last Admin: 11/05/21 08:41 Dose: 1 drops Documented by: Ascorbic Acid (Ascorbic Acid 500 Mg Tab) 1,000 mg PO DAILY [facility] Last Admin: 11/05/21 08:58 Dose: 1,000 mg Documented by: Bisacodyl (Bisacodyl 10 Mg Supp) 10 mg RECTAL DAILY [facility] Last Admin: 11/05/21 08:59 Dose: 10 mg Documented by: Chlorhexidine Gluconate (Chlorhexidine Gluconate 15 Ml Cup) 15 ml MUCOUS MEM BID [facility] Last Admin: 11/05/21 08:59 Dose: 15 ml Documented by: Cholecalciferol (Cholecalciferol 25 Mcg (1000 Iu) Tablet) 25 mcg PO DAILY [facility] Last Admin: 11/05/21 08:59 Dose: 25 mcg Documented by: Citalopram Hydrobromide (Citalopram Hydrobromide 20 Mg Tab) 40 mg PO DAILY [facility] Last Admin: 11/05/21 08:59 Dose: 40 mg Documented by: Dexamethasone Sodium Phosphate (Dexamethasone Sod Phosphate 10 Mg/Ml 1 Ml Vial) 6 mg IVP DAILY [facility] Last Admin: 11/05/21 08:59 Dose: 6 mg Documented by: Enoxaparin Sodium (Enoxaparin 80 Mg/0.8 Ml Syringe) 80 mg SQ BID [facility] Last Admin: 11/05/21 09:23 Dose: 80 mg Documented by: Furosemide (Furosemide 10 Mg/Ml 4 Ml Vial) 40 mg IV Q12HR [facility] Last Admin: 11/05/21 09:04 Dose: 40 mg Documented by: Gabapentin (Gabapentin 400 Mg Cap) 800 mg PO TID [facility] Last Admin: 11/05/21 09:00 Dose: 800 mg Documented by: Propofol 1,000 mg/ IV Solution 100 mls @ 0 mls/hr IV .Q0M [facility]; Protocol Last Admin: 11/05/21 07:11 Dose: 50 mcg/kg/min, 36.6 mls/hr Documented by: Fentanyl Citrate 1,000 mcg/ (Sodium Chloride) 100 mls @ 5.557 mls/hr IV .Q18H [facility]; Protocol Last Admin: 11/05/21 08:42 Dose: 3 mcg/kg/hr, 33.339 mls/hr Documented by: Cisatracurium Besylate 200 mg/ (Sodium Chloride) 200 mls @ 6.668 mls/hr IV .Q24H [facility]; Protocol Last Admin: 11/05/21 04:19 Dose: 3 mcg/kg/min, 20.003 mls/hr Documented by: Sodium Chloride (Saline 0.9%) 1,000 mls @ 20 mls/hr IV .Q24H [facility] Last Admin: 11/04/21 21:24 Dose: 20 mls/hr Documented by: Clevidipine 25 mg/ IV Solution 50 mls @ 2 mls/hr IV .Q24H [facility]; Protocol Last Admin: 11/05/21 06:53 Dose: 8 mg/hr, 16 mls/hr Documented by: Diltiazem HCl 125 mg/ Sodium (Chloride) 125 mls @ 5 mls/hr IV .Q24H [facility] Last Admin: 11/05/21 11:43 Dose: 15 mg/hr, 15 mls/hr Documented by: Cefepime HCl 2 gm/ Sodium (Chloride) 100 mls @ 25 mls/hr IVPB Q12HR [facility] Last Admin: 11/05/21 08:59 Dose: 25 mls/hr Documented by: Insulin Aspart (Insulin Aspart (Novolog) 100 Unit/Ml Vial) 0 unit SQ Q6H [facility]; Protocol Last Admin: 11/05/21 05:47 Dose: Not Given Documented by: Lactulose (Lactulose 20 Gm/30 Ml Cup) 20 gm PO BID [facility] Last Admin: 11/05/21 08:56 Dose: 20 gm Documented by: Levothyroxine Sodium (Levothyroxine 50 Mcg Tab) 50 mcg PO 0630 [facility] Last Admin: 11/05/21 06:49 Dose: 50 mcg Documented by: Metoclopramide HCl (Metoclopramide 5 Mg/Ml 2 Ml Vial) 10 mg IVP Q6HR [facility] Last Admin: 11/05/21 05:47 Dose: 10 mg Documented by: Pantoprazole Sodium (Pantoprazole 40 Mg/10 Ml Vial) 40 mg IVP DAILY [facility] Last Admin: 11/05/21 08:53 Dose: 40 mg Documented by: Zinc Sulfate (Zinc Sulfate 220 Mg Cap) 220 mg PO DAILY [facility] Last Admin: 11/05/21 08:56 Dose: 220 mg Documented by: Vital Signs Temp 99.6 F 11/05/21 04:00 Pulse 93 11/05/21 07:00 Resp 32 H 11/05/21 07:00 BP 106/63 11/04/21 05:00 Pulse Ox 88 L 11/05/21 07:00 Intake & Output 11/04/21 11/05/21 11/05/21 18:59 06:59 18:59 Intake Total 3137.415 9056.470 248 Output Total 0 1785 80 Balance -119.537 -22.530 168 Weight 121.5 kg Intake: IV 422 376 23 Cefepime 2 gm In Sodium 100 100 Chloride 0.9% 100 ml @ 25 mls/hr IVPB Q12HR [facility] Rx #:[id number] Normal Saline 0.9 42 36 3 Pressure Bag @ 3mL/hr Sodium Chloride 0.9% 1, 280 240 20 000 ml @ 20 mls/hr IV . Q24H [facility] Rx#:[id number] Intake, IV Titration 978.463 996.470 225 Amount Cisatracurium 200 mg In 394.726 192.696 Sodium Chloride 0.9% 180 ml @ 1 MCG/KG/MIN 6.668 mls/hr IV .Q24H [facility] Rx#: [id number] Clevidipine Butyrate 25 26.533 50 mg In Empty Bag 1 bag @ 1 MG/HR 2 mls/hr IV .Q24H [facility] Rx#:[id number] Diltiazem 125 mg In 83.75 125 Sodium Chloride 0.9% 100 ml @ 5 MG/HR 5 mls/hr IV .Q24H [facility] Rx#:[id number] fentaNYL (PF). 1,000 mcg 373.454 374.474 100 In Sodium Chloride 0.9% 80 ml @ 0.5 MCG/KG/HR 5. 557 mls/hr IV .Q18H [facility] Rx#:[id number] propofoL 1,000 mg In 100 379.3 Empty Bag 1 bag @ Titrate IV .Q0M [facility] Rx#: [id number] Tube Feeding 210 150 Other 180 240 Output: Urine 1909 1785 80 Other: Voiding Method Indwelling Catheter Indwelling Catheter ABP, PAP, CO, CI - Last Documented Arterial Blood Pressure 145/59 Laboratory Results - Last 24 Hours 11/04/21 11/04/21 11/04/21 13:37 17:54 23:40 WBC RBC Hgb Hct MCV MCH MCHC RDW Plt Count MPV Neutrophils % Lymphocytes % Monocytes % Eosinophils % Basophils % Neutrophils # Lymphocytes # Monocytes # Eosinophils # Basophils # Hypochromasia D-Dimer Sample Site ABG pH ABG pCO2 ABG pO2 ABG HCO3 ABG Total CO2 ABG O2 Saturation ABG Base Excess Palomo Test FiO2 Sodium Potassium Chloride Carbon Dioxide Anion Gap BUN Creatinine Est GFR (CKD-EPI)AfAm Est GFR (CKD-EPI)NonAf Glucose POC Glucose (mg/dL) 166 H 154 H 134 H POC Glu Nursing Care Attendant ID Luis, Amanda Smith, Zachary Arredondo Calcium Total Bilirubin AST ALT Alkaline Phosphatase Total Protein Albumin 11/05/21 11/05/21 11/05/21 04:10 04:10 04:10 WBC 14.6 H RBC 3.98 L Hgb 12.1 L Hct 38.7 L MCV 97.3 MCH 30.3 MCHC 31.1 RDW 13.8 Plt Count 385 MPV 9.0 Neutrophils % 88 Lymphocytes % 4 Monocytes % 6 Eosinophils % 0 Basophils % 0 Neutrophils # 12.8 H Lymphocytes # 0.7 L Monocytes # 0.9 Eosinophils # 0.0 Basophils # 0.0 Hypochromasia Slight D-Dimer 0.58 Sample Site ABG pH ABG pCO2 ABG pO2 ABG HCO3 ABG Total CO2 ABG O2 Saturation ABG Base Excess Palomo Test FiO2 Sodium 146 H Potassium 4.8 Chloride 102 Carbon Dioxide 40 H Anion Gap 4 BUN 48 H Creatinine 1.11 Est GFR (CKD-EPI)AfAm 85 Est GFR (CKD-EPI)NonAf 74 Glucose 126 H POC Glucose (mg/dL) POC Glu Nursing Care Attendant ID Calcium 8.8 Total Bilirubin 0.7 AST 63 H ALT 134 H Alkaline Phosphatase 149 H Total Protein 6.3 Albumin 2.8 L 11/05/21 11/05/21 11/05/21 05:43 05:59 11:43 WBC RBC Hgb Hct MCV MCH MCHC RDW Plt Count MPV Neutrophils % Lymphocytes % Monocytes % Eosinophils % Basophils % Neutrophils # Lymphocytes # Monocytes # Eosinophils # Basophils # Hypochromasia D-Dimer Sample Site coreen ABG pH 7.38 ABG pCO2 69 H ABG pO2 58 L* ABG HCO3 40 H* ABG Total CO2 43 H ABG O2 Saturation 90.0 L ABG Base Excess 15.2 Palomo Test no FiO2 70 Sodium Potassium Chloride Carbon Dioxide Anion Gap BUN Creatinine Est GFR (CKD-EPI)AfAm Est GFR (CKD-EPI)NonAf Glucose POC Glucose (mg/dL) 116 H 150 H POC Glu Nursing Care Attendant ID Jorge Alberto, Zachary Aden, Sia Calcium Total Bilirubin AST ALT Alkaline Phosphatase Total Protein Albumin Objective - Vital Signs Vital signs: Vital Signs Temp 99.6 F 11/05/21 04:00 Pulse 93 11/05/21 07:00 Resp 32 H 11/05/21 07:00 BP 106/63 11/04/21 05:00 Pulse Ox 88 L 11/05/21 07:00 Intake & Output 11/04/21 11/05/21 11/05/21 18:59 06:59 18:59 Intake Total 8893.047 2746.470 248 Output Total 1910 1785 80 Balance -119.537 -22.530 168 Weight 121.5 kg Intake: IV 422 376 23 Cefepime 2 gm In Sodium 100 100 Chloride 0.9% 100 ml @ 25 mls/hr IVPB Q12HR [facility] Rx #:[id number] Normal Saline 0.9 42 36 3 Pressure Bag @ 3mL/hr Sodium Chloride 0.9% 1, 280 240 20 000 ml @ 20 mls/hr IV . Q24H [facility] Rx#:[id number] Intake, IV Titration 978.463 996.470 225 Amount Cisatracurium 200 mg In 394.726 192.696 Sodium Chloride 0.9% 180 ml @ 1 MCG/KG/MIN 6.668 mls/hr IV .Q24H [facility] Rx#: [id number] Clevidipine Butyrate 25 26.533 50 mg In Empty Bag 1 bag @ 1 MG/HR 2 mls/hr IV .Q24H [facility] Rx#:[id number] Diltiazem 125 mg In 83.75 125 Sodium Chloride 0.9% 100 ml @ 5 MG/HR 5 mls/hr IV .Q24H [facility] Rx#:[id number] fentaNYL (PF). 1,000 mcg 373.454 374.474 100 In Sodium Chloride 0.9% 80 ml @ 0.5 MCG/KG/HR 5. 557 mls/hr IV .Q18H [facility] Rx#:[id number] propofoL 1,000 mg In 100 379.3 Empty Bag 1 bag @ Titrate IV .Q0M [facility] Rx#: [id number] Tube Feeding 210 150 Other 180 240 Output: Urine 1910 1785 80 Other: Voiding Method Indwelling Catheter Indwelling Catheter ABP, PAP, CO, CI - Last Documented Arterial Blood Pressure 145/59 - Labs CBC & Chem 7: 11/06/21 03:25 11/07/21 05:55 Labs: Abnormal Lab Results - Last 24 Hours (Table) 11/04/21 11/04/21 11/04/21 Range/Units 13:37 17:54 23:40 WBC (3.8-10.6) k/uL RBC (4.30-5.90) m/uL Hgb (13.0-17.5) gm/dL Hct (39.0-53.0) % Neutrophils # (1.3-7.7) k/uL Lymphocytes # (1.0-4.8) k/uL ABG pCO2 (35-45) mmHg ABG pO2 (83-108) mmHg ABG HCO3 (21-25) mmol/L ABG Total CO2 (19-24) mmol/L ABG O2 Saturation (94-97) % Sodium (137-145) mmol/L Carbon Dioxide (22-30) mmol/L BUN (9-20) mg/dL Glucose (74-99) mg/dL POC Glucose (mg/dL) 166 H 154 H 134 H (75-99) mg/dL AST (17-59) U/L ALT (4-49) U/L Alkaline Phosphatase (38-126) U/L Albumin (3.5-5.0) g/dL 11/05/21 11/05/21 11/05/21 Range/Units 04:10 04:10 05:43 WBC 14.6 H (3.8-10.6) k/uL RBC 3.98 L (4.30-5.90) m/uL Hgb 12.1 L (13.0-17.5) gm/dL Hct 38.7 L (39.0-53.0) % Neutrophils # 12.8 H (1.3-7.7) k/uL Lymphocytes # 0.7 L (1.0-4.8) k/uL ABG pCO2 (35-45) mmHg ABG pO2 (83-108) mmHg ABG HCO3 (21-25) mmol/L ABG Total CO2 (19-24) mmol/L ABG O2 Saturation (94-97) % Sodium 146 H (137-145) mmol/L Carbon Dioxide 40 H (22-30) mmol/L BUN 48 H (9-20) mg/dL Glucose 126 H (74-99) mg/dL POC Glucose (mg/dL) 116 H (75-99) mg/dL AST 63 H (17-59) U/L ALT 134 H (4-49) U/L Alkaline Phosphatase 149 H (38-126) U/L Albumin 2.8 L (3.5-5.0) g/dL 11/05/21 11/05/21 Range/Units 05:59 11:43 WBC (3.8-10.6) k/uL RBC (4.30-5.90) m/uL Hgb (13.0-17.5) gm/dL Hct (39.0-53.0) % Neutrophils # (1.3-7.7) k/uL Lymphocytes # (1.0-4.8) k/uL ABG pCO2 69 H (35-45) mmHg ABG pO2 58 L* (83-108) mmHg ABG HCO3 40 H* (21-25) mmol/L ABG Total CO2 43 H (19-24) mmol/L ABG O2 Saturation 90.0 L (94-97) % Sodium (137-145) mmol/L Carbon Dioxide (22-30) mmol/L BUN (9-20) mg/dL Glucose (74-99) mg/dL POC Glucose (mg/dL) 150 H (75-99) mg/dL AST (17-59) U/L ALT (4-49) U/L Alkaline Phosphatase (38-126) U/L Albumin (3.5-5.0) g/dL Microbiology - Last 24 Hours (Table) 11/02/21 14:55 Gram Stain - Final Sputum Sputum Culture - Final Staphylococcus aureus Mignon albicans
[2021-11-05 18:14] LABS: Glucose,Whole Blood 137 mg/dL (75-99)
[2021-11-05] MEDS: SODIUM CHLORIDE 0.9% 1,000 ML IV SCH (20:40)
[2021-11-06] MEDS: ARTIFICIAL TEARS-HYPROMELLOSE DROPS 15 ML BTL BOTH EYES SCH ×7 (00:01→23:22)
[2021-11-06] MEDS: fentaNYL (PF). 1,000 MCG in SODIUM CHLORIDE 0.9% 80 ML IV SCH ×10 (00:01→23:46)
[2021-11-06] MEDS: METOCLOPRAMIDE 5 MG/ML 2 ML VIAL IVP SCH ×5 (00:04→23:19)
[2021-11-06 00:10] LABS: Glucose,Whole Blood 149 mg/dL (75-99)
[2021-11-06] MEDS: INSULIN ASPART (NovoLOG) 100 UNIT/ML VIAL SQ SCH ×6 (00:12→23:31)
[2021-11-06 03:40] LABS: Basophils # (A) 0.1 k/uL (0-0.2); Basophils % (A) 0 %; Eosinophils # (A) 0.1 k/uL (0-0.7); Eosinophils % (A) 0 %; HCT 37.7 % (39.0-53.0); HGB 11.3 gm/dL (13.0-17.5); Hypochromasia Moderate; Lymphocytes # (A) 0.8 k/uL (1.0-4.8); Lymphocytes % (A) 5 %; MCH 29.4 pg (25.0-35.0); MCHC 29.9 g/dL (31.0-37.0); MCV 98.5 fL (80.0-100.0); Mean Platelet Volume 9.3; Monocytes % (A) 7 %; Neutrophils # (A) 12.1 k/uL (1.3-7.7); Neutrophils % (A) 86 %; Platelet Count 313 k/uL (150-450); RBC 3.82 m/uL (4.30-5.90); RDW 13.7 % (11.5-15.5)
[2021-11-06 04:03] LABS: Albumin 2.8 g/dL (3.5-5.0); Calcium 8.8 mg/dL (8.4-10.2); Total Bilirubin 0.9 mg/dL (0.2-1.3); Total Protein 6.2 g/dL (6.3-8.2)
[2021-11-06 04:52] LABS: Potassium 4.5 mmol/L (3.5-5.1)
[2021-11-06] MEDS: DILTIAZEM 125 MG in SODIUM CHLORIDE 0.9% 100 ML IV SCH ×3 (05:14→23:47)
[2021-11-06] MEDS: CLEVIDIPINE BUTYRATE 25 MG in EMPTY BAG 1 BAG IV SCH ×3 (05:59→22:58)
[2021-11-06] MEDS: LEVOTHYROXINE 50 MCG TAB PO SCH (06:00)
[2021-11-06 06:15] LABS: Glucose,Whole Blood 126 mg/dL (75-99)
[2021-11-06 06:16] LABS: ABG Base Excess 15.8 mmol/L; ABG Oxygen Saturation 92.8 % (94-97); ABG PCO2 70 mmHg (35-45); ABG PH 7.38 (7.35-7.45); ABG PO2 63 mmHg (83-108); ABG TCO2 43 mmol/L (19-24)
[2021-11-06 06:32] LABS: ABG HCO3 41 mmol/L (21-25); Allen Test Performed? No
--- NOTE | 2021-11-06 08:11 | XR ---
EXAMINATION TYPE: XR chest 1V portable DATE OF EXAM: 11/06/2021 COMPARISON: 11/05/2021 HISTORY: 56 years Male. STUDY INDICATION GIVEN: SOB . TECHNIQUE: AP chest radiograph IMPRESSION: Tip of endotracheal tube 4.5 cm above clinton. Enteric tube courses into the stomach. Left central rob ous catheter tip at the cavoatrial junction stable. Scattered bilateral airspace and interstitial opacities slightly worsened in the lower lobes. Stable left hemidiaphragm eventration. No pneumothorax or large effusion. Nonenlarged cardiomediastinal silh ouette. Osseous structures are stable compared to prior.
[2021-11-06] MEDS: ALBUTEROL HFA INHALER INHALATION SCH ×3 (08:36→19:47)
[2021-11-06] MEDS: ENOXAPARIN 80 MG/0.8 ML SYRINGE SQ SCH ×2 (09:06→20:37)
[2021-11-06] MEDS: ZINC SULFATE 220 MG CAP PO SCH (09:06)
[2021-11-06] MEDS: CITALOPRAM HYDROBROMIDE 20 MG TAB PO SCH (09:06)
[2021-11-06] MEDS: DEXAMETHASONE SOD PHOSPHATE 10 MG/ML 1 ML VIAL IVP SCH ×2 (09:06→20:30)
[2021-11-06] MEDS: CEFEPIME 2 GM in SODIUM CHLORIDE 0.9% 100 ML IVPB SCH ×2 (09:06→20:30)
[2021-11-06] MEDS: CHLORHEXIDINE GLUCONATE 15 ML CUP MUCOUS MEM SCH ×2 (09:06→20:29)
[2021-11-06] MEDS: FUROSEMIDE 10 MG/ML 4 ML VIAL IV SCH ×2 (09:06→20:30)
[2021-11-06] MEDS: CHOLECALCIFEROL 25 MCG (1000 IU) TABLET PO SCH (09:06)
[2021-11-06] MEDS: bisacodyL 10 MG SUPP RECTAL SCH (09:06)
[2021-11-06] MEDS: LACTULOSE 20 GM/30 ML CUP PO SCH ×2 (09:06→20:29)
[2021-11-06] MEDS: GABAPENTIN 400 MG CAP PO SCH ×3 (09:07→20:29)
[2021-11-06] MEDS: ASCORBIC ACID 500 MG TAB PO SCH (09:07)
[2021-11-06] MEDS: PANTOPRAZOLE 40 MG/10 ML VIAL IVP SCH (09:07)
[2021-11-06] MEDS ORDERED: ACETAMINOPHEN IV (For NPO) 1,000 MG in EMPTY BAG 1 BAG IVPB PRN (09:43)
[2021-11-06] MEDS: CISATRACURIUM 200 MG in SODIUM CHLORIDE 0.9% 180 ML IV SCH ×2 (09:58→22:13)
--- NOTE | 2021-11-06 11:02 | P.CRDCN ---
History of Present Illness Consult date: 11/06/21 History of present illness: This is a 56-year-old gentleman was admitted to the hospital for treatment of COVID pneumonia. Patient is intubated and mechanically ventilated. A chest x- ray continues to bilateral infiltrates. Patient has been having intermittent atrial fibrillation with RVR. Patient was initiated on IV Cardizem. The dose was increased up to 15. His blood pressure has been high. His renal function is stable. I'm going to initiate him on metoprolol 25 mg by mouth 3 times a day. Once patient appears comfortable of dose of metoprolol, may consider cutting back on the dose of the Cardizem. We'll get an echocardiogram to assess LV function. 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 Patient is also on Cleviprex for blood pressure control. That also could be tapered down, once metoprolol was initiated. Prognosis is guarded Review of Systems As per the chart Past Medical History Past Medical History: Fibromyalgia Additional Past Medical History / Comment(s): Hypothyroid, born with facial droop, insomnia History of Any Multi-Drug Resistant Organisms: None Reported Past Surgical History: Orthopedic Surgery Additional Past Surgical History / Comment(s): L ACL repair, total L knee arthroplasty, colonoscopy, laser eye surgery for vision correction. Past Anesthesia/Blood Transfusion Reactions: No Reported Reaction Smoking Status: Never smoker - Past Family History Mother Family Medical History: No Reported History Father Family Medical History: Coronary Artery Disease (CAD), Hypertension Medications and Allergies Home Medications Medication Instructions Recorded Confirmed Type Citalopram Hydrobromide 40 mg PO DAILY 10/21/21 10/21/21 History Eszopiclone 3 mg PO HS PRN 10/21/21 10/21/21 History Gabapentin 800 mg PO TID 10/21/21 10/21/21 History Levothyroxine Sodium [Synthroid] 50 mcg PO DAILY 10/21/21 10/21/21 History traMADol HCl [Ultram] 100 mg PO Q6HR PRN 10/21/21 10/21/21 History Allergies Allergy/AdvReac Type Severity Reaction Status Date / Time No Known Allergies Allergy Verified 10/21/21 07:18 Physical Exam Vitals: Vital Signs Temp Pulse Resp Pulse Ox 11/06/21 10:00 86 32 H 87 L 11/06/21 09:30 101 H 87 L 11/06/21 09:00 100.5 F H 98 32 H 88 L 11/06/21 08:30 93 91 L 11/06/21 08:00 103 H 32 H 89 L 11/06/21 07:30 104 H 32 H 89 L 11/06/21 07:00 100 32 H 88 L 11/06/21 06:30 103 H 32 H 88 L 11/06/21 06:00 105 H 32 H 89 L 11/06/21 05:30 105 H 32 H 87 L 11/06/21 05:00 105 H 32 H 88 L 11/06/21 04:30 105 H 32 H 88 L 11/06/21 04:00 98.8 F 101 H 32 H 87 L 11/06/21 03:30 103 H 32 H 87 L 11/06/21 03:00 104 H 32 H 87 L 11/06/21 02:30 104 H 32 H 87 L 11/06/21 02:00 105 H 32 H 87 L 11/06/21 01:30 105 H 32 H 87 L 11/06/21 01:00 106 H 32 H 87 L 11/06/21 00:30 107 H 32 H 88 L 11/06/21 00:00 101.3 F H 109 H 32 H 88 L 11/05/21 23:30 106 H 32 H 87 L 11/05/21 23:00 107 H 32 H 86 L 11/05/21 22:30 109 H 36 H 85 L 11/05/21 22:00 154 H 36 H 85 L 11/05/21 21:30 100 36 H 86 L 11/05/21 21:00 97 36 H 89 L 11/05/21 20:30 97 36 H 83 L 11/05/21 20:00 99.2 F 99 36 H 83 L 11/05/21 19:30 98 36 H 84 L 11/05/21 19:00 99.1 F 96 83 L 11/05/21 18:00 96 32 H 85 L 11/05/21 17:00 95 32 H 85 L 11/05/21 16:00 99.1 F 94 32 H 86 L 11/05/21 15:00 101 H 32 H 86 L 11/05/21 14:00 110 H 32 H 87 L 11/05/21 13:00 101 H 32 H 88 L 11/05/21 12:00 99.1 F 100 32 H 88 L 11/05/21 11:00 100 32 H 86 L Intake and Output 11/05/21 11/06/21 11/06/21 22:59 06:59 14:59 Intake Total 1064.86 1264.455 354.906 Output Total 1480 1300 700 Balance -415.14 -35.545 -345.094 Intake: IV 184 184 192 Cefepime 2 gm In Sodium 100 Chloride 0.9% 100 ml @ 25 mls/hr IVPB Q12HR [facility] Rx #:[id number] Normal Saline 0.9 24 24 12 Pressure Bag @ 3mL/hr Sodium Chloride 0.9% 1, 160 160 80 000 ml @ 20 mls/hr IV . Q24H [facility] Rx#:[id number] Intake, IV Titration 594.86 918.455 98.906 Amount Cisatracurium 200 mg In 21.56 200 Sodium Chloride 0.9% 180 ml @ 1 MCG/KG/MIN 6.668 mls/hr IV .Q24H [facility] Rx#: [id number] Clevidipine Butyrate 25 48.3 82.8 mg In Empty Bag 1 bag @ 1 MG/HR 2 mls/hr IV .Q24H [facility] Rx#:[id number] Diltiazem 125 mg In 125 125 Sodium Chloride 0.9% 100 ml @ 5 MG/HR 5 mls/hr IV .Q24H [facility] Rx#:[id number] fentaNYL (PF). 1,000 mcg 200 296.683 98.906 In Sodium Chloride 0.9% 80 ml @ 0.5 MCG/KG/HR 5. 557 mls/hr IV .Q18H [facility] Rx#:[id number] propofoL 1,000 mg In 200 213.972 Empty Bag 1 bag @ Titrate IV .Q0M [facility] Rx#: [id number] Tube Feeding 136 102 34 Other 150 60 30 Output: Urine 1480 1300 700 Other: Voiding Method Indwelling Catheter Indwelling Catheter ABP, PAP, CO, CI - Last 8 Hours Arterial Blood Pressure 174/74 Arterial Blood Pressure 116/66 Arterial Blood Pressure 152/67 Arterial Blood Pressure 139/61 Arterial Blood Pressure 135/57 Arterial Blood Pressure 137/59 Arterial Blood Pressure 130/55 Arterial Blood Pressure 127/54 Arterial Blood Pressure 140/57 Arterial Blood Pressure 126/55 Arterial Blood Pressure 157/61 Arterial Blood Pressure 154/61 Arterial Blood Pressure 151/60 Arterial Blood Pressure 148/59 Arterial Blood Pressure 143/60 This patient is not personally examined. Information is gathered from the nurses and by reviewing the chart Results 11/06/21 03:25 11/06/21 03:25 Cardiac Enzymes 11/06/21 Range/Units 03:25 AST 81 H (17-59) U/L CBC 11/06/21 Range/Units 03:25 WBC 14.0 H (3.8-10.6) k/uL RBC 3.82 L (4.30-5.90) m/uL Hgb 11.3 L (13.0-17.5) gm/dL Hct 37.7 L (39.0-53.0) % Plt Count 313 (150-450) k/uL Comprehensive Metabolic Panel 11/06/21 Range/Units 03:25 Sodium 147 H (137-145) mmol/L Potassium 4.5 (3.5-5.1) mmol/L Chloride 104 (98-107) mmol/L Carbon Dioxide 39 H (22-30) mmol/L BUN 51 H (9-20) mg/dL Creatinine 1.08 (0.66-1.25) mg/dL Glucose 125 H (74-99) mg/dL Calcium 8.8 (8.4-10.2) mg/dL AST 81 H (17-59) U/L ALT 144 H (4-49) U/L Alkaline Phosphatase 161 H (38-126) U/L Total Protein 6.2 L (6.3-8.2) g/dL Albumin 2.8 L (3.5-5.0) g/dL Current Medications Generic Name Dose Route Start Last Admin Trade Name Freq PRN Reason Stop Dose Admin Albuterol Sulfate 2 puff 10/21/21 13:00 11/06/21 08:36 Albuterol Hfa Inhaler INHALATION 2 puff RT-TID [facility] Administration Artificial Tears 1 drops 10/31/21 04:00 11/06/21 09:41 Artificial Tears-Hypromellose Drops 15 Ml Btl BOTH EYES 1 drops Q4H [facility] Administration Ascorbic Acid 1,000 mg 10/21/21 11:30 11/06/21 09:07 Ascorbic Acid 500 Mg Tab PO 1,000 mg DAILY [facility] Administration Bisacodyl 10 mg 11/02/21 09:00 11/06/21 09:06 Bisacodyl 10 Mg Supp RECTAL 10 mg DAILY [facility] Administration Chlorhexidine Gluconate 15 ml 10/28/21 21:00 11/06/21 09:06 Chlorhexidine Gluconate 15 Ml Cup MUCOUS MEM 15 ml BID [facility] Administration Cholecalciferol 25 mcg 10/21/21 11:30 11/06/21 09:06 Cholecalciferol 25 Mcg (1000 Iu) Tablet PO 25 mcg DAILY [facility] Administration Citalopram Hydrobromide 40 mg 10/22/21 09:00 11/06/21 09:06 Citalopram Hydrobromide 20 Mg Tab PO 40 mg DAILY [facility] Administration Dexamethasone Sodium Phosphate 6 mg 10/31/21 09:00 11/06/21 09:06 Dexamethasone Sod Phosphate 10 Mg/Ml 1 Ml Vial IVP 6 mg DAILY [facility] Administration Enoxaparin Sodium 80 mg 11/04/21 21:00 11/06/21 09:06 Enoxaparin 80 Mg/0.8 Ml Syringe SQ 80 mg BID [facility] Administration Furosemide 40 mg 11/02/21 21:00 11/06/21 09:06 Furosemide 10 Mg/Ml 4 Ml Vial IV 40 mg Q12HR [facility] Administration Gabapentin 800 mg 10/21/21 16:00 11/06/21 09:07 Gabapentin 400 Mg Cap PO 800 mg TID [facility] Administration Propofol 1,000 mg/ IV Solution 100 mls @ 0 mls/hr 10/28/21 12:15 11/06/21 09:58 IV 50 mcg/kg/min .Q0M [facility] 36.45 mls/hr Administration Protocol Titrate Fentanyl Citrate 1,000 mcg/ 100 mls @ 5.557 mls/hr 10/28/21 12:15 11/06/21 08:57 Sodium Chloride IV 3 mcg/kg/hr .Q18H [facility] 33.339 mls/hr Administration Protocol 0.5 MCG/KG/HR Cisatracurium Besylate 200 mg/ 200 mls @ 6.668 mls/hr 10/28/21 12:15 11/06/21 09:58 Sodium Chloride IV 2 mcg/kg/min .Q24H [facility] 13.336 mls/hr Administration Protocol 1 MCG/KG/MIN Sodium Chloride 1,000 mls @ 20 mls/hr 10/28/21 13:00 11/05/21 20:40 Saline 0.9% IV 20 mls/hr .Q24H [facility] Administration Clevidipine 25 mg/ IV Solution 50 mls @ 2 mls/hr 11/01/21 10:00 11/06/21 05:59 IV 4 mg/hr .Q24H [facility] 8 mls/hr Administration Protocol 1 MG/HR Diltiazem HCl 125 mg/ Sodium 125 mls @ 5 mls/hr 11/04/21 00:00 11/06/21 05:14 Chloride IV 15 mg/hr .Q24H [facility] 15 mls/hr Administration 5 MG/HR Cefepime HCl 2 gm/ Sodium 100 mls @ 25 mls/hr 11/04/21 11:45 11/06/21 09:06 Chloride IVPB 25 mls/hr Q12HR [facility] Administration Acetaminophen 1,000 mg/ IV 100 mls @ 400 mls/hr 11/06/21 09:43 Solution IVPB 11/07/21 06:14 Q6HR PRN Fever Insulin Aspart 0 unit 10/31/21 06:00 11/06/21 06:32 Insulin Aspart (Novolog) 100 Unit/Ml Vial SQ Not Given Q6H [facility] Protocol Lactulose 20 gm 11/03/21 21:00 11/06/21 09:06 Lactulose 20 Gm/30 Ml Cup PO 20 gm BID [facility] Administration Levothyroxine Sodium 50 mcg 10/22/21 06:30 11/06/21 06:00 Levothyroxine 50 Mcg Tab PO 50 mcg 0630 [facility] Administration Metoclopramide HCl 10 mg 10/30/21 12:00 11/06/21 06:01 Metoclopramide 5 Mg/Ml 2 Ml Vial IVP 10 mg Q6HR [facility] Administration Metoprolol Tartrate 25 mg 11/06/21 10:30 Metoprolol Tartrate 25 Mg Tab PO TID [facility] Pantoprazole Sodium 40 mg 10/29/21 09:00 11/06/21 09:07 Pantoprazole 40 Mg/10 Ml Vial IVP 40 mg DAILY [facility] Administration Zinc Sulfate 220 mg 10/21/21 11:30 11/06/21 09:06 Zinc Sulfate 220 Mg Cap PO 220 mg DAILY [facility] Administration Intake and Output 11/05/21 11/06/21 11/06/21 22:59 06:59 14:59 Intake Total 1064.86 1264.455 354.906 Output Total 1480 1300 700 Balance -415.14 -35.545 -345.094 Intake: IV 184 184 192 Cefepime 2 gm In Sodium 100 Chloride 0.9% 100 ml @ 25 mls/hr IVPB Q12HR [facility] Rx #:[id number] Normal Saline 0.9 24 24 12 Pressure Bag @ 3mL/hr Sodium Chloride 0.9% 1, 160 160 80 000 ml @ 20 mls/hr IV . Q24H [facility] Rx#:[id number] Intake, IV Titration 594.86 918.455 98.906 Amount Cisatracurium 200 mg In 21.56 200 Sodium Chloride 0.9% 180 ml @ 1 MCG/KG/MIN 6.668 mls/hr IV .Q24H [facility] Rx#: [id number] Clevidipine Butyrate 25 48.3 82.8 mg In Empty Bag 1 bag @ 1 MG/HR 2 mls/hr IV .Q24H [facility] Rx#:[id number] Diltiazem 125 mg In 125 125 Sodium Chloride 0.9% 100 ml @ 5 MG/HR 5 mls/hr IV .Q24H [facility] Rx#:[id number] fentaNYL (PF). 1,000 mcg 200 296.683 98.906 In Sodium Chloride 0.9% 80 ml @ 0.5 MCG/KG/HR 5. 557 mls/hr IV .Q18H [facility] Rx#:[id number] propofoL 1,000 mg In 200 213.972 Empty Bag 1 bag @ Titrate IV .Q0M [facility] Rx#: [id number] Tube Feeding 136 102 34 Other 150 60 30 Output: Urine 1480 1300 700 Other: Voiding Method Indwelling Catheter Indwelling Catheter 11/06/21 03:25 11/06/21 03:25 EKG Interpretations (text) Monitor shows sinus rhythm Assessment and Plan (1) Paroxysmal atrial fibrillation Current Visit: Yes Status: Acute Code(s): I48.0 - PAROXYSMAL ATRIAL FIBRILLATION SNOMED Code(s): 670506668 (2) COVID-19 Current Visit: Yes Status: Acute Code(s): U07.1 - COVID-19 SNOMED Code(s): 180678780 (3) Hypoxia Current Visit: Yes Status: Acute Code(s): R09.02 - HYPOXEMIA SNOMED Code(s): 965713408 Plan: Start patient on metoprolol 25 mg by mouth twice a day. Get an echocardiogram. Continue anticoagulation
--- NOTE | 2021-11-06 11:44 | P.PN ---
Subjective Progress Note Date: 11/06/21 Principal diagnosis: Acute hypoxic history failure secondary to COVID-19 pneumonia On 11/03/2021 patient seen in follow-up in the intensive care unit, he remains intubated, sedated and paralyzed on assist-control mode of ventilation with a rate of 35, tidal M is 450, FiO2 65% and PEEP of 20, his peak air pressure is 35, plateau pressure is 40. This morning's blood gas shows pO2 of 61, pCO2 of 66, and pH of 7.36, this was done on the above-mentioned vent settings. Today's chest x-ray has been reviewed showing stable diffuse bilateral infiltrates, and interval development of subcutaneous emphysema involving the soft tissues of the neck, there is small amount of pneumomediastinum not excluded. She is currently on Diprivan at 50 mics per kilo per minute, fentanyl at 2.5 mics per kilo per minute, Nimbex is at 3 mics per kilo per minute, Cleviprex of the 5 mg per hour. He is tolerating tube feedings with vital HP at a rate of 15 with standard water flushes. No fever or chills overnight, he is not requiring any vasopressor support, he is actually been a bit hypertensive requiring Cleviprex infusion, currently his blood pressure is better controlled and is 153/68 with a mean of 92. Patient has not been prone for last 48 hours related to development of deep tissue injury on his face. Today's labs show white blood cell count of 14.9, hemoglobin of 12.8, platelet count is 449, sodium is 140, potassium is 5.0, chloride is 102, CO2 36, B1 is 50, creatinine is 1.01, his AST is 41, ALT is 119, alk phos is 129. His last set of inflammatory markers from yesterday showed LDH of 564, and CRP of 19.8, today's set of inflammatory markers is still pending. Patient has been receiving lactulose and Reglan, he has not had a bowel movement in several days, and we will increase his lactulose, she also remains on Lasix 40 mg twice daily however she is still does daily in negative fluid balance over the last 24 hours of -223 mL. Very today on 11/04/21, patient remains in the ICU, intubated and mechanically ventilated. Patient is on assist control rate of 32 tidal volume 450 FiO2 70% PEEP is at 20. ABG is marginal although the patient is on relatively high FiO2 and high PEEP. Patient has a pO2 of 57 pCO2 of 70 pH of 7.36. His electrolytes are normal renal profile showed a BUN of 50 creatinine 0.95. WBC count is 10.7 hemoglobin is 11.7. Chest x-ray continues to show bilateral interstitial infiltrates consistent with COVID-19 pneumonia. Patient is on multiple drips including Cleviprex at 3 mg per hour, he is on Cardizem at 15 mg per hour propofol at 50 fentanyl 3 mcg/kg/h Nimbex at 3 mcg/kg/m. He is on 0.9 normal saline at KVO. Yesterday the patient developed atrial fibrillation with RVR, and today I increased his Lovenox to 80 mg subcu twice a day, converted to sinus rhythm and early this morning. Patient is on enteral feeding. It is up to goal. Overall clinical status is extremely marginal. Remains on cefepime empirically. Remains on the COVID-19 cocktail. Lovenox was increased to 80 mg subcu twice a day, Azopt Protonix 40 mg IV push daily. And he is also on zinc. Lasix is given at 40 mg IV push every 12 hours. Reevaluated today on 11/05/21, patient remains in the ICU intubated and mechanically ventilated. Not showing much of an improvement over the last 24 hours. Remains on assist control rate of 32. Tidal volume of 450 FiO2 70% PEEP is still high/20. ABG is marginal with a pO2 of 58 pCO2 of 69 pH of 7.39. Elisabet ent remains on propofol at 50 fentanyl 3 Nimbex at 2.5 , Cleviprex S3 milligrams per hour. His plateau pressure is 33 and peak airway pressure is in the high 30s. Dimer is 0.58 BUN is 48 creatinine 1.11. There is 14.6 hemoglobin is 12.1. X-ray continues to show multifocal infiltrates consistent with COVID-19 pneumonia. Liver enzymes remain elevated with alkaline phosphatase of 149 ALT of 134 AST of 63. Patient remains on Cardizem drip and he is now in sinus rhythm, his drip is at 5 mg per hour. Remains on cefepime empirically. Remains on the COVID-19 cocktail. Remains on Decadron 6 mg of push daily and Protonix as well as Lovenox 40 mg subcu daily. Remains on Lasix 40 mg IV push twice a day. He is also on lactulose 20 mg twice a day. And Reglan was added today. No bowel movements in the last few days Reevaluated today on 11/06/2021, patient remains in the ICU, intubated and mechanically ventilated. Again he is not showing any signs of recovery or improvement. Chest x-ray continues to show quite extensive infiltrates consistent with pneumonia and ARDS. Remains on assist control rate of 32 tidal volume 450 FiO2 on the percent and PEEP of 20. ABG showed a pO2 of 63 pCO2 of 70 pH of 7.38. Hence no changes were made on the ventilator settings and we plan to titrate FiO2 down to maintain O2 saturation above 89% if possible. WBC count today is 14 hemoglobin is 11.3 sodium is 147 potassium 4.5 BUN is 51 creatinine 1.08. Liver enzymes are noted to be a bit elevated including AST of 81 and ALT of 144. Patient remains on multiple drips including fentanyl and 3 mcg/kg/h Nimbex at 2 mcg/kg/m propofol at 50 mcg/kg/m Cleviprex at 4 mg per hour Cardizem at 15 mg per hour and his IV fluid at KVO. Patient is on enteral feeding. Chest x-ray was reviewed and is basically about the same. Up much of an improvement noted in the last few days Objective - Vital Signs Vital signs: Vital Signs Temp 100.5 F H 11/06/21 09:00 Pulse 100 11/06/21 11:00 Resp 32 H 11/06/21 11:00 BP 151/80 11/06/21 11:00 Pulse Ox 86 L 11/06/21 11:00 Intake & Output 11/05/21 11/06/21 11/06/21 18:59 06:59 18:59 Intake Total 8973.490 2560.755 354.906 Output Total 2029 2029 700 Balance -246.129 -212.245 -345.094 Weight 121.5 kg Intake: IV 376 276 192 Cefepime 2 gm In Sodium 100 100 Chloride 0.9% 100 ml @ 25 mls/hr IVPB Q12HR [facility] Rx #:[id number] Normal Saline 0.9 36 36 12 Pressure Bag @ 3mL/hr Sodium Chloride 0.9% 1, 240 240 80 000 ml @ 20 mls/hr IV . Q24H [facility] Rx#:[id number] Intake, IV Titration 0966.176 8111.755 98.906 Amount Cisatracurium 200 mg In 188.922 200 Sodium Chloride 0.9% 180 ml @ 1 MCG/KG/MIN 6.668 mls/hr IV .Q24H [facility] Rx#: [id number] Clevidipine Butyrate 25 39.267 131.1 mg In Empty Bag 1 bag @ 1 MG/HR 2 mls/hr IV .Q24H [facility] Rx#:[id number] Diltiazem 125 mg In 125 250 Sodium Chloride 0.9% 100 ml @ 5 MG/HR 5 mls/hr IV .Q24H [facility] Rx#:[id number] fentaNYL (PF). 1,000 mcg 391.682 396.683 98.906 In Sodium Chloride 0.9% 80 ml @ 0.5 MCG/KG/HR 5. 557 mls/hr IV .Q18H [facility] Rx#:[id number] propofoL 1,000 mg In 400 213.972 Empty Bag 1 bag @ Titrate IV .Q0M [facility] Rx#: [id number] Tube Feeding 173 170 34 Other 90 180 30 Output: Urine 2029 2030 700 Other: Voiding Method Indwelling Catheter Indwelling Catheter ABP, PAP, CO, CI - Last Documented Arterial Blood Pressure 143/64 - Exam GENERAL EXAM: Revealed 56-year-old white male intubated mechanically ventilated, sedated and paralyzed. HEAD: Normocephalic/atraumatic. Cellulitis noted in the chin area related to recent prone position especially on the left side. EYES: PERRLA, MS, nonicteric, no neck masses NOSE: Clear with pink turbinates. THROAT: No erythema or exudates. NECK: No masses, no JVD, no thyroid enlargement, no adenopathy. CHEST: Symmetrical chest expansion, crackles at the bases. CVS: Regular rate and rhythm, normal S1 and S2, no gallops, no murmurs, no rubs ABDOMEN: Soft, nontender. No hepatosplenomegaly, normal bowel sounds, no guarding or rigidity. EXTREMITIES: No clubbing, trace of bipedal edema, no cyanosis, 2+ pulses and upper and lower extremities. SKIN: No rashes CENTRAL NERVOUS SYSTEM: Sedated, paralyzed, unable to assess. - Labs CBC & Chem 7: 11/06/21 03:25 11/06/21 03:25 Labs: Abnormal Lab Results - Last 24 Hours (Table) 11/05/21 11/05/21 11/06/21 Range/Units 11:43 18:13 00:09 WBC (3.8-10.6) k/uL RBC (4.30-5.90) m/uL Hgb (13.0-17.5) gm/dL Hct (39.0-53.0) % MCHC (31.0-37.0) g/dL Neutrophils # (1.3-7.7) k/uL Lymphocytes # (1.0-4.8) k/uL ABG pCO2 (35-45) mmHg ABG pO2 (83-108) mmHg ABG HCO3 (21-25) mmol/L ABG Total CO2 (19-24) mmol/L ABG O2 Saturation (94-97) % Sodium (137-145) mmol/L Carbon Dioxide (22-30) mmol/L BUN (9-20) mg/dL Glucose (74-99) mg/dL POC Glucose (mg/dL) 150 H 137 H 149 H (75-99) mg/dL AST (17-59) U/L ALT (4-49) U/L Alkaline Phosphatase (38-126) U/L Total Protein (6.3-8.2) g/dL Albumin (3.5-5.0) g/dL 11/06/21 11/06/21 11/06/21 Range/Units 01:17 03:25 03:25 WBC 14.0 H (3.8-10.6) k/uL RBC 3.82 L (4.30-5.90) m/uL Hgb 11.3 L (13.0-17.5) gm/dL Hct 37.7 L (39.0-53.0) % MCHC 29.9 L (31.0-37.0) g/dL Neutrophils # 12.1 H (1.3-7.7) k/uL Lymphocytes # 0.8 L (1.0-4.8) k/uL ABG pCO2 70 H (35-45) mmHg ABG pO2 63 L (83-108) mmHg ABG HCO3 41 H* (21-25) mmol/L ABG Total CO2 43 H (19-24) mmol/L ABG O2 Saturation 92.8 L (94-97) % Sodium 147 H (137-145) mmol/L Carbon Dioxide 39 H (22-30) mmol/L BUN 51 H (9-20) mg/dL Glucose 125 H (74-99) mg/dL POC Glucose (mg/dL) (75-99) mg/dL AST 81 H (17-59) U/L ALT 144 H (4-49) U/L Alkaline Phosphatase 161 H (38-126) U/L Total Protein 6.2 L (6.3-8.2) g/dL Albumin 2.8 L (3.5-5.0) g/dL 11/06/21 Range/Units 06:14 WBC (3.8-10.6) k/uL RBC (4.30-5.90) m/uL Hgb (13.0-17.5) gm/dL Hct (39.0-53.0) % MCHC (31.0-37.0) g/dL Neutrophils # (1.3-7.7) k/uL Lymphocytes # (1.0-4.8) k/uL ABG pCO2 (35-45) mmHg ABG pO2 (83-108) mmHg ABG HCO3 (21-25) mmol/L ABG Total CO2 (19-24) mmol/L ABG O2 Saturation (94-97) % Sodium (137-145) mmol/L Carbon Dioxide (22-30) mmol/L BUN (9-20) mg/dL Glucose (74-99) mg/dL POC Glucose (mg/dL) 126 H (75-99) mg/dL AST (17-59) U/L ALT (4-49) U/L Alkaline Phosphatase (38-126) U/L Total Protein (6.3-8.2) g/dL Albumin (3.5-5.0) g/dL Microbiology - Last 24 Hours (Table) 11/05/21 15:32 Wound Culture - Preliminary Face 11/02/21 14:55 Gram Stain - Final Sputum Sputum Culture - Final Staphylococcus aureus Mignon albicans Assessment and Plan Assessment: Impression: Acute hypoxic respiratory failure secondary COVID-19 pneumonia, patient received monoclonal antibody infusion on 10/19, was not a candidate for Remdesivir the cause of his acute hypoxic respiratory failure, not a candidate for Baricitinib because of underlying bacterial infection possibility. Patient was admitted to the ICU on 10/28 and intubated on 10/28 remains intubated and mechanically ventilated. Patient developed ARDS secondary to COVID-19 pneumonia with relatively elevated plateau pressures and static pressures. Remains on high PEEP. high FiO2, Elevated pro calcitonin level, patient was treated empirically with Zosyn cultures have been nondiagnostic. Now on cefepime empirically. Zosyn is off. Elevated inflammatory markers second COVID-19 pneumonia Elevated d-dimer but negative workup for pulmonary embolism New-onset atrial fibrillation with RVR on 11/03 requiring Cardizem drip and now on higher dose of Lovenox. 80 mg subcu twice a day. History of fibromyalgia. Lifetime nonsmoker. Acute kidney injury secondary COVID-19 pneumonia improving History of hypothyroidism Deep tissue injury to Chin from prone position, no more prone positioning has been done. Pneumomediastinum with subcutaneous emphysema in the neck. This is a complication of COVID-19 infection. Recommendation: Continue ventilatory support, remains on high PEEP of 20, FiO2 is high at 100% rate is 32 volume 450. Continue sedation and paralysis Continue fentanyl Continue Lasix 40 mg twice a day Continue clevidipine, and titrate accordingly. Continue enteral feeding/nutritional support. Continue lactulose, and Reglan Continue to monitor inflammatory markers Continue GI and DVT prophylaxis. Patient is on Protonix and is also on Lovenox/therapeutic Lovenox. Overall prognosis remains extremely poor and guarded Continue COVID-19 cocktail. Critical care time is over 30 minutes Time with Patient: Greater than 30
[2021-11-06] MEDS: METOPROLOL TARTRATE 25 MG TAB PO SCH ×3 (11:55→20:37)
[2021-11-06 12:18] LABS: Glucose,Whole Blood 154 mg/dL (75-99)
--- NOTE | 2021-11-06 15:17 | P.PN ---
Subjective Progress Note Date: 11/06/21 History of present illness 56-year-old male with past medical history of fibromyalgia comes in to emergency room with symptoms of nausea, vomiting, dizziness and sweating feeling weak in with runny nose loss of taste and hence now for the past 1 week. He presented on 10/19 was found to have positive COVID results. Received his monoclonal antibodies. He Came back to the emergency room because of worsening of symptoms.Vitals reviewed patient afebrile pulse 80 respiratory rate 20 blood pressure 138/82 saturating at 88% on 10 L labs reviewed WBC 6.6 hemoglobin 13.9 d-dimer is elevated at 0.89, sodium 135 bicarb 21 BUN 16 creatinine 1.3 glucose 187 ferritin 2822 AST 89 ALT 80 alkaline phosphatase 225 LDH 1091 and CRP 21 and albumin 3.3 X-ray suggestive of bilateral patchy pneumonia. Both interstitial and airspace infiltrate Pulmonary clinic consulted for COVID pneumonia Patient placed on Lovenox 40 subcu twice a day, vitamin C, D and zinc. Dexamethasone initiated at 6 mg twice a day IV Patient is a candidate of Baritinib and will discuss about initiating it with pulmonary Venous Doppler ordered 10/22: [facility] follow-up. He continues to have dyspnea and is on 15 L high flow nasal cannula and nonrebreather with pulse ox of 87 and 95%. He's been afebrile, heart rate in the 60s and 70s, blood pressure 127/73. Pro-calcitonin came back high at 9.75 and we started the patient on Zosyn and vancomycin for bacterial pneumonia coverage. Patient has coarse crackles bilaterally. No lower extremity edema. He has been seen and followed by pulmonary medicine. Patient is not a candidate for Baricitinib. Patient is continued on Decadron, Lovenox and vitamin supplements. 10/23: Is found sitting up in the edge of the bed. He is currently not on a Ventimask. However his pulse oxing still around 88 to 91 % on Ventimask or 15 L high flow nasal cannula. Patient continues to have dyspnea with activity and speaking. Patient states that he is feeling much better compared to yesterday. Continues to have a cough. No lower extremity edema. He has rhonchi to the bases bilaterally. He is currently on Decadron Lovenox and vitamin supplements. Patient remains afebrile, heart rate 62, respirations 17, blood pressure 118/68 pulse ox 93% on 15 L high flow nasal cannula 10/24: Patient was up to the bathroom showering today. Awaiting inflammation markers today. Patient still requires 10 L of O2 with a pulse ox of 90%. Patient continues to have crackles to the bilateral bases. Dyspnea with activity and speaking. Patient states he is feeling better however he is very tired. Continues to have cough no lower extremity edema. He still currently on Decadron, Lovenox, and vitamin supplements. Patient remains afebrile, heart rate 58, respirations 17, blood pressure 118/89, 10/25: Patient is still on high flow nasal cannula 15 L and nonrebreather with pulse ox of 89 and 99%. He's been afebrile, heart rate 73, blood pressure 120/72. Creatinine 1.06. Blood sugars running between 101 and 106. Sputum culture is in progress. Patient is followed closely by pulmonary medicine. Patient is continued on dexamethasone, Lovenox, Zosyn and vitamin supplements. Patient has been encouraged to prone several hours daily. 10/26: Patient remains on nonrebreather mask and AirVo at 60 L, FiO2 of 85 with pulse ox of 88%. Appears to have more difficulty with breathing. Repeat chest x-ray reveals stable bilateral infiltrates. He has been afebrile, heart rate 59, blood pressure 102/59. Repeat d-dimer 1.53. Blood sugars are well controlled. 10/27: Patient remains on nonrebreather and AirVo with pulse ox at 90%. Patient was agreeable. He has been afebrile, heart rate 70, blood pressure 131/79. CBG running between 97 and 116 and CBGs and insulin will be discontinued. Sputum cultures positive for Mignon albicans. Patient is increasing his activity, currently laying in bed on his side. Lab work including inflammatory markers ordered for tomorrow. 10/28: Patient had a drop in his pulse ox and 78% with nonrebreather and AirVo and A-Team was called. Patient stated that his shortness of breath was better than the night before. Stat chest x-ray was done which revealed bilateral multifocal peripheral increased opacities consistent with Covid 19 infection are redemonstrated. No significant change. Patient transitioned to BiPAP with pulse ox of 90%. Patient verbalized that he wanted to be a no CODE STATUS and was encouraged to discuss with family. It was determined the patient will be transferred to the intensive care unit most likely be intubated. Patient was very resistant but after long discussion with Dr. Mark Anthony santo, patient agreed to intubation and full CODE STATUS at this point. Repeat blood work reveals WBC 9.4, hemoglobin 12.7, platelet count 263. D-dimer 1.31. Blood sugars 10/29: Patient was transferred into the intensive care unit yesterday and subsequently intubated and placed on mechanical ventilation, tidal volume 450, FiO2 100, PEEP of 20. Patient was prone this morning switched over to supine. He was started on tube feedings yesterday but had a high residual this morning after pronating. He is currently on fentanyl, propofol, Nimbex drip. One amp of bicarbonate given this morning. Chest x-ray reveals lateral multifocal confluent and increased opacities greatest in the periphery consistent with Covid 19 infection redemonstrated. No sicca be unchanged from one day earlier. CTA of the chest done yesterday reveals suboptimal study without saddle central pulmonary embolism. Cannot exclude smaller pulmonary emboli. Bilateral multifocal and confluent groundglass opacities and organizing consolidations consistent with known Covid 19 infection. Repeat blood work reveals WBC 13.1, hemoglobin 13.1, platelet count 381. D- dimer 1.17. Sodium 135, potassium 5.2, chloride 104, CO2 24, BUN 29 and creatinine 0.78. Capillary blood glucose running between 116 and 150s. AST 216. C-reactive protein 7.9, pro-calcitonin 0.15. 10/30: This is day #9 of admission, patient remains in ICU, still mechanically ventilated for hypoxemia, starting 10/29/2021, on Wade assist control, rate 32, PEEP of 20, FiO2 100%, dexamethasone 6 mg daily, electrolytes are stable, BUN 29 creatinine 0.84, x-ray shows bilateral multifocal opacities, consistent with Covid pneumonia, CT angiogram negative for PE, patient is on propofol, fentanyl and index vital HP, at 20 mL an hour 10/31: Patient remains in ICU, intubated, NG tube in place, chest x-ray shows no pneumothorax, no pleural effusion, there is bilateral patchy pulmonary interstitial infiltrates, with coalescent density in the left lower lobe. No significant change from yesterdayALT iscreatinine is 0.75, ALT is trending downward, C reactive protein is 8.0 from a previous of 8.9Lasix given today, on dexamethasone, and remains sedated. 11/01: Patient remains in the intensive care unit, intubated and on mechanical ventilation with FiO2 60% and PEEP of 20 with pulse ox of 87%. Patient is being prone for 16 hours per day. He is tolerating tube feedings. He has been started on lactulose this morning for constipation. He has been afebrile, heart rate 75, respiratory rate in the low 30s, blood pressure 148/65. Patient was started on Clevidipine gtt. he is also on propofol, fentanyl and Nimbex. No new concerns, patient seems to be fairly stable. 11/02: Patient remains in intensive care unit intubated and on mechanical ventilation with FiO2 of 65, tidal volume 450, PEEP of 20. Patient is being managed by the route sales person. Patient has not been prone today due to skin breakdown on his face. He is on tube feedings and tolerating. Patient has been afebrile, heart rate 102, blood pressure 151/71, pulse ox 85-89%. Repeat blood work reveals WBC 13.5, hemoglobin 12.2. Electrolytes normal. BUN 47 creatinine 1.05. ALT 124. C-reactive protein 19.8. D-dimer 1.09. The patient did not have a bowel movement after lactulose yesterday which is been repeated and Dulcolax suppository ordered for today. 11/03, patient remains in ICU, intubated and mechanically vented, is starting to have skin excoriations, in the face and with deep tissue injury chin area, from pronating position, for that reason, they have avoided pronating since yesterday. Patient's currently sedated, and is receiving fentanyl, and nimbex clevipres. ngt tolerated at 50 cch/r vital hp, inflammatory markers are still elevated, with LDH of 58, CRP of 19, still with bowel issues, they have increased lactulose to 20 mg twice a day, and Dulcolax suppository daily. No plans for weaning off the vent trials at this time, probably might end up in a trach PEG . 11/04 patient went into A. fib RVR last night, for which they have started him on amiodarone, which did not help, patient therefore was started on Cardizem drip, currently at 15 mics, still no bowel movement, despite Dulcolax and lactulose, we'll going to do half dose MiraLAX a day, and may repeat in 12 hours, patient is still no vent, with PEEP of 21 11/05 patient in ICU, still mechanical ventilation, closely followed by pulmonary route sales person not much improvement, over the past 48 hours, BP still high at 21, still requires sedation, x-rays continue to show multifocal infiltrates, patient remains on his IV antibiotics cefepime, empiric treatments, Decadron 6 mg daily, and Lovenox shot. Lasix 40 mg every 12 hours patient still has low-grade temp, between 99.6 T-max still tachypneic. Pulse ox 85% FiO2 70% on vent 11/06 Patient remains in ICU still mechanically ventilated on current settings of respiratory rate 32, tidal volume 450 on FiO2 100% with PEEP of 20. Patient has low-grade temp this morning 100.8 and a high of 101.3 last night, pulse of 87 respiratory rate 32 blood pressure 130/76 oxygen saturation 8700% FiO2. White cell count this morning is a W BC O 14 hemoglobin 1311.3 ABG drawn at 100% FiO2 soled suggest a pH of 7.38E CO2 of 74-63 bicarb 41 sodium 147 potassium 4.5 bicarb 39 BUN 51 creatinine 1. 8 glucose stable at 125 liver enzymes gradually getting evaluated with AST 81 ALT 144 alkaline phosphatase of 161 sputum cultures suggestive of staph aureus and Mignon albicans stop chest x-ray this morning suggests a cathetered bilateral airspace and interstitial opacities likely worsened in the lower lungs no pneumothorax or large effusion. Patient was noted to be in intermittent atrial fibrillation with RVR as nature. Cardizem currently increased to 15 mics per KG. Patient currently in sinus r hythm. Cardiology consulted initiated patient on metoprolol 25 3 times a day. Echocardiogram ordered. Patient remains on multiple drips including fentanyl, Pneumovax, propofol, TB Prax, Cardizem. Patient is a poor prognosis at this point. On pulmonary with try to titrate down the FiO2 to keep above 90%. Wishes continued to remain on antibiotics with cefepime. We will consult infectious disease. Continue Lasix at 40 IV every 12 hours. Inflammation markers repeat including LDH, ferritin, proBNP and CRP. ROS Unable to obtain due to intubation Physical exam General Appearance: Patient is laying in the ICU bed, intubated and on mechan ical ventilation. No acute distress. Patient appears to be comfortable. Full examination deferred to intensive this due to intubation and Covid 19. Assessment and plan 1. Acute hypoxic respiratory failure secondary to Covid 19 pneumonia. Consult with pulmonary medicine appreciated. Patient was intubated and placed on mechanical ventilation 10/28. Continue care in the intensive care unit, proning, currently on fentanyl, propofol and Nimbex. patient on cefepime 2 g every 12 hours 2. Acute COVID pneumonia. Dexamethasone 6 mg IV increased to twice daily, Lovenox 40 subcu daily history T twice daily, Not a candidate for Baricitinib, Monitor inflammatory markers. Continue supplements vitamin C, D and zinc to implementing markers ordered possible bacterial in position since staph aureus growing on the cultures. Mignon albicans noted on the culture 3. Acute transaminitis Secondary to viral inflammation. Continue monitoring 4. CKD stage 3. Continue to monitor patient's creatinine. No acute kidney injury 5. History of fibromyalgia. continue gabapentin 800 3 times a day, Citalopram 40 mg by mouth daily 6. Insomnia. Was on Eszopiclone 3 mg daily at bedtime 7. Hypothyroidism. Levothyroxine 50 g by mouth daily 8. Hypertension. Patient started on Clevidipine gtt. 9. DVT prophylaxis. Lovenox 40 subcu daily. 10. GI prophylaxis. Protonix 40 mg IV push daily 11. Hyperglycemia secondary to steroids, IV drips, patient is on NovoLog scale. 12. Constipation. Lactulose 20 g daily and Dulcolax suppository today MiraLAX. 13 atrial fibrillation with RVR on Cardizem 15 g by mouth daily with metoprolol 50 3 times a day Prognosis guarded. Status: Full code Discharge Plan: To be determined. Objective - Vital Signs Vital signs: Vital Signs Temp 100.5 F H 11/06/21 09:00 Pulse 100 11/06/21 11:00 Resp 32 H 11/06/21 11:00 BP 151/80 11/06/21 11:00 Pulse Ox 86 L 11/06/21 11:00 Intake & Output 11/05/21 11/06/21 11/06/21 18:59 06:59 18:59 Intake Total 0120.650 6344.755 576.414 Output Total 2029 Balance -246.129 -212.245 -123.586 Weight 121.5 kg Intake: IV 376 276 192 Cefepime 2 gm In Sodium 100 100 Chloride 0.9% 100 ml @ 25 mls/hr IVPB Q12HR [facility] Rx #:[id number] Normal Saline 0.9 36 36 12 Pressure Bag @ 3mL/hr Sodium Chloride 0.9% 1, 240 240 80 000 ml @ 20 mls/hr IV . Q24H [facility] Rx#:[id number] Intake, IV Titration 6364.685 4178.755 320.414 Amount Cisatracurium 200 mg In 188.922 200 Sodium Chloride 0.9% 180 ml @ 1 MCG/KG/MIN 6.668 mls/hr IV .Q24H [facility] Rx#: [id number] Clevidipine Butyrate 25 39.267 131.1 48 mg In Empty Bag 1 bag @ 1 MG/HR 2 mls/hr IV .Q24H [facility] Rx#:[id number] Diltiazem 125 mg In 125 250 Sodium Chloride 0.9% 100 ml @ 5 MG/HR 5 mls/hr IV .Q24H [facility] Rx#:[id number] fentaNYL (PF). 1,000 mcg 391.682 396.683 198.906 In Sodium Chloride 0.9% 80 ml @ 0.5 MCG/KG/HR 5. 557 mls/hr IV .Q18H [facility] Rx#:[id number] propofoL 1,000 mg In 400 213.972 73.508 Empty Bag 1 bag @ Titrate IV .Q0M [facility] Rx#: [id number] Tube Feeding 173 170 34 Other 90 180 30 Output: Urine 2029 Other: Voiding Method Indwelling Catheter Indwelling Catheter ABP, PAP, CO, CI - Last Documented Arterial Blood Pressure 143/64 - Labs CBC & Chem 7: 11/06/21 03:25 11/06/21 03:25 Labs: Abnormal Lab Results - Last 24 Hours (Table) 11/05/21 11/06/21 11/06/21 Range/Units 18:13 00:09 01:17 WBC (3.8-10.6) k/uL RBC (4.30-5.90) m/uL Hgb (13.0-17.5) gm/dL Hct (39.0-53.0) % MCHC (31.0-37.0) g/dL Neutrophils # (1.3-7.7) k/uL Lymphocytes # (1.0-4.8) k/uL ABG pCO2 70 H (35-45) mmHg ABG pO2 63 L (83-108) mmHg ABG HCO3 41 H* (21-25) mmol/L ABG Total CO2 43 H (19-24) mmol/L ABG O2 Saturation 92.8 L (94-97) % Sodium (137-145) mmol/L Carbon Dioxide (22-30) mmol/L BUN (9-20) mg/dL Glucose (74-99) mg/dL POC Glucose (mg/dL) 137 H 149 H (75-99) mg/dL AST (17-59) U/L ALT (4-49) U/L Alkaline Phosphatase (38-126) U/L Total Protein (6.3-8.2) g/dL Albumin (3.5-5.0) g/dL 11/06/21 11/06/21 11/06/21 Range/Units 03:25 03:25 06:14 WBC 14.0 H (3.8-10.6) k/uL RBC 3.82 L (4.30-5.90) m/uL Hgb 11.3 L (13.0-17.5) gm/dL Hct 37.7 L (39.0-53.0) % MCHC 29.9 L (31.0-37.0) g/dL Neutrophils # 12.1 H (1.3-7.7) k/uL Lymphocytes # 0.8 L (1.0-4.8) k/uL ABG pCO2 (35-45) mmHg ABG pO2 (83-108) mmHg ABG HCO3 (21-25) mmol/L ABG Total CO2 (19-24) mmol/L ABG O2 Saturation (94-97) % Sodium 147 H (137-145) mmol/L Carbon Dioxide 39 H (22-30) mmol/L BUN 51 H (9-20) mg/dL Glucose 125 H (74-99) mg/dL POC Glucose (mg/dL) 126 H (75-99) mg/dL AST 81 H (17-59) U/L ALT 144 H (4-49) U/L Alkaline Phosphatase 161 H (38-126) U/L Total Protein 6.2 L (6.3-8.2) g/dL Albumin 2.8 L (3.5-5.0) g/dL 11/06/21 Range/Units 12:16 WBC (3.8-10.6) k/uL RBC (4.30-5.90) m/uL Hgb (13.0-17.5) gm/dL Hct (39.0-53.0) % MCHC (31.0-37.0) g/dL Neutrophils # (1.3-7.7) k/uL Lymphocytes # (1.0-4.8) k/uL ABG pCO2 (35-45) mmHg ABG pO2 (83-108) mmHg ABG HCO3 (21-25) mmol/L ABG Total CO2 (19-24) mmol/L ABG O2 Saturation (94-97) % Sodium (137-145) mmol/L Carbon Dioxide (22-30) mmol/L BUN (9-20) mg/dL Glucose (74-99) mg/dL POC Glucose (mg/dL) 154 H (75-99) mg/dL AST (17-59) U/L ALT (4-49) U/L Alkaline Phosphatase (38-126) U/L Total Protein (6.3-8.2) g/dL Albumin (3.5-5.0) g/dL Microbiology - Last 24 Hours (Table) 11/05/21 15:32 Wound Culture - Preliminary Face 11/02/21 14:55 Gram Stain - Final Sputum Sputum Culture - Final Staphylococcus aureus Mignon albicans
[2021-11-06 17:37] LABS: Glucose,Whole Blood 159 mg/dL (75-99)
[2021-11-06 18:39] LABS: C Reactive Protein 3.8 mg/dL (<1.0)
[2021-11-06 23:29] LABS: Glucose,Whole Blood 129 mg/dL (75-99)
[2021-11-06] MEDS: SODIUM CHLORIDE 0.9% 1,000 ML IV SCH (23:31)
--- NOTE | 2021-11-06 23:46 | P.CONS ---
History of Present Illness - Reason for Consult Consult date: 11/06/21 fever/sepsis Requesting physician: Tristian Ramos - Chief Complaint Shortness of breath x few days - History of Present Illness Patient is a 56 year male with a past medical history significant for fibromyalgia in this patient presented to the hospital about 16 days ago for evaluation of nausea vomiting did diarrhea dizziness and sweating in this patient who was diagnosed with COVID-19 on 10/19/2021 and the patient received monoclonal antibodies subsequently was discharged home a she subsequently presented back to the hospital within 24 hours with worsening symptoms patient was noticed to be hypoxic requiring 10 L high flow oxygen, patient initial x-ray today shows multifocal pneumonia secondary COVID-19 or the patient has been managed by pulmonary patient was initially on the floor however did have most of his respiratory status and ended up getting Intubated on 10/28/2021, patient did received vancomycin initially on October 22 and and also received Zosyn from October 22 in the , the patient was on no antibiotics from to the the patient was started on cefepime per pulmonary patient has been afebrile throughout his hospital stay, except a fever of 101F around midnight and a fever 100.5F this morning that has prompted this infectious disease consultation, patient is currently on the vent for almost 9 days now. No significant purulent secretions with ET and no diarrhea has been reported by the nursing staff, patient is not requiring any pressor support at the moment, patient did have the mildly elevated white count of 14,000, creatinine has normal liver enzymes are mildly elevated patient did not have any blood culture obtained some morning he did have a sputum collected on the which is growing MSSA and Mignon all of this information has been obtained from review the chart, patient did have a right wrist art line and a PICC line both of them has been placed on October 28 when the patient got indurated, and the patient is currently sedated on the vent and can reported history Review of Systems Positive points has been mentioned in HPI complete review could not be obtained because of his underlying mental status Past Medical History Past Medical History: Fibromyalgia Additional Past Medical History / Comment(s): Hypothyroid, born with facial droop, insomnia History of Any Multi-Drug Resistant Organisms: None Reported Past Surgical History: Orthopedic Surgery Additional Past Surgical History / Comment(s): L ACL repair, total L knee arthroplasty, colonoscopy, laser eye surgery for vision correction. Past Anesthesia/Blood Transfusion Reactions: No Reported Reaction Smoking Status: Never smoker - Past Family History Mother Family Medical History: No Reported History Father Family Medical History: Coronary Artery Disease (CAD), Hypertension Medications and Allergies Home Medications Medication Instructions Recorded Confirmed Type Citalopram Hydrobromide 40 mg PO DAILY 10/21/21 10/21/21 History Eszopiclone 3 mg PO HS PRN 10/21/21 10/21/21 History Gabapentin 800 mg PO TID 10/21/21 10/21/21 History Levothyroxine Sodium [Synthroid] 50 mcg PO DAILY 10/21/21 10/21/21 History traMADol HCl [Ultram] 100 mg PO Q6HR PRN 10/21/21 10/21/21 History Allergies Allergy/AdvReac Type Severity Reaction Status Date / Time No Known Allergies Allergy Verified 10/21/21 07:18 Physical Exam Vitals: Vital Signs Temp Pulse Resp BP Pulse Ox 11/06/21 18:00 85 32 H 126/73 87 L 11/06/21 17:30 90 32 H 87 L 11/06/21 17:00 92 32 H 87 L 11/06/21 16:30 90 32 H 87 L 11/06/21 16:00 100.5 F H 90 32 H 87 L 11/06/21 15:30 90 32 H 121/68 87 L 11/06/21 15:00 90 32 H 88 L 11/06/21 14:30 89 88 L 11/06/21 14:00 87 32 H 130/76 87 L 11/06/21 13:30 84 87 L 11/06/21 13:00 82 86 L 11/06/21 12:30 89 130/76 88 L 11/06/21 12:00 100.8 F H 86 32 H 88 L 11/06/21 11:30 102 H 151/80 87 L 11/06/21 11:00 100 32 H 151/80 86 L 11/06/21 10:30 110 H 85 L 11/06/21 10:00 86 32 H 87 L 11/06/21 09:30 101 H 87 L 11/06/21 09:00 100.5 F H 98 32 H 88 L 11/06/21 08:30 93 91 L 11/06/21 08:00 103 H 32 H 89 L 12/25/21 07:30 104 H 32 H 89 L 11/06/21 07:00 100 32 H 88 L 11/06/21 06:30 103 H 32 H 88 L 11/06/21 06:00 105 H 32 H 89 L 11/06/21 05:30 105 H 32 H 87 L 11/06/21 05:00 105 H 32 H 88 L 11/06/21 04:30 105 H 32 H 88 L 11/06/21 04:00 98.8 F 101 H 32 H 87 L 11/06/21 03:30 103 H 32 H 87 L 11/06/21 03:00 104 H 32 H 87 L 11/06/21 02:30 104 H 32 H 87 L 11/06/21 02:00 105 H 32 H 87 L 11/06/21 01:30 105 H 32 H 87 L 11/06/21 01:00 106 H 32 H 87 L 11/06/21 00:30 107 H 32 H 88 L 11/06/21 00:00 101.3 F H 109 H 32 H 88 L 11/05/21 23:30 106 H 32 H 87 L 11/05/21 23:00 107 H 32 H 86 L 11/05/21 22:30 109 H 36 H 85 L 11/05/21 22:00 154 H 36 H 85 L 11/05/21 21:30 100 36 H 86 L 11/05/21 21:00 97 36 H 89 L 11/05/21 20:30 97 36 H 83 L 11/05/21 20:00 99.2 F 99 36 H 83 L 11/05/21 19:30 98 36 H 84 L 11/05/21 19:00 99.1 F 96 83 L Intake and Output 11/06/21 11/06/21 11/06/21 06:59 14:59 22:59 Intake Total 7458.675 9711.764 361.665 Output Total 1300 1250 600 Balance -35.545 -137.236 -238.335 Intake: IV 184 284 92 Cefepime 2 gm In Sodium 100 Chloride 0.9% 100 ml @ 25 mls/hr IVPB Q12HR COUNT INCLUDES THE [facility] Rx #:[id number] Normal Saline 0.9 24 24 12 Pressure Bag @ 3mL/hr Sodium Chloride 0.9% 1, 160 160 80 000 ml @ 20 mls/hr IV . Q24H [facility] Rx#:[id number] Intake, IV Titration 918.455 666.764 171.665 Amount Cisatracurium 200 mg In 200 Sodium Chloride 0.9% 180 ml @ 1 MCG/KG/MIN 6.668 mls/hr IV .Q24H [facility] Rx#: [id number] Clevidipine Butyrate 25 82.8 69.333 mg In Empty Bag 1 bag @ 1 MG/HR 2 mls/hr IV .Q24H [facility] Rx#:[id number] Diltiazem 125 mg In 125 125 Sodium Chloride 0.9% 100 ml @ 5 MG/HR 5 mls/hr IV .Q24H [facility] Rx#:[id number] fentaNYL (PF). 1,000 mcg 296.683 298.923 93.905 In Sodium Chloride 0.9% 80 ml @ 0.5 MCG/KG/HR 5. 557 mls/hr IV .Q18H [facility] Rx#:[id number] propofoL 1,000 mg In 213.972 173.508 77.76 Empty Bag 1 bag @ Titrate IV .Q0M [facility] Rx#: [id number] Tube Feeding 102 102 68 Other 60 60 30 Output: Urine 1300 1250 600 Other: Voiding Method Indwelling Catheter Indwelling Catheter Indwelling Catheter ABP, PAP, CO, CI - Last 8 Hours Arterial Blood Pressure 137/60 Arterial Blood Pressure 150/62 Arterial Blood Pressure 146/61 Arterial Blood Pressure 146/61 Arterial Blood Pressure 150/63 Arterial Blood Pressure 147/62 Arterial Blood Pressure 145/62 Arterial Blood Pressure 140/59 Arterial Blood Pressure 139/60 Arterial Blood Pressure 133/59 Arterial Blood Pressure 130/59 Arterial Blood Pressure 140/63 Arterial Blood Pressure 146/64 Arterial Blood Pressure 147/65 Arterial Blood Pressure 143/64 GENERAL DESCRIPTION: Middle-aged male intubated on the vent no distress. No tachypnea or accessory muscle of respiration use. HEENT: Shows Pallor , no scleral icterus. Oral mucous membrane is dry. No pharyngeal erythema or thrush NECK: Trachea central, no thyromegaly. LUNGS: Unlabored breathing. Decreased intensity of breath sounds. No wheeze or crackle. HEART: S1, S2, regular rate and rhythm. No loud murmur ABDOMEN: Soft, no tenderness , guarding or rigidity, no organomegaly EXTREMITIES: No edema of feet. SKIN: No rash, no masses palpable. NEUROLOGICAL: The patient is sedated on the vent. Results CBC & Chem 7: 11/06/21 03:25 11/06/21 03:25 Labs: Abnormal Lab Results - Last 24 Hours (Table) 11/06/21 11/06/21 11/06/21 Range/Units 00:09 01:17 03:25 WBC (3.8-10.6) k/uL RBC (4.30-5.90) m/uL Hgb (13.0-17.5) gm/dL Hct (39.0-53.0) % MCHC (31.0-37.0) g/dL Neutrophils # (1.3-7.7) k/uL Lymphocytes # (1.0-4.8) k/uL ABG pCO2 70 H (35-45) mmHg ABG pO2 63 L (83-108) mmHg ABG HCO3 41 H* (21-25) mmol/L ABG Total CO2 43 H (19-24) mmol/L ABG O2 Saturation 92.8 L (94-97) % Sodium 147 H (137-145) mmol/L Carbon Dioxide 39 H (22-30) mmol/L BUN 51 H (9-20) mg/dL Glucose 125 H (74-99) mg/dL POC Glucose (mg/dL) 149 H (75-99) mg/dL AST 81 H (17-59) U/L ALT 144 H (4-49) U/L Alkaline Phosphatase 161 H (38-126) U/L C-Reactive Protein (<1.0) mg/dL Total Protein 6.2 L (6.3-8.2) g/dL Albumin 2.8 L (3.5-5.0) g/dL 11/06/21 11/06/21 11/06/21 Range/Units 03:25 06:14 12:16 WBC 14.0 H (3.8-10.6) k/uL RBC 3.82 L (4.30-5.90) m/uL Hgb 11.3 L (13.0-17.5) gm/dL Hct 37.7 L (39.0-53.0) % MCHC 29.9 L (31.0-37.0) g/dL Neutrophils # 12.1 H (1.3-7.7) k/uL Lymphocytes # 0.8 L (1.0-4.8) k/uL ABG pCO2 (35-45) mmHg ABG pO2 (83-108) mmHg ABG HCO3 (21-25) mmol/L ABG Total CO2 (19-24) mmol/L ABG O2 Saturation (94-97) % Sodium (137-145) mmol/L Carbon Dioxide (22-30) mmol/L BUN (9-20) mg/dL Glucose (74-99) mg/dL POC Glucose (mg/dL) 126 H 154 H (75-99) mg/dL AST (17-59) U/L ALT (4-49) U/L Alkaline Phosphatase (38-126) U/L C-Reactive Protein (<1.0) mg/dL Total Protein (6.3-8.2) g/dL Albumin (3.5-5.0) g/dL 11/06/21 11/06/21 Range/Units 17:30 17:36 WBC (3.8-10.6) k/uL RBC (4.30-5.90) m/uL Hgb (13.0-17.5) gm/dL Hct (39.0-53.0) % MCHC (31.0-37.0) g/dL Neutrophils # (1.3-7.7) k/uL Lymphocytes # (1.0-4.8) k/uL ABG pCO2 (35-45) mmHg ABG pO2 (83-108) mmHg ABG HCO3 (21-25) mmol/L ABG Total CO2 (19-24) mmol/L ABG O2 Saturation (94-97) % Sodium (137-145) mmol/L Carbon Dioxide (22-30) mmol/L BUN (9-20) mg/dL Glucose (74-99) mg/dL POC Glucose (mg/dL) 159 H (75-99) mg/dL AST (17-59) U/L ALT (4-49) U/L Alkaline Phosphatase (38-126) U/L C-Reactive Protein 3.8 H (<1.0) mg/dL Total Protein (6.3-8.2) g/dL Albumin (3.5-5.0) g/dL Microbiology - Last 24 Hours (Table) 11/05/21 15:32 Wound Culture - Preliminary Face Assessment and Plan Assessment: 1-patient with new fever recorded around midnight and this patient has been in the hospital for 16 days with initial diagnosis of covid 19 pneumonia, patient did have a worsening of his respiratory status and lipid indurated about 9 days ago, with the source of this new fever could be secondary bacterial pneumonia with a sputum showing MSSA or could be related the lines the patient has for the last 9 days (1) Fever Current Visit: Yes Status: Acute Code(s): R50.9 - FEVER, UNSPECIFIED SNOMED Code(s): 323542676 Plan: 1-blood cultures will be obtained and will also obtain a urine culture CRP and pro calcitonin to complete the workup 2-continue with the cefepime 3-we'll add vancomycin pharmacy to dose while awaiting further workup to finalize We will follow on clinical condition and cultures to further adjust medication if needed Thank you for this consultation will follow this patient with you Time with Patient: Greater than 30
[2021-11-06] MEDS ORDERED: VANCOMYCIN IV PER PHARMACY 1 EACH MISC MISCELLANE PRN (23:47)
[2021-11-07] MEDS ORDERED: VANCOMYCIN 2,500 MG in SODIUM CHLORIDE 0.9% 500 ML 500 ML IVPB ONE (01:00)
[2021-11-07] MEDS: CEFEPIME 2 GM in SODIUM CHLORIDE 0.9% 100 ML IVPB SCH ×3 (01:27→15:54)
[2021-11-07] MEDS: fentaNYL (PF). 1,000 MCG in SODIUM CHLORIDE 0.9% 80 ML IV SCH ×7 (02:40→20:02)
[2021-11-07] MEDS: ARTIFICIAL TEARS-HYPROMELLOSE DROPS 15 ML BTL BOTH EYES SCH ×4 (04:37→15:54)
[2021-11-07] MEDS: CLEVIDIPINE BUTYRATE 25 MG in EMPTY BAG 1 BAG IV SCH ×4 (04:47→18:02)
[2021-11-07 05:36] LABS: Glucose,Whole Blood 135 mg/dL (75-99)
[2021-11-07] MEDS: INSULIN ASPART (NovoLOG) 100 UNIT/ML VIAL SQ SCH ×3 (05:39→17:07)
[2021-11-07] MEDS: METOCLOPRAMIDE 5 MG/ML 2 ML VIAL IVP SCH ×3 (05:42→17:07)
[2021-11-07] MEDS: LEVOTHYROXINE 50 MCG TAB PO SCH (05:54)
[2021-11-07 06:03] LABS: ABG Base Excess 15.6 mmol/L; ABG Oxygen Saturation 88.1 % (94-97); ABG PCO2 70 mmHg (35-45); ABG PH 7.38 (7.35-7.45); ABG TCO2 43 mmol/L (19-24); Allen Test Performed? Yes
[2021-11-07 06:07] LABS: ABG HCO3 41 mmol/L (21-25); ABG PO2 54 mmHg (83-108)
[2021-11-07 07:03] LABS: ALT 111 U/L (4-49); AST 51 U/L (17-59); African American GFR (CKD) >90 (>60 ml/min/1.73 sqM); Albumin 2.8 g/dL (3.5-5.0); Alkaline Phosphatase 133 U/L (38-126); Anion Gap 4 mmol/L; Blood Urea Nitrogen 53 mg/dL (9-20); C Reactive Protein 3.3 mg/dL (<1.0); Calcium 8.6 mg/dL (8.4-10.2); Carbon Dioxide 38 mmol/L (22-30); Chloride 104 mmol/L (98-107); Glucose 144 mg/dL (74-99); Non-African American GFR(CKD) 88 (>60 ml/min/1.73 sqM); Potassium 4.5 mmol/L (3.5-5.1); Sodium 146 mmol/L (137-145); Total Bilirubin 0.7 mg/dL (0.2-1.3); Total Protein 6.1 g/dL (6.3-8.2)
--- NOTE | 2021-11-07 07:14 | XR ---
EXAMINATION TYPE: XR chest 1V portable DATE OF EXAM: 11/07/2021 COMPARISON: November 06, 2021 HISTORY: 56 years Male. STUDY INDICATION GIVEN: SOB . TECHNIQUE: AP chest radiograph IMPRESSION: Tip of endotracheal tube midthoracic trachea. Left central venous catheter tip at the cavoatrial junc tion. Tube courses into the stomach. No significant change to bilateral airspace and interstitial opacities. No pneumothorax, effusion or cardiomegaly.
[2021-11-07] MEDS: ALBUTEROL HFA INHALER INHALATION SCH ×3 (07:40→19:05)
[2021-11-07] MEDS: CHLORHEXIDINE GLUCONATE 15 ML CUP MUCOUS MEM SCH ×2 (08:48→20:27)
[2021-11-07] MEDS: bisacodyL 10 MG SUPP RECTAL SCH (08:49)
[2021-11-07] MEDS: LACTULOSE 20 GM/30 ML CUP PO SCH ×2 (08:49→20:28)
[2021-11-07] MEDS: CITALOPRAM HYDROBROMIDE 20 MG TAB PO SCH (08:49)
[2021-11-07] MEDS: CHOLECALCIFEROL 25 MCG (1000 IU) TABLET PO SCH (08:49)
[2021-11-07] MEDS: GABAPENTIN 400 MG CAP PO SCH ×3 (08:49→20:28)
[2021-11-07] MEDS: ZINC SULFATE 220 MG CAP PO SCH (08:49)
[2021-11-07] MEDS: ASCORBIC ACID 500 MG TAB PO SCH (08:49)
[2021-11-07] MEDS: METOPROLOL TARTRATE 25 MG TAB PO SCH (08:49)
[2021-11-07] MEDS: FUROSEMIDE 10 MG/ML 4 ML VIAL IV SCH ×2 (08:50→20:27)
[2021-11-07] MEDS: PANTOPRAZOLE 40 MG/10 ML VIAL IVP SCH (08:51)
[2021-11-07] MEDS: ENOXAPARIN 80 MG/0.8 ML SYRINGE SQ SCH ×2 (08:51→20:27)
[2021-11-07] MEDS: DEXAMETHASONE SOD PHOSPHATE 10 MG/ML 1 ML VIAL IVP SCH ×2 (08:51→20:27)
--- NOTE | 2021-11-07 09:04 | P.PN ---
Subjective Progress Note Date: 11/07/21 This is a 56-year-old gentleman who is been in the hospital for many days for treatment of: Pneumonia. His a mechanically ventilated. Patient doesn't show much improvement in his status of pneumonia. Patient was an 85 with RVR. Patient was initiated on IV Cardizem. He is also on by mouth metoprolol 25 mg by mouth 3 times a day. His blood pressure is also running high. I'm going to increase the dose of the metoprolol 50 mg by mouth twice a day his heart rate is in the 90s. However her respiratory status hasn't shown much improvement. Prognosis is poor Objective - Vital Signs Vital signs: Vital Signs Temp 101.3 F H 11/07/21 04:00 Pulse 92 11/07/21 08:00 Resp 32 H 11/07/21 08:00 BP 129/73 11/07/21 08:00 Pulse Ox 86 L 11/07/21 08:00 Intake & Output 11/06/21 11/07/21 11/07/21 18:59 06:59 18:59 Intake Total 5104.564 5395.614 177.794 Output Total 1850 1345 170 Balance -285.273 716.614 7.794 Intake: IV 376 876 46 Cefepime 2 gm In Sodium 100 100 Chloride 0.9% 100 ml @ 25 mls/hr IVPB Q12HR [facility] Rx #:[id number] Normal Saline 0.9 36 36 6 Pressure Bag @ 3mL/hr Sodium Chloride 0.9% 1, 240 240 40 000 ml @ 20 mls/hr IV . Q24H [facility] Rx#:[id number] Vancomycin 2,500 mg In 500 Sodium Chloride 0.9% 500 ml 500 ml @ 167 mls/hr IVPB ONCE ONE Rx#: [id number] Intake, IV Titration 928.727 951.614 97.794 Amount Cisatracurium 200 mg In 163.366 Sodium Chloride 0.9% 180 ml @ 1 MCG/KG/MIN 6.668 mls/hr IV .Q24H [facility] Rx#: [id number] Clevidipine Butyrate 25 69.333 62.600 mg In Empty Bag 1 bag @ 1 MG/HR 2 mls/hr IV .Q24H [facility] Rx#:[id number] Diltiazem 125 mg In 195.25 49.667 Sodium Chloride 0.9% 100 ml @ 5 MG/HR 5 mls/hr IV .Q24H [facility] Rx#:[id number] fentaNYL (PF). 1,000 mcg 392.828 380.603 97.794 In Sodium Chloride 0.9% 80 ml @ 0.5 MCG/KG/HR 5. 557 mls/hr IV .Q18H [facility] Rx#:[id number] propofoL 1,000 mg In 271.316 295.378 Empty Bag 1 bag @ Titrate IV .Q0M [facility] Rx#: [id number] Tube Feeding 170 204 34 Other 90 30 Output: Urine 1850 1345 170 Other: Voiding Method Indwelling Catheter Indwelling Catheter ABP, PAP, CO, CI - Last Documented Arterial Blood Pressure 185/70 - Exam This patient is not personally examined, information is gathered from the chart - Labs CBC & Chem 7: 11/06/21 03:25 11/07/21 05:55 Labs: Abnormal Lab Results - Last 24 Hours (Table) 11/06/21 11/06/21 11/06/21 Range/Units 12:16 17:30 17:30 ABG pCO2 (35-45) mmHg ABG pO2 (83-108) mmHg ABG HCO3 (21-25) mmol/L ABG Total CO2 (19-24) mmol/L ABG O2 Saturation (94-97) % Sodium (137-145) mmol/L Carbon Dioxide (22-30) mmol/L BUN (9-20) mg/dL Glucose (74-99) mg/dL POC Glucose (mg/dL) 154 H (75-99) mg/dL Ferritin 625.0 H (22.0-322.0) ng/mL ALT (4-49) U/L Alkaline Phosphatase (38-126) U/L C-Reactive Protein 3.8 H (<1.0) mg/dL Total Protein (6.3-8.2) g/dL Albumin (3.5-5.0) g/dL Procalcitonin 0.15 H (0.02-0.09) ng/mL 11/06/21 11/06/21 11/07/21 Range/Units 17:36 23:28 05:34 ABG pCO2 (35-45) mmHg ABG pO2 (83-108) mmHg ABG HCO3 (21-25) mmol/L ABG Total CO2 (19-24) mmol/L ABG O2 Saturation (94-97) % Sodium (137-145) mmol/L Carbon Dioxide (22-30) mmol/L BUN (9-20) mg/dL Glucose (74-99) mg/dL POC Glucose (mg/dL) 159 H 129 H 135 H (75-99) mg/dL Ferritin (22.0-322.0) ng/mL ALT (4-49) U/L Alkaline Phosphatase (38-126) U/L C-Reactive Protein (<1.0) mg/dL Total Protein (6.3-8.2) g/dL Albumin (3.5-5.0) g/dL Procalcitonin (0.02-0.09) ng/mL 11/07/21 11/07/21 Range/Units 05:55 05:58 ABG pCO2 70 H (35-45) mmHg ABG pO2 54 L* (83-108) mmHg ABG HCO3 41 H* (21-25) mmol/L ABG Total CO2 43 H (19-24) mmol/L ABG O2 Saturation 88.1 L (94-97) % Sodium 146 H (137-145) mmol/L Carbon Dioxide 38 H (22-30) mmol/L BUN 53 H (9-20) mg/dL Glucose 144 H (74-99) mg/dL POC Glucose (mg/dL) (75-99) mg/dL Ferritin (22.0-322.0) ng/mL ALT 111 H (4-49) U/L Alkaline Phosphatase 133 H (38-126) U/L C-Reactive Protein 3.3 H (<1.0) mg/dL Total Protein 6.1 L (6.3-8.2) g/dL Albumin 2.8 L (3.5-5.0) g/dL Procalcitonin (0.02-0.09) ng/mL Assessment and Plan (1) Paroxysmal atrial fibrillation Current Visit: Yes Status: Acute Code(s): I48.0 - PAROXYSMAL ATRIAL FIBRILLATION SNOMED Code(s): 084056001 (2) COVID-19 Current Visit: Yes Status: Acute Code(s): U07.1 - COVID-19 SNOMED Code(s): 889671545 (3) Hypoxia Current Visit: Yes Status: Acute Code(s): R09.02 - HYPOXEMIA SNOMED Code(s): 581943333 Plan: Increase the dose of the metoprolol to 50 mg 3 times a day. Continue rest of the management. May be able to taper off Cardizem if heart rate and blood pressure control. Prognosis is poor
[2021-11-07 09:35] LABS: Appearance,Urine Clear (Clear); Bilirubin,Urine Negative (Negative); Blood,Urine Negative (Negative); Color,Urine Yellow; Glucose,Urine (UA) Negative (Negative); Ketones,Urine Negative (Negative); Leukocyte Esterase,Urine Negative (Negative); Nitrite,Urine Negative (Negative); Protein,Urine Trace (Negative); Specific Gravity,Urine 1.023 (1.001-1.035); Urobilinogen,Urine <2.0 mg/dL (<2.0)
[2021-11-07] MEDS: VANCOMYCIN 2,000 MG in SODIUM CHLORIDE 0.9% 500 ML 500 ML IVPB SCH ×2 (10:57→20:28)
--- NOTE | 2021-11-07 11:14 | P.PN ---
Subjective Progress Note Date: 11/07/21 Principal diagnosis: Acute hypoxic history failure secondary to COVID-19 pneumonia On 11/03/2021 patient seen in follow-up in the intensive care unit, he remains intubated, sedated and paralyzed on assist-control mode of ventilation with a rate of 35, tidal M is 450, FiO2 65% and PEEP of 20, his peak air pressure is 35, plateau pressure is 40. This morning's blood gas shows pO2 of 61, pCO2 of 66, and pH of 7.36, this was done on the above-mentioned vent settings. Today's chest x-ray has been reviewed showing stable diffuse bilateral infiltrates, and interval development of subcutaneous emphysema involving the soft tissues of the neck, there is small amount of pneumomediastinum not excluded. She is currently on Diprivan at 50 mics per kilo per minute, fentanyl at 2.5 mics per kilo per minute, Nimbex is at 3 mics per kilo per minute, Cleviprex of the 5 mg per hour. He is tolerating tube feedings with vital HP at a rate of 15 with standard water flushes. No fever or chills overnight, he is not requiring any vasopressor support, he is actually been a bit hypertensive requiring Cleviprex infusion, currently his blood pressure is better controlled and is 153/68 with a mean of 92. Patient has not been prone for last 48 hours related to development of deep tissue injury on his face. Today's labs show white blood cell count of 14.9, hemoglobin of 12.8, platelet count is 449, sodium is 140, potassium is 5.0, chloride is 102, CO2 36, B1 is 50, creatinine is 1.01, his AST is 41, ALT is 119, alk phos is 129. His last set of inflammatory markers from yesterday showed LDH of 564, and CRP of 19.8, today's set of inflammatory markers is still pending. Patient has been receiving lactulose and Reglan, he has not had a bowel movement in several days, and we will increase his lactulose, she also remains on Lasix 40 mg twice daily however she is still does daily in negative fluid balance over the last 24 hours of -223 mL. Very today on 11/04/21, patient remains in the ICU, intubated and mechanically ventilated. Patient is on assist control rate of 32 tidal volume 450 FiO2 70% PEEP is at 20. ABG is marginal although the patient is on relatively high FiO2 and high PEEP. Patient has a pO2 of 57 pCO2 of 70 pH of 7.36. His electrolytes are normal renal profile showed a BUN of 50 creatinine 0.95. WBC count is 10.7 hemoglobin is 11.7. Chest x-ray continues to show bilateral interstitial infiltrates consistent with COVID-19 pneumonia. Patient is on multiple drips including Cleviprex at 3 mg per hour, he is on Cardizem at 15 mg per hour propofol at 50 fentanyl 3 mcg/kg/h Nimbex at 3 mcg/kg/m. He is on 0.9 normal saline at KVO. Yesterday the patient developed atrial fibrillation with RVR, and today I increased his Lovenox to 80 mg subcu twice a day, converted to sinus rhythm and early this morning. Patient is on enteral feeding. It is up to goal. Overall clinical status is extremely marginal. Remains on cefepime empirically. Remains on the COVID-19 cocktail. Lovenox was increased to 80 mg subcu twice a day, Azopt Protonix 40 mg IV push daily. And he is also on zinc. Lasix is given at 40 mg IV push every 12 hours. Reevaluated today on 11/05/21, patient remains in the ICU intubated and mechanically ventilated. Not showing much of an improvement over the last 24 hours. Remains on assist control rate of 32. Tidal volume of 450 FiO2 70% PEEP is still high/20. ABG is marginal with a pO2 of 58 pCO2 of 69 pH of 7.39. Elisabet ent remains on propofol at 50 fentanyl 3 Nimbex at 2.5 , Cleviprex S3 milligrams per hour. His plateau pressure is 33 and peak airway pressure is in the high 30s. Dimer is 0.58 BUN is 48 creatinine 1.11. There is 14.6 hemoglobin is 12.1. X-ray continues to show multifocal infiltrates consistent with COVID-19 pneumonia. Liver enzymes remain elevated with alkaline phosphatase of 149 ALT of 134 AST of 63. Patient remains on Cardizem drip and he is now in sinus rhythm, his drip is at 5 mg per hour. Remains on cefepime empirically. Remains on the COVID-19 cocktail. Remains on Decadron 6 mg of push daily and Protonix as well as Lovenox 40 mg subcu daily. Remains on Lasix 40 mg IV push twice a day. He is also on lactulose 20 mg twice a day. And Reglan was added today. No bowel movements in the last few days Reevaluated today on 11/06/2021, patient remains in the ICU, intubated and mechanically ventilated. Again he is not showing any signs of recovery or improvement. Chest x-ray continues to show quite extensive infiltrates consistent with pneumonia and ARDS. Remains on assist control rate of 32 tidal volume 450 FiO2 on the percent and PEEP of 20. ABG showed a pO2 of 63 pCO2 of 70 pH of 7.38. Hence no changes were made on the ventilator settings and we plan to titrate FiO2 down to maintain O2 saturation above 89% if possible. WBC count today is 14 hemoglobin is 11.3 sodium is 147 potassium 4.5 BUN is 51 creatinine 1.08. Liver enzymes are noted to be a bit elevated including AST of 81 and ALT of 144. Patient remains on multiple drips including fentanyl and 3 mcg/kg/h Nimbex at 2 mcg/kg/m propofol at 50 mcg/kg/m Cleviprex at 4 mg per hour Cardizem at 15 mg per hour and his IV fluid at KVO. Patient is on enteral feeding. Chest x-ray was reviewed and is basically about the same. Up much of an improvement noted in the last few days Reevaluated today on 11/07/2021, patient remains in the ICU, his overall clinical condition is very marginal at best. Remains intubated and mechanically ventilated. He is on assist control rate of 32 tidal volume is 450 FiO2 of 100% PEEP of 20 ABG showed a pO2 of 54 pCO2 of 70 pH of 7.38. Patient remains sedated and paralyzed, he is on Nimbex at 2 propofol at 50 and fentanyl at 3 mcg/kg per hour. Patient is also on Cardizem drip at 10 mg per hour. Receiving vital AF at 17 mL per hour. Chest x-ray continues to show bilateral infiltrates. Patient seems to have better controlled rate with Cardizem at this point. Cardiology is seeing him for atrial fibrillation, and his metoprolol was increased. His overall pulmonary status is basically not showing much improvement hence I am recommending that we start placing the patient in prone position today. Electrolytes are normal renal profile is normal bicarb is 38. Medications khalil, patient remains on COVID-19 multivitamins including ascorbic acid and vitamin D, he is also on cefepime empirically as ordered by infectious disease on the case. Patient is on Decadron 6 mg IV push twice a day, Lovenox 80 mg subcu twice a day Reglan when necessary, levothyroxine, lactulose, metoprolol 50 mg 3 times a day vancomycin and zinc. Patient had positive MSSA in the sputum. Objective - Vital Signs Vital signs: Vital Signs Temp 101.3 F H 11/07/21 04:00 Pulse 92 11/07/21 08:00 Resp 32 H 11/07/21 08:00 BP 129/73 11/07/21 08:00 Pulse Ox 86 L 11/07/21 08:00 Intake & Output 11/06/21 11/07/21 11/07/21 18:59 06:59 18:59 Intake Total 1760.372 4253.614 506.388 Output Total 1850 1345 170 Balance -285.273 716.614 336.388 Intake: IV 376 876 46 Cefepime 2 gm In Sodium 100 100 Chloride 0.9% 100 ml @ 25 mls/hr IVPB Q12HR [facility] Rx #:[id number] Normal Saline 0.9 36 36 6 Pressure Bag @ 3mL/hr Sodium Chloride 0.9% 1, 240 240 40 000 ml @ 20 mls/hr IV . Q24H [facility] Rx#:[id number] Vancomycin 2,500 mg In 500 Sodium Chloride 0.9% 500 ml 500 ml @ 167 mls/hr IVPB ONCE ONE Rx#: [id number] Intake, IV Titration 928.727 951.614 426.388 Amount Cisatracurium 200 mg In 163.366 Sodium Chloride 0.9% 180 ml @ 1 MCG/KG/MIN 6.668 mls/hr IV .Q24H [facility] Rx#: [id number] Clevidipine Butyrate 25 69.333 62.600 37.467 mg In Empty Bag 1 bag @ 1 MG/HR 2 mls/hr IV .Q24H [facility] Rx#:[id number] Diltiazem 125 mg In 195.25 49.667 Sodium Chloride 0.9% 100 ml @ 5 MG/HR 5 mls/hr IV .Q24H [facility] Rx#:[id number] fentaNYL (PF). 1,000 mcg 392.828 380.603 188.921 In Sodium Chloride 0.9% 80 ml @ 0.5 MCG/KG/HR 5. 557 mls/hr IV .Q18H [facility] Rx#:[id number] propofoL 1,000 mg In 271.316 295.378 200 Empty Bag 1 bag @ Titrate IV .Q0M [facility] Rx#: [id number] Tube Feeding 170 204 34 Other 90 30 Output: Urine 1850 1345 170 Other: Voiding Method Indwelling Catheter Indwelling Catheter ABP, PAP, CO, CI - Last Documented Arterial Blood Pressure 185/70 - Exam GENERAL EXAM: Revealed 56-year-old white male intubated mechanically ventilated, sedated and paralyzed. HEAD: Normocephalic/atraumatic. Minimal inflammatory changes noted in the left side area of the face. EYES: PERRLA, VA, nonicteric, no neck masses NOSE: Clear with pink turbinates. THROAT: No erythema or exudates. NECK: No masses, no JVD, no thyroid enlargement, no adenopathy. CHEST: Symmetrical chest expansion, crackles at the bases. CVS: Regular rate and rhythm, normal S1 and S2, no gallops, no murmurs, no rubs ABDOMEN: Soft, nontender. No hepatosplenomegaly, normal bowel sounds, no guarding or rigidity. EXTREMITIES: No clubbing, trace of bipedal edema, no cyanosis, 2+ pulses and upper and lower extremities. SKIN: No rashes CENTRAL NERVOUS SYSTEM: Sedated, paralyzed, unable to assess. - Labs CBC & Chem 7: 11/06/21 03:25 11/07/21 05:55 Labs: Abnormal Lab Results - Last 24 Hours (Table) 11/06/21 11/06/21 11/06/21 Range/Units 12:16 17:30 17:30 ABG pCO2 (35-45) mmHg ABG pO2 (83-108) mmHg ABG HCO3 (21-25) mmol/L ABG Total CO2 (19-24) mmol/L ABG O2 Saturation (94-97) % Sodium (137-145) mmol/L Carbon Dioxide (22-30) mmol/L BUN (9-20) mg/dL Glucose (74-99) mg/dL POC Glucose (mg/dL) 154 H (75-99) mg/dL Ferritin 625.0 H (22.0-322.0) ng/mL ALT (4-49) U/L Alkaline Phosphatase (38-126) U/L C-Reactive Protein 3.8 H (<1.0) mg/dL Total Protein (6.3-8.2) g/dL Albumin (3.5-5.0) g/dL Procalcitonin 0.15 H (0.02-0.09) ng/mL Urine Protein (Negative) 11/06/21 11/06/21 11/07/21 Range/Units 17:36 23:28 05:34 ABG pCO2 (35-45) mmHg ABG pO2 (83-108) mmHg ABG HCO3 (21-25) mmol/L ABG Total CO2 (19-24) mmol/L ABG O2 Saturation (94-97) % Sodium (137-145) mmol/L Carbon Dioxide (22-30) mmol/L BUN (9-20) mg/dL Glucose (74-99) mg/dL POC Glucose (mg/dL) 159 H 129 H 135 H (75-99) mg/dL Ferritin (22.0-322.0) ng/mL ALT (4-49) U/L Alkaline Phosphatase (38-126) U/L C-Reactive Protein (<1.0) mg/dL Total Protein (6.3-8.2) g/dL Albumin (3.5-5.0) g/dL Procalcitonin (0.02-0.09) ng/mL Urine Protein (Negative) 11/07/21 11/07/21 11/07/21 Range/Units 05:55 05:58 09:06 ABG pCO2 70 H (35-45) mmHg ABG pO2 54 L* (83-108) mmHg ABG HCO3 41 H* (21-25) mmol/L ABG Total CO2 43 H (19-24) mmol/L ABG O2 Saturation 88.1 L (94-97) % Sodium 146 H (137-145) mmol/L Carbon Dioxide 38 H (22-30) mmol/L BUN 53 H (9-20) mg/dL Glucose 144 H (74-99) mg/dL POC Glucose (mg/dL) (75-99) mg/dL Ferritin (22.0-322.0) ng/mL ALT 111 H (4-49) U/L Alkaline Phosphatase 133 H (38-126) U/L C-Reactive Protein 3.3 H (<1.0) mg/dL Total Protein 6.1 L (6.3-8.2) g/dL Albumin 2.8 L (3.5-5.0) g/dL Procalcitonin (0.02-0.09) ng/mL Urine Protein Trace H (Negative) Assessment and Plan Assessment: Impression: Acute hypoxic respiratory failure secondary COVID-19 pneumonia, patient received monoclonal antibody infusion on 10/19, was not a candidate for Remdesivir the cause of his acute hypoxic respiratory failure, not a candidate for Baricitinib because of underlying bacterial infection possibility. Patient was admitted to the ICU on 10/28 and intubated on 10/28 remains intubated and mechanically ventilated. Patient developed ARDS secondary to COVID-19 pneumonia with relatively elevated plateau pressures and static pressures. Remains on high PEEP. high FiO2, 100% FiO2 and PEEP of 20 hence we'll start placing the patient again in prone position today. That is about the only choice to hopefully ventilated the patient and oxygenated the patient better. Elevated pro calcitonin level, patient was treated empirically with Zosyn cultures have been nondiagnostic. Seen by infectious disease for fever and placed on cefepime and vancomycin. Blood cultures are negative. Sputum cultures are positive for MSSA. Elevated inflammatory markers second COVID-19 pneumonia Elevated d-dimer but negative workup for pulmonary embolism New-onset atrial fibrillation with RVR on 11/03 requiring Cardizem drip and now on higher dose of Lovenox. 80 mg subcu twice a day. History of fibromyalgia. Lifetime nonsmoker. Acute kidney injury secondary COVID-19 pneumonia improving History of hypothyroidism Deep tissue injury to Chin from prone position, no more prone positioning has been done. Pneumomediastinum with subcutaneous emphysema in the neck. This is a complication of COVID-19 infection. Recommendation: Continue ventilatory support, remains on high PEEP of 20, FiO2 is high at 100% rate is [address] the patient today again in prone position and see if tolerated. And decide whether to pursue this if the patient improves. Continue sedation and paralysis Continue fentanyl Continue Lasix 40 mg twice a day Continue antibiotics as per infectious disease on the case. Continue clevidipine, and titrate accordingly. Continue enteral feeding/nutritional support. Continue lactulose, and Reglan Continue GI and DVT prophylaxis. Patient is on Protonix and is also on Lovenox/therapeutic Lovenox. Overall prognosis remains extremely poor and guarded Continue COVID-19 cocktail. If no improvement in the next 24-48 hours, may have to discuss with the family the option of comfort care measures. Critical care time is over 30 minutes Time with Patient: Greater than 30
[2021-11-07 11:51] LABS: Glucose,Whole Blood 163 mg/dL (75-99)
[2021-11-07] MEDS: DILTIAZEM 125 MG in SODIUM CHLORIDE 0.9% 100 ML IV SCH (13:09)
[2021-11-07] MEDS: CISATRACURIUM 200 MG in SODIUM CHLORIDE 0.9% 180 ML IV SCH (13:10)
[2021-11-07] MEDS ORDERED: VANCOMYCIN 2,500 MG in SODIUM CHLORIDE 0.9% 500 ML 500 ML IVPB SCH (14:00)
[2021-11-07 14:02] VITALS: BP 107/73
--- NOTE | 2021-11-07 14:59 | P.PN ---
Subjective Progress Note Date: 11/07/21 History of present illness 56-year-old male with past medical history of fibromyalgia comes in to emergency room with symptoms of nausea, vomiting, dizziness and sweating feeling weak in with runny nose loss of taste and hence now for the past 1 week. He presented on 10/19 was found to have positive COVID results. Received his monoclonal antibodies. He Came back to the emergency room because of worsening of symptoms.Vitals reviewed patient afebrile pulse 80 respiratory rate 20 blood pressure 138/82 saturating at 88% on 10 L labs reviewed WBC 6.6 hemoglobin 13.9 d-dimer is elevated at 0.89, sodium 135 bicarb 21 BUN 16 creatinine 1.3 glucose 187 ferritin 2822 AST 89 ALT 80 alkaline phosphatase 225 LDH 1091 and CRP 21 and albumin 3.3 X-ray suggestive of bilateral patchy pneumonia. Both interstitial and airspace infiltrate Pulmonary clinic consulted for COVID pneumonia Patient placed on Lovenox 40 subcu twice a day, vitamin C, D and zinc. Dexamethasone initiated at 6 mg twice a day IV Patient is a candidate of Baritinib and will discuss about initiating it with pulmonary Venous Doppler ordered 10/22: [facility]. He continues to have dyspnea and is on 15 L high flow nasal cannula and nonrebreather with pulse ox of 87 and 95%. He's been afebrile, heart rate in the 60s and 70s, blood pressure 127/73. Pro-calcitonin came back high at 9.75 and we started the patient on Zosyn and vancomycin for bacterial pneumonia coverage. Patient has coarse crackles bilaterally. No lower extremity edema. He has been seen and followed by pulmonary medicine. Patient is not a candidate for Baricitinib. Patient is continued on Decadron, Lovenox and vitamin supplements. 10/23: Is found sitting up in the edge of the bed. He is currently not on a Ventimask. However his pulse oxing still around 88 to 91 % on Ventimask or 15 L high flow nasal cannula. Patient continues to have dyspnea with activity and speaking. Patient states that he is feeling much better compared to yesterday. Continues to have a cough. No lower extremity edema. He has rhonchi to the bases bilaterally. He is currently on Decadron Lovenox and vitamin supplements. Patient remains afebrile, heart rate 62, respirations 17, blood pressure 118/68 pulse ox 93% on 15 L high flow nasal cannula 10/24: Patient was up to the bathroom showering today. Awaiting inflammation markers today. Patient still requires 10 L of O2 with a pulse ox of 90%. Patient continues to have crackles to the bilateral bases. Dyspnea with activity and speaking. Patient states he is feeling better however he is very tired. Continues to have cough no lower extremity edema. He still currently on Decadron, Lovenox, and vitamin supplements. Patient remains afebrile, heart rate 58, respirations 17, blood pressure 118/89, 10/25: Patient is still on high flow nasal cannula 15 L and nonrebreather with pulse ox of 89 and 99%. He's been afebrile, heart rate 73, blood pressure 120/72. Creatinine 1.06. Blood sugars running between 101 and 106. Sputum culture is in progress. Patient is followed closely by pulmonary medicine. Patient is continued on dexamethasone, Lovenox, Zosyn and vitamin supplements. Patient has been encouraged to prone several hours daily. 10/26: Patient remains on nonrebreather mask and AirVo at 60 L, FiO2 of 85 with pulse ox of 88%. Appears to have more difficulty with breathing. Repeat chest x-ray reveals stable bilateral infiltrates. He has been afebrile, heart rate 59, blood pressure 102/59. Repeat d-dimer 1.53. Blood sugars are well controlled. 10/27: Patient remains on nonrebreather and AirVo with pulse ox at 90%. Patient was agreeable. He has been afebrile, heart rate 70, blood pressure 131/79. CBG running between 97 and 116 and CBGs and insulin will be discontinued. Sputum cultures positive for Mignon albicans. Patient is increasing his activity, currently laying in bed on his side. Lab work including inflammatory markers ordered for tomorrow. 10/28: Patient had a drop in his pulse ox and 78% with nonrebreather and AirVo and A-Team was called. Patient stated that his shortness of breath was better than the night before. Stat chest x-ray was done which revealed bilateral multifocal peripheral increased opacities consistent with Covid 19 infection are redemonstrated. No significant change. Patient transitioned to BiPAP with pulse ox of 90%. Patient verbalized that he wanted to be a no CODE STATUS and was encouraged to discuss with family. It was determined the patient will be transferred to the intensive care unit most likely be intubated. Patient was very resistant but after long discussion with Dr. Mark Anthony santo, patient agreed to intubation and full CODE STATUS at this point. Repeat blood work reveals WBC 9.4, hemoglobin 12.7, platelet count 263. D-dimer 1.31. Blood sugars 10/29: Patient was transferred into the intensive care unit yesterday and subsequently intubated and placed on mechanical ventilation, tidal volume 450, FiO2 100, PEEP of 20. Patient was prone this morning switched over to supine. He was started on tube feedings yesterday but had a high residual this morning after pronating. He is currently on fentanyl, propofol, Nimbex drip. One amp of bicarbonate given this morning. Chest x-ray reveals lateral multifocal confluent and increased opacities greatest in the periphery consistent with Covid 19 infection redemonstrated. No sicca be unchanged from one day earlier. CTA of the chest done yesterday reveals suboptimal study without saddle central pulmonary embolism. Cannot exclude smaller pulmonary emboli. Bilateral multifocal and confluent groundglass opacities and organizing consolidations consistent with known Covid 19 infection. Repeat blood work reveals WBC 13.1, hemoglobin 13.1, platelet count 381. D- dimer 1.17. Sodium 135, potassium 5.2, chloride 104, CO2 24, BUN 29 and creatinine 0.78. Capillary blood glucose running between 116 and 150s. AST 216. C-reactive protein 7.9, pro-calcitonin 0.15. 10/30: This is day #9 of admission, patient remains in ICU, still mechanically ventilated for hypoxemia, starting 10/29/2021, on Wade assist control, rate 32, PEEP of 20, FiO2 100%, dexamethasone 6 mg daily, electrolytes are stable, BUN 29 creatinine 0.84, x-ray shows bilateral multifocal opacities, consistent with Covid pneumonia, CT angiogram negative for PE, patient is on propofol, fentanyl and index vital HP, at 20 mL an hour 10/31: Patient remains in ICU, intubated, NG tube in place, chest x-ray shows no pneumothorax, no pleural effusion, there is bilateral patchy pulmonary interstitial infiltrates, with coalescent density in the left lower lobe. No significant change from yesterdayALT iscreatinine is 0.75, ALT is trending downward, C reactive protein is 8.0 from a previous of 8.9Lasix given today, on dexamethasone, and remains sedated. 11/01: Patient remains in the intensive care unit, intubated and on mechanical ventilation with FiO2 60% and PEEP of 20 with pulse ox of 87%. Patient is being prone for 16 hours per day. He is tolerating tube feedings. He has been started on lactulose this morning for constipation. He has been afebrile, heart rate 75, respiratory rate in the low 30s, blood pressure 148/65. Patient was started on Clevidipine gtt. he is also on propofol, fentanyl and Nimbex. No new concerns, patient seems to be fairly stable. 11/02: Patient remains in intensive care unit intubated and on mechanical ventilation with FiO2 of 65, tidal volume 450, PEEP of 20. Patient is being managed by the candle wicker. Patient has not been prone today due to skin breakdown on his face. He is on tube feedings and tolerating. Patient has been afebrile, heart rate 102, blood pressure 151/71, pulse ox 85-89%. Repeat blood work reveals WBC 13.5, hemoglobin 12.2. Electrolytes normal. BUN 47 creatinine 1.05. ALT 124. C-reactive protein 19.8. D-dimer 1.09. The patient did not have a bowel movement after lactulose yesterday which is been repeated and Dulcolax suppository ordered for today. 11/03, patient remains in ICU, intubated and mechanically vented, is starting to have skin excoriations, in the face and with deep tissue injury chin area, from pronating position, for that reason, they have avoided pronating since yesterday. Patient's currently sedated, and is receiving fentanyl, and nimbex clevipres. ngt tolerated at 50 cch/r vital hp, inflammatory markers are still elevated, with LDH of 58, CRP of 19, still with bowel issues, they have increased lactulose to 20 mg twice a day, and Dulcolax suppository daily. No plans for weaning off the vent trials at this time, probably might end up in a trach PEG . 11/04 patient went into A. fib RVR last night, for which they have started him on amiodarone, which did not help, patient therefore was started on Cardizem drip, currently at 15 mics, still no bowel movement, despite Dulcolax and lactulose, we'll going to do half dose MiraLAX a day, and may repeat in 12 hours, patient is still no vent, with PEEP of 21 11/05 patient in ICU, still mechanical ventilation, closely followed by pulmonary candle wicker not much improvement, over the past 48 hours, BP still high at 21, still requires sedation, x-rays continue to show multifocal infiltrates, patient remains on his IV antibiotics cefepime, empiric treatments, Decadron 6 mg daily, and Lovenox shot. Lasix 40 mg every 12 hours patient still has low-grade temp, between 99.6 T-max still tachypneic. Pulse ox 85% FiO2 70% on vent 11/06 Patient remains in ICU still mechanically ventilated on current settings of respiratory rate 32, tidal volume 450 on FiO2 100% with PEEP of 20. Patient has low-grade temp this morning 100.8 and a high of 101.3 last night, pulse of 87 respiratory rate 32 blood pressure 130/76 oxygen saturation 8700% FiO2. White cell count this morning is a W BC O 14 hemoglobin 1311.3 ABG drawn at 100% FiO2 soled suggest a pH of 7.38E CO2 of 74-63 bicarb 41 sodium 147 potassium 4.5 bicarb 39 BUN 51 creatinine 1. 8 glucose stable at 125 liver enzymes gradually getting evaluated with AST 81 ALT 144 alkaline phosphatase of 161 sputum cultures suggestive of staph aureus and Mignon albicans stop chest x-ray this morning suggests a cathetered bilateral airspace and interstitial opacities likely worsened in the lower lungs no pneumothorax or large effusion. Patient was noted to be in intermittent atrial fibrillation with RVR as nature. Cardizem currently increased to 15 mics per KG. Patient currently in sinus r hythm. Cardiology consulted initiated patient on metoprolol 25 3 times a day. Echocardiogram ordered. Patient remains on multiple drips including fentanyl, Pneumovax, propofol, TB Prax, Cardizem. Patient is a poor prognosis at this point. On pulmonary with try to titrate down the FiO2 to keep above 90%. Wishes continued to remain on antibiotics with cefepime. We will consult infectious disease. Continue Lasix at 40 IV every 12 hours. Inflammation markers repeat including LDH, ferritin, proBNP and CRP. 12/26 patient remains in dance still mechanically ventilated on the current sett ings of assist control respiratory rate of 32 tidal 11/16/1950 FiO2 100 was in PEEP of 20. He remains sedated and paralyzed on Nimbex, propofol and fentanyl drip. Cardizem drip is running at 10 mics per hour. Cardiology seen the patient for atrial fibrillation and has increased vision metoprolol to 50 twice a day with plan to titrate taper down the Cardizem. 32 blood pressure 180/98 85% 100% FiO2 pH of 7.38 pCO2 100 of sodium and 46 potassium 4.5 BUN 3853 creatinine 0.96. Liver enzymes are mildly elevated. Ferritin 625 including 0.15 CRP 3.8. Continue on Lovenox 80 twice a day Lasix 40 IV twice a day. Cefepime 2 g every 8 hours. Vancomycin added by infectious disease. Patient has responded poorly to the above care and is a poor prognosis since oxygen saturations were 80-83% on 100% FiO2. Patient is currently seen in prone positioning making good urine output. We'll update family today ROS Unable to obtain due to intubation Physical exam General Appearance: Patient is laying in the ICU bed, intubated and on mechanical ventilation. No acute distress. Patient appears to be comfortable. Full examination deferred to intensive this due to intubation and Covid 19. Assessment and plan 1. Acute hypoxic respiratory failure secondary to Covid 19 pneumonia. Consult with pulmonary medicine appreciated. Patient was intubated and placed on mechanical ventilation 10/28. Continue care in the intensive care unit, proning, currently on fentanyl, propofol and Nimbex. patient on cefepime 2 g every 12 hours . Vancomycin added by infectious disease 2. Acute COVID pneumonia. Dexamethasone 6 mg IV increased to twice daily, Lovenox 80 subcu dailytwice daily, Not a candidate for Baricitinib, Monitor inflammatory markers. Continue supplements vitamin C, D and zinc to implementing markers ordered possible bacterial in position since staph aureus growing on the cultures. Mignon albicans noted on the culture . Vancomycin initiated 3. Acute transaminitis Secondary to viral inflammation. Continue monitoring 4. CKD stage 3. Continue to monitor patient's creatinine. No acute kidney injury 5. History of fibromyalgia. continue gabapentin 800 3 times a day, Citalopram 40 mg by mouth daily 6. Insomnia. Was on Eszopiclone 3 mg daily at bedtime 7. Hypothyroidism. Levothyroxine 50 g by mouth daily 8. Hypertension. Patient started on Clevidipine gtt. 9. DVT prophylaxis. Lovenox 40 subcu daily. 10. GI prophylaxis. Protonix 40 mg IV push daily 11. Hyperglycemia secondary to steroids, IV drips, patient is on NovoLog scale. 12. Constipation. Lactulose 20 g daily and Dulcolax suppository today MiraLAX. 13 atrial fibrillation with RVR on Cardizem 5 g by mouth daily with metoprolol 50 3 times a day Prognosis guarded. Status: Full code Discharge Plan: To be determined. Objective - Vital Signs Vital signs: Vital Signs Temp 99.6 F 11/07/21 12:00 Pulse 88 11/07/21 14:00 Resp 363 H 11/07/21 14:00 BP 107/73 11/07/21 12:30 Pulse Ox 84 L 11/07/21 14:00 Intake & Output 11/06/21 11/07/21 11/07/21 18:59 06:59 18:59 Intake Total 5657.000 9017.614 1863.294 Output Total 1850 1345 1270 Balance -285.273 716.614 593.294 Intake: IV 376 876 738 Cefepime 2 gm In Sodium 100 100 100 Chloride 0.9% 100 ml @ 25 mls/hr IVPB Q12HR LEON[facility] Rx #:[id number] Normal Saline 0.9 36 36 18 Pressure Bag @ 3mL/hr Sodium Chloride 0.9% 1, 240 240 120 000 ml @ 20 mls/hr IV . Q24H [facility]ON[facility] Rx#:[id number] Vancomycin 2,000 mg In 500 Sodium Chloride 0.9% 500 ml 500 ml @ 167 mls/hr IVPB Q12H [facility]ON[facility] Rx#: [id number] Vancomycin 2,500 mg In 500 Sodium Chloride 0.9% 500 ml 500 ml @ 167 mls/hr IVPB ONCE ONE Rx#: [id number] Intake, IV Titration 928.727 951.614 963.294 Amount Cisatracurium 200 mg In 163.366 199.373 Sodium Chloride 0.9% 180 ml @ 1 MCG/KG/MIN 6.668 mls/hr IV .Q24H [facility]ON[facility] Rx#: [id number] Clevidipine Butyrate 25 69.333 62.600 50.000 mg In Empty Bag 1 bag @ 1 MG/HR 2 mls/hr IV .Q24H [facility] Rx#:[id number] Diltiazem 125 mg In 195.25 49.667 125 Sodium Chloride 0.9% 100 ml @ 5 MG/HR 5 mls/hr IV .Q24H [facility]ON[facility] Rx#:[id number] fentaNYL (PF). 1,000 mcg 392.828 380.603 288.921 In Sodium Chloride 0.9% 80 ml @ 0.5 MCG/KG/HR 5. 557 mls/hr IV .Q18H [facility] Rx#:[id number] propofoL 1,000 mg In 271.316 295.378 300 Empty Bag 1 bag @ Titrate IV .Q0M [facility] Rx#: [id number] Tube Feeding 170 204 102 Other 90 30 60 Output: Urine 1850 1345 1270 Other: Voiding Method Indwelling Catheter Indwelling Catheter Indwelling Catheter # Bowel Movements 1 ABP, PAP, CO, CI - Last Documented Arterial Blood Pressure 141/61 - Labs CBC & Chem 7: 11/06/21 03:25 11/07/21 05:55 Labs: Abnormal Lab Results - Last 24 Hours (Table) 11/06/21 11/06/21 11/06/21 Range/Units 17:30 17:30 17:36 ABG pCO2 (35-45) mmHg ABG pO2 (83-108) mmHg ABG HCO3 (21-25) mmol/L ABG Total CO2 (19-24) mmol/L ABG O2 Saturation (94-97) % Sodium (137-145) mmol/L Carbon Dioxide (22-30) mmol/L BUN (9-20) mg/dL Glucose (74-99) mg/dL POC Glucose (mg/dL) 159 H (75-99) mg/dL Ferritin 625.0 H (22.0-322.0) ng/mL ALT (4-49) U/L Alkaline Phosphatase (38-126) U/L C-Reactive Protein 3.8 H (<1.0) mg/dL Total Protein (6.3-8.2) g/dL Albumin (3.5-5.0) g/dL Procalcitonin 0.15 H (0.02-0.09) ng/mL Urine Protein (Negative) 11/06/21 11/07/21 11/07/21 Range/Units 23:28 05:34 05:55 ABG pCO2 (35-45) mmHg ABG pO2 (83-108) mmHg ABG HCO3 (21-25) mmol/L ABG Total CO2 (19-24) mmol/L ABG O2 Saturation (94-97) % Sodium 146 H (137-145) mmol/L Carbon Dioxide 38 H (22-30) mmol/L BUN 53 H (9-20) mg/dL Glucose 144 H (74-99) mg/dL POC Glucose (mg/dL) 129 H 135 H (75-99) mg/dL Ferritin (22.0-322.0) ng/mL ALT 111 H (4-49) U/L Alkaline Phosphatase 133 H (38-126) U/L C-Reactive Protein 3.3 H (<1.0) mg/dL Total Protein 6.1 L (6.3-8.2) g/dL Albumin 2.8 L (3.5-5.0) g/dL Procalcitonin (0.02-0.09) ng/mL Urine Protein (Negative) 11/07/21 11/07/21 11/07/21 Range/Units 05:58 09:06 11:50 ABG pCO2 70 H (35-45) mmHg ABG pO2 54 L* (83-108) mmHg ABG HCO3 41 H* (21-25) mmol/L ABG Total CO2 43 H (19-24) mmol/L ABG O2 Saturation 88.1 L (94-97) % Sodium (137-145) mmol/L Carbon Dioxide (22-30) mmol/L BUN (9-20) mg/dL Glucose (74-99) mg/dL POC Glucose (mg/dL) 163 H (75-99) mg/dL Ferritin (22.0-322.0) ng/mL ALT (4-49) U/L Alkaline Phosphatase (38-126) U/L C-Reactive Protein (<1.0) mg/dL Total Protein (6.3-8.2) g/dL Albumin (3.5-5.0) g/dL Procalcitonin (0.02-0.09) ng/mL Urine Protein Trace H (Negative)
[2021-11-07] MEDS: METOPROLOL TARTRATE 50 MG TAB PO SCH ×2 (15:54→20:28)
[2021-11-07 16:18] VITALS: TEMP 100
[2021-11-07 17:11] LABS: Glucose,Whole Blood 156 mg/dL (75-99)
[2021-11-07] MEDS: SODIUM CHLORIDE 0.9% 1,000 ML IV SCH (20:28)
[2021-11-07] MEDS ORDERED: ATROPINE OPHTH SOLN 1% 5ML BTL SUBLINGUAL PRN (23:30)
[2021-11-07] MEDS ORDERED: SCOPOLAMINE 1.5MG/72HR PATCH TRANSDERM SCH (23:30)
--- NOTE | 2021-11-07 23:46 | PN ---
PROGRESS NOTE DATE OF SERVICE: 11/07/2021 REASON FOR FOLLOWUP: Fever. INTERVAL HISTORY: Patient did spike a fever of 101.1 around 4 in the morning with a low-grade fever since then. The patient is hemodynamically stable, not on any pressor support. The patient's FiO2 is currently up to 100%. However, no significant purulent secretions thru the ET, diarrhea or any other changes reported by nursing staff. PHYSICAL EXAMINATION: Blood pressure 135/61, pulse of 80, temperature of 100, T-max is 101. He is 99% on 100% FIO2. General description is a middle-aged male intubated on the vent. Respiratory system: Unlabored breathing, coarse breath sounds bilaterally. No wheeze. Heart S1, S2. Regular rate and rhythm. Abdomen soft, no tenderness. Extremities: No edema of the feet. LABS: Hemoglobin is 11.8, white count 14,000, creatinine 0.96. Procalcitonin 0.15. DIAGNOSTIC IMPRESSION AND PLAN: Patient with fever with worsening of his respiratory status in this patient who does have a severe Covid 19 pneumonia and likely ARDS could be related to it. Hence the patient's were not significantly high. Sputum is showing MSSA and patient is covered with cefepime and vancomycin. Overall poor prognosis. Continue current antibiotics and monitor clinical course closely. MMODL / IJN: [id number] /
[2021-11-07] MEDS: MORPHINE SULFATE 4 MG/ML SYRINGE IV PRN (23:53)
[2021-11-08] MEDS: MORPHINE SULFATE 4 MG/ML SYRINGE IV PRN ×2 (00:16→00:34)
[2021-11-08 00:46] VITALS: PULSE 88; RESP 24
--- NOTE | 2021-11-09 12:27 | P.DS ---
Providers Date of admission: 10/21/21 00:16 Expected date of discharge: 11/11/21 Attending physician: Tristian Ramos MD Consults: 10/20/21 23:46 Consult Physician Urgent Consulting Provider: Ysabel Rivera Consult Reason/Comments: covid Do you want consulting provider notified?: Yes 11/03/21 20:51 Consult Physician Routine Consulting Provider: Arsalan Crooks Consult Reason/Comments: NOS Afib RVR Do you want consulting provider notified?: Yes 11/06/21 15:13 Consult Physician Routine Consulting Provider: Rudy Ortega Consult Reason/Comments: COVID pneumonia with possibel superimposed bacterial Do you want consulting provider notified?: Yes Primary care physician: Nacho Lyncht - Discharge Diagnosis(es) (1) Pneumonia due to COVID-19 virus Status: Acute Hospital Course: summary 56-year-old male with past medical history of fibromyalgia comes in to emergency room with symptoms of nausea, vomiting, dizziness and sweating feeling weak in with runny nose loss of taste and hence now for the past 1 week. He presented on 10/19 was found to have positive COVID results. Received his monoclonal antibodies. X-ray suggestive of bilateral patchy pneumonia. Both interstitial and airspace infiltrate. Patient placed on Lovenox 40 subcu twice a day, He continues to have dyspnea and was on 15 L high flow nasal cannula and nonrebreather with pulse ox of 87 and 95%. and we started on Zosyn and vancomycin for bacterial pneumonia coverage. He wasfollowed by pulmonary medicine. Patient is not a candidate for Baricitinib. Patient is continued on Decadron, Lovenox and vitamin supplements. Patient was transferred into the intensive care unit on and subsequently intubated and placed on mechanical ventilation, tidal volume 450, FiO2 100, PEEP of 20. Patient was prone and was started on tube feedings . CT angiogram negative for PE, patient is on propofol, fentanyl and index vital HP, at 20 mL an hour . patient went into A. fib RVR on . Patient continued to remain on assist control respiratory rate of 32 tidal 11/16/1950 FiO2 100 was in PEEP of 20. He remains sedated and paralyzed on Nimbex, propofol and fentanyl drip. Cardizem drip and metoprolol was adjusted. Patient on 11/08 on 00: 48 am . Please follow nurse's notes for details and time of diagnosis 1. Acute hypoxic respiratory failure secondary to Covid 19 pneumonia. 2. Acute COVID pneumonia. 3. Acute transaminitis 4. CKD stage 3. 5. History of fibromyalgia. 6. Insomnia. 7. Hypothyroidism. 8. Hypertension. 9.atrial fibrillation with RVR Patient Condition at Discharge: Serious Plan - Discharge Summary Discharge Rx Participant: Yes New Discharge Prescriptions: No Action Gabapentin 800 mg PO TID Citalopram Hydrobromide 40 mg PO DAILY traMADol HCl [Ultram] 100 mg PO Q6HR PRN PRN Reason: Pain Levothyroxine Sodium [Synthroid] 50 mcg PO DAILY Eszopiclone 3 mg PO HS PRN PRN Reason: Insomnia Discharge Medication List Citalopram Hydrobromide 40 mg PO DAILY 10/21/21 [History] Eszopiclone 3 mg PO HS PRN 10/21/21 [History] Gabapentin 800 mg PO TID 10/21/21 [History] Levothyroxine Sodium [Synthroid] 50 mcg PO DAILY 10/21/21 [History] traMADol HCl [Ultram] 100 mg PO Q6HR PRN 10/21/21 [History] Follow up Appointment(s)/Referral(s): Nacho Montoya MD [Primary Care Provider] - 1-2 days Discharge Disposition: - Preliminary Cause of Preliminary Cause of : COVID pneumonia
== END 2021-11-08 04:57 | disposition expired | DRG 207 ==
LOC: EC 23:27 → 1SOBS 10-21 00:16 → 4SSUR 10-21 00:31 → 2SICU 10-28 11:46
PROVIDERS: ADMIT Internal Medicine; ATTEND Internal Medicine
PROC: 5A0955A Assistance with Respiratory Ventilation, Greater than 96 Consecutive Hours, High Flow/Velocity Cannula (ICD-10-PCS; 2021-10-21)
PROC: 5A1955Z Respiratory Ventilation, Greater than 96 Consecutive Hours (ICD-10-PCS; principal; 2021-10-28)
PROC: 0BH17EZ Insertion of Endotracheal Airway into Trachea, Via Natural or Artificial Opening (ICD-10-PCS; 2021-10-28)
PROC: 0D9670Z Drainage of Stomach with Drainage Device, Via Natural or Artificial Opening (ICD-10-PCS; 2021-10-28)
PROC: 3E0G76Z Introduction of Nutritional Substance into Upper GI, Via Natural or Artificial Opening (ICD-10-PCS; 2021-10-28)
PROC: 5A09357 Assistance with Respiratory Ventilation, Less than 24 Consecutive Hours, Continuous Positive Airway Pressure (ICD-10-PCS; 2021-10-28)
PROC: 02HV33Z Insertion of Infusion Device into Superior Vena Cava, Percutaneous Approach (ICD-10-PCS; 2021-10-28)
PROC: 03HY32Z Insertion of Monitoring Device into Upper Artery, Percutaneous Approach (ICD-10-PCS; 2021-10-28)
PROC: 4A133B1 Monitoring of Arterial Pressure, Peripheral, Percutaneous Approach (ICD-10-PCS; 2021-10-28)
PROC: 4A133J1 Monitoring of Arterial Pulse, Peripheral, Percutaneous Approach (ICD-10-PCS; 2021-10-28)
DX: U07.1 COVID-19 (principal); J12.82 Pneumonia due to coronavirus disease 2019; J80 Acute respiratory distress syndrome; J15.9 Unspecified bacterial pneumonia; N17.9 Acute kidney failure, unspecified; J98.2 Interstitial emphysema; N18.30 Chronic kidney disease, stage 3 unspecified; I48.0 Paroxysmal atrial fibrillation; Z66 Do not resuscitate; Z51.5 Encounter for palliative care; I12.9 Hypertensive chronic kidney disease with stage 1 through stage 4 chronic kidney disease, or unspecified chronic kidney disease; F32.A Depression, unspecified; G47.00 Insomnia, unspecified; E03.9 Hypothyroidism, unspecified; R74.01 Elevation of levels of liver transaminase levels; R29.810 Facial weakness; M79.7 Fibromyalgia; K59.00 Constipation, unspecified; E87.5 Hyperkalemia; R73.9 Hyperglycemia, unspecified; T38.0X5A Adverse effect of glucocorticoids and synthetic analogues, initial encounter; E66.9 Obesity, unspecified; Z68.37 Body mass index [BMI] 37.0-37.9, adult; Z79.890 Hormone replacement therapy; Z79.899 Other long term (current) drug therapy; Z77.22 Contact with and (suspected) exposure to environmental tobacco smoke (acute) (chronic); Z96.652 Presence of left artificial knee joint; Z87.39 Personal history of other diseases of the musculoskeletal system and connective tissue; Z86.69 Personal history of other diseases of the nervous system and sense organs; Z98.890 Other specified postprocedural states; Z71.3 Dietary counseling and surveillance; Z82.49 Family history of ischemic heart disease and other diseases of the circulatory system; Z82.5 Family history of asthma and other chronic lower respiratory diseases
CPT/HCPCS: 36415; 36600; 71045; 71275; 80053; 81003; 82565; 82728; 82805; 83036; 83615; 83735; 83880; 84132; 84145; 85025; 85379; 86140; 87040; 87070; 87077; 87186; 87205; 93005; 93970; 94003; 94640; 94660; 94760; 96374; 96376; 99285